=== PATIENT | female | born 1945 | race Caucasian/White ===

== ENCOUNTER 2022-09-25 14:27 | Outpatient (REF) | payer MEDICARE, SELFPAY ==
--- NOTE | 2022-09-28 08:53 | MHC.AU.ANO ---
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 Carissa reports she is asking others to repeat what was said more often and has trouble understanding dialogue on the television, music on the radio, so she increases the volume. In July 2022, Carissa went through 2 procedures for Deep Brain Stimulation and battery insertion . She notes her daughter questions if hearing ability decreased further following these procedures. Carissa has a history of Parkinson's and was seen by an ENT for a scope when undergoing LSVT voice therapy. Hearing was not assessed at that time. As a child, Carissa reports having ear problems which required a procedure using x-ray . She does not know the name of the procedure, but thinks it was performed on the left ear. Does patient feel they have a hearing loss?: Yes If Yes, Which Ear?: Both Ears When Was Hearing Difficulty First Noticed?: Approximately 8 years ago Has hearing been tested previously?: Yes Previous Hearing Test Results: [facility] 01/20/2016 Right ear - Normal hearing level at 250 Hz, sloping to a moderate sensorineural hearing loss with 96% speech understanding at 65 dB HL Left ear - Borderline normal/mild loss at 250 & 500 Hz, sloping to a moderate high frequency sensorineural hearing loss with 92% speech understanding at 70 dB HL Tympanometry revealed normal right middle ear function and significant negative middle ear pressure for the left ear. Hearing Handicap Inventory: HHIE SCORE: 34 Based on HHIE score, patient has: Severe perceived hearing handicap Ear History: Family History of Hearing Loss?: Yes: Sister Ear Infections in Childhood: Both Ears Previous Ear Surgery: Both Ears Bothersome Tinnitus/Ringing/Noises in Ears: Ear used on the phone: Right Ear Blocked/Full Sensation in Ear(s): Left Ear History of occupational noise exposure?: No History: No Medical History: Medical History: High Blood Pressure Medical History: Parkinson's Medication List: Eliquis, Captopril, Colace, Zoloft, Linzess, Metoprolol, Melatonin, Opicapone, Senna, Clonazapam, Carbadopa-Levadopa Otoscopy: Right Ear: Non-occluding cerumen Left Ear: Non-occluding cerumen Tympanometry: Tympanometry performed due to: To assess integrity of the middle ear system Right Ear: Normal Middle Ear System (Type A) Left Ear: Negative Middle Ear Pressure (Type C) with Reduced Middle Ear Compliance (Type As) Otoacoustic Emissions Not performed at today's visit. Hearing Evaluation: Transducer(s) Used: Insert Earphones, Bone Conduction Method: Conventional Audiometry Stimuli Used: Pure Tones Right Ear: Description of Hearing: Normal hearing level at 250 Hz, sloping to a moderate high frequency sensorineural hearing loss with 84% speech understanding at 75 dB HL in quiet Left Ear: Description of Hearing: Moderate/moderately-severe dropping to severe high frequency mixed hearing loss with 72% speech understanding at 85 dB HL in quiet QuickSIN: Binaural Quick SIN Score: 1 dB SNR Loss which falls within the normal range and suggests Carissa does not experience any more difficulty understanding speech with increasing levels of background noise than expected in this controlled test environment. Real world listening situations may be more difficult. Comparison: Compared to the most recent evaluation: Thresholds have decreased bilaterally. Middle ear dysfunction persists in the left ear. Word discrimination scores have decreased bilaterally. Interpretation of Results: Results indicate Carissa's hearing thresholds and speech discrimination has decreased compared to 2016. In particular, the left ear low and high frequencies have decreased up to 30 dB with conductive components now identified. With this significant asymmetric hearing loss, Carissa is not able to hear many sounds of speech which can greatly impact her daily communication. Recommendations: - Due to the asymmetric hearing loss and left middle ear dysfunction, advise referral to Ear, Nose, and Throat (ENT) specialist. - Trial with binaural amplification is recommended. - After obtaining medical clearance from the ENT, if Carissa would like to pursue hearing aids from this office, she may schedule a Hearing Aid Evaluation appointment. It is recommended she contact her insurance to determine if she has hearing aid benefits and which providers she may see. - Audiological re-evaluation in one year. Diagnosis: Primary Diagnosis: H90.6 Mixed Hearing Loss, Bilateral Secondary Diagnosis: H69.92 Unspecified Eustachian Tube Dysfunction, Left Ear Services Performed: Comprehensive Audiological Evaluation (CPT 40137) Tympanometry (CPT 74785) Unlisted Otorhinolaryngological Service or Procedure (CPT 89182) Signature: Provider: Wilbert Polo, [facility] COUNTYJose LuisA
--- NOTE | 2022-09-28 13:08 | MHC.AU.MED ---
Medical Clearance for Hearing Instrumentation Date: 09/26/22 Patient Name: Carissa Conti Date of : 1945 Primary Care Provider: Referring Provider: Justin Xavier MD We have seen your patient on 09/28/22 and have determined that they are a candidate for amplification (See accompanying report). Specifically, they would benefit from: Hearing aid use in both ears There is a statute that addresses Medical Evaluation Requirements prior to fitting a patient with a hearing aid. According to [place] statute 265 CMR:6.03(1), (a) General. Except as provided in 265 CMR 6.03(1)(b), a supervisor shearing shall not sell a hearing aid unless the prospective user has presented to the supervisor shearing a written statement signed by a licensed physician that states that the patient's hearing loss has been medically evaluated and the patient may be considered a candidate for a hearing aid. The medical evaluation must have taken place within the preceding six months. Please note: Due to the [place] Statute referenced above, we cannot accept a signature other than that of a licensed physician. DRILL BIT SHARPENER and PA signatures cannot be accepted. I am in agreement with the above recommendation. There is no medical contraindication for hearing instrumentation. Physician Signature Date Physician Name (Printed)
== END 2022-09-25 14:28 | disposition home or self-care (01) ==
LOC: HO.SH 14:27
PROVIDERS: Visit Provider Family Medicine
DX: H90.6 Mixed conductive and sensorineural hearing loss, bilateral (principal); H69.92 Unspecified Eustachian tube disorder, left ear
CPT/HCPCS: 92557; 92567; 92700

== ENCOUNTER 2024-05-06 21:06 | Inpatient (IN) | payer MEDICARE, SELFPAY ==
--- NOTE | ~2024-05-06 | CT_ITS ---
EXAMINATION: CT HEAD WITHOUT CONTRAST CT CERVICAL SPINE WITHOUT CONTRAST CLINICAL INFORMATION: Fall. COMPARISON: None available. TECHNIQUE: Contiguous axial imaging was performed through the head and cervical spine without intravenous administration of contrast. Sagittal and coronal reformatted images also obtained. This CT examination was performed using dose optimization techniques as appropriate, variously including the following: *Automated exposure control *Adjustment of mA and/or kV according to patient size (this includes techniques or standardized protocols for targeted exams where dose is matched to indication/reason for exam; i.e. extremities or head) *Use of iterative reconstruction technique DLP: 914 mGy-cm FINDINGS: Bilateral deep brain stimulator devices are seen with tips in the region of the inferior basal ganglia. There is mild cerebral volume loss with prominence of the lateral and third ventricles. The cortical sulci are widened appropriately. The fourth ventricle and basal cisterns are normally outlined. There is mild bilateral periventricular and central white matter diminished attenuation. There is no acute territorial defects, hemorrhage or midline shift. The extra-axial spaces are unremarkable. Calvarium/scalp: Intact. Maxillofacial sinuses and mastoids: Clear as visualized. Cervical spine: The alignment is normal. There is diffuse mild to moderate cervical disc degenerative change most pronounced at C6-7 with loss of disc space, endplate change and mild posterior osteophytes associated with mild diffuse facet osteoarthritic hypertrophic change without significant spinal canal or neuroforaminal narrowing. The bony structures are osteopenic. There is no evidence for fracture. The soft tissues are unremarkable. The visualized upper lung luna are clear. CT/CT head/brain wo IV con IMPRESSION: CT HEAD: 1. No acute intracranial process seen. 2. Mild cerebral volume loss and mild chronic small vessel ischemic changes. 3. Bilateral deep brain stimulator devices. CT CERVICAL SPINE: 1. Mild to moderate cervical spondylosis most pronounced at C6-7. 2. No acute fractures or subluxations. Electronically signed by: Carlos Lemus MD 05/06/2024 11:26 PM [facility]
--- NOTE | ~2024-05-06 | CT_ITS ---
EXAMINATION: CT PELVIS WITHOUT CONTRAST CLINICAL INFORMATION: Right hip pain COMPARISON: None available. TECHNIQUE: Helical scanning was performed with submillimeter collimation through the pelvis. Sagittal and coronal multiplanar 2-D reconstructions were obtained. This CT examination was performed using dose optimization techniques as appropriate, variously including the following: *Automated exposure control *Adjustment of mA and/or kV according to patient size (this includes techniques or standardized protocols for targeted exams where dose is matched to indication/reason for exam; i.e. extremities or head) *Use of iterative reconstruction technique DLP: 307 mGy-cm FINDINGS: There is a comminuted intertrochanteric fracture involving the right femur. There is superior subluxation of the distal fracture fragment and various angulation of the distal fragment. A intramedullary thelma and screw is present in the left femur. No other pelvic fracture is seen. There is marked generalized osteopenia. CT/CT pelvis wo IV con IMPRESSION: Comminuted intertrochanteric fracture right femur. Electronically signed by: Justin Lawrence MD 05/06/2024 10:57 PM [facility]
--- NOTE | ~2024-05-06 | XR_ITS ---
EXAMINATION: XR HIP, RIGHT CLINICAL INFORMATION: Injury. Pain and deformity. COMPARISON: None available. TECHNIQUE: Two views of the right hip. FINDINGS: Comminuted cortical disruption through the intertrochanteric region of the right femur resulting in upward position of the distal fragment. Femoral head and neck are intact. Metallic hardware through the left femur with old traumatic deformity intertrochanter region left femur. XR/XR hip RT w PEL1V IMPRESSION: Acute comminuted displaced intertrochanteric fracture, right femur. Electronically signed by: Guillaume Noyola MD 05/07/2024 10:17 AM [facility]
--- NOTE | ~2024-05-06 | XR_ITS ---
EXAMINATION: XR CHEST CLINICAL INFORMATION: Hip fracture. COMPARISON: None available. TECHNIQUE: Frontal view of the chest was obtained. FINDINGS: Neurostimulator device overlies the right hemithorax limiting visualization of the underlying lung. Neurostimulator leads courses upwards to the neck and terminate outside of the field of view. Diffuse interstitial thickening. Possible Ravin B-lines in the lateral left lung. No consolidation, pleural effusion or pneumothorax. Normal heart size. No acute osseous findings. XR/XR chest 1V IMPRESSION: Findings could indicate small airways disease with mild pulmonary edema, correlate clinically. No consolidation or pleural effusion. Electronically signed by: Kelli Queen MD 05/06/2024 11:51 PM [facility]
--- NOTE | ~2024-05-06 | CT_ITS ---
EXAMINATION: CT HEAD WITHOUT CONTRAST CT CERVICAL SPINE WITHOUT CONTRAST CLINICAL INFORMATION: Fall. COMPARISON: None available. TECHNIQUE: Contiguous axial imaging was performed through the head and cervical spine without intravenous administration of contrast. Sagittal and coronal reformatted images also obtained. This CT examination was performed using dose optimization techniques as appropriate, variously including the following: *Automated exposure control *Adjustment of mA and/or kV according to patient size (this includes techniques or standardized protocols for targeted exams where dose is matched to indication/reason for exam; i.e. extremities or head) *Use of iterative reconstruction technique DLP: 914 mGy-cm FINDINGS: Bilateral deep brain stimulator devices are seen with tips in the region of the inferior basal ganglia. There is mild cerebral volume loss with prominence of the lateral and third ventricles. The cortical sulci are widened appropriately. The fourth ventricle and basal cisterns are normally outlined. There is mild bilateral periventricular and central white matter diminished attenuation. There is no acute territorial defects, hemorrhage or midline shift. The extra-axial spaces are unremarkable. Calvarium/scalp: Intact. Maxillofacial sinuses and mastoids: Clear as visualized. Cervical spine: The alignment is normal. There is diffuse mild to moderate cervical disc degenerative change most pronounced at C6-7 with loss of disc space, endplate change and mild posterior osteophytes associated with mild diffuse facet osteoarthritic hypertrophic change without significant spinal canal or neuroforaminal narrowing. The bony structures are osteopenic. There is no evidence for fracture. The soft tissues are unremarkable. The visualized upper lung luna are clear. CT/CT cervical spine wo IV con IMPRESSION: CT HEAD: 1. No acute intracranial process seen. 2. Mild cerebral volume loss and mild chronic small vessel ischemic changes. 3. Bilateral deep brain stimulator devices. CT CERVICAL SPINE: 1. Mild to moderate cervical spondylosis most pronounced at C6-7. 2. No acute fractures or subluxations. Electronically signed by: Carlos Lemus MD 05/06/2024 11:26 PM [facility]
[2024-05-06 21:13] VITALS: BP 168/94; PULSE 72; O2SAT 98
[2024-05-06 21:29] VITALS: BMI 19.6
[2024-05-06 21:30] VITALS: BP 155/86; PULSE 72; RESP 18; TEMP 36.3; O2SAT 94
--- NOTE | 2024-05-06 22:41 | ECG_ITS ---
Test Reason : cp Blood Pressure : / mmHG Vent. Rate : 085 BPM Atrial Rate : 000 BPM P-R Int : 000 ms QRS Dur : 180 ms QT Int : 568 ms P-R-T Axes : 000 -22 -22 degrees QTc Int : 675 ms Wide QRS rhythm Non-specific intra-ventricular conduction block Minimal voltage criteria for LVH, may be normal variant ( Alexi product ) Inferior infarct , age undetermined Abnormal ECG No previous ECGs available Referred By: Tg Ontiveros Electronically Signed By:
--- NOTE | 2024-05-06 22:42 | ED.FALL ---
HPI - Fall General Chief Complaint: Fall Stated Complaint: fall, r hip pain Time Seen by Provider: 05/06/24 21:31 History of Present Illness HPI Narrative: Patient is a 79-year-old female lives in [place] had an unwitnessed fall in the bathroom. Patient was trying to get up not use her walker. Subsequently fell. Hit her right hip. Has a history of atrial fibrillation currently is on Eliquis. Patient unable to give detailed history. Complaining of pain localized to the right hip area. Unsure patient hit her head. Related Data Allergies Allergy/AdvReac Type Severity Reaction Status Date / Time No Known Allergies Allergy Verified 05/06/24 21:31 Review of Systems Review of Systems: Positive pain to the right hip Yes all other systems are reviewed and are negative [facility] Past Medical History Attestation statement: The following information was validated with the patient. Social History Social History Advance Directives: Yes Advance Directives Information Provided: Yes Advance Directives on File: No Do you have a plan to hurt others: No Plan Physical Exam Vital Signs: Vital Signs: Last Vital Signs Temp 97.9 F 05/07/24 00:00 Pulse 81 05/07/24 00:00 Resp 16 05/07/24 00:18 BP 159/96 H 05/07/24 00:00 Pulse Ox 96 05/07/24 00:00 O2 Del Method Room Air 05/07/24 00:00 BMI result Body Mass Index 19.6 Appearance: Alert. Oriented X3. No acute distress. Eyes: Pupils equal, round and reactive to light. ENT: Pharynx normal. Neck: Normal inspection. Neck supple. No lymph nodes noted. No crepitus CVS: Normal heart rate and rhythm. Pulses normal. Normal S1 and S2 Respiratory: No respiratory distress. Breath sounds normal. No Wheezing. No rales Abdomen: Soft and nontender. No rigidity. No distention. good BS x4 Skin: Skin warm and dry. Normal skin color. Normal skin turgor. Extremities: Right lower extremity externally rotated. Shortened. There is good pulses distally. Sensation grossly intact. Extreme pain on movement. Neuro: Oriented X 3. No motor deficit. No sensory deficit. Moving all extermities. No slurred speech Medications Administered Discontinued Medications Generic Name Dose Route Start Last Admin Trade Name Melissa PRN Reason Stop Dose Admin Hydromorphone HCl 0.25 mg 05/06/24 22:41 05/06/24 22:55 Hydromorphone Hcl 0.5 Mg/0.5 Ml Syringe IVPUSH 05/06/24 22:42 0.25 mg ONCE ONE Administration Protocol Hydromorphone HCl 0.25 mg 05/06/24 23:40 05/07/24 00:18 Hydromorphone Hcl 0.5 Mg/0.5 Ml Syringe IVPUSH 05/06/24 23:41 0.25 mg ONCE ONE Administration Protocol Medical Decision Making Medical Decision Making [facility] Narrative: My interpretation of patient's pelvis CT was positive for having inter trochanteric fracture of the right hip. Labs ordered. Pain medication ordered. 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 05/07/24 00:30 05/07/24 00:30 Labs: Lab Results 05/07/24 Range/Units 00:30 WBC 10.5 (4.8-10.8) X10*3/uL RBC 3.89 L (4.20-5.50) X10*6/uL Hgb 12.3 (12.0-16.0) g/dl Hct 36.1 L (37.0-47.0) % MCV 92.8 (80.0-98.0) fL MCH 31.6 (27.0-33.0) pg MCHC 34.1 (31.0-35.0) g/dl RDW 13.1 (11.0-16.0) % Plt Count 272 (160-400) X10*3/uL MPV 8.4 L (9.4-12.3) fL Immature Gran % (Auto) 0.4 (0.0-0.4) % Neut % (Auto) 85.7 H (45-73) % Lymph % (Auto) 6.9 L (20-40) % [place] % (Auto) 6.6 (2-11) % Eos % (Auto) 0.2 (0-4) % Baso % (Auto) 0.2 (0-2) % Lymph # (Auto) 0.7 L (1.2-4.9) X10*3/uL [place] # (Auto) 0.7 (0.1-1.2) X10*3/uL Eos # (Auto) 0.0 (0.0-0.4) X10*3/uL Baso # (Auto) 0.0 (0.0-0.2) X10*3/uL Abs Immat Gran (auto) 0.04 H (0.00-0.03) X10*3/uL Absolute Neuts (auto) 9.0 H (2.0-8.3) x10*3/uL Absolute Nucleated RBC 0.000 (0.0-0.012) X10*3/uL Nucleated RBC % (auto) 0.0 (0.0-0.2) /100WBC Sodium 139 (135-145) mmol/L Potassium 3.9 (3.3-5.1) mmol/L Chloride 105 (96-108) mmol/L Carbon Dioxide 23 (22-29) mmol/L Anion Gap 15 (12-20) BUN 12 (9-16) mg/dL Creatinine 0.56 (0.5-1.4) mg/dL Estim Creat Clear Calc 68.6 Estimated GFR > 60 Random Glucose 116 H (60-115) mg/dL Calcium 9.2 (8.4-10.2) mg/dL Independent Interpretation I performed an independent interpretation of an: CT Scan (CT scan of the hip showed intertrochanteric fracture. CT scan of the head was grossly negative for any acute evidence of bleeding.) Radiology Impression Discussion of test interpretation with radiology: I have reviewed the radiologist's reading. Radiologist Impression: Radiology reading of the CT head, CT C-spine were negative for any acute evidence of bleeding no acute evidence of fracture Discharge Plan Discharge Clinical Impression: Closed hip fracture Patient Disposition: Admitted As Inpatient Print Language: Tongan
[2024-05-06 22:55] VITALS: RESP 16
[2024-05-06] MEDS: HYDROmorphone HCl 0.5 MG/0.5 ML SYRINGE 0.25 MG IVPUSH (22:55)
--- NOTE | 2024-05-06 23:30 | PC.NURSE ---
This publicity writer assumed care of this Pt at 2300. Pt A&Ox3, reports 710 right hip pain. Pt moved into room and changed over to hospital attire. Daughter and grandson at bedside.
[2024-05-07] VITALS (12 sets, daily range): BP systolic 97–193; BP diastolic 60–113; PULSE 72–144; RESP 12–20; TEMP 36–36.6; O2SAT 94–98; BMI 19.6
[2024-05-07] MEDS: HYDROmorphone HCl 0.5 MG/0.5 ML SYRINGE 0.25 MG IVPUSH ×2 (00:18→04:44)
--- OUTSIDE RECORDS SUMMARY | 2024-05-07 00:24 | XMS_ITS | Continuity of Care Document ---
Author Organization [facility] Saul Josef Address [address] [place] [id number]- Care Team Providers Care Arabic Translator Name Role Phone Siva Austin Primary Care Physi miranda [place] [facility] [place] [address] [place] [address]- Encounter Diagnosis Parkinson disease(Discharge Diagnosis) - 11/15/22 Encounter to establish care with new doctor(Discharge Diagnosis) - 11/15/22 Atrial flutter(Discharge Diagnosis) - 11/15/22 Supine hypertension(Discharge Diagnosis) - 11/15/22 Orthostatic hypotension due to Parkinson's disease(Discharge Diagnosis) - 11/15/22 Attending Physician: Pj Garvey MD Referring Physician: Siva Austin Allergies, Adverse Reactions, Alerts Substance Reaction Severity Status Bactrim 1 Active 1Neuropathy in feet. Immunizations Given and Recorded Vaccine Date Status Refusal Reason influenza virus vaccine, inactivated 04/19/22 Jakub rded influenza virus vaccine, inactivated 03/16/21 Jakub rded influenza virus vaccine, inactivated 04/17/20 Jakub rded influenza virus vaccine, inactivated 04/16/19 Jakub rded influenza virus vaccine, inactivated 05/08/18 Jakub rded influenza virus vaccine, inactivated 05/17/16 Jakub rded influenza virus vaccine, inactivated 07/22/15 Jakub rded influenza virus vaccine, inactivated 04/02/14 Jakub rded influenza virus vaccine, inactivated 04/25/13 Jakub rded influenza virus vaccine, inactivated 03/25/12 Jakub rded influenza virus vaccine, inactivated 03/20/11 Jakub rded influenza virus vaccine, inactivated 04/21/10 Jakub rded influenza virus vaccine, inactivated 03/12/09 Jakub rded [id number] 12y+ bivalent booster vax 03/17/22 Recorded SARS-CoV-2 (COVID-19) mRNA-1273 vaccine 12/13/21 R ecorded zoster vaccine, inactivated 10/18/21 Recorded zoster vaccine, inactivated 08/16/21 Recorded SARS-CoV-2 (COVID-19) mRNA BNT-162b2 vac 04/05/21 Recorded SARS-CoV-2 (COVID-19) mRNA BNT-162b2 vac 08/29/20 Recorded SARS-CoV-2 (COVID-19) mRNA BNT-162b2 vac 07/29/20 Recorded tetanus-diphtheria toxoids (Td) 04/14/15 Recorded tetanus-diphtheria toxoids (Td) 03/20/05 Recorded pneumococcal 13-valent vaccine 04/14/15 Recorded pneumococcal 23-valent vaccine 04/25/13 Recorded Zoster Vaccine Live 03/12/09 Recorded Medications apixaban 5 mg oral tablet 1 tablet = 5 mg, By Mouth, 2 times a day, # 60 tablet, 0 Refills, Maintenance, 11/15/22 10:18:00 EDT, Tablet, Partial fill upon patient request if the prescription is for a schedule II opioid drug. Start Date: 11/15/22 Status: Ordered captopril 12.5 mg oral tablet 12.5 mg, 1, tablet, By Mouth, 3 times a day, Refills 0, Maintenance, 11/15/22 10:18:00 EDT, Partialfill upon patient request if the prescription is for a schedule II opioid drug. Start Date: 11/15/22 Status: Ordered carbidopa-levodopa 25 mg-100 mg oral tablet 1 tablet, By Mouth, 3 times a day, 0 Refills, Maintenance, 11/15/22 10:19:00 EDT, Partial fill uponpatient request if the prescription is for a schedule II opioid drug. Start Date: 11/15/22 Status: Ordered clonazePAM 0.5 mg oral tablet 1 tablet = 0.5 mg, By Mouth, 3 times a day, 0 Refills, Maintenance, 11/15/22 10:20:00 EDT, Partial fill upon patient request if the prescription is for a schedule II opioid drug. Start Date: 11/15/22 Status: Ordered docusate sodium 100 mg oral capsule 100 mg, 1, capsule, By Mouth, 2 times a day, PRN, # 20 capsule, Refills 0, Maintenance, for constipation, 11/15/22 10:33:00 EDT, Partial fill upon patient request if the prescription is for a schedule II opioid drug. Start Date: 11/15/22 Status: Ordered estradiol 10 mcg vaginal tablet 1 tablet = 10 mcg, Vaginally, Daily at bedtime, 0 Refills, Maintenance, 11/15/22 10:34:00 EDT, Partial fill upon patient request if the prescription is for a schedule II opioid drug. Start Date: 11/15/22 Status: Ordered Melatonin Daily at bedtime, 0 Refills, Maintenance, 11/15/22 10:35:00 EDT, Partial fill upon patient request if the prescription is for a schedule II opioid drug. Start Date: 11/15/22 Status: Ordered Metoprolol Tartrate 25 mg oral tablet 1 tablet = 25 mg, By Mouth, 2 times a day, # 60 tablet, 0 Refills, Maintenance, 11/15/22 10:35:00 EDT, Tablet, Partial fill upon patient request if the prescription is for a schedule II opioid drug. Start Date: 11/15/22 Status: Ordered Multivitamin Daily, 0 Refills, Maintenance, 11/15/22 10:42:00 EDT, Partial fill upon patient request if the prescription is for a schedule II opioid drug. Start Date: 11/15/22 Status: Ordered Ongentys 50 mg oral capsule 1 capsule = 50 mg, By Mouth, Daily at bedtime, 0 Refills, Maintenance, 11/15/22 10:36:00 EDT, Partial fill upon patient request if the prescription is for a schedule II opioid drug. Start Date: 11/15/22 Status: Ordered PreserVision AREDS 2 oral capsule 0 Refills, Maintenance, 11/15/22 10:37:00 EDT, Partial fill upon patient request if the prescription is for a schedule II opioid drug. Start Date: 11/15/22 Status: Ordered Senna 8.6 mg oral tablet 8.6 mg, 1, tablet, By Mouth, Daily at bedtime, Refills 0, Maintenance, 11/15/22 10:37:00 EDT, Partial fill upon patient request if the prescription is for a schedule II opioid drug. Start Date: 11/15/22 Status: Ordered sertraline 50 mg oral tablet 1 tablet = 50 mg, By Mouth, Daily, 0 Refills, Maintenance, 11/15/22 10:38:00 EDT, Partial fill uponpatient request if the prescription is for a schedule II opioid drug. Start Date: 11/15/22 Status: Ordered Vitamin D3 2000 intl units oral capsule 1 capsule = 50 mcg, By Mouth, Daily, # 60 capsule, 0 Refills, Maintenance, 11/15/22 10:20:00 EDT, Capsule, Partial fill upon patient request if the prescription is for a schedule II opioid drug. Start Date: 11/15/22 Status: Ordered Problem List Condition Confirmation Course Effective Dates Status Health St atus Informant Orthostatic hypotension due to Parkinson's disease Confirmed Active Parkinson disease Confirmed Active Supine hypertension Confirmed Active Diagnosis Diagnosis Type Effective Dates Health Status Clinical Service Informant Parkinson disease Discharge Diagnosis 11/15/22 Encounter to establish care with new doctor Discharge Diagnosis 11/15/22 Atrial flutter Discharge Diagnosis 11/15/22 Supine hypertension Discharge Diagnosis 11/15/22 Orthostatic hypotension due to Parkinson's disease Discharge Diagnosis 11/15/22 Procedures Procedure Date Related Diagnosis Body Site Status Cholecystectomy - 2002 Co mpleted DBS - Deep brain stimulation 1 Completed 1Date of Procedure 07/06/2022 Vital Signs Most recent to oldest [Reference Range]: 1 Height 157.48 cm (11/15/22 9:22 AM) Weight 46.9 kg (11/15/22 9:22 AM) Oxygen Saturation [94-100 %] 97 % (11/15/22 9:22 AM) Pulse Rate [55-90 bpm] 92 bpm *H* (11/15/22 9:22 AM) Body Mass Index [18.5-24.99 kg/m2] 18.91 kg/m2 (11/15/22 9:22 AM) Blood Pressure [90-138/55-84 mm Hg] 102/ 60mm Hg (11/15/22 9:22 AM) Temperature [96.8-100.4 DegF] 97.5 DegF (11/15/22 9:22 AM) Mode of Delivery (Oxygen) Room air (11/15/22 9:22 AM) Blood pressure sites Arm, right (11/15/22 9:22 AM) Temperature Route Temporal (11/15/22 9:22 AM) Weight Obtained Via Standing scale (11/15/22 9:22 AM) Social History Social History Type Response Smoking Status Never (less than 100 in lifetime) entered on: 11/15/22 Sex Note * Xochitl Guajardo: PERFORM, SIGN, VERIFY Event Display: Patient Education/Instruction Authored Date: [id number] [facility] *BMP So Saul Martinez Clinical Summary Name JACQUES ISABEL Age 77 Years 1945 PCP Siva Austin PCP Visit Date 11/15/2022 09:20:00 Additional Instructions: Scheduled Appointments?? Future Appointments ?No Future Appointments Scheduled Follow-Up Instructions ?? With: Address: When: Siva Austin Within 2 to 5 weeks Comments: 40 mins return Diagnosis Parkinson's disease Medications: Please continue your medications until treatment is completed or stopped by your provider. Discuss any questions related to medications with your provider. Medications to Continue with No Changes These medications were not printed or sent to your pharmacy apixaban (apixaban 5 mg oral tablet) 1 tab(s) Oral twice a day. Next Dose: Captopril (captopril 12.5 mg oral tablet) 1 tab(s) Oral 3 times a day. Next Dose: Carbidopa-Levodopa (carbidopa-levodopa 25 mg-100 mg oral tablet) 1 tab(s) Oral 3 times a day. Next Dose: Cholecalciferol (Vitamin D3 2000 intl units oral capsule) 1 capsule Oral Daily. Next Dose: Clonazepam (clonazePAM 0.5 mg oral tablet) 1 tab(s) Oral 3 times a day. Next Dose: Docusate (docusate sodium 100 mg oral capsule) 1 capsule Oral twice a day as needed for constipation. Next Dose: Estradiol Topical (estradiol 10 mcg vaginal tablet) 1 tab(s) Vaginally Daily at Bedtime. Next Dose: Melatonin Daily at Bedtime. Next Dose: Metoprolol (Metoprolol Tartrate 25 mg oral tablet) 1 tab(s) Oral twice a day. Next Dose: Multivitamin Daily. Next Dose: Multivitamin With Minerals (PreserVision AREDS 2 oral capsule) Next Dose: opicapone (Ongentys 50 mg oral capsule) 1 capsule Oral Daily at Bedtime. Next Dose: Senna (Senna 8.6 mg oral tablet) 1 tab(s) Oral Daily at Bedtime. Next Dose: Sertraline (sertraline 50 mg oral tablet) 1 tab(s) Oral Daily. Next Dose: Allergy Info:?? Bactrim Medications Given This Visit Future Orders ?No future orders Vital Signs Height 157.48 cm Weight 46.9 kg BMI 18.91 kg/m2 Blood Pressure 102 mm Hg/60 mm Hg Temperature 97.5 DegF Pulse Rate 92 bpm Respiratory Rate 02 Sat Mode of Delivery 97 %/Room air You can now view a summary of your hospital visit from the comfort of your home through a free online portal called [employer]. [employer] is a website that allows you to securely view your medical information including discharge summary, medications and follow-up visits. ??You can alsosend a secure electronic message to your doctor???s office to request appointments, renew medications or just ask a question. You can enroll at [email or web address] or register during your next office visit. Disclaimer:?? The information provided is of a general nature and is intended to be used in conjunction with the recommendations and advice of your health care practitioner. ??Every effort has been made to ensure that the information provided is accurate and complete at the time it is provided to you however, as your needs change, or, as new ??information becomes available, different or additional instructions may be required. If you have questions, please consult with your primary care provider or pharmacist, as appropriate. ??This information is not intended to serve as substitution for assessment and evaluation by a qualified health care provider. If you do not have a primary care provider, you may find a [facility] provider by calling [facility] at [phone]. For information about the plan of care including goals and instructions for your diagnosis, please see the patient education orders section of this document. Patient Education Materials?? The content of this educational material or handout may have been modified, supplemented, or adapted from its original content and format to support your individualized medical care. Patient Care team information Care Team Personnel Name: Siva Austin Position: [facility] PCO Associate Professional Member Role: PCP Address: Address: [address] [place] [address]- Care Team Related Persons Name: OSCAR CHONG Address: home [address] [place] [address] Name: BURKE CABRERA Address: [address] [place] [address] Name: EMMANUEL HANCOCK Address: home [address] [place] [address]
--- OUTSIDE RECORDS SUMMARY | 2024-05-07 00:24 | XMS_ITS | Continuity of Care Document ---
Author Organization 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 Name Role Phone Siva Austin Primary Care Physi miranda Encounter [facility] Date(s): 01/06/23 - 01/10/[address] [address]- Encounter Diagnosis Intertrochanteric fracture of left hip(Final) - 01/06/23 Discharge Disposition: Transferred to short-term general hospit Attending Physician: Marco Antonio ROGERS, Abebe Cameron Admitting Physician: Na ROGERS, Steffanie Law Referring Physician: Not on Staff, Referring MD Allergies, Adverse Reactions, Alerts Substance Reaction Severity [...] influenza virus vaccine, inactivated 03/12/09 Jakub rded [id number] 12y+ bivalent booster vax 03/17/22 Recorded SARS-CoV-2 [...] Recorded Zoster Vaccine Live 03/12/09 Recorded Medications Acetaminophen Tablet 650 mg, Tablet, By Mouth, 01/10/23 11:00:00 EDT Start Date: 01/10/23 Stop Date: 01/10/23 Status: Completed apixaban 5 mg oral tablet 1 tablet = 5 mg, By Mouth, 2 times a day, # 60 tablet, 0 Refills, Maintenance, 11/15/22 10:18:00 EDT, Tablet, Partial fill upon patient request if the prescription is for a schedule II opioid drug. Start Date: 11/15/22 Status: Ordered captopril 12.5 mg oral tablet 37.5 mg, 3, tablet, By Mouth, Daily at bedtime, Refills 0, Maintenance, 11/15/22 10:18:00 EDT, Partial fill upon patient request if the prescription is for a schedule II opioid drug. Start Date: 11/15/22 Status: Ordered carbidopa-levodopa 25 mg-100 mg oral tablet See Instructions, 2 tabs at 5: 30 am , 1.5 tab at 8 am , 2 tabs at 10:30 am , 1.5 tablet at 1 pm , 2 tablet at 3:30 pm , 2 tablet at 5: 30 and 1-2 tablet6 at night as needed, 0 Refills, Maintenance, 11/15/22 10:19:00 EDT, Partial fill upon patient re... Start Date: 11/15/22 Status: Ordered clonazePAM 0.5 mg oral tablet 1.5 tablets, Daily at bedtime, 0 Refills, Maintenance, 01/10/23 10:10:00 EDT, Tablet, Partial fill upon patient request if the prescription is for a schedule II opioid drug. Start Date: 01/10/23 Status: Ordered docusate sodium 100 mg oral [...] drug. Start Date: 11/15/22 Status: Ordered Melatonin = 10 mg, By Mouth, Daily at bedtime, 0 Refills, Maintenance, 11/15/22 10:35:00 EDT, Partial fill upon patient request if the prescription is for a schedule II opioid drug. Start Date: 11/15/22 Stop Date: 01/24/23 Status: Ordered Metoprolol Tartrate 25 mg oral [...] 50 mg, By Mouth, Daily at bedtime, 1 hour before or after eating, 0 Refills, Maintenance, 11/15/22 10:36:00 EDT, Partial fill upon patient request if the prescription is for a schedule IIopioid drug. Start Date: 11/15/22 Status: Ordered oxyCODONE 5 mg oral tablet 2.5 mg, By Mouth, Every 6 hours, PRN, for 7 days, # 14 tablet, Refills 0, Tot. Refills 0, Acute 01/17/23 12:01:00 EDT, Pain , Mild, 01/10/23 12:01:00 EDT, Print Requisition, Partial fill upon patientrequest if the prescription is for a schedule II op... Start Date: 01/10/23 Stop Date: 01/17/23 Status: Ordered oxyCODONE 5 mg oral tablet 2.5 mg, Tablet, By Mouth, Every 6 hours, PRN for Pain , Mild, Routine, 01/07/23 16:17:00 EDT Start Date: 01/07/23 Stop Date: 01/11/23 Status: Discontinued PreserVision AREDS 2 oral capsule 0 Refills, [...] disease Confirmed Active Supine hypertension Confirmed Active Results Radiology Reports * Exam Date Time Procedure Performing Provider Status 01/07/23 9:31 AM XR Hip Comp 2 Views Left Cyndy Molina; Auth (Verified) Notes: (XR Hip Comp 2 Views Left) Reason For Exam: fx lt hip RESULT: Hip Comp 2 Views Left Hip Comp 2 Views Left Reason: fx lt hip COMPARISON: 01/06/2023. FINDINGS: 8 intraoperative views demonstrate open reduction internal fixation of left intertrochanteric fracture with intact hardware. IMPRESSION: Status post ORIF of left intertrochanteric fracture with intact hardware. WSN: [id number] Ordering Physician: Gray Oreilly Dictated By: Maria Del Carmen Chapman MD Dictated Date/Time: 01/07/23 9:39 am Reviewed By: Maria Del Carmen Chapman MD Signed By: Maria Del Carmen Chapman MD Signed Date/Time: 01/07/23 9:39 am Transcribed By: CODY Transcribed Date/Time: 01/07/23 9:37 am * Exam Date Time Procedure Performing Provider Status 01/06/23 7:[address] Cervical Spine W/O Contrast Ricky Mcgill; Auth (Verified) Notes: (CT Cervical Spine W/O Contrast) Reason For Exam: Neck trauma, dangerous injury mechanism;Other: RESULT: CT Cervical Spine W/O Contrast CT Head/Brain W/O Contrast, CT Cervical Spine W/O Contrast INDICATION: Fall, concern for head trauma. TECHNIQUE: Noncontrast head CT using axial technique was reconstructed in axial and coronal planes.Noncontrast spiral CT through the cervical spine was formatted in 3 planes. Automatic tube modulation was used for the cervical spine and iterative dose reconstruction was used for both the head and cervical spine to optimize scan parameters and image quality. CTDIvol Body: 9.40 mGy, DLP Body: 258 mGy*cm. CTDIvol Head: 39.70 mGy, DLP Head: 672 mGy*cm. COMPARISON: 01/30/2017. FINDINGS: Overlying artifact limits evaluation. [address] Vendor View Findings, Lines and Tubes: Bilateral deep brain stimulators present. BRAIN AND EXTRA-AXIAL SPACES: No parenchymal hemorrhage, midline shift, or mass effect. Calero-white matter differentiation is wellpreserved. No acute infarct. Negative insular ribbon sign. Mild atherosclerotic vascular calcification of the carotid arteries but negative hyperdense vessel sign. Mild prominence of the ventricles and sulci consistent with parenchymal volume loss. Mild low-density white matter changes. No subarachnoid hemorrhage. No subdural or epidural collection. CALVARIUM, SKULL BASE, AND SOFT TISSUES: No fractures or suspicious bony lesions. Bilateral frontal bore holes for deep brain stimulators. The paranasal sinuses and mastoid air cells are clear. Status-post bilateral lens extraction. The extracranial soft tissues are unremarkable. CERVICAL SPINE: No fracture. No acute osseous abnormalities. Normal alignment. No locked or perched facet. Mild multilevel degenerative disc space narrowing andend plate irregularity, most prominent at C6-C7. OTHER BONES: No acute abnormality. CERVICAL SOFT TISSUES AND LUNG APICES: No thyroid nodules warranting further follow-up imaging.. Mild biapical scarring of the lungs, similar to prior. IMPRESSION: Limited evaluation secondary to overlying artifact. 1. Within the limitations, no acute intracranial abnormality. 2. Mild degenerative changes of the cervical spine with no acute fracture or osseous abnormality. I have personally reviewed the images and I agree with this report. WSN: [id number] Ordering Physician: Aby Dickinson Dictated By: Anastacio Rm MD Dictated Date/Time: 01/06/23 7:46 am Reviewed By: Hedy Bolivar MD Signed By: Hedy Bolivar MD Signed Date/Time: 01/06/23 7:51 am Transcribed By: CODY Transcribed Date/Time: 01/06/23 7:28 am * Exam Date Time Procedure Performing Provider Status 01/06/23 7:[address] Head/Brain W/O Contrast Celestine Mcgill ; Anmol (Verified) Notes: (CT Head/Brain W/O Contrast) Reason For Exam: Trauma RESULT: CT Head/Brain W/O Contrast CT Head/Brain W/O Contrast, CT Cervical Spine W/O Contrast INDICATION: Fall, concern for head trauma. TECHNIQUE: Noncontrast head CT using axial technique was reconstructed in axial and coronal planes.Noncontrast spiral CT through the cervical spine was formatted in 3 planes. Automatic tube modulation was used for the cervical spine and iterative dose reconstruction was used for both the head and cervical spine to optimize scan parameters and image quality. CTDIvol Body: 9.40 mGy, DLP Body: 258 mGy*cm. CTDIvol Head: 39.70 mGy, DLP Head: 672 mGy*cm. COMPARISON: 01/30/2017. FINDINGS: Overlying artifact limits evaluation. [address] V[employer] View Findings, Lines and Tubes: Bilateral deep brain stimulators present. BRAIN AND EXTRA-AXIAL SPACES: No parenchymal hemorrhage, midline shift, or mass effect. Calero-white matter differentiation is wellpreserved. No acute infarct. Negative insular ribbon sign. Mild atherosclerotic vascular calcification of the carotid arteries but negative hyperdense vessel sign. Mild prominence of the ventricles and sulci consistent with parenchymal volume loss. Mild low-density white matter changes. No subarachnoid hemorrhage. No subdural or epidural collection. CALVARIUM, SKULL BASE, AND SOFT TISSUES: No fractures or suspicious bony lesions. Bilateral frontal bore holes for deep brain stimulators. The paranasal sinuses and mastoid air cells are clear. Status-post bilateral lens extraction. The extracranial soft tissues are unremarkable. CERVICAL SPINE: No fracture. No acute osseous abnormalities. Normal alignment. No locked or perched facet. Mild multilevel degenerative disc space narrowing andend plate irregularity, most prominent at C6-C7. OTHER BONES: No acute abnormality. CERVICAL SOFT TISSUES AND LUNG APICES: No thyroid nodules warranting further follow-up imaging.. Mild biapical scarring of the lungs, similar to prior. IMPRESSION: Limited evaluation secondary to overlying artifact. 1. Within the limitations, no acute intracranial abnormality. 2. Mild degenerative changes of the cervical spine with no acute fracture or osseous abnormality. I have personally reviewed the images and I agree with this report. WSN: [id number] Ordering Physician: Aby Dickinson Dictated By: Anastacio Rm MD Dictated Date/Time: 01/06/23 7:46 am Reviewed By: Hedy Bolivar MD Signed By: Hedy Bolivar MD Signed Date/Time: 01/06/23 7:51 am Transcribed By: CODY Transcribed Date/Time: 01/06/23 7:28 am * Exam Date Time Procedure Performing Provider Status 01/06/23 12:59 AM Pelvis 1 or 2 Views Hedy Yeager; [facility] (Verified) Notes: (Pelvis 1 or 2 Views) Reason For Exam: With Pain;Trauma RESULT: Pelvis 1 or 2 Views Femur 2 Views Left, Pelvis 1 or 2 Views INDICATION: Hx of Present Illness: Fall, L Leg pain, swelling, deformity; Reason: Trauma; Clinical Question(s): Fracture Fracture COMPARISON: None TECHNIQUE: AP view of the pelvis. AP and lateral projections of the left femur. FINDINGS: There is a comminuted impacted intertrochanteric fracture of the left femur. The left femoral head remains articulated with the acetabulum. No mid or distal femoral fracture. No hip or knee dislocation. No pelvic or pubic bone fracture. Sacrum is obscured by overlapping bowel gas and stool. There is mild joint space narrowing at both hips. IMPRESSION: Impacted comminuted intertrochanteric left femoral fracture. No mid or distal femoral fracture. No hip or knee dislocation. No pelvic or pubic bone fracture. Sacrum poorly seen due to bowel gas and stool. WSN: [id number] Ordering Physician: Aby Dickinson Dictated By: David Lewis MD Dictated Date/Time: 01/06/23 7:10 am Reviewed By: David Lewis MD Signed By: David Lewis MD Signed Date/Time: 01/06/23 7:10 am Transcribed By: CODY Transcribed Date/Time: 01/06/23 7:08 am * Exam Date Time Procedure Performing Provider Status 01/06/23 12:59 AM XR Femur 2 Views Left Hedy Yeager; Auth (Verified) Notes: (XR Femur 2 Views Left) Reason For Exam: Trauma RESULT: Femur 2 Views Left Femur 2 Views Left, Pelvis 1 or 2 Views INDICATION: Hx of Present Illness: Fall, L Leg pain, swelling, deformity; Reason: Trauma; Clinical Question(s): Fracture Fracture COMPARISON: None TECHNIQUE: AP view of the pelvis. AP and lateral projections of the left femur. FINDINGS: There is a comminuted impacted intertrochanteric fracture of the left femur. The left femoral head remains articulated with the acetabulum. No mid or distal femoral fracture. No hip or knee dislocation. No pelvic or pubic bone fracture. Sacrum is obscured by overlapping bowel gas and stool. There is mild joint space narrowing at both hips. IMPRESSION: Impacted comminuted intertrochanteric left femoral fracture. No mid or distal femoral fracture. No hip or knee dislocation. No pelvic or pubic bone fracture. Sacrum poorly seen due to bowel gas and stool. WSN: [id number] Ordering Physician: Aby Dickinson Dictated By: David Lewis MD Dictated Date/Time: 01/06/23 7:10 am Reviewed By: David Lewis MD Signed By: David Lewis MD Signed Date/Time: 01/06/23 7:10 am Transcribed By: CODY Transcribed Date/Time: 01/06/23 7:08 am Vital Signs Most recent to oldest [Reference Range]: 1 2 3 Height 159 cm (01/10/23 6:59 AM) 159 cm (01/10/23 5:32 AM) 159 cm (01/09/23 8:24 PM) Weight 48 kg (01/07/23 7:16 AM) 48 kg (01/06/23 7:28 AM) 48 kg (01/06/23 6:36 AM) Oxygen Saturation [94-100 %] 99 % (01/10/23 6:59 AM) 99 % (01/10/23 5:32 AM) 100 % (01/09/23 8:24 PM) Pulse Rate [55-90 bpm] 86 bpm (01/10/23 6:59 AM) 90 bpm (01/10/23 5:32 AM) 109 bpm *H* (01/09/23 8:24 PM) Body Mass Index [18.5-24.99 kg/m2] 18.99 kg/m2 (01/07/23 7:16 AM) 18.99 kg/m2 (01/06/23 7:28 AM) 18.99 kg/m2 (01/06/23 6:36 AM) Blood Pressure [90-138/55-84 mm Hg] 151/82mm Hg *H* (01/10/23 6:59 AM) 157/87mm Hg *H* (01/10/23 5:32 AM) 102/63mm Hg (01/09/23 8:24 PM) Respiratory Rate [16-30 br/min] 16 br/min (01/10/23 12:15 PM) 16 br/min (01/10/23 10:15 AM) 16 br/min (01/10/23 9:15 AM) Temperature [96.8-100.4 DegF] 97.9 DegF (01/10/23 6:59 AM) 98.3 DegF (01/10/23 5:32 AM) 98.0 DegF (01/09/23 8:24 PM) Liters per Minute 6 L/min (01/07/23 9:45 AM) 6 L/min (01/07/23 9:40 AM) Mode of Delivery (Oxygen) Room air (01/10/23 6:59 AM) Room air (01/10/23 5:32 AM) Room air (01/09/23 8:24 PM) Blood pressure sites Arm, left (01/10/23 6:59 AM) Arm, left (01/10/23 5:32 AM) Arm, right (01/09/23 8:24 PM) Temperature Route Oral (01/10/23 6:59 AM) Oral (01/10/23 5:32 AM) Oral (01/09/23 8:24 PM) Weight Obtained Via Patient/family state d (01/05/23 11:37 PM) Social History Social History Type Response Smoking Status Never (less than 100 in lifetime) entered on: 11/15/22 Sex Admission evaluation note * Herrera Beck: PERFORM Event Display: Admission Note Authored Date: [id number] Patient: ??CARISSA ISABEL ? Age:??77 Years?Sex:??Female?:??1945?? Chief Complaint/Reason for Consultation Left hip pain History of Present Illness 77-year-old female??with a history of Parkinson's disease,??hypertension,??atrial fibrillation on Eliquis??presents with??a fall.?? Patient states she loses her balance??frequently??ever since??her DBS stimulator surgery for Parkinson's 6 months ago.?? 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 She had??a sensation of?? propelling backward and denies??lightheadedness,??or loss of consciousness.?? She fell striking her left??buttock. ??In the emergency department??x-ray revealed Impacted comminuted intertrochanteric left femoral fracture. No mid or distal femoral fracture. No hip or knee dislocation. No pelvic or pubic bone fracture. Sacrum poorly seen due to bowel gas and stool.?EKG was normal sinus rhythm??without acute??ischemic changes.?? Sodium was mildly elevated??131.?? Her last dose of apixaban??was 5 PM and??01/05. denies fever, CP, SOB, abdominal pain, bowel or bladder complaints. Review of Systems CONSTITUTIONAL: ??Denies any fever, chills, changes to weight or fatigue. EYES: Denies any changes to vision, burning or diplopia. HEENT: Denies any JAVIER, nasal d/c, nose bleeds, changes to voice, vertigo, photophobia, hearing changes or dental problems. CV: Denies any CP, orthopnea, PND, edema, palpitations. PULM: Denies any SOB, wheezing, cough or production of phlegm. ABD: Denies any abdominal pain, N/V/D, heartburn, PRBPR, melena, or changes to bowel habits. : Denies any changes to frequency. ??Denies dysuria, urgency, straining, hematuria, incontinence.? MS: Endorses left hip pain NEURO: Denies any weakness, numbness, changes to speech confusion or memory loss. SKIN: Denies any rashes or lesions. ?? PSYCH: Denies any depression or anxiety. SIGECAPS negative. FUNCTIONAL: At baseline the patient is able to??ambulate independently Objective Vital Signs?? Temperature: 97.8 DegF (01/06/23 14:20:00) Temperature Route: Oral (01/06/23 14:20:00) Pulse Rate: 77 bpm (01/06/23 14:20:00) Respiratory Rate: 18 br/min (01/06/23 15:10:00) Systolic Blood Pressure: 126 mm Hg (01/06/23 14:20:00) Diastolic Blood Pressure: 73 mm Hg (01/06/23 14:20:00) Blood pressure sites: Arm, right (01/06/23 14:20:00) Mean Arterial Pressure: 91 mm Hg (01/06/23 14:20:00) Pulse Pressure: 53 mm Hg (01/06/23 14:20:00) Oxygen Saturation: 100 % (01/06/23 14:20:00) Mode of Delivery (Oxygen): Room air (01/06/23 14:20:00) Early Warning Score: 3 (01/06/23 15:13:02) ? Physical Exam General:??77 year old??female??lies in bed comfortably in no acute distress HEENT: NCAT, moist oral mucosa, good dentition, oropharynx without erythema Card: RRR no murmur, non displaced PMI, no JVD, 2+ radial pulse B/L Resp: CTA B/L, no wheezing, rales, ronchi Abdomen: soft and non tender, bowel sounds WNL Extremities: no pitted edema B/L lower extremities Skin: Without rashes or lesions, good turgor Hem/Lymph: without bruising or lymphadenopathy Psych: appropriate affect Neuro: A&OX3, no focal motor deficits Musculoskeletal: Tenderness to palpation of the left hip region.?? Range of motion limited due to pain Assessment/Plan 77-year-old female??with a history of Parkinson's disease,??hypertension,??atrial fibrillation on Eliquis??presents with??a fall.? Intertrochanteric fracture of left hip (S72.142A):?? [place] cardiac risk stratification??0.5%??risk of myocardial infarction or cardiac arrest, intraoperatively or up to 30 days postop.??Risks and benefits??discussed with patient Tylenol for mild pain,??oxycodone??and morphine for severe pain N.p.o. past midnight??for OR ?? Hyponatremia (E87.1):??Sodium 131.??IV fluids. Recheck BMP ?? Atrial fibrillation (I48.91):??Well-controlled??currently.??EKG normal sinus rhythm, no acute ischemic changes.??Denies chest pain, shortness of breath, palpitations.??No further cardiac work-up indicated??prior to surgery ?? Plan Continue??metoprolol Holding apixaban??for surgery, last dose??5 PM 7/7 ?? History of postoperative delirium (Z86.59):??Holding??clonazepam??(patient uses this as needed for sleep) Gently reorient and encourage sleep / wake cycle Avoid sedatives / benzodiazepines / antihistamines / anticholinergics. ?? Hypertension (I10):??Continue??captopril (patient brought home medication) ?? Parkinson's (G20):??Continue carbidopa levodopa Continue??opicapone??(patient brought home medication) ?? VTE Prophylaxis:??Holding??Eliquis/chemoprophylaxis??prior to surgery,??pneumoboots for now ?VTE Prophylaxis Assessment:??VTE Prophylaxis Ordered ?? Code Status:??Full code ?Order Code Status:??Code Status Ordered ?? Ongoing Medical Necessity:??Hip fracture ?? Discharge Planning:??Likely needs rehab ?? Total time spent on chart review,??medication reconciliation, direct patient care, documentation: 76 minutes Histories Allergies Allergies ?(Active and Proposed Allergies Only) Bactrim? (Severity: Unknown severity, Onset: Unknown) ?Comments: Neuropathy in feet. ? Past Medical History/Problem List Active Problems??(3) Orthostatic hypotension due to Parkinson's disease Parkinson disease Supine hypertension ? Past Surgical History DBS - Deep brain stimulation Cholecystectomy - 2002 ? Social History Alcohol Details:??Use: Never. Employment/School Details:??Status: Retired. Exercise Details:??Self assessment: Good condition. ??Exercise type: Yoga, weekly, [employer] 1-2x a week. Home/Environment Details:??Living situation: Home/Independent. ??Lives with: lives with Son. Sexual Details:??Sexually involved in last 6 months: No. Substance Abuse Details:??Use: Never. Tobacco Details:??Use: Never (less than 100 in lifetime). Electronic Cigarette/Vaping Details:??Electronic Cigarette Use: Never. ? Family History Mother: Hypertension; Osteoporosis; Skin cancer Sister: Prostate cancer Brother: Prostate cancer Mat. Grandmother: Mental health history ? Medications Home Medications apixaban (apixaban 5 mg oral tablet)?1?tab(s)?5?Milligram?By Mouth?2 times a day Captopril (captopril 12.5 mg oral tablet)?12.5?Milligram?1?tablet?By Mouth?3 times a day Carbidopa-Levodopa (carbidopa-levodopa 25 mg-100 mg oral tablet)?1?tab(s)?By Mouth?3 times a day Cholecalciferol (Vitamin D3 2000 intl units oral capsule)?1?capsule?50?Microgram?By Mouth?Daily Clonazepam (clonazePAM 0.5 mg oral tablet)?1?tab(s)?0.5?Milligram?By Mouth?3 times a day Docusate (docusate sodium 100 mg oral capsule)?100?Milligram?1?capsule?By Mouth?2times a day?as needed?for constipation Estradiol Topical (estradiol 10 mcg vaginal tablet)?1?tab(s)?10?Microgram?Vaginally?Daily at bedtime Melatonin?Daily at bedtime Metoprolol (Metoprolol Tartrate 25 mg oral tablet)?1?tab(s)?25?Milligram?By Mouth?2 times a day Multivitamin?Daily opicapone (Ongentys 50 mg oral capsule)?1?capsule?50?Milligram?By Mouth?Daily at bedtime Senna (Senna 8.6 mg oral tablet)?8.6?Milligram?1?tab(s)?By Mouth?Daily at bedtime Sertraline (sertraline 50 mg oral tablet)?1?tab(s)?50?Milligram?By Mouth?Daily ? Results Recent Labs BLOOD BANK Blood Type O Positive ()?? 01/06/2023 03:12 Antibody Screen Negative ()?? 01/06/2023 03:12 ?? BLOOD COUNT & DIFF WBC 11.0 k/mm3 ()?? 01/06/2023 03:12 RBC 3.72 m/mm3 (Low)?? 01/06/2023 03:12 Hgb 11.9 Gm/dL ()?? 01/06/2023 03:12 Hct 35.4 % (Low)?? 01/06/2023 03:12 MCV 95.2 femtoliters ()?? 01/06/2023 03:12 MCH 32.0 pg ()?? 01/06/2023 03:12 MCHC 33.6 g/dL ()?? 01/06/2023 03:12 Platelet Count 239 k/mm3 ()?? 01/06/2023 03:12 RDW-SD 44.4 femtoliters ()?? 01/06/2023 03:12 MPV 8.7 femtoliters (Low)?? 01/06/2023 03:12 Nucleated RBC (Automated) 0.0 #/100 WBC'S ()?? 01/06/2023 03:12 Abs. NRBC 0.0 k/mm3 ()?? 01/06/2023 03:12 Abs. Neut 9.6 k/mm3 (High)?? 01/06/2023 03:12 Abs. Lymph 0.5 k/mm3 (Low)?? 01/06/2023 03:12 Abs. [place] 0.9 k/mm3 ()?? 01/06/2023 03:12 Abs. Eo 0.0 k/mm3 ()?? 01/06/2023 03:12 Abs. Baso 0.0 k/mm3 ()?? 01/06/2023 03:12 Neut % 87.2 % (High)?? 01/06/2023 03:12 Lymph % 4.5 % (Low)?? 01/06/2023 03:12 [place] % 7.7 % ()?? 01/06/2023 03:12 Eos % 0.1 % ()?? 01/06/2023 03:12 Baso % 0.1 % ()?? 01/06/2023 03:12 Imm Gran 0.4 % ()?? 01/06/2023 03:12 Abs. Imm Gran 0.0 k/mm3 ()?? 01/06/2023 03:12 ?? CHEM GENERAL Sodium 131 mmol/L (Low)?? 01/06/2023 03:12 Potassium 4.1 mmol/L ()?? 01/06/2023 03:12 Chloride 96 mmol/L (Low)?? 01/06/2023 03:12 Bicarbonate Level 25 mmol/L ()?? 01/06/2023 03:12 Anion Gap 10 ()?? 01/06/2023 03:12 Glucose Level 120 mg/dL (High)?? 01/06/2023 03:12 BUN 9 mg/dL ()?? 01/06/2023 03:12 Creatinine-Blood 0.4 mg/dL (Low)?? 01/06/2023 03:12 Estimated GFR Creatinine 103 ML/MIN/1.73 M2 ()?? 01/06/2023 03:12 Calcium 8.9 mg/dL ()?? 01/06/2023 03:12 Protein, Total 5.9 Gm/dL (Low)?? 01/06/2023 03:12 Albumin 4.4 Gm/dL ()?? 01/06/2023 03:12 AG Ratio 2.9 ()?? 01/06/2023 03:12 Alkaline Phosphatase 132 units/L (High)?? 01/06/2023 03:12 AST (SGOT) 15 units/L ()?? 01/06/2023 03:12 ALT (SGPT) 15 units/L ()?? 01/06/2023 03:12 Bilirubin, Total 0.6 mg/dL ()?? 01/06/2023 03:12 ?? COAG INR 1.1 ()?? 01/06/2023 03:12 Protime (PT) 11.2 seconds ()?? 01/06/2023 03:12 ?? MISC. CHEMISTRY Hold Green Top SPECIMEN DISCARDED AFTER 1 WEEK ()?? 01/06/2023 03:12 ?? VIROLOGY COVID-19 by RT-PCR NEGATIVE ()?? 01/06/2023 03:12 ?RESULT: Femur 2 Views Left Femur 2 Views Left, Pelvis 1 or 2 Views? INDICATION: Hx of Present Illness: Fall, L Leg pain, swelling, deformity; Reason: Trauma; Clinical Question(s): Fracture Fracture ? COMPARISON: None ?? TECHNIQUE: AP view of the pelvis. AP and lateral projections of the left femur. ?? FINDINGS:? There is a comminuted impacted intertrochanteric fracture of the left femur. The left femoral head remains articulated with the acetabulum. No mid or distal femoral fracture. No hip or knee dislocation. No pelvic or pubic bone fracture. Sacrum is obscured by overlapping bowel gas and stool. There is mild joint space narrowing at both hips. ?? IMPRESSION:? Impacted comminuted intertrochanteric left femoral fracture. No mid or distal femoral fracture. No hip or knee dislocation. No pelvic or pubic bone fracture. Sacrum poorly seen due to bowel gas and stool.?? Cardiology * Event Display: Cardiac Rhythm Strips Authored Date: Hospital Progress note * Gloria Blanchard RN: MODIFY, MODIFY, SIGN, VERIFY, PERFORM Event Display: Progress Note Hospital Authored Date: Patient: CARISSA ISABEL Age: 77 years Sex: Female : 1945 Associated Diagnoses: None Author: Gloria Blanchard RN Findings Problem Related to Alteration in Musculoskeletal : Alteration in Musculoskeletal Func/new 01/10/2023 6:00 EDT Alteration in Musculoskeletal Related to Mobility, Orthopedic Procedure, Other: L femur IM rodding pod #3 Goals & Outcomes, Musculoskeletal Affected extremity will maintain color/motion/sensation, Pt will ambulate safely with assistive device, Pt will be free from complications of immobility, Pt willdemonstrate ability to participate in ADL's, Pt will report acceptable level of comfort/pain relief Interventions, Musculoskeletal Monitor patients ambulation status, monitor Color/Motion/Sensation, Assist with repositioning, Encourage deep breathing & coughing exercises, Notify MD immediately if tissue perfusion deteriorates, Obtain assistive devices as needed, Teach Pt/caregiver on exercises, Teach pt/caregiver on use of pain scale, Teach Pt/caregiver on safety precautions, Incision care as ordered BH Goals/Interventions, Musculoskeletal Yes Musculoskeletal, Problem Start 01/06/2023 17:45 Reviewed Plan with, Musculoskeletal Patient, Children Patient Progression, Musculoskeletal Pt progressing according to plan . Nursing Data Vital Signs : VITAL SIGNS SECTION 01/10/2023 6:59 EDT Early Warning Score 2.00 01/10/2023 6:59 EDT Temperature 97.9 DegF Temperature Route Oral Pulse Rate 86 bpm Respiratory Rate 16 br/min Systolic Blood Pressure 151 mm Hg H Diastolic Blood Pressure 82 mm Hg Blood pressure sites Arm, left Mean Arterial Pressure 105 mm Hg Pulse Pressure 69 mm Hg Oxygen Saturation 99 % Mode of Delivery (Oxygen) Room air . Narrative/Incidental POD #3 L femur IM nailing. Patient is alert and oriented x3. Tremors at baseline d/t Parkinsons. Lungs are clear but dim upon auscultation. IS at bedside, patient educated on proper use and encouraged to use 10x/ hour. Denies any SOB, denies any CP. +BSx4, abdomen soft, nontender/ nondistended. Last BM was 01/10. Held off on bowel medications d/t loose, watery diarrhea. Regular diet in place, tolerating well. Denies any N/V. Patient able to get OOB to chair this AM with 2a with walker, WBAT to RLE. Safety reinforcements given while OOB. +PP, +DP flex, +CMS. L hip Aquacel x2 with min. old staining present. Reporting pain 6/10, given scheduled Tylenol and PRN 2.5mg Oxycodone with +relief. Mepilex to L heel, R heel floating while in bed. Resting comfortably in chair at this time, daughter at bedside. Plan for patient to be discharged to [facility] once medically cleared, patient and daughter aware and in agreement. Cboots on bilaterally. Eliquis for DVT prophylaxis. No further concerns at this time, call borges within reach at bedside.... Evaluation P: Alteration in musculoskeletal system I: See interventions listed in care plan above E: POD #3 L femur IM nailing. +PP, +DP flex, +CMS. L hip Aquacel x2 with min. old staining present.Patient able to get OOB to chair this AM with 2a with walker, WBAT to RLE. Safety reinforcements given while OOB. Reporting pain 6/10, given scheduled Tylenol and 2.5mg Oxycodone with +relief. Resting comfortably in chair at this time, daughter at bedside. Plan for patient to be discharged to [facility] today once medically cleared, patient and daughter aware and in agreement. . Discharge Information Rehabilitation Discharge : Rehab Discharge Index 01/08/2023 14:21 EDT Comments on treatment indicated adls funclt mob safety pt edu UE function cognition Full chart review completed Yes Hospital course 77 yo F with PMH including Parkinson's disease presenting after a fall at home, found to have L femur fracture, now s/p L femur IM nailing on 01/[address] Oreilly. 01/08/2023 9:03 EDT Comments on treatment indicated 77 yo F with PMH including Parkinson's disease presenting after a fall at home, found to have L femur fracture, now s/p L femur IM nailing on 01/[address] Oreilly. WBAT L LE. Skilled PT for therex, transfers, amb with RW, bed mob. Rec rehab. Distance pt will ambulate 20 ft with RW Full chart review completed Yes Hospital course Hospital course Other findings see comment Plan of care PT Gait training, Transfer training, Therapeutic exercise, Functional Activities, Balance training, Neuromuscular education * Gege Davis RN: PERFORM, SIGN, VERIFY Event Display: Progress Note Hospital Authored Date: [id number] Patient: CARISSA ISABEL Age: 77 years Sex: Female : 1945 Associated Diagnoses: None Author: Gege Davis RN Findings Problem Related to Alteration in Comfort : Alteration in Comfort/new 01/10/2023 4:00 EDT Alteration in Comfort Related to Injury, Surgery Goals & Outcomes: Comfort Pt will report acceptable level of comfort & pain control, Pt will state importance of adhering to pain strategy regime, Pt will demonstrate necessary skills to manage pain, Non-verbal indicators will indicate comfort/pain control Interventions Implemented: Comfort Assess pain using appropriate pain scale/tools, Assess aggravating factors & prevent them accordingly, Assess alleviating factors & promote them accordingly Goals/Interventions, Comfort Yes Comfort, Problem Start 01/07/2023 2:20 Reviewed plan with, Comfort Patient Patient Progression, Comfort Pt progressing according to plan Comfort, Problem Ongoing Yes . Alteration in Musculoskeletal : Alteration in Musculoskeletal Func/new 01/10/2023 4:00 EDT Alteration in Musculoskeletal Related to Mobility, Orthopedic Procedure, Other: L femur IM rodding pod #2 Goals & Outcomes, Musculoskeletal Affected extremity will maintain color/motion/sensation, Pt will ambulate safely with assistive device, Pt will be free from complications of immobility, Pt willdemonstrate ability to participate in ADL's, Pt will report acceptable level of comfort/pain relief Interventions, Musculoskeletal monitor Color/Motion/Sensation, Encourage deep breathing & coughing exercises, Teach & Encourage use of Incentive spirometer, Teach pt/caregiver on use of pain scale, Teach Pt/caregiver on safety precautions BH Goals/Interventions, Musculoskeletal Yes Musculoskeletal, Problem Start 01/06/2023 17:45 Reviewed Plan with, Musculoskeletal Patient Patient Progression, Musculoskeletal Pt progressing according to plan . Narrative/Incidental Alert and oriented x3, forgetful, with bed alarm for safety. No sob, using incentive spirometer as directed. No nausea or vomiting, had 2 loose BM. Voiding good amount of clear yellow urine using purewick. Skin intact. Repositoned for comfort, on centrea bed.. Evaluation P: Alteration in comfort; Alteration in musculoskeletal I: as listed above E:Post-op day 3 IM nailing of left femur fracture. Left hip and thigh dressings with old staining, with mild edema, +cms. Taking scheduled acetaminophen for pain with relief. On eliquis for DVT prophylaxis, refused compression boots. Resting comfortably at this time. Will continue to assess and monitor pain, CMS to LLE, and safety.. * Lo BREWER, Gloria: VERIFY, PERFORM, SIGN Event Display: Progress Note Hospital Authored Date: [id number] Patient: CARISSA ISABEL Age: 77 years Sex: Female : 1945 Associated Diagnoses: None Author: Gloria Blanchard RN Findings Problem Related to Alteration in Musculoskeletal : Alteration in Musculoskeletal Func/new 01/09/2023 6:00 EDT Alteration in Musculoskeletal Related to Mobility, Orthopedic Procedure, Other: L femur IM rodding pod #2 Goals & Outcomes, Musculoskeletal Affected extremity will maintain color/motion/sensation, Pt will ambulate safely with assistive device, Pt will be free from complications of immobility, Pt willdemonstrate ability to participate in ADL's, Pt will report acceptable level of comfort/pain relief Interventions, Musculoskeletal Monitor patients ambulation status, monitor Color/Motion/Sensation, Assist with repositioning, Encourage deep breathing & coughing exercises, Notify MD immediately if tissue perfusion deteriorates, Obtain assistive devices as needed, Teach & Encourage use of Incentive spirometer, Teach Pt/caregiver on exercises, Teach pt/caregiver on use of pain scale, TeachPt/caregiver on safety precautions Goals/Interventions, Musculoskeletal Yes Musculoskeletal, Problem Start 01/06/2023 17:45 Reviewed Plan with, Musculoskeletal Patient Patient Progression, Musculoskeletal Pt progressing according to plan . Nursing Data Vital Signs : VITAL SIGNS SECTION 01/09/2023 6:52 EDT Early Warning Score 3.00 01/09/2023 6:52 EDT Temperature 97.9 DegF Temperature Route Oral Pulse Rate 81 bpm Respiratory Rate 16 br/min Systolic Blood Pressure 124 mm Hg Diastolic Blood Pressure 80 mm Hg Blood pressure sites Arm, left Mean Arterial Pressure 95 mm Hg Pulse Pressure 44 mm Hg Oxygen Saturation 98 % Mode of Delivery (Oxygen) Room air . Narrative/Incidental POD #2 L femur IM nailing. Patient is alert and oriented x3, wifty at times. Bed/ chair alarm on for safety. Tremors at baseline d/t Parkinsons. Lungs are clear but dim upon auscultation. IS at bedside, patient educated on proper use and encouraged to use 10x/ hour. Denies any SOB, denies any CP. +BSx4, abdomen soft, nontender/ nondistended. Last BM was 01/05. Given all scheduled/ PRN bowel medications. Patient reporting her normal schedule is every 4-5 days, offered suppository pt in agreement to take this afternoon. Regular diet in place, tolerating well. Denies any N/V. Patient able to get OOB to chair this AM with 2a with walker, WBAT to RLE. Safety reinforcements given while OOB. Reporting +lightheaded upon standing- MD Rivero aware and orthos completed as ordered. +PP, +DP flex, +CMS. L hip Aquacel x2 with min. old staining present. Resting comfortably in chair at this time, daughter at bedside. Plan for patient to be discharged to [facility] rehab once medically cleared, patientand daughter aware and in agreement. Cboots on bilaterally. Eliquis for DVT prophylaxis. No further concerns at this time, call borges within reach at bedside... . Evaluation P: Alteration in musculoskeletal system I: See interventions listed in care plan above E: POD #2 L femur IM nailing. +PP, +DP flex, +CMS. L hip Aquacel x2 with min. old staining present.Patient able to get OOB to chair this AM with 2a with walker, WBAT to RLE. Safety reinforcements given while OOB. Reporting +lightheaded upon standing- MD Rivero aware and orthos completed as ordered. Resting comfortably in chair at this time, daughter at bedside. Plan for patient to be discharged to [facility] once medically cleared, patient and daughter aware and in agreement.. . Discharge Information Rehabilitation Discharge : Rehab Discharge Index 01/08/2023 14:21 EDT Comments on treatment indicated adls funclt mob safety pt edu UE function cognition Full chart review completed Yes Hospital course 77 yo F with PMH including Parkinson's disease presenting after a fall at home, found to have L femur fracture, now s/p L femur IM nailing on 01/[address] Oreilly. 01/08/2023 9:03 EDT Comments on treatment indicated 77 yo F with PMH including Parkinson's disease presenting after a fall at home, found to have L femur fracture, now s/p L femur IM nailing on 01/[address] Oreilly. WBAT L LE. Skilled PT for therex, transfers, amb with RW, bed mob. Rec rehab. Distance pt will ambulate 20 ft with RW Full chart review completed Yes Hospital course Hospital course Other findings see comment Plan of care PT Gait training, Transfer training, Therapeutic exercise, Functional Activities, Balance training, Neuromuscular education Consult note * Dannielle LOCKWOOD, Filipe: MODIFY, PERFORM, MODIFY, MODIFY Event Display: Consultation Note Authored Date: [id number] Patient: ??CARISSA ISABEL ? Age:??77 Years?Sex:??Female?:??1945?? Chief Complaint/Reason for Consult Left hip pain History of Present Illness Orthopedic consultation requested??by ??Strokes??in the emergency department. ?? Carissa is a 77-year-old??female??with a past medical history of??Parkinson's??status post deep brain stimulator, orthostatic hypotension and A-fib on Eliquis who presented to [facility] today??after??losing her balance??and??stumbling backwards??striking her left hip??on the counter edge??and slidingto the ground against her cabinets. ??Patient's daughter is at bedside. She stated that??she was??organizing her son's pillbox??when she began to lose her balance??and started??walking backwards and was unable to stop until she hit her counter. ??She stated that??she did not know if she struck her h ip??and was having more pain on the??lateral aspect??of her mid thigh. She denies??any head strike or loss of consciousness at this time. ??Imaging in the ED revealed??a left??femoral neck fracture.?? Orthopedics was consulted for further treatment recommendations.?? Review of Systems Denies fevers, chills or sweats. ??Denies shortness of breath and chest pain. ??Denies other injuries or painful joints. Physical Exam Vitals & Measurements T:??97.8?F?? HR:??80??(Peripheral)?? RR:??16?? BP:??152/83?? SpO2:??97%?? HT:??159??cm?? WT:??48??kg?? BMI:??18.99?? HEENT: Atraumatic normocephalic Cardiac: Per ED provider Pulmonary: Per ED provider Abdomen: Soft, nontender, nondistended. ?? Patient is well-developed and in no acute distress. ??Alert and cooperative with examination. Mood and affect appropriate.??Alert and oriented x4.?Examined on a stretcher in the emergency department. ?? Right upper extremity: Full, supple, nonpainful range of motion of shoulder, elbow, wrist and digits. ??No tenderness to palpation. ??Grossly neurovascularly intact radial, median, ulnar nerve distributions. ?? Left upper extremity: Limited, supple, nonpainful range of motion of shoulder, elbow, wrist and digits d/t contracture of the wrist from her Parkinson's disease.??No tenderness to palpation. Grossly neurovascularly intact radial, median, ulnar nerve distributions. ?? Right lower extremity: Full, supple, non-painful range of motion of the hip, knee, foot and ankle. ??No tenderness to palpation. Calf supple and nontender. ??Active dorsiflexion and plantar flexion strength. ??Grossly neurovascularly intact. ?? Left lower extremity:??Examination reveals external rotation at the hip. ??Shortening is noted as compared to contralateral lower extremity examination. ??Patient is exquisitely tender to palpation about the hip and is unable to tolerate range of motion of same. ??Moderate compressible edema noted about the hip. ??No discomfort about the femur distally. ??No discomfort about the knee, foot or ankle. ??Range of motion of the knee is nonpainful but decreased due aggravation of proximal hip pain and Parkinson's diagnosis. ??Patient has active dorsiflexion and plantar flexion strength.?Weak but palpable DP and PT pulses. ??Grossly intact sensation to light touch. ??Compartments are soft. ??Ca lf supple and nontender. ?? Procedure: Patients LLE was straightened and placed in a more neutral alignment. A Knee immobilizer was then placed. Assessment/Plan Impression: Left 3 part intertrochanteric femur fracture ?? Plan: Patient is admitted to the medical service. Orthopedics will follow. ??Preoperative medical??optimization??is requested. ??Patient will be made n.p.o. now for possible surgery later today ortomorrow. Recommend strict nonweightbearing status on the LLE, elevation, pain control and DVT prophylaxis. Patient is added to the orthopedic trauma surgery OR add on list with plan for surgical fixation once medically optimized and when the OR schedule allows. ??This was discussed with the patient who voiced understanding. ??Questions are asked and answered.? Problem List/Past Medical History Ongoing Orthostatic hypotension Parkinson's disease??s/p??deep brain stimulator A-fib??on Eliquis Procedure/Surgical History DBS - Deep brain stimulation Cholecystectomy - 2003 Tonsillectomy Home Medications apixaban: 5 mg = 1 tablet, By Mouth, 2 times a day Captopril: 12.5 mg = 1 tablet, By Mouth, 3 times a day Carbidopa-Levodopa: 1 tablet, By Mouth, 3 times a day Cholecalciferol: 50 mcg = 1 capsule, By Mouth, Daily Clonazepam: 0.5 mg = 1 tablet, By Mouth, 3 times a day Docusate: 100 mg = 1 capsule, By Mouth, 2 times a day, PRN (for constipation) Estradiol Topical: 10 mcg = 1 tablet, Vaginally, Daily at bedtime Melatonin: Daily at bedtime Metoprolol: 25 mg = 1 tablet, By Mouth, 2 times a day Multivitamin: Daily Multivitamin With Minerals opicapone: 50 mg = 1 capsule, By Mouth, Daily at bedtime Senna: 8.6 mg = 1 tablet, By Mouth, Daily at bedtime Sertraline: 50 mg = 1 tablet, By Mouth, Daily Allergies Bactrim - states??she got neuropathy??in the bottom of her??feet Social History Currently lives??in a condo??with her son -approximately 4 steps??to enter Lives on the first floor??of the condo She is the primary caregiver??for her son who has Down syndrome Denies any alcohol use Denies any tobacco use Denies any illicit drug use Family History History of acute delirium after anesthesia. Denies any history of bleeding dyscrasias or DVTs. Radiology 2 view x-ray of the left femur reviewed by myself shows a comminuted three-part intertrochanteric fracture with external rotation and slight varus angulation. No other acute fractures can be noted. No obvious signs of gas or an open wound can be noted. Lab Results Labs Last 24 Hours BLOOD COUNT & DIFF ? Event Name?? Event Result?? Date/Time?? WBC 11 k/mm3 01/06/23 03:12:00 RBC 3.72 m/mm3??Low 01/06/23 03:12:00 Hgb 11.9 Gm/dL 01/06/23 03:12:00 Hct 35.4 %??Low 01/06/23 03:12:00 MCV 95.2 femtoliters 01/06/23 03:12:00 MCH 32 pg 01/06/23 03:12:00 MCHC 33.6 g/dL 01/06/23 03:12:00 Platelet Count 239 k/mm3 01/06/23 03:12:00 MPV 8.7 femtoliters??Low 01/06/23 03:12:00 Nucleated RBC (Automated) 0 #/100 WBC'S 01/06/23 03:12:00 ? COAG ? Event Name?? Event Result?? Date/Time?? INR 1.1 01/06/23 03:12:00 Protime (PT) 11.2 seconds 01/06/23 03:12:00 ? CHEM GENERAL ? Event Name?? Event Result?? Date/Time?? Sodium 131 mmol/L??Low 01/06/23 03:12:00 Chloride 96 mmol/L??Low 01/06/23 03:12:00 Bicarbonate Level 25 mmol/L 01/06/23 03:12:00 Anion Gap 10 01/06/23 03:12:00 Glucose Level 120 mg/dL??High 01/06/23 03:12:00 BUN 9 mg/dL 01/06/23 03:12:00 Creatinine-Blood 0.4 mg/dL??Low 01/06/23 03:12:00 Alkaline Phosphatase 132 units/L??High 01/06/23 03:12:00 AST (SGOT) 15 units/L 01/06/23 03:12:00 ALT (SGPT) 15 units/L 01/06/23 03:12:00 Bilirubin, Total 0.6 mg/dL 01/06/23 03:12:00 ? * Alexandra Talbert: PERFORM Event Display: Consultation Note Authored Date: [id number] Patient is awaiting medical evaluation.?? Discussed with attending surgeon.?? No operative intervention planned today.?? Diet ordered and made NPO after midnight for possible surgery tomorrow pendingmedical evaluation and risk stratification. Note * Gloria Blanchard RN: PERFORM Event Display: Discharge/Transfer Note Hospital Authored Date: [id number] Nursing Discharge Note Entered On: 01/10/2023 14:28 EDT Performed On: 01/10/2023 14:27 EDT by Gloria Blanchard RN Nursing Discharge Note 2 Patient Instructions Discharge Signed : No Instructions for Discharge Comments : Patient in verbal agreement for discharge to rehab Did Pt have Specialty Bed or Wound Vac : Yes Gloria Blanchard RN - 01/10/2023 14:28 EDT Discharge Time : 01/10/2023 14:30 EDT Discharge Level of Care at Discharge : Short-term Acute Inpatient Discharge Nursing Homes/Rehab Facilities : [facility] Patient Left Unit Via : Ambulance Patient Accompanied Off Unit with : Ambulance/Chair Van Personnel Handover Given to Transport Personnel : Yes DC Instructions Provided & Signed by Pt : No (Comment: Patient in verbal agreement for discharge to rehab [Gloria Blanchard RN - 01/10/2023 14:27 EDT] ) Patient Understands D/C Instructions : Yes Gloria Blanchard RN - 01/10/2023 14:27 EDT * Marco Antonio ROGERS, Abebe D: PERFORM Event Display: Discharge/Transfer Note Hospital Authored Date: [id number] Patient: ??CARISSA ISABEL ? Age:??77 Years?Sex:??Female?:??1945?? Patient Information [facility]charge Location: [facility] Primary Care Physician: Siva Austin Admit Date/Time: 01/06/23 08:20 Discharge Disposition Discharge Disposition: [facility] Facility/Rehab Discharge Diagnosis Atrial fibrillation (I48.91) History of postoperative delirium (Z86.59) Hypertension (I10) Hyponatremia (E87.1) Intertrochanteric fracture of left hip (S72.142A) Parkinsons (G20) ?? _ Discharge Medications apixaban (apixaban 5 mg oral tablet)?1?tab(s)?5?Milligram?By Mouth?2 times a day Captopril (captopril 12.5 mg oral tablet)?37.5?Milligram?3?tablet?By Mouth?Daily at bedtime Carbidopa-Levodopa (carbidopa-levodopa 25 mg-100 mg oral tablet)?See Instructions?2 tabs at 5: 30 am , 1.5 tab at 8 am , 2 tabs at 10:30 am , 1.5 tablet at 1 pm , 2 tablet at 3:30 pm , 2 tabletat 5: 30 ??and 1-2 tablets at night as needed Cholecalciferol (Vitamin D3 2000 intl units oral capsule)?1?capsule?50?Microgram?By Mouth?Daily Clonazepam (clonazePAM 0.5 mg oral tablet)?1.5 tablets?Daily at bedtime Docusate (docusate sodium 100 mg oral capsule)?100?Milligram?1?capsule?By Mouth?2times a day?as needed?for constipation Estradiol Topical (estradiol 10 mcg vaginal tablet)?1?tab(s)?10?Microgram?Vaginally?Daily at bedtime Melatonin?10?Milligram?By Mouth?Daily at bedtime?for 14?Days Metoprolol (Metoprolol Tartrate 25 mg oral tablet)?1?tab(s)?25?Milligram?By Mouth?2 times a day opicapone (Ongentys 50 mg oral capsule)?1?capsule?50?Milligram?By Mouth?Daily at bedtime?1 hour before or after eating Oxycodone (oxyCODONE 5 mg oral tablet)?2.5?Milligram?By Mouth?Every 6 hours?as needed?for 7?Days?Pain , Mild Senna (Senna 8.6 mg oral tablet)?8.6?Milligram?1?tab(s)?By Mouth?Daily at bedtime Sertraline (sertraline 50 mg oral tablet)?1?tab(s)?50?Milligram?By Mouth?Daily ? Medications Started Oxycodone Medications Discontinued none Doses Changed NONE Allergies Allergies ?(Active and Proposed Allergies Only) Bactrim? (Severity: Unknown severity, Onset: Unknown) ?Comments: Neuropathy in feet. ? PCP Follow-Up/Heads-Up #1. ??Patient will need to follow-up with orthopedic surgery outpatient in 4 to 5 weeks of discharge, phone number has been provided for patient to call [facility] #2. ??Patient also with some blood loss anemia??however will likely need iron studies and B12 and folic acid??work-up outpatient. ?? Future Appointments Sunday 11:00 AM EDT ?? Where: [facility] [address] [place] [phone]- Status: Pending Hospital Course ??A/P: 77-year-old female??with a history of Parkinson's disease,??hypertension,??atrial fibrillation on Eliquis??presents with??a fall and found with left femur fracture ?? 1. Intertrochanteric fracture of left hip: POD??3 for Left Intertan. Pain controlled with current meds. She had some post of delirium, however improving. ??PRN oxycodone at discharge ,We will continue Eliquis?which will also cover for??DVT prophylaxis. ??- ??follow up with [facility] in 4-5 weeks, ? - Please remove елена 2 weeks post op, contact [facility] with wound redness, drainage, increased pain, falls, change in alignment for a sooner follow up ? 2.??Hyponatremia:??resolved ?? 3. Paroxysmal??atrial fibrillation: heart rate controlled.?continue??with Apixaban 5 mg BID?? and ??metoprolol ?? 4. Anxiety: continue with??home dose of Clonazepam ?? 5.??Hypertension:??Continue??captopril?? home dose ?? 6. Parkinson's (G20):??Continue carbidopa levodopa , Please see instructions for details about dosing and frequency of schedule . Continue??opicapone??(patient brought home medication) ?? 7.?? Blood Loss Anemia : Hb 7.7?? from 8 relatively stable , Baseline close to 12 . Likely blood loss anemia from Surgery . will need Outpatient anemia workup ?? Did Med rec before discharge and corrected and entered her home meds . Discussed?? about post discharge plan of care for the patient with her daughter?? at bedside Objective Assessment and Plan ? Vital Signs?? Temperature: 97.9 DegF (01/10/23 06:59:00) Temperature Route: Oral (01/10/23 06:59:00) Pulse Rate: 86 bpm (01/10/23 06:59:00) Pulse Rate, Lyin bpm (01/09/23 12:14:00) Systolic Blood Pressure, Lyin mm Hg (01/09/23 12:14:00) Diastolic Blood Pressure, Lyin mm Hg (01/09/23 12:14:00) Pulse Rate, Sittin bpm (01/09/23 12:14:00) Systolic Blood Pressure, Sittin mm Hg (01/09/23 12:14:00) Diastolic Blood Pressure, Sittin mm Hg (01/09/23 12:14:00) Pulse Rate, Standin bpm (01/09/23 12:14:00) Systolic Blood Pressure, Standin mm Hg (01/09/23 12:14:00) Diastolic Blood Pressure, Standin mm Hg (01/09/23 12:14:00) Respiratory Rate: 16 br/min (01/10/23 10:15:00) Systolic Blood Pressure:??151 mm Hg??High (01/10/23 06:59:00) Diastolic Blood Pressure: 82 mm Hg (01/10/23 06:59:00) Blood pressure sites: Arm, left (01/10/23 06:59:00) Mean Arterial Pressure: 105 mm Hg (01/10/23 06:59:00) Pulse Pressure: 69 mm Hg (01/10/23 06:59:00) Oxygen Saturation: 99 % (01/10/23 06:59:00) Mode of Delivery (Oxygen): Room air (01/10/23 06:59:00) Early Warning Score: 2 (01/10/23 11:16:09) ? . Physical Exam General: Is appears comfortable in no distress HEENT: ??mucous mucous membranes appear wet, PERRLA Cardiovascular: S1-S2 heard no murmurs appreciated Respiratory: CTA without any wheezing or crackles anteriorly GI: Abdomen nontender to palpation, no distention, no obvious hepatosplenomegaly Neuro: AOx3 plus date of , able to raise all extremities on commands Psych: Appears calm without any agitation? left hip dressing??without any??issues. ??Mildly tender to palpation, barely able to raise her leftleg about the bed. Surgical Procedures Intramedullary Rodding Femur 01/07/2023 08:39 Consultants Orthopedic surgery Pending Results CBC ordered on 01/08/2023 XR C-Arm > 1 Hour ordered on 01/07/2023 Follow-Up Appointments Added Follow Up ?Time Frame ?Comments Bola LOCKWOOD, Siva Yarbrough?1 to 2 weeks Post Discharge Care Diet: Regular Diet Activity: Ambulate with assistance ??3 times a day ??unless otherwise specified Code Status: ?? Full Resuscitation Discharge ?01/10/23 12:04:00 EDT Home Health Face to Face ^[facility]Health[facility] Results Discharge Labs BLOOD BANK Blood Type O Positive ()?? 01/06/2023 03:12 Antibody Screen Negative ()?? 01/06/2023 03:12 ?? BLOOD COUNT & DIFF WBC 6.0 k/mm3 ()?? 01/10/2023 02:04 RBC 2.43 m/mm3 (Low)?? 01/10/2023 02:04 Hgb 7.7 Gm/dL (Low)?? 01/10/2023 02:04 Hct 23.6 % (Low)?? 01/10/2023 02:04 MCV 97.1 femtoliters ()?? 01/10/2023 02:04 MCH 31.7 pg ()?? 01/10/2023 02:04 MCHC 32.6 g/dL (Low)?? 01/10/2023 02:04 Platelet Count 209 k/mm3 ()?? 01/10/2023 02:04 RDW-SD 45.4 femtoliters ()?? 01/10/2023 02:04 MPV 8.9 femtoliters (Low)?? 01/10/2023 02:04 Nucleated RBC (Automated) 0.0 #/100 WBC'S ()?? 01/10/2023 02:04 Abs. NRBC 0.0 k/mm3 ()?? 01/10/2023 02:04 Abs. Neut 7.3 k/mm3 (High)?? 01/08/2023 02:08 Abs. Lymph 0.6 k/mm3 (Low)?? 01/08/2023 02:08 Abs. [place] 1.0 k/mm3 (High)?? 01/08/2023 02:08 Abs. Eo 0.0 k/mm3 ()?? 01/08/2023 02:08 Abs. Baso 0.0 k/mm3 ()?? 01/08/2023 02:08 Neut % 81.6 % (High)?? 01/08/2023 02:08 Lymph % 6.8 % (Low)?? 01/08/2023 02:08 [place] % 10.9 % (High)?? 01/08/2023 02:08 Eos % 0.1 % ()?? 01/08/2023 02:08 Baso % 0.2 % ()?? 01/08/2023 02:08 Imm Gran 0.4 % ()?? 01/08/2023 02:08 Abs. Imm Gran 0.0 k/mm3 ()?? 01/08/2023 02:08 ?? CHEM GENERAL Sodium 136 mmol/L ()?? 01/10/2023 02:04 Potassium 4.3 mmol/L ()?? 01/10/2023 02:04 Chloride 102 mmol/L ()?? 01/10/2023 02:04 Bicarbonate Level 27 mmol/L ()?? 01/10/2023 02:04 Anion Gap 7 ()?? 01/10/2023 02:04 Glucose Level 120 mg/dL (High)?? 01/06/2023 03:12 BUN 10 mg/dL ()?? 01/10/2023 02:04 Creatinine-Blood 0.4 mg/dL (Low)?? 01/10/2023 02:04 Estimated GFR Creatinine 104 ML/MIN/1.73 M2 ()?? 01/10/2023 02:04 Calcium 8.9 mg/dL ()?? 01/06/2023 03:12 Protein, Total 5.9 Gm/dL (Low)?? 01/06/2023 03:12 Albumin 4.4 Gm/dL ()?? 01/06/2023 03:12 AG Ratio 2.9 ()?? 01/06/2023 03:12 Alkaline Phosphatase 132 units/L (High)?? 01/06/2023 03:12 AST (SGOT) 15 units/L ()?? 01/06/2023 03:12 ALT (SGPT) 15 units/L ()?? 01/06/2023 03:12 Bilirubin, Total 0.6 mg/dL ()?? 01/06/2023 03:12 ? COAG INR 1.1 ()?? 01/06/2023 03:12 Protime (PT) 11.2 seconds ()?? 01/06/2023 03:12 ?? MISC. CHEMISTRY Hold Green Top SPECIMEN DISCARDED AFTER 1 WEEK ()?? 01/06/2023 03:12 ? VIROLOGY COVID-19 by RT-PCR NEGATIVE ()?? 01/06/2023 03:12 ? Procedures(s) ?Implant Record ?? 01/08/2023 00:00??by [facility] , Information Systems Supervisor ?Operative Note ?? 01/07/2023 09:34??by Gray Oreilly MD ?ATTENDING PHYSICIAN: Gray Oreilly ??DATE OF PROCEDURE: January 07, 2023 ??PREOP DIAGNOSIS: Left intertrochanteric hip fracture ??POST OP DIAGNOSIS: Same ??PROCEDURE PERFORMED: Left hip intramedullary nail ??SURGEON: Denilson ??ANESTHESIA: General ??ESTIMATED BLOOD LOSS: 50 cc ??COMPLICATIONS: None ??IMPLANTS: [employer] Intertan Nail 11.5 mm x 18 cm, 125 degree, 95/90 lag/compression screw, 5 mm x 32.5 mm distal interlocking screw ? Imaging(s) ?CT Head/Brain W/O Contrast ?? 01/06/2023 07:12??by Hedy Bolivar MD ?IMPRESSION: Limited evaluation secondary to overlying artifact. ?? 1. Within the limitations, no acute intracranial abnormality. 2. Mild degenerative changes of the cervical spine with no acute fracture or osseous abnormality. ?CT Cervical Spine W/O Contrast ?? 01/06/2023 07:12??by Hedy Bolivar MD ?IMPRESSION: Limited evaluation secondary to overlying artifact. ?? 1. Within the limitations, no acute intracranial abnormality. 2. Mild degenerative changes of the cervical spine with no acute fracture or osseous abnormality. ?Pelvis 1 or 2 Views ?? 01/06/2023 00:59??by Dvaid Lewis MD ?IMPRESSION: ?? Impacted comminuted intertrochanteric left femoral fracture. No mid or distal femoral fracture. No hip or knee dislocation. No pelvic or pubic bone fracture. Sacrum poorly seen due to bowel gas and stool. ?XR Femur 2 Views Left ?? 01/06/2023 00:59??by David Lewis MD ?IMPRESSION: ?? Impacted comminuted intertrochanteric left femoral fracture. No mid or distal femoral fracture. No hip or knee dislocation. No pelvic or pubic bone fracture. Sacrum poorly seen due to bowel gas and stool. ? 32 minutes spent on discharge * Kacie Shah RN: PERFORM, SIGN, VERIFY Event Display: Case Management Discharge Plan Authored Date: Patient: CARISSA ISABEL Age: 77 years Sex: Female : 1945 Associated Diagnoses: None Author: Kacie Shah RN Discharge Plan Case Management Discharge Plan : Case Management Discharge Plan Data 01/10/2023 10:44 EDT Discharge Level of Care at Discharge Short-term Acute Inpatient Discharge Nursing Homes/Rehab Facilities [facility] Discharge Transportation Arranged [facility] [address] [facility] [id number] [phone] Discharge Arranged Transport Date/Time 01/10/2023 13:00 Mode of Transportation Arranged Ambulance Name of Agency #1 [facility] Financial Reporting Accountant #1 Intake Service Categories #1 Occupational Therapy, Physical Therapy, [facility] Service Comments #1 [facility] will provide your care after discharge, if any questionsw or concerns please contact the agency directly. * Gloria Blanchard RN: PERFORM Event Display: Patient Education/Instruction Authored Date: [id number] Inpatient Adult Discharge Instructions [address] [address] Name: CARISSA ISABEL : 1945 Visit: 01/06/2023 08:20:00 Current Date: 01/10/2023 12:14 Account: [id number] Inpatient Adult Discharge Instructions We would like to thank you for allowing us to assist you with your healthcare needs. The following includes patient education materials and information regarding your injury/illness. Our entire staffstrives to provide an excellent experience for our patients and their families. PLEASE ENSURE YOU FOLLOW-UP PER THE INSTRUCTIONS BELOW! ?? YOUR OPINION IS IMPORTANT TO US! Please complete the survey you may receive by mail or email. Your feedback will be used to make improvements to the healthcare experiences of our patients and their families. Surveys are administered by [employer] ?? If further treatment with your primary care physician or another doctor is recommended, it is important for you to keep the appointment. Call your primary care physician or return to the Emergency Department immediately if your condition worsens, fails to improve, or new symptoms develop. If you need to find a doctor, you can call [facility] for a referral at [phone] or toll free at [phone] or log in to [email or web address].. ?? You can view and manage your care through the patient portal or by using a health care adams of your choosing. [employer] is a website that allows you to securely view your medical information including your hospital discharge summary, office visit summaries, medications and follow-up visits. You can also request appointments, renew medications, and request access to your medical information using a health care adams of your choosing, or just ask a question. You can enroll at [email or web address] or register during your next office visit. You have been discharged from [facility], Patient Care Unit: SW7. If you have any questions regarding these instructions after you leave, please call us and we will be happy to assist you. [facility] Your Care Team Attending Physician Marco Antonio ROGERS, Abebe Cameron Consulting Providers Gray Oreilly MD Discharging Providers Marco Antonio ROGERS, Abebe Cameron Reason for Admission Sustained fall from standing, reports L thigh pain, no obvious deformity or shortening or rotation.Denies headstrike or LOC. VSS. Your Diagnosis Intertrochanteric fracture of left hip Atrial fibrillation Hypertension Parkinsons History of postoperative delirium Hyponatremia Tests Performed Below is a partial list of the tests performed during your hospitalization. You may have had other tests and procedures not included in this list. Please discuss all test results with your provider. BUN CBC CBC w/ Differential Comprehensive Metabolic Panel COVID-19 (Novel Coronavirus), Rapid PCR Creatinine Electrolytes HOLD GREEN TUBE INR Lytes Type and Screen CT Cervical Spine W/O Contrast CT Head/Brain W/O Contrast XR C-Arm > 1 Hour?-- Results Pending -- XR Femur 2 Views Left XR Hip Comp 2 Views Left XR Pelvis 1 or 2 Views You will be contacted within 72 hours with your results. Primary Care Provider iSva Austin Advance Directive Health Care Proxy on File Yes - Health Care Proxy Yes - [facility] Discharge Vitals Temperature: 97.9 DegF Height: 159 cm Pulse Rate: 86 bpm Weight: 48 kg Respiratory Rate: 16 br/min Body Mass Index: 18.99 kg/m2 Systolic Blood Pressure:??151 mm Hg??High Body surface area: 1.46 Diastolic Blood Pressure: 82 mm Hg ?? Oxygen Saturation: 99 % ?? Studies Pending All tests and labs ordered during this hospital stay have been completed unless listed below. Please discuss all pending results with your provider listed above in these instructions. ?? CBC C-Arm > 1 Hour What to do next Instructions From Your Doctor Discharge Orders Diet:??Regular Diet Activity:??Ambulate with assistance 3 times a day unless otherwise specified Code Status:?? Full Resuscitation Scheduled Follow-Up Appointments Sunday 11:00 AM EDT ?? Where: [facility] [address] [place] [address]- Status: Pending You Need to Schedule the Following Appointments Follow Up with??[facility] orthopedic surgeons When:??Within 4 to 5 weeks Why: Please call [facility] orthopedic surgeons?? at [phone] to schedule an appointment with one of the??surgeons??given severe osteoarthritis Where: [address] [place] [phone] Follow Up with??Siva Austin When:??Within 1 to 2 weeks Where: ?? Discharge Medications CARISSA ISABEL :1945 Visit Date:01/06/2023 Medications: Please continue your medications until treatment is completed or stopped by your provider. Medications not listed below should be discontinued. Discuss any questions related to medications with your provider. What How Much When Why Instructions Next Dose New Oxycodone (oxyCODONE 5 mg oral tablet) 2.5 Milligram Oral Every 6 hours as needed for Pain , Mild Intertrochanteric fracture of left hip Duration: 7 Days Printed Prescription As needed for pain relief Last dose: 01/10 @ 9:15am Changed Captopril (captopril 12.5 mg oral tablet) 3 tab(s) Oral Daily at Bedtime 01/10 @ 9pm Changed Carbidopa-Levodopa (carbidopa-levodopa 25 mg-100 mg oral tablet) See instructions 2 tabs at 5: 30 am , 1.5 tab at 8 am , 2 tabs at 10:30 am , 1.5 tablet at 1 pm , 2 tablet at 3:30 pm , 2 tablet at 5: 30 ??and 1-2 tablet6 at night as needed ?? Next dose: 01/10 @ 3:30pm Changed Clonazepam (clonazePAM 0.5 mg oral tablet) 1.5 tablets Daily at Bedtime 01/10 @ 9pm Changed Melatonin 10 Milligram Oral Daily at Bedtime Duration: 14 Days 01/10 @ 9pm Changed opicapone (Ongentys 50 mg oral capsule) 1 capsule Oral Daily at Bedtime 1 hour before or after eating ?? 01/10 @ 9pm Unchanged apixaban (apixaban 5 mg oral tablet) 1 tab(s) Oral Twice a day 01/10 @ 9pm Unchanged Cholecalciferol (Vitamin D3 2000 intl units oral capsule) 1 capsule Oral Daily 01/11 @ 9am Unchanged Docusate (docusate sodium 100 mg oral capsule) 1 capsule Oral Twice a day as needed for for constipation 01/10 @ 9pm Unchanged Estradiol Topical (estradiol 10 mcg vaginal tablet) 1 tab(s) Vaginally Daily at Bedtime 01/10 @ 9pm Unchanged Metoprolol (Metoprolol Tartrate 25 mg oral tablet) 1 tab(s) Oral Twice a day 01/10 @ 9pm Unchanged Multivitamin With Minerals (PreserVision AREDS 2 oral capsule) 01/11 @ 9am Unchanged Senna (Senna 8.6 mg oral tablet) 1 tab(s) Oral Daily at Bedtime 01/10 @ 9pm / As needed for constipation Unchanged Sertraline (sertraline 50 mg oral tablet) 1 tab(s) Oral Daily 01/11 @ 1pm ?? What When Comments Stop Taking Multivitamin Daily NO LONGER TAKE Test Results Below is a partial list of the most recent Laboratory test results done prior to this discharge. You may have had other tests and procedures not included in this list. Please discuss all test resultswith your provider. BUN (01/10/2023) ???BUN - 10 mg/dL CBC (01/10/2023) ???WBC - 6.0 k/mm3???RBC - 2.43 m/mm3???Hgb - 7.7 Gm/dL???Hct - 23.6 %???MCV - 97.1 femtoliters???MCH - 31.7 pg???MCHC - 32.6 g/dL???Platelet Count - 209 k/mm3???RDW-SD - 45.4 femtoliters???MPV - 8.9femtoliters???Nucleated RBC (Automated) - 0.0 #/100 WBC'S???Abs. NRBC - 0.0 k/mm3 CBC w/ Differential (01/08/2023) ???WBC - 8.9 k/mm3???RBC - 2.77 m/mm3???Hgb - 8.8 Gm/dL???Hct - 26.5 %???MCV - 95.7 femtoliters???MCH - 31.8 pg???MCHC - 33.2 g/dL???Platelet Count - 181 k/mm3???RDW-SD - 44.9 femtoliters???MPV - 9.1femtoliters???Nucleated RBC (Automated) - 0.0 #/100 WBC'S???Abs. NRBC - 0.0 k/mm3???Abs. Neut - 7.3 k/mm3???Abs. Lymph - 0.6 k/mm3???Abs. [place] - 1.0 k/mm3???Abs. Eo - 0.0 k/mm3???Abs. Baso - 0.0 k/mm3???Neut % - 81.6 %???Lymph % - 6.8 %???[place] % - 10.9 %???Eos % - 0.1 %???Baso % - 0.2 %???Imm Gran - 0.4 %???Abs. Imm Gran - 0.0 k/mm3 Comprehensive Metabolic Panel (01/06/2023) ???Sodium - 131 mmol/L???Potassium - 4.1 mmol/L???Chloride - 96 mmol/L???Bicarbonate Level - 25 mmol/L???Anion Gap - 10???Glucose Level - 120 mg/dL???BUN - 9 mg/dL???Creatinine-Blood - 0.4 mg/dL???Estimated GFR Creatinine - 103 ML/MIN/1.73 M2???Calcium - 8.9 mg/dL???Protein, Total - 5.9 Gm/dL???[place] min - 4.4 Gm/dL???AG Ratio - 2.9???Alkaline Phosphatase - 132 units/L???AST (SGOT) - 15 units/L???ALT (SGPT) - 15 units/L???Bilirubin, Total - 0.6 mg/dL COVID-19 (Novel Coronavirus), Rapid PCR (01/06/2023) ???COVID-19 by RT-PCR - NEGATIVE Creatinine (01/10/2023) ???Creatinine-Blood - 0.4 mg/dL???Estimated GFR Creatinine - 104 ML/MIN/1.73 M2 Electrolytes (01/08/2023) ???Sodium - 133 mmol/L???Potassium - 4.2 mmol/L???Chloride - 99 mmol/L???Bicarbonate Level - 25 mmol/L???Anion Gap - 9 HOLD GREEN TUBE (01/06/2023) ???Hold Green Top - SPECIMEN DISCARDED AFTER 1 WEEK INR (01/06/2023) ???INR - 1.1???Protime (PT) - 11.2 seconds Lytes (01/10/2023) ???Sodium - 136 mmol/L???Potassium - 4.3 mmol/L???Chloride - 102 mmol/L???Bicarbonate Level - 27 mmol/L???Anion Gap - 7 Type and Screen (01/06/2023) ???Blood Type - O Positive???Antibody Screen - Negative Allergies (NKA means No Known Allergies) Bactrim Problems Active Problems??(3) Orthostatic hypotension due to Parkinson's disease?? Parkinson disease?? Supine hypertension?? Education Materials Below is the list of Educational Leaflet Providered with your Discharge Instructions. Valuables and Belongings I fully understand and agree that [facility] accepts no responsibility for all my personal property including clothing, toilet articles, radios, jewelry, dentures, hearing aids, rings, money, or any other property that is in my possession or is brought to me after admission. I understand certain valuables may be placed in a hospital safe for a short period of time. I understand that the hospital is not liable for loss or damage due to accident, fire, or other natural occurrence while said property is in the safe. I accept full responsibility for any personal property that I keep with me, and will not hold the hospital responsible in case of loss or disappearance. I acknowledge that i have been encouraged to send valuables and belongings home. ?? Review of Valuable and Belonging List: With patient, With witness Date for Pt to Sign Valuables/Belongings: 01/07/23 07:17:00 ?? Valuables & Belongings ?? Clothes Electronic devices Jewelry Monetary Items Personal devices Miscellaneous Medications (Valuables) Valuables at Bedside Jacket, Shirt, Shoes, Undergarments Cell phone ? Tablets Valuables Sent Home ? Valuables Sent to Security ? Other Discharge Information ? Case Management Discharge Plan?? Discharge Plan?? Discharge Agency Information?? Discharge Level of Care at Discharge: Short-term Acute Inpatient Name of Agency #1: [facility] Discharge Transportation Arranged: [facility] [address] [facility] [phone] Agency Financial Reporting Accountant #1: Intake Mode of Transportation Arranged: Ambulance Service Categories #1: Occupational Therapy, Physical Therapy, [facility] Discharge Arranged Transport Date/Time: 01/10/23 13:00:00 Service Comments #1: [facility] will provide your care after discharge, if any questionsw or concerns please contact the agency directly. Discharge Nursing Homes/Rehab Facilities: [facility] ? Pulmonary Rehab Status?? Pulmonary Rehab Discharge Status?? Respiratory Rate: 16 br/min ? Common Emergency Awareness Tips IS IT A STROKE? Act FAST and Check for these signs: FACE Does the face look uneven? ARM Does one arm drift down? SPEECH Does their speech sound strange? TIME Call at any sign of stroke ?? Heart Attack Signs Chest discomfort: Most heart attacks involve discomfort in the center of the chest and lasts more than a few minutes, or goes away and comes back. It can feel like uncomfortable pressure, squeezing, fullness or pain. Discomfort in upper body: Symptoms can include pain or discomfort in one or both arms, back, neck, jaw or stomach. Shortness of breath: With or without discomfort. Other signs: Breaking out in a cold sweat, nausea, or lightheaded. Remember, MINUTES DO MATTER. If you experience any of these heart attack warning signs, call to get immediate medical attention! ?? Smoking can increase your chances of developing chronic health problems and can cause harmful effects to other family members in your house. If you smoke, you are strongly encouraged to quit. Please call [facility] Link at [phone] or [phone] ([phone]) or log in to [email or web address] for referrals to smoking cessation programs. ?? 788 Suicide & Crisis Lifeline is available 22/01 if you or someone you know needs to find a reason to keep living. By calling 536 you'll be connected to a skilled, trained counselor at a crisis center in your area. INPATIENT DISCHARGE INSTRUCTIONS SIGNATURE PAGE CARISSA ISABEL Location:[facility] Registration Date and Time:01/06/2023 08:20 EDT Primary Care Physician: Siva Austin, Attending Physician: Marco Antonio ROGERS, Abebe Cameron, I CARISSA ISABEL, have received the above patient education materials/instructions and have verbalized understanding. If ambulance or transport services are being used I further acknowledge being givena choice of service. ?? If you need to contact me, please call me at this number: . Patient/Medical Customer Service Representative Name: Patient/Medical Customer Service Representative Signature: Relationship to Patient: Witness Name/Signature: Date: Patient Care team information Care Team Personnel Name: Gege Davis RN Position: [facility] RN Member Role: Primary Care Nurse Name: Gloria Blanchard RN Position: [facility] RN Member Role: Primary Care Nurse Name: Siva Austin Position: [facility] PCO Associate Professional Member Role: PCP Address: Address: [address] [place] [id number] Name: *LUZ MARIA, ED Attending Position: [facility] ED Attendings Patient Name: *LUZ MARIA Inpt Attending Position: [facility] ED Medicine MD Name: Haydee Castellanos Position: [facility] ED TA [facility] Member Role: Gamb Cutter Name: Shelly Willis Position: [facility] ED OA Charge Name: Jana Dow RN Position: [facility] ED RN W/OE and Tasks Member Role: Patient Care Provider Care Team Related Persons Name: OSCAR CHONG Address: [address] [place] [address] Name: BURKE CABRERA Address: [address] [place] [address] Name: EMMANUEL HANCOCK Address: [address] [place] [address]
--- OUTSIDE RECORDS SUMMARY | 2024-05-07 00:24 | XMS_ITS | Continuity of Care Document ---
Author Organization [facility] Naren Hughes Josef lt Address [address] [place] [phone]- Care Team Providers Care Floor Steward/Stewardess Name Role Phone Joe Bernstein DO Primary Care Physician [facility]counter [facility] Date(s): 03/31/24 - 04/30/24 [facility] Naren Hughes Adult [address] [place] [address]- Allergies, Adverse Reactions, Alerts Substance Reaction Severity Status Bactrim 1 Active 1Neuropathy in feet. Immunizations Given and Recorded Vaccine Date Status Refusal Reason pneumococcal 20-valent conjugate vaccine 1 07/24/23 Given SARS-CoV-2(COVID-19)mRNA-LNP vac(dtw710) 04/05/23 Recorded influenza virus vaccine, inactivated 03/16/23 Jakub rded influenza virus vaccine, inactivated 04/19/22 Jakub rded [...] influenza virus vaccine, inactivated 03/12/09 Jakub rded [id number] 12y+ bivalent booster vax 03/17/22 Recorded SARS-CoV-2 [...] 04/25/13 Recorded Zoster Vaccine Live 03/12/09 Recorded 1Result Comment: PCV 20 [facility]#[id number] Medications carbidopa-levodopa 25 mg-100 mg oral tablet See [...] opioid drug. Start Date: 01/10/23 Status: Ordered cyanocobalamin (B-12) (OP) 0 Refills, Maintenance, 2 Start Date: 03/27/23 Status: Ordered docusate sodium 100 mg oral capsule 100 mg, 1, capsule, By Mouth, 2 times a day, PRN, # 20 capsule, Refills 0, Maintenance, for constipation, 11/15/22 10:33:00 EDT, Partial fill upon patient request if the prescription is for a schedule II opioid drug. Start Date: 11/15/22 Status: Ordered Eliquis 5 mg oral tablet 1 tablet, By Mouth, 2 times a day, # 180 tablet, 1 Refills, Maintenance, 01/29/24 10:24:00 EDT, [facility] # [facility], 158, cm, 10/01/23 14:58:00 EDT, Height, 59.7, kg, 05/16/23 16:04:00 EST, Dry Weight Start Date: 01/29/24 Status: Ordered lisinopril 5 mg oral tablet 5 mg, 1, tablet, By Mouth, Daily, TAKE 1 TABLET BY MOUTH EVERY DAY, # 90 tablet, Refills 3, Tot. Refills 3, Maintenance, 10/01/23 15:23:00 EDT, Route to Pharmacy Electronically, [facility] # [facility], Partial fill upon patient request if the prescriptio... Start Date: 10/01/23 Status: Ordered lubiprostone By Mouth, 2 times a day, 0 Refills, Maintenance, 04/10/24 9:35:00 EDT, Partial fill upon patient request if the prescription is for a schedule II opioid drug. Start Date: 04/10/24 Status: Ordered Melatonin = 10 mg, By Mouth, Daily at bedtime, 0 Refills, Maintenance, 11/15/22 10:35:00 EDT, Partial fill upon patient request if the prescription is for a schedule II opioid drug. Start Date: 11/15/22 Stop Date: 01/24/23 Status: Ordered metoprolol 25 mg oral tablet, extended release 25 mg, 1, tablet, By Mouth, Daily, # 90 tablet, Refills 3, Tot. Refills 3, Maintenance, 11/28/23 16:18:00 EDT, Route to Pharmacy Electronically, [facility] # 50, Partial fill upon patient requestif the prescription is for a schedule II opioid bill... Start Date: 11/28/23 Status: Ordered MiraLax Powder = 17 Gm, By Mouth, Daily, 0 Refills, Maintenance, 03/27/23 12:05:00 EDT, Partial fill upon patient request if the prescription is for a schedule II opioid drug. Start Date: 03/27/23 Status: Ordered Ongentys 50 mg oral capsule 1 capsule = 50 mg, By Mouth, Daily at bedtime, 1 hour before or after eating, 0 Refills, Maintenance, 11/15/22 10:36:00 EDT, Partial fill upon patient request if the prescription is for a schedule IIopioid drug. Start Date: 11/15/22 Status: Ordered Vitamin D3 2000 intl units oral capsule 1 capsule = 50 mcg, By Mouth, Daily, # 60 capsule, 0 Refills, Maintenance, 11/15/22 10:20:00 EDT, Capsule, Partial fill upon patient request if the prescription is for a schedule II opioid drug. Start Date: 11/15/22 Status: Ordered Problem List Condition Confirmation Course Effective Dates Status H ealth Status Informant Constipation Confirmed Active Essential hypertension Confirmed Active Repeated falls Confirmed Active Sacral fracture Confirmed Active History of pulmonary embolism Confirmed Active Low back strain Confirmed Active Anxiety and depression Confirmed Active Orthostatic hypotension due to Parkinson's disease Confirmed Active Osteoporosis Confirmed Active Parkinson disease Confirmed Active Paroxysmal A-fib Confirmed Active Medicare annual wellness visit, subsequent Confirmed Active Deep venous insufficiency Confirmed Active Skin nodule Confirmed Active Supine hypertension Confirmed Active Right atrial thrombus Confirmed Active Social History Social History Type Response Smoking Status Never (less than 100 in lifetime) entered on: 11/15/22 Sex Patient Care team information Care Team Personnel Name: Alcira Reid RN Position: [facility] RN Member Role: Primary Care Nurse Name: Tonya Brewer Position: [facility] RN Member Role: Primary Care Nurse Name: Jana Poole RN Position: [facility] SN RN Member Role: Primary Care Nurse Name: Talita Bhatia RN Position: [facility] RN Member Role: Primary Care Nurse Name: Gege Davis RN Position: [facility] RN Member Role: Primary Care Nurse Name: Keily Hernandez RN Position: [facility] RN Member Role: Primary Care Nurse Name: Elina Arriola RN Position: [facility] RN Member Role: Primary Care Nurse Name: Joe Bernstein DO Position: [facility] Physician - Primary Care Member Role: PCP Address: Address: [address] [place] [address]- Name: Gabi Lynch RN Position: [facility] RN Member Role: Primary Care Nurse Name: Gloria Blanchard RN Position: [facility] RN Member Role: Primary Care Nurse Care Team Related Persons Name: OSCAR CHONG Address: home [address] [place] [address] Name: BURKE CABRERA Address: home [address] [place] [address] Name: EMMANUEL HANCOCK Address: [address] [address]
--- OUTSIDE RECORDS SUMMARY | 2024-05-07 00:24 | XMS_ITS | Continuity of Care Document ---
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 Immunizations Given and Recorded Vaccine Date Status Refusal Reason influenza virus vaccine, inactivated 03/16/23 Jakub rded [...] influenza virus vaccine, inactivated 03/12/09 Jakub rded [id number] 12y+ bivalent booster vax 03/17/22 Recorded SARS-CoV-2 [...] opioid drug. Start Date: 11/15/22 Status: Ordered calcium carbonate 500 mg (200 mg elemental calcium) oral tablet, chewable 500 mg, 1, tablet, Daily, Refills 0, Maintenance, 03/27/23 12:04:00 EDT, Partial fill upon patient request if the prescription is for a schedule II opioid drug. Start Date: 03/27/23 Status: Ordered captopril 12.5 mg oral tablet [...] opioid drug. Start Date: 11/15/22 Status: Ordered lidocaine 5% topical film 3 patch, Topically, Daily, remove patches after 12 hours, # 30 patch, 0 Refills, Maintenance, 04/20/23 13:47:00 EDT, Film, [facility] #[id number], Partial fill upon patient request if the prescription isfor a schedule II opioid drug., 3 patch Topically D... Start Date: 04/20/23 Status: Ordered Melatonin = 10 mg, By [...] opioid drug. Start Date: 11/15/22 Status: Ordered MiraLax Powder = 17 Gm, [...] Status: Ordered oxyCODONE 5 mg oral tablet 5 mg, 1, tablet, By Mouth, Every 6 hours, # 18 tablet, Refills 0, Tot. Refills 0, Acute 05/14/23 16:29:00 EST, 04/13/23 16:28:00 EDT, Route to Pharmacy Electronically, [facility]/pharmacy #[id number], Partial fill upon patient request if the prescription is for a... Start Date: 04/13/23 Stop Date: 05/14/23 Status: Ordered PreserVision AREDS 2 oral capsule [...] opioid drug. Start Date: 11/15/22 Status: Ordered sucralfate 1 gm oral tablet 1 Gm, 1, tablet, By Mouth, 2 times a day, # 60 tablet, Refills 0, Maintenance, 03/27/23 12:05:00 EDT, Partial fill upon patient request if the prescription is for a schedule II opioid drug. Start Date: 03/27/23 Status: Ordered Vitamin D3 2000 intl units oral capsule 1 capsule = 50 mcg, By Mouth, Daily, # 60 capsule, 0 Refills, Maintenance, 11/15/22 10:20:00 EDT, Capsule, Partial fill upon patient request if the prescription is for a schedule II opioid drug. Start Date: 5/17/23 Status: Ordered Yuvafem 10 mcg vaginal tablet 1 tablet = 10 mcg, Vaginally, Daily at bedtime, 0 Refills, Maintenance, 03/27/23 12:04:00 EDT, Partial fill upon patient request if the prescription is for a schedule II opioid drug. Start Date: 03/27/23 Status: Ordered Problem List Condition Confirmation Course Effective Dates Status Health St atus Informant Repeated falls Confirmed Active Sacral fracture Confirmed Active Anxiety and depression Confirmed Active Orthostatic hypotension due to Parkinson's disease Confirmed Active Parkinson disease Confirmed Active Paroxysmal A-fib Confirmed Active Supine hypertension Confirmed Active Social History Social History Type Response Smoking Status Never (less than 100 in lifetime) entered on: 11/15/22 Sex Patient Care team information Care Team Personnel Name: Gege Davis RN Position: [facility] RN Member Role: Primary Care Nurse Name: Gloria Blanchard RN Position: [facility] RN Member Role: Primary Care Nurse Name: Siva Austin Position: [facility] PCO Associate Professional Member Role: PCP Address: Address: [address] [place] [address]- Care Team Related Persons Name: OSCAR CHONG Address: home [address] [place] [address] Name: BURKE CABRERA Address: home [address] [place] [address] Name: EMMANUEL HANCOCK Address: home [address] [place] [address]
--- OUTSIDE RECORDS SUMMARY | 2024-05-07 00:24 | XMS_ITS | Continuity of Care Document ---
Author Organization [facility] Saul Josef lt Address [address] [place] [address]- Care Team Providers Care Commercial Intern Name Role Phone Siva Austin Primary Care Physi miranda Encounter [facility] Date(s): 03/28/23 - 04/04/23 [facility] Saul Adult [address] [place] [address]- Encounter Diagnosis Sacral fracture(Discharge Diagnosis) - 03/27/23 Parkinson disease(Discharge Diagnosis) - 03/27/23 Repeated falls(Discharge Diagnosis) - 03/28/23 Attending Physician: Joe Bernstein DO Referring Physician: Siva Austin Allergies, Adverse Reactions, [...] influenza virus vaccine, inactivated 03/12/09 Jakub rded [id number] 12y+ bivalent booster vax 03/17/22 Recorded SARS-CoV-2 [...] IIopioid drug. Start Date: 11/15/22 Status: Ordered PreserVision [...] opioid drug. Start Date: 11/15/22 Status: Ordered Yuvafem 10 mcg vaginal tablet [...] A-fib Confirmed Active Supine hypertension Confirmed Active Diagnosis Diagnosis Type Effective Dates Health Status inical Service Informant Sacral fracture Discharge Diagnosis 03/27/23 Parkinson disease Discharge Diagnosis 03/27/23 Repeated falls Discharge Diagnosis 03/28/23 Vital Signs Most recent to oldest [Reference Range]: 1 Height 159 cm (03/28/23 9:33 AM) Oxygen Saturation [94-100 %] 98 % (03/28/23 9:33 AM) Pulse Rate [55-90 bpm] 74 bpm (03/28/23 9:33 AM) Blood Pressure [90-138/55-84 mm Hg] 134/ 74mm Hg (03/28/23 9:33 AM) Blood pressure sites Arm, left (03/28/23 9:33 AM) Social History Social History Type Response Smoking Status Never (less than 100 in lifetime) entered on: 11/15/22 Sex Note * Krzysztof Hedy: PERFORM, SIGN, VERIFY Event Display: Patient Education/Instruction Authored Date: [id number] [facility] *BMP So [place] Clinical Summary Name JACQUES ISABEL Age 77 Years 1945 PCP Siva Austin PCP Visit Date 03/28/2023 09:24:00 Patient Instructions continue PT orthopedics evaluation increase oxycodone??to whole table?? up to every 6 hrs followup if worsens changes or fails to resolve?? Additional Instructions: Scheduled Appointments?? Future Appointments ?*BMP??So[facility] [address] ?Phone:??--?Fax:??-- ?Appt. Date:??04/20/2023?12:50 PM ?Scheduled Provider:??Siva Austin Follow-Up Instructions ?? With: Address: When: f/u 2 weeks Comments: chavo [place] Diagnosis Repeated falls; Unspecified fracture of sacrum, initial encounter for closed fracture; Parkinson's disease Medications: Please continue your medications until treatment is completed or stopped by your provider. Discuss any questions related to medications with your provider. Medications to Continue Taking That Have Changed [id number], [address], [place] [id number], [phone] - Oxycodone (oxyCODONE 5 mg oral capsule) 1 capsule Oral every 6 hours as needed Pain , Severe. Refills: 0. Next Dose: Medications to Continue with No Changes These medications were not printed or sent to your pharmacy apixaban (apixaban 5 mg oral tablet) 1 tab(s) Oral twice a day. Next Dose: Calcium Carbonate (calcium carbonate 500 mg (200 mg elemental calcium) oral tablet, chewable) 1 tab(s) Daily. Next Dose: Captopril (captopril 12.5 mg oral tablet) 3 tab(s) Oral Daily at Bedtime. Next Dose: Carbidopa-Levodopa (carbidopa-levodopa 25 mg-100 mg oral tablet) 2 tabs at 5: 30 am , 1.5 tab at 8 am , 2 tabs at 10:30 am , 1.5 tablet at 1 pm , 2 tablet at 3:30 pm , 2 tablet at 5: 30 and 1-2 tablet6 at night as needed. Next Dose: Cholecalciferol (Vitamin D3 2000 intl units oral capsule) 1 capsule Oral Daily. Next Dose: Clonazepam (clonazePAM 0.5 mg oral tablet) 1.5 tablets Daily at Bedtime. Next Dose: Cyanocobalamin (cyanocobalamin (B-12) (OP)) Next Dose: Docusate (docusate sodium 100 mg oral capsule) 1 capsule Oral twice a day as needed for constipation. Next Dose: Estradiol Topical (estradiol 10 mcg vaginal tablet) 1 tab(s) Vaginally Daily at Bedtime. Next Dose: Estradiol Topical (Yuvafem 10 mcg vaginal tablet) 1 tab(s) Vaginally Daily at Bedtime. Next Dose: Melatonin 10 Milligram Oral Daily at Bedtime for 14 Days. Next Dose: Metoprolol (Metoprolol Tartrate 25 mg oral tablet) 1 tab(s) Oral twice a day. Next Dose: Multivitamin With Minerals (PreserVision AREDS 2 oral capsule) Next Dose: opicapone (Ongentys 50 mg oral capsule) 1 capsule Oral Daily at Bedtime. 1 hour before or after eating. Next Dose: Polyethylene Glycol 3350 (MiraLax Powder) 17 gram Oral Daily. Next Dose: Senna (Senna 8.6 mg oral tablet) 1 tab(s) Oral Daily at Bedtime. Next Dose: Sertraline (sertraline 50 mg oral tablet) 1 tab(s) Oral Daily. Next Dose: Sucralfate (sucralfate 1 gm oral tablet) 1 tab(s) Oral twice a day. Next Dose: Allergy Info:?? Bactrim Medications Given This Visit Future Orders ?No future orders Vital Signs Height 159 cm Weight BMI Blood Pressure 134 mm Hg/74 mm Hg Temperature Pulse Rate 74 bpm Respiratory Rate 02 Sat Mode of Delivery 98 %/ You can now view a summary of your hospital visit from the comfort of your home through a free online portal called [employer]. [employer] is a website that allows you to securely view your medical information including discharge summary, medications and follow-up visits. ??You can alsosend a secure electronic message to your doctor???s office to request appointments, renew medications or just ask a question. You can enroll at [email or web address] or register during your next office [...] primary care provider, you may find a [facility] provider by calling [facility] emoteShare Link at [phone]. [facility], in keeping with [facility] guidance, no longer requires face masks for staff, patientsor visitors in most situations. Similar to time spent indoors at other locations, there is the chance that you were exposed to respiratory viruses during your time with us (such as flu or COVID-19).? If you develop symptoms concerning for a viral respiratory infection, please seek testing (and treatment if indicated) from your medical provider or home test kit. For information about the plan of care [...] Team Personnel Name: Gege Davis RN Position: [facility] RN Member Role: Primary Care Nurse Name: Gloria Blanchard RN Position: S RN Member Role: Primary Care Nurse Name: Siva Austin Position: [facility] PCO Associate Professional Member Role: PCP Address: Address: [address] [place] [address]- Care Team Related Persons Name: OSCAR CHONG Address: home [address] [place] [address] Name: BURKE CABRERA Address: [address] [place] [address] Name: EMMANUEL HANCOCK Address: [address] [place] [id number]
--- OUTSIDE RECORDS SUMMARY | 2024-05-07 00:24 | XMS_ITS | Continuity of Care Document ---
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 Role Phone Joe Bernstein DO Primary Care Physician Encounter [facility] Date(s): 10/01/23 - 10/08/23 [facility] Naren Sharmaley Adult [address] [place] [address]- Encounter Diagnosis Essential hypertension(Discharge Diagnosis) - 09/29/23 Anxiety and depression(Discharge Diagnosis) - 09/29/23 History of pulmonary embolism(Discharge Diagnosis) - 09/29/23 Paroxysmal A-fib(Discharge Diagnosis) - 09/29/23 Parkinson disease(Discharge Diagnosis) - 09/29/23 Orthostatic hypotension due to Parkinson's disease(Discharge Diagnosis) - 09/29/23 Repeated falls(Discharge Diagnosis) - 09/29/23 Right atrial thrombus(Discharge Diagnosis) - 09/29/23 Constipation(Discharge Diagnosis) - 10/01/23 Osteoporosis(Discharge Diagnosis) - 10/01/23 Attending Physician: Joe Bernstein DO Allergies, Adverse Reactions, Alerts Substance Reaction Severity Status Bactrim 1 Active 1Neuropathy in feet. Immunizations Given and Recorded Vaccine Date Status Refusal Reason pneumococcal 20-valent conjugate vaccine 1 07/24/23 Given SARS-CoV-2(COVID-19)mRNA-LNP vac([id number]) 04/05/23 Recorded influenza virus vaccine, inactivated 03/16/23 [...] influenza virus vaccine, inactivated 03/12/09 Jakub rded [id number] 12y+ bivalent booster vax 03/17/22 Recorded SARS-CoV-2 [...] Live 03/12/09 Recorded 1Result Comment: PCV [address] [facility][id number] Medications apixaban Starter Pack 5 mg oral tablet 1 tablet = 5 mg, By Mouth, 2 times a day, # 180 tablet, 1 Refills, Maintenance, 08/07/23 9:07:00 EST, Tablet, [facility] # [facility], Partial fill upon patient request if the prescription is for a schedule II opioid drug., 158, cm, 07/24/23 11:13:00 EST,... Start Date: 08/07/23 Status: Ordered calcium carbonate 500 mg (200 mg elemental calcium) oral tablet, chewable 500 mg, 1, tablet, Daily, Refills 0, Maintenance, 03/27/23 12:04:00 EDT, Partial fill upon patient request if the prescription is for a schedule II opioid drug. Start Date: 03/27/23 Status: Ordered carbidopa-levodopa 25 mg-100 mg oral [...] opioid drug. Start Date: 11/15/22 Status: Ordered lisinopril 5 mg oral tablet 5 mg, 1, tablet, By Mouth, Daily, TAKE 1 TABLET BY MOUTH EVERY DAY, # 90 tablet, Refills 3, Tot. Refills 3, Maintenance, 10/01/23 15:23:00 EDT, Route to Pharmacy Electronically, [facility] # [facility], Partial fill upon patient request if the prescriptio... Start Date: 10/01/23 Status: Ordered Melatonin = 10 mg, By Mouth, Daily at bedtime, 0 Refills, Maintenance, 11/15/22 10:35:00 EDT, Partial fill upon patient request if the prescription is for a schedule II opioid drug. Start Date: 11/15/22 Stop Date: 01/24/23 Status: Ordered metoprolol 25 mg oral tablet, extended release By Mouth, Daily, Refills 0, Maintenance, 05/22/23 13:09:00 EST, Partial fill upon patient request if the prescription is for a schedule II opioid drug. Start Date: 05/22/23 Status: Ordered MiraLax Powder = 17 Gm, [...] IIopioid drug. Start Date: 11/15/22 Status: Ordered Senna [...] Condition Confirmation Course Effective Dates Status H ealt Status Informant Constipation Confirmed Active Essential hypertension Confirmed Active Repeated falls Confirmed Active Sacral fracture Confirmed Active History of pulmonary embolism Confirmed Active Anxiety and depression Confirmed Active Orthostatic hypotension due to Parkinson's disease Confirmed Active Osteoporosis Confirmed Active Parkinson disease Confirmed Active Paroxysmal A-fib Confirmed Active Deep venous insufficiency Confirmed Active Supine hypertension Confirmed Active Right atrial thrombus Confirmed Active Diagnosis Diagnosis Type Effective Dates Health Status Clinical Service Informant Essential hypertension Discharge Diagnosis 09/29/23 Anxiety and depression Discharge Diagnosis 09/29/23 History of pulmonary embolism Discharge Diagnosis 09/29/23 Paroxysmal A-fib Discharge Diagnosis 09/29/23 Parkinson disease Discharge Diagnosis 09/29/23 Orthostatic hypotension due to Parkinson's disease Discharge Diagnosis 09/29/23 Repeated falls Discharge Diagnosis 09/29/23 Right atrial thrombus Discharge Diagnosis 09/29/23 Constipation Discharge Diagnosis 10/01/23 Osteoporosis Discharge Diagnosis 10/01/23 Vital Signs Most recent to oldest [Reference Range]: 1 Height 158 cm (10/01/23 2:58 PM) Weight 52.0 kg (10/01/23 2:58 PM) Oxygen Saturation [94-100 %] 97 % (10/01/23 2:58 PM) Pulse Rate [55-90 bpm] 78 bpm (10/01/23 2:58 PM) Body Mass Index [18.5-24.99 kg/m2] 20.83 kg/m2 (10/01/23 2:58 PM) Blood Pressure [90-138/55-84 mm Hg] 124/ 88mm Hg (10/01/23 2:58 PM) Respiratory Rate [16-30 br/min] 16 br/mi n (10/01/23 2:58 PM) Temperature [96.8-100.4 DegF] 97.4 DegF (10/01/23 2:58 PM) Mode of Delivery (Oxygen) Room air (10/01/23 2:58 PM) Blood pressure sites Arm, right (10/01/23 2:58 PM) Temperature Route Oral (10/01/23 2:58 PM) Weight Obtained Via Standing scale (10/01/23 2:58 PM) Social History Social History Type Response Smoking Status Never (less than 100 in lifetime) entered on: 11/15/22 Sex Patient Care team information Care Team Personnel Name: Alcira Reid RN Position: [facility] RN Member Role: Primary Care Nurse Name: Tonya Brewer Position: [facility] RN Member Role: Primary Care Nurse Name: Jana Poole RN Position: [facility] RN Member Role: Primary Care Nurse Name: Talita Bhatia RN Position: [facility] RN Member Role: Primary Care Nurse Name: Lyndsey Spencer RN Position: [facility] RN Member Role: Primary Care Nurse Name: Gege Davis RN Position: [facility] RN Member Role: Primary Care Nurse Name: Keily Hernandez RN Position: [facility] RN Member Role: Primary Care Nurse Name: Katina Arriola RN Position: [facility] RN Member Role: Primary Care Nurse Name: Joe Bernstein DO Position: [facility] Physician - Primary Care Member Role: PCP Address: Address: [address] [place] [address]- Name: Gabi Lynch RN Position: S RN Member Role: Primary Care Nurse Name: Gloria Blanchard RN Position: S RN Member Role: Primary Care Nurse Care Team Related Persons Name: OSCAR CHONG Address: home [address] [place] [address] Name: BURKE CABRERA Address: [address] [place] [address] Name: EMMANUEL HANCOCK Address: home [address] [place] [address]
--- OUTSIDE RECORDS SUMMARY | 2024-05-07 00:25 | XMS_ITS | Continuity of Care Document ---
Author Organization [facility] Naren Hughes Josef lt Address [address] [place] [address]- Care Team Providers Care Motion Picture Film Examiner Name Role Phone Siva Austin Primary Care Physi miranda [facility] 02[facility]23 - 03/10/23 [facility] Naren Hughes Adult [address] [place] [address]- Allergies, Adverse Reactions, Alerts Substance Reaction Severity [...] influenza virus vaccine, inactivated 03/12/09 Jakub rded [id number] 12y+ bivalent booster vax 03/17/22 Recorded SARS-CoV-2 [...] opioid drug. Start Date: 11/15/22 Status: Ordered Macrobid macrocrystals-monohydrate 100 mg oral capsule 1 capsule = 100 mg, By Mouth, 2 times a day, for 10 days, # 20 capsule, 0 Refills, Acute 03/12/23 15:15:00 EDT, 03/02/23 15:15:00 EDT, Capsule, [facility]/pharmacy #[id number], Partial fill upon patient request if the prescription is for a schedule II opioid drug.... Start Date: 03/02/23 Stop Date: 03/12/23 Status: Ordered Melatonin = 10 mg, By [...] Effective Dates Status Health St atus Informant Anxiety and depression Confirmed Active Orthostatic hypotension due to Parkinson's disease Confirmed Active Parkinson disease Confirmed Active Paroxysmal A-fib Confirmed Active Supine hypertension Confirmed Active Social History Social History Type Response Smoking Status Never (less than 100 in lifetime) entered on: 11/15/22 Sex Patient Care team information Care Team Personnel Name: Gege Davis RN Position: [facility] RN Member Role: Primary Care Nurse Name: Gloria Blanchard RN Position: [facility] RN Member Role: Primary Care Nurse Name: Siva Austin Position: [facility] PCO Associate Professional Member Role: PCP Address: Address: [address] [place] [address]- Care Team Related Persons Name: OSCAR CHONG Address: home [address] [place] [address] Name: BURKE CABRERA Address: home [address] [place] [address] Name: EMMANUEL HANCOCK Address: home [address] [place] [address]
--- OUTSIDE RECORDS SUMMARY | 2024-05-07 00:25 | XMS_ITS | Continuity of Care Document ---
Author Organization [facility] Saul Josef lt Address [address] [place] [address]- Care Team Providers Care Pit Shoveler Name Role Phone Siva Austin Primary Care Physi miranda [facility]s): 03/23/23 - 04/22/23 [facility] Adult [address] [place] [address]- Allergies, Adverse Reactions, Alerts Substance Reaction Severity [...] influenza virus vaccine, inactivated 03/12/09 Jakub rded [id number] 12y+ bivalent booster vax 03/17/22 Recorded SARS-CoV-2 [...] 0 Refills, Maintenance, 04/20/23 13:47:00 EDT, Film, [facility]/pharmacy #[id number], Partial fill upon patient request [...] 04/13/23 16:28:00 EDT, Route to Pharmacy Electronically, [facility]/pharmacy #[id number], Partial fill upon patient request [...] lifetime) entered on: 11/15/22 Sex Note * Pam Reinoso RN: PERFORM, SIGN, VERIFY Siva Austin: SIGN Event Display: Case Management Discharge Plan Authored Date: [id number] Patient: JACQUES ISABEL Age: 77 years Sex: Female : 1945 Associated Diagnoses: None Author: Pam Reinoso RN Care Management Discharge Call Note Admit date 03/21/2023 Discharge date 03/21/2023 Date of contact 03/26/2023 Diagnosis Left Secrum Fx If patient went for emergency services was this patient referred? Referred by pt called [facility] and was triaged per nurse and advised to go to ED [facility] D/C Notes scanned in CIS. Discharge instructions were reviewed with the patient? Yes Medication reconciliation performed Yes Looks like you were recently discharged from the hospital (ED), how are you feeling? Patient deniens any new or worsneing s/sx since discharge. pt report's overlal she is feeling fine..however she is still having saroj sacral pain. Pt Fell early December nand Fx her left HIp went to [facility]. Pt also hayden to [facility] on 03/15 D/C 03/17 for Syncope Dx with UTI. Please tell me the problem or condition that brought you to the hospital (ED)? Left lower back pain. Do you know what to do in case of an emergency? Yes Were you given any prescriptions to fill? No Do you understand how to take your medication? Yes Other diagnostic tests/procedures ordered/recommended? Pt will discuss with provider at [facility] Do you have an appointment already scheduled with your PCP? Yes Is date appropriate: Yes. Are you able to get to that appointment: Yes. Appointment scheduled? Date 03/28/2023 Home Care Services requested? Yes Agency [facility] Patient contacted: Yes. Have there been any changes in your condition since discharge? No Do you have someone at home that is able to help you? Yes Is there anything else that you need addressed before your follow up appointment? No per pt. Patient Care team information Care Team Personnel Name: Gege Davis RN Position: [facility] RN Member Role: Primary Care Nurse Name: Gloria Blanchard RN Position: [facility] RN Member Role: Primary Care Nurse Name: Siva Austin Position: [facility] PCO Associate Professional Member Role: PCP Address: Address: [address] [place] [address] Care Team Related Persons Name: OSCAR CHONG Address: home [address] [place] [address] Name: BURKE CABRERA Address: home [address] [place] [address] Name: EMMANUEL HANCOCK Address: home [address] [place] [address]
--- OUTSIDE RECORDS SUMMARY | 2024-05-07 00:25 | XMS_ITS | Continuity of Care Document ---
Author Organization [facility] Saul Josef Address [address] [place] [address]- Care Team Providers Care Hydroelectric Station Operator Name Role Phone Joe Bernstein DO Primary Care Physician [facility]): 02/15/24 - 03/16/24 [facility] Adult [address] [place] [address]- Allergies, Adverse Reactions, Alerts Substance Reaction Severity Status Bactrim 1 Active 1Neuropathy in feet. Immunizations Given and Recorded Vaccine Date Status Refusal Reason pneumococcal 20-valent conjugate vaccine 1 07/24/23 Given SARS-CoV-2(COVID-19)mRNA-LNP vac([id number]) 04/05/23 Recorded influenza virus vaccine, inactivated 03/16/23 [...] influenza virus vaccine, inactivated 03/12/09 Jakub rded [id number] 12y+ bivalent booster vax 03/17/22 Recorded SARS-CoV-2 [...] Live 03/12/09 Recorded 1Result Comment: PCV 20 [facility]#4640-4681-09 Medications calcium carbonate 500 mg (200 mg elemental [...] tablet, 1 Refills, Maintenance, 01/29/24 10:24:00 EDT, [facility] # [facility], 158, cm, 10/01/23 14:58:00 EDT, Height, 59.7, kg, 05/16/23 16:04:00 EST, Dry Weight Start Date: 01/29/24 Status: Ordered lisinopril 5 mg oral tablet 5 mg, 1, tablet, By Mouth, Daily, TAKE 1 TABLET BY MOUTH EVERY DAY, # 90 tablet, Refills 3, Tot. Refills 3, Maintenance, 10/01/23 15:23:00 EDT, Route to Pharmacy Electronically, [facility] # [facility], Partial fill upon [...] 11/28/23 16:18:00 EDT, Route to Pharmacy Electronically, [facility] # 50, Partial fill upon [...] falls Confirmed Active Sacral fracture Confirmed Active Left ulnar fracture Confirmed Active History of pulmonary embolism Confirmed Active Low back strain Confirmed Active Anxiety and depression Confirmed Active Orthostatic hypotension due to Parkinson's disease Confirmed Active Osteoporosis Confirmed Active Parkinson disease Confirmed Active Paroxysmal A-fib Confirmed Active Deep venous insufficiency Confirmed Active Supine hypertension Confirmed Active Right atrial thrombus Confirmed Active Underweight Confirmed Active Social History Social History Type Response Smoking Status Never (less than 100 in lifetime) entered on: 11/15/22 Sex Patient Care team information Care Team Personnel Name: Alcira Reid RN Position: [facility] RN Member Role: Primary Care Nurse Name: Tonya Brewer Position: [facility] RN Member Role: Primary Care Nurse Name: Jana Poole RN Position: [facility] SN RN Member Role: Primary Care Nurse Name: Talita Bhatia RN Position: [facility] RN Member Role: Primary Care Nurse Name: Gege Davis RN Position: S RN Member Role: Primary Care Nurse Name: Keily Hernandez RN Position: [facility] RN Member Role: Primary Care Nurse Name: Elina Arriola RN Position: [facility] RN Member Role: Primary Care Nurse Name: Joe Bernstein DO Position: [facility] Physician - Primary Care Member Role: PCP Address: Address: [address] [place] [address]- Name: Gabi Lynch RN Position: [facility] RN Member Role: Primary Care Nurse Name: Gloria Blanchard RN Position: S RN Member Role: Primary Care Nurse Care Team Related Persons Name: OSCAR CHONG Address: home [address] [place] [address] Name: BURKE CABRERA Address: [address] [place] [address] Name: EMMANUEL HANCOCK Address: home [address] [place] [address]
--- OUTSIDE RECORDS SUMMARY | 2024-05-07 00:25 | XMS_ITS | Continuity of Care Document ---
Author Organization [facility] Address [address] [facility] [place] [address]- Care Team Providers Care Cable Cutter And Swager Name Role Phone Siva Austin Primary Care Physi miranda Encounter 12/21/22 - 03/02/23 [facility] [address], [address] [place] [address]- Attending Physician: Siva Austin Admitting Physician: Siva Austin Referring Physician: Siva Austin Allergies, Adverse Reactions, [...] influenza virus vaccine, inactivated 03/12/09 Jakub rded [id number] 12y+ bivalent booster vax 03/17/22 Recorded SARS-CoV-2 [...] 03/12/23 15:15:00 EDT, 03/02/23 15:15:00 EDT, Capsule, [facility]/pharmacy #[id number], Partial fill upon patient request [...] Team Personnel Name: Gege Davis RN Position: [facility] RN Member Role: Primary Care Nurse Name: Gloria Blanchard RN Position: S RN Member Role: Primary Care Nurse Name: Siva Austin Position: [facility] PCO Associate Professional Member Role: PCP Address: Address: [address] [place] [address]- Care Team Related Persons Name: OSCAR CHONG Address: [address] [place] [address] Name: BURKE CABRERA Address: [address] [place] [address] Name: EMMANUEL HANCOCK Address: home [address] [place] [id number]
--- OUTSIDE RECORDS SUMMARY | 2024-05-07 00:25 | XMS_ITS | Continuity of Care Document ---
Author Organization [facility] Naren Hughes Josef Address [address] [place] [address]- Care Team Providers Care Inclusion Special Educator Name Role Phone Siva Austin Primary Care Physi miranda [facility]s): 03/02/23 - 04/01/23 [facility] Adult [address] [place] [address]- Allergies, Adverse Reactions, Alerts Substance Reaction Severity [...] influenza virus vaccine, inactivated 03/12/09 Jakub rded [id number] 12y+ bivalent booster vax 03/17/22 Recorded SARS-CoV-2 [...] 11/15/22 Status: Ordered oxyCODONE 5 mg oral capsule 1 capsule = 5 mg, By Mouth, Every 6 hours, PRN Pain , Severe, # 18 capsule, 0 Refills, Acute 04/04/23 10:02:00 EDT, 03/28/23 10:02:00 EDT, Capsule, [facility]/pharmacy #[id number], Partial fill upon patient request if the prescription is for a schedule II opioid d... Start Date: 03/28/23 Stop Date: 04/04/23 Status: Ordered PreserVision AREDS 2 oral capsule [...] Team Personnel Name: Gege Davis RN Position: [facility] RN Member Role: Primary Care Nurse Name: Gloria Blanchard RN Position: [facility] RN Member Role: Primary Care Nurse Name: Siva Austin Position: [facility] PCO Associate Professional Member Role: PCP Address: Address: [address] [place] [address]- Care Team Related Persons Name: OSCAR CHONG Address: home [address] [place] [address] Name: BURKE CABRERA Address: [address] [place] [address] Name: EMMANUEL HANCOCK Address: home [address] [place] [address]
--- OUTSIDE RECORDS SUMMARY | 2024-05-07 00:25 | XMS_ITS | Continuity of Care Document ---
Author Organization [facility] Saul Josef Address [address] [place] [address]- Care Team Providers Care Rivet Hammer Machine Operator Name Role Phone Siva Austin Primary Care Physi miranda [facility]): 04/12/23 - 05/12/23 [facility] Adult [address] [place] [address]- Allergies, Adverse Reactions, Alerts Substance Reaction Severity [...] influenza virus vaccine, inactivated 03/12/09 Jakub rded [id number] 12y+ bivalent booster vax 03/17/22 Recorded SARS-CoV-2 [...] 0 Refills, Maintenance, 04/20/23 13:47:00 EDT, Film, [facility]/pharmacy #[id number], Partial fill upon patient request if [...] 04/13/23 16:28:00 EDT, Route to Pharmacy Electronically, [facility]/pharmacy #[id number], Partial fill upon patient request if [...] Personnel Name: Gege Davis RN Position: [facility] RN Member Role: Primary Care Nurse Name: Gloria Blanchard RN Position: [facility] RN Member Role: Primary Care Nurse Name: Siva Austin Position: [facility] PCO Associate Professional Member Role: PCP Address: Address: [address] [place] [address]- Care Team Related Persons Name: OSCAR CHONG Address: home [address] [place] [address] Name: BURKE CABRERA Address: [address] [place] [address] Name: EMMANUEL HANCOCK Address: home [address] [place] [address]
--- OUTSIDE RECORDS SUMMARY | 2024-05-07 00:25 | XMS_ITS | Continuity of Care Document ---
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 Immunizations Given and Recorded Vaccine Date Status Refusal Reason pneumococcal 20-valent conjugate vaccine 1 07/24/23 Given SARS-CoV-2(COVID-19)mRNA-LNP vac([id number]) 04/05/23 Recorded influenza virus vaccine, inactivated 03/16/23 [...] influenza virus vaccine, inactivated 03/12/09 Jakub rded [id number] 12y+ bivalent booster vax 03/17/22 Recorded SARS-CoV-2 [...] Live 03/12/09 Recorded 1Result Comment: PCV 20 [facility]#[id number] Medications calcium carbonate 500 mg (200 mg [...] tablet, 1 Refills, Maintenance, 01/29/24 10:24:00 EDT, [facility] # 50, 158, cm, 10/01/23 14:58:00 EDT, Height, 59.7, kg, 05/16/23 16:04:00 EST, Dry Weight Start Date: 01/29/24 Status: Ordered lisinopril 5 mg oral tablet 5 mg, 1, tablet, By Mouth, Daily, TAKE 1 TABLET BY MOUTH EVERY DAY, # 90 tablet, Refills 3, Tot. Refills 3, Maintenance, 10/01/23 15:23:00 EDT, Route to Pharmacy Electronically, [facility] # 50, Partial fill upon patient [...] 11/28/23 16:18:00 EDT, Route to Pharmacy Electronically, [facility] # 50, Partial fill upon patient [...] Team Personnel Name: Alcira Reid RN Position: [facility] RN Member Role: Primary Care Nurse Name: Tonya Brewer Position: [facility] RN Member Role: Primary Care Nurse Name: Jana Poole RN Position: [facility] SN RN Member Role: Primary Care Nurse Name: Talita Bhatia RN Position: [facility] RN Member Role: Primary Care Nurse Name: Gege Davis RN Position: S RN Member Role: Primary Care Nurse Name: Keily Hernandez RN Position: [facility] RN Member Role: Primary Care Nurse Name: Elina Arriola RN Position: [facility] RN Member Role: Primary Care Nurse Name: Joe Bernstein DO Position: [facility] Physician - Primary Care Member Role: PCP Address: Address: [address] [place] [address]- Name: Gabi Lynch RN Position: [facility] RN Member Role: Primary Care Nurse Name: Gloria Blanchard RN Position: S RN Member Role: Primary Care Nurse Care Team Related Persons Name: OSCAR CHONG Address: [address] [place] [address] Name: BURKE CABRERA Address: [address] [place] [address] Name: EMMANUEL HANCOCK Address: [address] [place] [address]
--- OUTSIDE RECORDS SUMMARY | 2024-05-07 00:25 | XMS_ITS | Continuity of Care Document ---
Author Organization [facility] Neely Josef Address [address] [place] [address]- Care Team Providers Care Emergency Medical Dispatcher Name Role Phone Siva Austin Primary Care Physi miranda [place] [facility] Date(s): 03/16/23 - 04/20/23 [facility] Adult [address] [place] [address]- Attending Physician: Maral Segura Referring Physician: Siva Austin Allergies, Adverse Reactions, [...] influenza virus vaccine, inactivated 03/12/09 Jakub rded [id number] 12y+ bivalent booster vax 03/17/22 Recorded SARS-CoV-2 [...] 0 Refills, Maintenance, 04/20/23 13:47:00 EDT, Film, [id number], Partial fill upon patient request if [...] 04/13/23 16:28:00 EDT, Route to Pharmacy Electronically, [facility]/pharmacy #[id number], Partial fill upon patient request if the [...] Team Personnel Name: Gege Davis RN Position: [facility] RN Member Role: Primary Care Nurse Name: Gloria Blanchard RN Position: [facility] RN Member Role: Primary Care Nurse Name: Siva Austin Position: [facility] PCO Associate Professional Member Role: PCP Address: Address: [address] [place] [address]- Care Team Related Persons Name: OSCAR CHONG Address: home [address] [place] [address] Name: BURKE CABRERA Address: [address] [place] [address] Name: EMMANUEL HANCOCK Address: home [address] [place] [address]
--- OUTSIDE RECORDS SUMMARY | 2024-05-07 00:25 | XMS_ITS | Continuity of Care Document ---
Author Organization [facility] Naren Hughes Josef Address [address] [place] [address]- Care Team Providers Care Pantry Chef Name Role Phone Joe Bernstein DO Primary Care Physician [facility]s): 01/25/24 - 03/27/24 [facility] [place] Adult [address] [place] [address]- Attending Physician: Joe Bernstein DO Allergies, Adverse Reactions, Alerts Substance Reaction Severity Status Bactrim 1 Active 1Neuropathy in feet. Immunizations Given and Recorded Vaccine Date Status Refusal Reason pneumococcal 20-valent conjugate vaccine 1 07/24/23 Given SARS-CoV-2(COVID-19)mRNA-LNP vac([id number]) 04/05/23 Recorded influenza virus vaccine, inactivated 03/16/23 [...] influenza virus vaccine, inactivated 03/12/09 Jakub rded [id number] 12y+ bivalent booster vax 03/17/22 Recorded SARS-CoV-2 [...] Live 03/12/09 Recorded 1Result Comment: PCV 20 [facility]#[id number] Medications calcium carbonate 500 mg (200 mg [...] tablet, 1 Refills, Maintenance, 01/29/24 10:24:00 EDT, [facility] # [facility], 158, cm, 10/01/23 14:58:00 EDT, Height, 59.7, kg, 05/16/23 16:04:00 EST, Dry Weight Start Date: 01/29/24 Status: Ordered lisinopril 5 mg oral tablet 5 mg, 1, tablet, By Mouth, Daily, TAKE 1 TABLET BY MOUTH EVERY DAY, # 90 tablet, Refills 3, Tot. Refills 3, Maintenance, 10/01/23 15:23:00 EDT, Route to Pharmacy Electronically, [facility] # [facility], Partial fill upon [...] 11/28/23 16:18:00 EDT, Route to Pharmacy Electronically, [facility] # [facility], Partial fill upon [...] Team Personnel Name: Alcira Reid RN Position: [facility] RN Member Role: Primary Care Nurse Name: Tonya Brewer Position: [facility] RN Member Role: Primary Care Nurse Name: Jana Poole RN Position: [facility] RN Member Role: Primary Care Nurse Name: Talita Bhatia RN Position: [facility] RN Member Role: Primary Care Nurse Name: Gege Davis RN Position: [facility] RN Member Role: Primary Care Nurse Name: Keily Hernandez RN Position: [facility] RN Member Role: Primary Care Nurse Name: Elina Arriola RN Position: [facility] RN Member Role: Primary Care Nurse Name: Joe Bernstein DO Position: [facility] Physician - Primary Care Member Role: PCP Address: Address: [address] [place] [id number] Name: Gabi Lynch RN Position: [facility] RN Member Role: Primary Care Nurse Name: Gloria Blnachard RN Position: [facility] RN Member Role: Primary Care Nurse Care Team Related Persons Name: OSCAR CHONG Address: [address] [place] [address] Name: BURKE CABRERA Address: [address] [place] [address] Name: EMMANUEL HANCOCK Address: home [address] [place] [id number]
--- OUTSIDE RECORDS SUMMARY | 2024-05-07 00:25 | XMS_ITS | Continuity of Care Document ---
Author Organization [facility] Naren Hughes Josef Address [address] [place] [id number]- Care Team Providers Care Dental Scheduling Coordinator Name Role Phone Joe Bernstein DO Primary Care Physician [phone] Encounter [facility] Date(s): 04/03/24 - 05/03/24 [facility] Naren Hughes Adult [address] [place] [address]- Allergies, Adverse Reactions, Alerts Substance Reaction Severity Status Bactrim 1 Active 1Neuropathy in feet. Immunizations Given and Recorded Vaccine Date Status Refusal Reason pneumococcal 20-valent conjugate vaccine 1 07/24/23 Given SARS-CoV-2(COVID-19)mRNA-LNP vac([id number]) 04/05/23 Recorded influenza virus vaccine, inactivated 03/16/23 [...] influenza virus vaccine, inactivated 03/12/09 Jakub rded [id number] 12y+ bivalent booster vax 03/17/22 Recorded SARS-CoV-2 [...] Live 03/12/09 Recorded 1Result Comment: [facility] Medications carbidopa-levodopa 25 mg-100 mg oral tablet [...] tablet, 1 Refills, Maintenance, 01/29/24 10:24:00 EDT, [facility] # [facility], 158, cm, 10/01/23 14:58:00 EDT, Height, 59.7, kg, 05/16/23 16:04:00 EST, Dry Weight Start Date: 01/29/24 Status: Ordered lisinopril 5 mg oral tablet 5 mg, 1, tablet, By Mouth, Daily, TAKE 1 TABLET BY MOUTH EVERY DAY, # 90 tablet, Refills 3, Tot. Refills 3, Maintenance, 10/01/23 15:23:00 EDT, Route to Pharmacy Electronically, [facility] # [facility], Partial fill upon [...] 11/28/23 16:18:00 EDT, Route to Pharmacy Electronically, [facility] # 50, Partial fill upon [...] Team Personnel Name: Alcira Reid RN Position: [facility] RN Member Role: Primary Care Nurse Name: Tonya Brewer Position: [facility] RN Member Role: Primary Care Nurse Name: Jana Poole RN Position: [facility] SN RN Member Role: Primary Care Nurse Name: Talita Bhatia RN Position: [facility] RN Member Role: Primary Care Nurse Name: Gege Davis RN Position: [facility] RN Member Role: Primary Care Nurse Name: Keily Hernandez RN Position: [facility] RN Member Role: Primary Care Nurse Name: Elina Arriola RN Position: [facility] RN Member Role: Primary Care Nurse Name: Joe Bernstein DO Position: [facility] Physician - Primary Care Member Role: PCP Address: Address: [address] [place] [phone]- Name: Gabi Lynch RN Position: [facility] RN Member Role: Primary Care Nurse Name: Gloria Blanchard RN Position: [facility] RN Member Role: Primary Care Nurse Care Team Related Persons Name: OSCAR CHONG Address: [address] [place] [address] Name: BURKE CABRERA Address: [address] [place] [address] Name: EMMANUEL HANCOCK Address: home [address] [place] [id number]
--- OUTSIDE RECORDS SUMMARY | 2024-05-07 00:25 | XMS_ITS | Continuity of Care Document ---
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 Name Role Phone Siva Austin Primary Care Physi miranda Encounter [facility] Date(s): 05/13/23 - 05/22/[address] [address]- Encounter Diagnosis Right atrial thrombus(Discharge Diagnosis) - 05/20/23 Fracture of distal end of left femur(Final) - 05/13/23 History of Parkinson's disease(Final) - 05/13/23 Discharge Disposition: A-Transfer SNF Attending Physician: Luis Buckley MD Admitting Physician: Chandana Huynh MD Referring Physician: Not on Staff, Referring MD [...] influenza virus vaccine, inactivated 03/12/09 Jakub rded [id number] 12y+ bivalent booster vax 03/17/22 Recorded SARS-CoV-2 [...] Recorded Zoster Vaccine Live 03/12/09 Recorded Medications acetaminophen 325 mg oral tablet 975 mg, Tablet, By Mouth, 05/22/23 15:00:00 EST Start Date: 05/22/23 Stop Date: 05/22/23 Status: Completed acetaminophen 325 mg oral tablet 975 mg, Tablet, By Mouth, 05/22/23 3:00:00 EST Start Date: 05/22/23 Stop Date: 05/22/23 Status: Completed acetaminophen 325 mg oral tablet 975 mg, Tablet, By Mouth, 05/22/23 9:00:00 EST Start Date: 05/22/23 Stop Date: 05/22/23 Status: Completed apixaban 5 mg oral tablet [...] 0 Refills, Maintenance, 04/20/23 13:47:00 EDT, Film, [facility]/pharmacy #[id number], Partial fill upon patient request if the [...] opioid drug. Start Date: 05/22/23 Status: Ordered metoprolol 25 mg oral tablet, extended release 12.5 mg, XL Tablet, By Mouth, 05/22/23 9:00:00 EST Start Date: 05/22/23 Stop Date: 05/22/23 Status: Completed MiraLax Powder = 17 Gm, By Mouth, [...] By Mouth, Every 6 hours, PRN, for 3 days, # 10 tablet, Refills 0, Tot. Refills 0, Acute 05/25/23 13:11:00 EST, Pain , Moderate, 05/22/23 13:11:00 EST, Partial fill upon patient request if theprescription is for a schedule II opioid drug. Start Date: 05/22/23 Stop Date: 05/25/23 Status: Ordered oxyCODONE 5 mg oral tablet 2.5 mg, Tablet, By Mouth, Every 6 hours, PRN for Pain , Moderate, Routine, 05/13/23 18:34:00 EST Start Date: 05/13/23 Stop Date: 05/23/23 Status: Discontinued PreserVision AREDS 2 oral capsule [...] Diagnosis Diagnosis Type Effective Dates Health Status Cl inical Service Informant Right atrial thrombus Discharge Diagnosis 05/20/23 Results Radiology Reports * Exam Date Time Procedure Performing Provider Status 05/16/23 10:[address] Angio Chest Bridgette Davey; Au th (Verified) Notes: (CT Angio Chest) Reason For Exam: PE Suspected, Intermediate Prob, Positive D-Dimer;Other: RESULT: CT Angio Chest EXAMINATION: CT Angio Chest INDICATION: Reason: Other:; PE Suspected, Intermediate Prob, Positive D-Dimer; Clinical Question(s): Pulmonary Embolism; Order Comment: TECHNIQUE: Spiral CTA of the chest was performed after rapid IV contrast administration without cardiac gating, triggered by an WEI on the main pulmonary artery. Images are formatted in multiple planes using 2-D multiplanar and 3-D maximum intensity projection. 75 cc of Omnipaque 300 was administered intravenously. Weight-based protocol using automatic tube modulation was used to optimize exposure parameters. CTDIvol Body: 4.44 mGy, DLP Body: 196 mGy*cm. COMPARISONS: None. ANGIOGRAPHIC FINDINGS: Acute right lobe segmental, right upper and lower lobe subsegmental pulmonary embolism. No interventricular septal bowing or reflux of contrast into the IVC. No evidence of right heart strain. Dilation of the main pulmonary artery measuring 3 cm, is likely related to pulmonary hypertension. No acute aortic abnormality seen on this study performed without cardiac gating. 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 Trachea and Airways: Patent without evidence of tracheal or endobronchial lesion. Lungs and Pleura: Moderate bibasilar atelectasis. Multiple areas of peripheral scarring within the right upper lobe, not significantly changed from previous CT from 01/30/2017. No effusion or pneumothorax. Mediastinum and charles: No mass or hematoma. No mediastinal or hilar lymphadenopathy. No esophageal abnormality. Normal thyroid. Heart: Mild cardiomegaly. No pericardial effusion. Mild coronary artery calcification. Chest Wall Soft Tissues: Normal. Diaphragm and upper abdomen: Moderate stool retention in the visualized colon. Bones: No acute abnormality. IMPRESSION: Acute pulmonary embolism, involving right upper lobe segmental and right upper and lower lobe subsegmental arteries. Findings do not meet CT criteria for submassive PE. Preliminary results were conveyed via telephone by Dr. Sunshine to HASEEB Gonzalez on 05/16/2023 at 9:55 PM with understanding acknowledged. I have personally reviewed the images and I agree with this report. WSN: [id number] Ordering Physician: Herrera Daigle Dictated By: Lakhwinder Sunshine MD Dictated Date/Time: 05/16/23 10:09 p Reviewed By: Maria Del Carmen Chapman MD Signed By: Maria Del Carmen hCapman MD Signed Date/Time: 05/16/23 10:14 pm Transcribed By: CODY Transcribed Date/Time: 05/16/23 10:03 pm * Exam Date Time Procedure Performing Provider Status 05/16/23 9:30 AM C-Arm > 1 Hour Johnie Morris; Auth (V erified) Notes: (C-Arm > 1 Hour) Reason For Exam: L Femur ORIF RESULT: C-Arm > 1 Hour C-Arm > 1 Hour INDICATION: Reason: L Femur ORIF COMPARISONS: None TECHNIQUE: Fluoroscopy support was provided. There was no radiologist in attendance. FLUOROSCOPY TIME: 2 minutes, 10 seconds EXPOSURE: 11.29 mGy TECHNOLOGIST TIME: 1 hour, 15 minutes FINDINGS: Fluoroscopy support was provided. There was no radiologist in attendance. IMPRESSION: See above. WSN: [id number] Ordering Physician: Fede Boone Dictated By: Justin Guerra MD Dictated Date/Time: 05/17/23 8:35 am Reviewed By: Justin Guerra MD Signed By: Justin Guerra MD Signed Date/Time: 05/17/23 8:35 am Transcribed By: CODY Transcribed Date/Time: 05/16/23 9:16 pm * Exam Date Time Procedure Performing Provider Status 05/16/23 9:30 AM XR Femur 2 Views Left Johnie Morris; Auth (Verified) Notes: (XR Femur 2 Views Left) Reason For Exam: Left Femur ORIF RESULT: Femur 2 Views Left Femur 2 Views Left INDICATION: Reason: Left Femur ORIF COMPARISONS: 05/13/2023 TECHNIQUE: Fluoroscopy support was provided. There was no radiologist in attendance. FLUOROSCOPY TIME: 2 minutes 10 seconds EXPOSURE: 11.29 mGy (reference air kerma) TECHNOLOGIST TIME: 1 hour 15 minutes FINDINGS: 8 images were submitted showing ORIF of the left femur fracture. Please refer to operative note forfull details. IMPRESSION: See above. WSN: [id number] Ordering Physician: Fede Boone Dictated By: David Rivers MD Dictated Date/Time: 05/16/23 12:55 p Reviewed By: David Rivers MD Signed By: David Rivers MD Signed Date/Time: 05/16/23 12:55 pm Transcribed By: CODY Transcribed Date/Time: 05/16/23 12:55 pm * Exam Date Time Procedure Performing Provider Status 05/13/23 4:07 PM Knee 1 or 2 Views Left Armando Staley; Anmol (Verified) Notes: (Knee 1 or 2 Views Left) Reason For Exam: with Pain;Trauma RESULT: Knee 1 or 2 Views Left Femur 2 Views Left, Knee 1 or 2 Views Left INDICATION: Reason: Trauma; with Pain; Clinical Question(s): Fracture COMPARISON: 01/16/2023 FINDINGS: Status post ORIF of a previously seen left femur intertrochanteric fracture. There is now a mildly displaced mid-distal femoral diaphyseal oblique fracture, new from prior. There is no acute finding of the left knee joint. IMPRESSION: Mildly displaced oblique fracture of the mid-distal left femoral diaphysis. WSN: [id number] Ordering Physician: Cinda Quesada MD Dictated By: Margarette Freeman MD Dictated Date/Time: 05/13/23 4:10 pm Reviewed By: Margarette Freeman MD Signed By: Margarette Freeman MD Signed Date/Time: 05/13/23 4:10 pm Transcribed By: CODY Transcribed Date/Time: 05/13/23 4:07 pm * Exam Date Time Procedure Performing Provider Status 05/13/23 4:07 PM XR Femur 2 Views Left Augusto Staley (Verified) Notes: (XR Femur 2 Views Left) Reason For Exam: with Pain;Trauma RESULT: Femur 2 Views Left Femur 2 Views Left, Knee 1 or 2 Views Left INDICATION: Reason: Trauma; with Pain; Clinical Question(s): Fracture COMPARISON: 01/16/2023 FINDINGS: Status post ORIF of a previously seen left femur intertrochanteric fracture. There is now a mildly displaced mid-distal femoral diaphyseal oblique fracture, new from prior. There is no acute finding of the left knee joint. IMPRESSION: Mildly displaced oblique fracture of the mid-distal left femoral diaphysis. WSN: [id number] Ordering Physician: Cinda Quesada MD Dictated By: Margarette Freeman MD Dictated Date/Time: 05/13/23 4:10 pm Reviewed By: Margarette Freeman MD Signed By: Margarette Freeman MD Signed Date/Time: 05/13/23 4:10 pm Transcribed By: CODY Transcribed Date/Time: 05/13/23 4:07 pm * Exam Date Time Procedure Performing Provider Status 05/13/23 2:[address] Cervical Spine W/O Contrast Amy Yan; Auth (Verified) Notes: (CT Cervical Spine W/O Contrast) Reason For Exam: Neck trauma, dangerous injury mechanism;Other: RESULT: CT Cervical Spine W/O Contrast INDICATION: Reason: Trauma; Clinical Question(s): Hematoma CLINICAL QUESTION: Hematoma TECHNIQUE: Noncontrast head and cervical spine CT using axial technique and reconstructed in axial,sagittal, and coronal plane. Age-based protocol was used to optimize exposure parameters. CTDIvol Body: 10.40 mGy, DLP Body: 291 mGy*cm. CTDIvol Head: 39.20 mGy, DLP Head: 672 mGy*cm. COMPARISON: 01/06/2023 FINDINGS: BRAIN: No parenchymal hemorrhage, midline shift or mass effect. Calero-white matter differentiation is well preserved. No acute infarct. Bilateral stimulator electrodes are unchanged, ending in the basal ganglia. Mild prominence of the ventricles and sulci consistent with cortical and cerebellar parenchymal volume loss. Mild periventricular and subcortical low-density white matter changes. CALVARIUM, SKULL BASE and SINUSES: No acute finding. C-SPINE: Bilateral apical pleural thickening. There is no acute fracture or subluxation. The prevertebral soft tissue is unremarkable. Stable degenerative change at C6/C7. IMPRESSION: No acute finding. WSN: [id number] Ordering Physician: Cinda Quesada MD Dictated By: Margarette Freeman MD Dictated Date/Time: 05/13/23 3:52 pm Reviewed By: Margarette Freeman MD Signed By: Margarette Freeman MD Signed Date/Time: 05/13/23 3:52 pm Transcribed By: CODY Transcribed Date/Time: 05/13/23 3:35 pm * Exam Date Time Procedure Performing Provider Status 05/13/23 2:[address] Head/Brain W/O Contrast Amy Gan; Modified Notes: (CT Head/Brain W/O Contrast) Reason For Exam: Trauma RESULT: CT Head/Brain W/O Contrast INDICATION: Reason: Trauma; Clinical Question(s): Hematoma CLINICAL QUESTION: Hematoma TECHNIQUE: Noncontrast head and cervical spine CT using axial technique and reconstructed in axial,sagittal, and coronal plane. Age-based protocol was used to optimize exposure parameters. CTDIvol Body: 10.40 mGy, DLP Body: 291 mGy*cm. CTDIvol Head: 39.20 mGy, DLP Head: 672 mGy*cm. COMPARISON: 01/06/2023 FINDINGS: BRAIN: No parenchymal hemorrhage, midline shift or mass effect. Calero-white matter differentiation is well preserved. No acute infarct. Bilateral stimulator electrodes are unchanged, ending in the basal ganglia. Mild prominence of the ventricles and sulci consistent with cortical and cerebellar parenchymal volume loss. Mild periventricular and subcortical low-density white matter changes. CALVARIUM, SKULL BASE and SINUSES: No acute finding. C-SPINE: Bilateral apical pleural thickening. There is no acute fracture or subluxation. The prevertebral soft tissue is unremarkable. Stable degenerative change at C6/C7. IMPRESSION: No acute finding. WSN: [id number] Ordering Physician: Cinda Quesada MD Dictated By: Margarette Freeman MD Dictated Date/Time: 05/13/23 3:52 pm Reviewed By: Margarette Freeman MD Signed By: Margarette Freeman MD Signed Date/Time: 05/13/23 3:52 pm Transcribed By: CODY Transcribed Date/Time: 05/13/23 3:35 pm Vital Signs Most recent to oldest [Reference Range]: 1 2 3 4 5 Height 158 cm (05/22/23 6:57 AM) 158 cm (05/22/23 2:41 AM) 158 cm (05/21/23 7:33 PM) Weight 59.7 kg (05/16/23 4:04 PM) 50.7 kg (05/16/23 6:45 AM) 50.7 kg (05/14/23 5:31 AM) Oxygen Saturation [94-100 %] 100 % (05/22/23 6:57 AM) 98 % (05/22/23 2:41 AM) 94 % (05/21/23 7:33 PM) Pulse Rate [55-90 bpm] 76 bpm (05/22/23 8:29 AM) 76 bpm (05/22/23 6:57 AM) 85 bpm (05/22/23 2:41 AM) Body Mass Index [18.5-24.99 kg/m2] 23.91 kg/m2 (05/16/23 4:04 PM) 20.31 kg/m2 (05/16/23 6:45 AM) 20.31 kg/m2 (05/14/23 5:31 AM) Blood Pressure [90-138/55-84 mm Hg] 150/82mm Hg *H* (05/22/23 8:29 AM) 150/82mm Hg *H* (05/22/23 6:57 AM) 156/89mm Hg *H* (05/22/23 2:41 AM) Respiratory Rate [16-30 br/min] 18 br/min (05/22/23 3:27 PM) 18 br/min (05/22/23 1:42 PM) 18 br/min (05/22/23 1:42 PM) 18 br/min (05/22/23 1:42 PM) 18 br/min (05/22/23 1:42 PM) Temperature [96.8-100.4 DegF] 97.9 DegF (05/22/23 6:57 AM) 98.2 DegF (05/22/23 2:41 AM) 98.9 DegF (05/21/23 7:33 PM) Liters per Minute 6 L/min (05/16/23 9:45 AM) Mode of Delivery (Oxygen) Room air (05/22/23 6:57 AM) Room air (05/22/23 2:41 AM) Room air (05/21/23 7:33 PM) Blood pressure sites Arm, left (05/22/23 6:57 AM) Arm, right (05/22/23 2:41 AM) Arm, right (05/21/23 7:33 PM) Temperature Route Axillary (05/22/23 6:57 AM) Oral (05/22/23 2:41 AM) Oral (05/21/23 7:33 PM) Dry Weight 59.7 kg (05/16/23 4:04 PM) 49 kg (05/14/23 5:31 AM) Weight Obtained Via Bed scale (05/16/23 4:04 PM) Bed scale (05/14/23 5:31 AM) Dry Weight Obtained Via Bed scale (05/16/23 4:04 PM) Patient/family stated (05/14/23 5:31 AM) Social History Social History Type Response Smoking Status Never (less than 100 in lifetime) entered on: 11/15/22 Sex History and physical note * Soha Mejia: PERFORM, MODIFY, MODIFY, MODIFY Event Display: History and Physical Hospital Authored Date: [id number] Patient: ??JACQUES ISABEL ? Age:??78 Years?Sex:??Female?:??1945?? Chief Complaint/Reason for Consultation Fracture History of Present Illness Patient is a 78-year-old female with history of Parkinson's, status post deep brain stimulation, hypertension, atrial fibrillation on Eliquis, recent fall in December 2022 status post left intertrochanteric hip fracture status post intramedullary nail, repeated falls, anxiety, and depression who presented to the ED with complaints of left upper leg pain status post mechanical fall at home and resulting femur fracture. ?? The patient reports that she was face timing her daughter, stood up to get her walker that was a couple feet away from her, she states that she frequently has episodes where she loses control of her feet secondary to Parkinson's, this happened and she was unable to catch her balance, she grabbed onto a chair which fell with her.?? She denies any presyncopal symptoms including no dizziness or lightheadedness. She denies hitting her head, loss of consciousness, headache, neck pain, nausea, vomiting, chest pain, shortness of breath, abdominal pain, or pain anywhere except for her left upper leg.?? She was unable to ambulate after the fall. ?? Patient was seen by orthopedics in the emergency room who recommended operating room for ORIF of the left distal femur once??risk stratification??is done by medicine. ?? Upon arrival to the emergency room, lab work significant for elevated glucose at 109, elevated alk phos at 223, otherwise unremarkable. ?? Vital signs stable, slightly hypertensive at times, afebrile, no tachycardia tachypnea.?? On room air. Review of Systems Full review of systems conducted and negative except that mentioned in the HPI. Objective Vital Signs?? Temperature: 97.7 DegF (05/14/23 07:00:00) Temperature Route: Oral (05/14/23 07:00:00) Pulse Rate: 69 bpm (05/14/23 08:44:00) Respiratory Rate: 16 br/min (05/14/23 09:51:00) Systolic Blood Pressure:??139 mm Hg??High (05/14/23 08:44:00) Systolic Blood Pressure:??139 mm Hg??High (05/14/23 08:44:00) Diastolic Blood Pressure: 79 mm Hg (05/14/23 08:44:00) Diastolic Blood Pressure: 79 mm Hg (05/14/23 08:44:00) Blood pressure sites: Arm, right (05/14/23 07:00:00) Mean Arterial Pressure: 111 mm Hg (05/14/23 05:31:00) Pulse Pressure: 60 mm Hg (05/14/23 07:00:00) Oxygen Saturation: 99 % (05/14/23 07:00:00) Mode of Delivery (Oxygen): Room air (05/14/23 07:00:00) Early Warning Score: 2 (05/14/23 09:51:55) ? Intake/Output? No Data Available ? Physical Exam Constitutional: Alert, in no distress. Mental Status: Oriented to person, place and time. Head: Normocephalic. Neck: Supple, Full range of motion. Respiratory: Clear to auscultation. No wheezing, rales or rhonchi. Cardiovascular: S1 S2 regular. No murmurs, rubs or gallops. Gastrointestinal: Abdomen soft, non-tender, non-distended. Normal bowel sounds.?? Neurologic: No focal neurological deficits. Flexor plantar response. Moves all extremities spontaneously. Sensation intact bilaterally. Skin: No rashes or lesions. No petechiae or purpura.?? Musculoskeletal: No cyanosis or clubbing. No gross deformities. Normal range of motion. Heme/Lymphatics/Immun: Palpation of neck reveals no swelling or tenderness of neck nodes.?? Psychiatric: Normal mood and affect Assessment/Plan Patient is a 78-year-old female with history of Parkinson's, status post deep brain stimulation, hypertension, atrial fibrillation on Eliquis, recent fall in December 2022 status post left intertrochanteric hip fracture status post intramedullary nail, repeated falls, anxiety, and depression who presented to the ED with complaints of left upper leg pain status post mechanical fall at home and resulting femur fracture. ?? Fracture of distal end of left femur (S72.402A):??Secondary to mechanical fall at home.??Orthopedics aware and on board. ?? Plan: -Orthopedics will continue to follow and plan for ORIF??once has been medically risk stratified (onthe schedule with Dr. Boone for SUNDAY morning- OR opens at 7:30) -NPO after midnight Sunday -Pain control including??scheduled Tylenol??and??as needed oxycodone -We will NEED deep brain stimulator should off prior to surgery -[employer] rep contacted, Gunjan [phone]- other backup??contact Artemio [phone] -Per Rep, they will already be here for another case on Sunday and will be here at 7:30 for earliest case -PLEASE reach out to Gunjan (rep) tomorrow to check in with him and confirm plans for surgery Sunday -HOLDING home Eliquis per ortho prior to surgery- okay for DVT prophylaxis ?? Risk??stratification for surgery: ?? Dave Perioperative Risk for Myocardial Infarction or Cardiac Arrest (JOE):? 0.4 % Risk of myocardial infarction or cardiac arrest, intraoperatively or up to 30 days post-op Revised Cardiac Risk Index for Pre-Operative Risk:?3.9% 30-day risk of , [place], or cardiac arrest Dave Postoperative Respiratory Failure Risk:? 1.0 % Risk of mechanical ventilation for >48 hrs after surgery, or unplanned intubation =30 days of surgery ? History of Parkinson's disease (Z86.69):??Chronic, stable,??medically managed. ?? Plan: -Continue??home medical management with??home timing of doses of??carbidopa levodopa. -working to??make sure that her Deep brain stimulator is turned off prior to surgery (might have [facility] drug rep to do this- reaching out to find out) ?? Atrial fibrillation (I48.91):??Chronic stable. ?? Plan: -hold home Eliquis for hopeful surgery tomorrow -continue metoprolol, 12.5mg daily per daughter at bedside ?? Hypertension (I10):??Chronic, stable. ?? Plan: -continue home metoprolol -continue home Captopril ?? VTE Prophylaxis:??SCDs, Lovenox (will need to be held Sunday morning- day of surgery) ?VTE Prophylaxis Assessment:??VTE Prophylaxis Ordered ?? Code Status:??Full ?Order Code Status:??Code Status Ordered ?? Ongoing Medical Necessity:??Fracture ?? Discharge Planning:??2-3 depending on clinical course and disposition. Histories Allergies Allergies ?(Active and Proposed Allergies Only) Bactrim? (Severity: Unknown severity, Onset: Unknown) ?Comments: Neuropathy in feet. ? Past Medical History/Problem List Active Problems??(7) Anxiety and depression Orthostatic hypotension due to Parkinson's disease Parkinson disease Paroxysmal A-fib Repeated falls Sacral fracture Supine hypertension ? Past Surgical History DBS - Deep brain stimulation Cholecystectomy - 2002 ? Social History Alcohol Details:??Use: Never. Employment/School Details:??Status: Retired. Exercise Details:??Self assessment: Good condition. ??Exercise type: Yoga, weekly, Rock steay boxing 1-2x a week. Home/Environment Details:??Living situation: Home/Independent. ??Lives with: lives with Son. Sexual Details:??Sexually involved in last 6 months: No. Substance Abuse Details:??Use: Never. Tobacco Details:??Use: Never (less than 100 in lifetime). Electronic Cigarette/Vaping Details:??Electronic Cigarette Use: Never. ? Psychosocial History ? Family History Mother: Hypertension; Osteoporosis; Skin cancer Sister: Prostate cancer Brother: Prostate cancer Mat. Grandmother: Mental health history ? Medications Home Medications apixaban (apixaban 5 mg oral tablet)?1?tab(s)?5?Milligram?By Mouth?2 times a day Calcium Carbonate (calcium carbonate 500 mg (200 mg elemental calcium) oral tablet, chewable)?500?Milligram?1?tablet?Daily Captopril (captopril 12.5 mg oral tablet)?37.5?Milligram?3?tablet?By Mouth?Daily at bedtime Carbidopa-Levodopa (carbidopa-levodopa 25 mg-100 mg oral tablet)?See Instructions?2 tabs at 5: 30 am , 1.5 tab at 8 am , 2 tabs at 10:30 am , 1.5 tablet at 1 pm , 2 tablet at 3:30 pm , 2 tabletat 5: 30 ??and 1-2 tablet6 at night as needed Cholecalciferol (Vitamin D3 2000 intl units oral capsule)?1?capsule?50?Microgram?By Mouth?Daily Clonazepam (clonazePAM 0.5 mg oral tablet)?1.5 tablets?Daily at bedtime Docusate (docusate sodium 100 mg oral capsule)?100?Milligram?1?capsule?By Mouth?2times a day?as needed?for constipation Estradiol Topical (estradiol 10 mcg vaginal tablet)?1?tab(s)?10?Microgram?Vaginally?Daily at bedtime Estradiol Topical (Yuvafem 10 mcg vaginal tablet)?1?tab(s)?10?Microgram?Vaginally?Daily at bedtime Lidocaine Topical (lidocaine 5% topical film)?3?patch(es)?Topically?Daily?remove patches after 12 hours Melatonin?10?Milligram?By Mouth?Daily at bedtime?for 14?Days Metoprolol (Metoprolol Tartrate 25 mg oral tablet)?1?tab(s)?25?Milligram?By Mouth?2 times a day opicapone (Ongentys 50 mg oral capsule)?1?capsule?50?Milligram?By Mouth?Daily at bedtime?1 hour before or after eating Oxycodone (oxyCODONE 5 mg oral tablet)?5?Milligram?1?tablet?By Mouth?Every 6 hours Polyethylene Glycol 3350 (MiraLax Powder)?17?gram?By Mouth?Daily Senna (Senna 8.6 mg oral tablet)?8.6?Milligram?1?tab(s)?By Mouth?Daily at bedtime Sertraline (sertraline 50 mg oral tablet)?1?tab(s)?50?Milligram?By Mouth?Daily Sucralfate (sucralfate 1 gm oral tablet)?1?gram?1?tablet?By Mouth?2 times a day ? Inpatient Medications Medications (19) Active SCHEDULED: (10) Acetaminophen 325 mg Tablet (acetaminophen 325 mg oral tablet) ??975 mg, By Mouth, Every 6 hours Captopril 12.5 mg Tablet (captopril 12.5 mg oral tablet) ??12.5 mg, By Mouth, 3 times a day Carbidopa 25 mg / Levodopa 100 mg Tablet (carbidopa-levodopa 25 mg-100 mg oral tablet) ??2 tablet, By Mouth, 4 times a day Carbidopa 25 mg / Levodopa 100 mg Tablet (carbidopa-levodopa 25 mg-100 mg oral tablet) ??1.5 tablet, By Mouth, 2 times a day Clonazepam 0.5 mg Tablet (clonazePAM 0.5 mg oral tablet) ??1.5 mg, By Mouth, Daily at bedtime Melatonin 3 mg Tablet (melatonin 3 mg oral tablet) ??9 mg, By Mouth, Daily at bedtime Metoprolol 25 mg XL Tablet (metoprolol 25 mg oral tablet, extended release) ??12.5 mg, By Mouth, Daily NaCl 0.9% Flush 3ml (NaCL 0.9% Flush) ??3 mL, IV Push, Every 8 hours Remove Patch (Remove ??Patch) ??1 each, Topically, Daily Rivastigmine 4.6mg/24hr Patch (Exelon Patch) ??4.6 mg, Topically, Daily CONTINUOUS: (0) PRN: (9) Dextromethorphan-Guaifenesin 20 mg-200 mg/10 mL Liqu UD (Robitussin DM Liquid) ??10 mL, By Mouth, Every 4 hours Docusate Sodium 100 mg Capsule (Docusate Sodium Capsule) ??100 mg 1 capsule, By Mouth, 2 times a day MorPHINE 2 mg Inj Syringe (MorPHINE Inj) ??2 mg, IV Push Slowly, Every 5 minutes NaCl 0.9% Flush 3ml (NaCL 0.9% Flush) ??3 mL, IV Push, Every 8 hours Ondansetron 2mg/mL Inj (2mL Vial) (Ondansetron Inj) ??4 mg, IV Push Slowly, Every 30 minutes OxyCODONE 5 mg IR Tablet (oxyCODONE 5 mg oral tablet) ??2.5 mg, By Mouth, Every 6 hours Polyethylene Glycol 17 Gm Powder (MiraLax Powder) ??17 Gm 1 pack/packet, By Mouth, Daily Senna Tablet ??8.6 mg 1 tablet, By Mouth, 2 times a day Simethicone 80 mg Chewable Tablet (Simethicone Tablet) ??80 mg, Chew, 3 times a day ? Results Recent Labs BLOOD COUNT & DIFF WBC 6.4 k/mm3 ()?? 05/13/2023 14:08 RBC 4.31 m/mm3 ()?? 05/13/2023 14:08 Hgb 13.3 Gm/dL ()?? 05/13/2023 14:08 Hct 39.3 % ()?? 05/13/2023 14:08 MCV 91.2 femtoliters ()?? 05/13/2023 14:08 MCH 30.9 pg ()?? 05/13/2023 14:08 MCHC 33.8 g/dL ()?? 05/13/2023 14:08 Platelet Count 329 k/mm3 ()?? 05/13/2023 14:08 RDW-SD 48.8 femtoliters (High)?? 05/13/2023 14:08 MPV 8.6 femtoliters (Low)?? 05/13/2023 14:08 Nucleated RBC (Automated) 0.0 #/100 WBC'S ()?? 05/13/2023 14:08 Abs. NRBC 0.0 k/mm3 ()?? 05/13/2023 14:08 Abs. Neut 5.2 k/mm3 ()?? 05/13/2023 14:08 Abs. Lymph 0.6 k/mm3 (Low)?? 05/13/2023 14:08 Abs. [place] 0.6 k/mm3 ()?? 05/13/2023 14:08 Abs. Eo 0.0 k/mm3 ()?? 05/13/2023 14:08 Abs. Baso 0.0 k/mm3 ()?? 05/13/2023 14:08 Neut % 80.2 % (High)?? 05/13/2023 14:08 Lymph % 9.7 % (Low)?? 05/13/2023 14:08 [place] % 9.4 % ()?? 05/13/2023 14:08 Eos % 0.2 % ()?? 05/13/2023 14:08 Baso % 0.2 % ()?? 05/13/2023 14:08 Imm Gran 0.3 % ()?? 05/13/2023 14:08 Abs. Imm Gran 0.0 k/mm3 ()?? 05/13/2023 14:08 ?? CHEM GENERAL Sodium 137 mmol/L ()?? 05/13/2023 14:08 Potassium 4.4 mmol/L ()?? 05/13/2023 14:08 Chloride 99 mmol/L ()?? 05/13/2023 14:08 Bicarbonate Level 25 mmol/L ()?? 05/13/2023 14:08 Anion Gap 13 ()?? 05/13/2023 14:08 Glucose Level 109 mg/dL (High)?? 05/13/2023 14:08 BUN 13 mg/dL ()?? 05/13/2023 14:08 Creatinine-Blood 0.4 mg/dL (Low)?? 05/13/2023 14:08 Estimated GFR Creatinine 103 ML/MIN/1.73 M2 ()?? 05/13/2023 14:08 Calcium 9.2 mg/dL ()?? 05/13/2023 14:08 Protein, Total 6.4 Gm/dL ()?? 05/13/2023 14:08 Albumin 4.4 Gm/dL ()?? 05/13/2023 14:08 AG Ratio 2.2 ()?? 05/13/2023 14:08 Alkaline Phosphatase 223 units/L (High)?? 05/13/2023 14:08 AST (SGOT) 13 units/L ()?? 05/13/2023 14:08 ALT (SGPT) 9 units/L ()?? 05/13/2023 14:08 Bilirubin, Total 0.6 mg/dL ()?? 05/13/2023 14:08 ?? MISC. CHEMISTRY Hold Green Top SPECIMEN DISCARDED AFTER 1 WEEK ()?? 05/13/2023 14:08 ?? URINE OTHER Est Creatinine Clearance 92.56 mL/min ()?? 05/14/2023 06:07 ?? VIROLOGY Influenza A PCR NEGATIVE ()?? 05/13/2023 17:57 Influenza B PCR NEGATIVE ()?? 05/13/2023 17:57 RSV PCR NEGATIVE ()?? 05/13/2023 17:57 COVID-19 PCR Specimen Source NASAL ()?? 05/13/2023 17:57 COVID-19 PCR Result NEGATIVE ()?? 05/13/2023 17:57 ? Microbiology ?? COVID-19, RSV, and Flu A/B, Rapid PCR?? Completed?? Source: Nasal Body Site: Nose Collected Dt/Tm: 05/13/2023 17:35 Last Updated Dt/Tm: 05/13/2023 18:55 ? US Heart * Event Display: Echocardiogram - Complete Authored Date: [id number] Transthoracic Echocardiography Report (TTE) Patient Demographics Patient Name JACQUES ISABEL Date of Study 05/18/2023 Corporate Gender Female Facility Race Ethnicity Date of 1945 Height: 62.2 inches Age 78 year(s) Weight: 132.28 pounds Accession Number [id number] BSA: 1.61 m2 Room Number [id number] BMI: 24.03 kg/m2 Referring Physician Not on Staff Interpreting Douglas Bran MD Attending MD Physician Psych Therapist Sarah MCLEOD Indications Pulmonary embolus. Clinical History Atrial fibrillation. Hypertension. Study Data Type of Study TTE procedure:Echo Complete-Doppler, Colorflow, M-Mode. Study Date05/18/2023 Start Time: 12:57 PM Study Location: [facility] [place] Echo Study Status: Echo lab Patient Status: Routine Technical Quality: Technically difficult due to restricted mobility. Blood Pressure:142/94 mmHg EKG: Normal sinus rhythm HR: 86 bpm 2D Measurements LV Diastolic Dimension: 3.3 cm LV Systolic Dimension: 2.7 cm LV Septum Diastolic: 1.1 cm LV PW Diastolic: 1.1 cm AO Root Dimension: 3.4 cm LA ESV (BP):33.9 ml LVOT Stroke Volume: 81.7 ml LA ESV Index: 21 ml/m2 Stroke Volume Index50.75 ml/m2 LVOT: 2.1 cm Cardiac Index:4.37 l/min/m2 Doppler Measurements AV Peak Velocity: 136 cm/s MV Peak E-Wave: 96.4 cm/s AV Peak Gradient: 7.4 mmHg MV Peak A-Wave: 77.1 cm/s AV Mean Gradient: 4 mmHg MV E/A Ratio: 1.25 AV VTI:28.8 cm MV P1/2t: 44 msec LVOT Peak Velocity: 116 cm/s LVOT VTI23.6 cm MV Deceleration Time: 152 msec AV Area (Continuity):2.84 cm2 MV Area (PHT): 5 cm2 TR Velocity:208 cm/s TR Gradient:17.31 mmHg Estimated RAP:3 mmHg Estimated RVSP: 20.3 mmHg E' Septal Velocity: 6.53 cm/s E' Lateral Velocity: 7.4 cm/s E/Med E':14.79425 E/Lat E':13.85643 Cardiac Anatomy Left Ventricle/Interventricular Septum The left ventricular size is normal. The left ventricular wall thickness is mildly increased. There is mild discrete upper septal thickening. Normal LV systolic function. Ejection fraction is 55-65%. There are no regional wall motion abnormalities. Left ventricular filling pressures are indeterminate. Left Atrium/Interatrial Septum The left atrium is mildly dilated. There is interatrial septal thickening. Aortic Valve The aortic valve is trileaflet and normal in structure and function. There is no aortic stenosis or insufficiency. Mitral Valve The mitral valve is normal in structure and function. There is no mitral stenosis or insufficiency. Aorta There is mild dilation of the aortic root . The aortic arch and descending aorta are not well visualized. Right Ventricle The right ventricle is normal in size and function. Right Atrium The right atrium is normal in size. There is a thrombus noted in the right atrium. It is mobile and attached to the tricuspid annulus (run #[id number].) Pulmonic Valve The pulmonic valve is poorly visualized. The pulmonic valve is functionally normal. Tricuspid Valve The tricuspid valve is normal in structure and function. There is trace regurgitation. Pumonary Artery The pulmonary artery appears normal. The pulmonary artery systolic pressure estimation is within normal limits. Venous Structures The inferior vena cava size is normal with normal inspiratory collapse. Pericardium/Extracardiac There is no pericardial effusion. Summary 1. Normal LV systolic function. Ejection fraction is 55-65%. There are no regional wall motion abnormalities. Left ventricular filling pressures are indeterminate. 2. The right ventricle is normal in size and function. 3. There is a thrombus noted in the right atrium. It is mobile and attached to the tricuspid annulus (run #77.) 4. No significant valve disease Comparison No prior study available for comparison. Signature * Event Display: Echocardiogram - Complete Authored Date: Cardiology * Event Display: Cardiac Rhythm Strips Authored Date: EKG study * Event Display: EKG Authored Date: Hospital Progress note * Jose D Rojas RN: VERIFY, PERFORM, SIGN Event Display: Progress Note Hospital Authored Date: Patient: JACQUES ISABEL Age: 78 years Sex: Female : 1945 Associated Diagnoses: None Author: Jose D Rojas RN Findings Problem Related to Alteration in Musculoskeletal : Alteration in Musculoskeletal Func/new 05/22/2023 13:00 EST Alteration in Musculoskeletal Related to Fracture, Mobility, Orthopedic Procedure, Other: ORIF L femur on 05/16 w/ Dr. Boone Goals & Outcomes, Musculoskeletal Affected extremity will maintain color/motion/sensation, Pt able to perform ADL's to best of ability, Pt demonstrates precautions/exercise/ transfers per protocol, Pt will ambulate safely with assistive device, Pt will be free from complications of immobility, Pt will demonstrate ability to participate in ADL's, Pt will report acceptable level of comfort/painrelief Interventions, Musculoskeletal Monitor patients ambulation status, monitor Color/Motion/Sensation, Encourage deep breathing & coughing exercises, Teach pt/caregiver on use of pain scale BH Goals/Interventions, Musculoskeletal Yes Musculoskeletal, Problem Start 05/16/2023 17:08 Reviewed Plan with, Musculoskeletal Patient Patient Progression, Musculoskeletal Pt progressing according to plan . Nursing Data Vital Signs : VITAL SIGNS SECTION 05/22/2023 6:57 EST Early Warning Score 2.00 05/22/2023 6:57 EST Temperature 97.9 DegF Temperature Route Axillary Pulse Rate 76 bpm Respiratory Rate 16 br/min Systolic Blood Pressure 150 mm Hg H Diastolic Blood Pressure 82 mm Hg Blood pressure sites Arm, left Mean Arterial Pressure 105 mm Hg Pulse Pressure 68 mm Hg Oxygen Saturation 100 % Mode of Delivery (Oxygen) Room air . Pain Data : PAIN SECTION 05/22/2023 13:48 EST 1 - 10 Pain Scale Score 5 . Narrative/Incidental Pt A+Ox2-4, wifty and paranoid at times, cooperative with care. Bed alarm in use for safety, pt notexit seeking. LS clear, pt denies SOB. Pt denies CP. +BSx4, no N/V, tolerating diet, BM 05/20. OOB with 1-2 assist, NWB LLE, unsteady. Voiding adequate clear yellow via primafit. VSS. Evaluation Pt reporting LLE pain up to 01/08. Pain managed well with tylenol and 2.5mg oxycodone. L hip aquaceldsg c/d/i x2. +CMS, +PP, +d/p flex. Pt refusing cboots this morning. Pt refusing eliquis this AM, pt educated on importance of blood thinner, medicine aware. Will cont to monitor comfort/LLE status. Pt cleared for discharge, awaiting ambulance transfer to [facility]. * Brionna LOCKWOOD, Joe Lee: PERFORM Event Display: Progress Note Hospital Authored Date: Patient: ??JACQUES ISABEL ? Age:??78 Years?Sex:??Female?:??1945?? Subjective Patient is more forgetful this morning and distrusting of staff, thinks staff are conspiring against her. Does not remember me or the two conversations I had with her yesterday, one at length with her daughters present. She doesn't remember her daughters visiting either. No recurrent epistaxis. ?? Review of Systems No chest pain, shortness of breath, fevers, chills, nausea, vomiting or diarrhea.?? Objective ?? Physical Exam Temperature?97.9 ?(06:57) Systolic Blood Pressure?150 ?(08:36) Diastolic Blood Pressure?82 ?(08:36) Pulse?76 ?(08:36) SpO2?100 ?(06:57) Respiratory Rate?16 ?(06:57) ?? Constitutional: Alert, in no distress. Mental Status: Oriented to person, place and time. Respiratory: Clear to auscultation. No wheezing, rales or rhonchi. Cardiovascular: Regular rate and rhythm, no murmurs, rubs or gallops. Abdomen: Soft, non-tender, non-distended.??Normal bowel sounds. Skin: No rashes or lesions. Psychiatric: Delirium Extremities: No edema. Results Recent Labs BLOOD COUNT & DIFF WBC 5.8 k/mm3 ()?? 05/22/2023 01:47 RBC 2.94 m/mm3 (Low)?? 05/22/2023 01:47 Hgb 8.9 Gm/dL (Low)?? 05/22/2023 01:47 Hct 27.3 % (Low)?? 05/22/2023 01:47 MCV 92.9 femtoliters ()?? 05/22/2023 01:47 MCH 30.3 pg ()?? 05/22/2023 01:47 MCHC 32.6 g/dL (Low)?? 05/22/2023 01:47 Platelet Count 375 k/mm3 ()?? 05/22/2023 01:47 RDW-SD 51.5 femtoliters (High)?? 05/22/2023 01:47 MPV 8.5 femtoliters (Low)?? 05/22/2023 01:47 Nucleated RBC (Automated) 0.0 #/100 WBC'S ()?? 05/22/2023 01:47 Abs. NRBC 0.0 k/mm3 ()?? 05/22/2023 01:47 Abs. Neut 3.8 k/mm3 ()?? 05/22/2023 01:47 Abs. Lymph 1.3 k/mm3 ()?? 05/22/2023 01:47 Abs. [place] 0.6 k/mm3 ()?? 05/22/2023 01:47 Abs. Eo 0.2 k/mm3 ()?? 05/22/2023 01:47 Abs. Baso 0.0 k/mm3 ()?? 05/22/2023 01:47 Neut % 64.4 % ()?? 05/22/2023 01:47 Lymph % 21.4 % ()?? 05/22/2023 01:47 [place] % 11.0 % (High)?? 05/22/2023 01:47 Eos % 2.6 % ()?? 05/22/2023 01:47 Baso % 0.3 % ()?? 05/22/2023 01:47 Imm Gran 0.3 % ()?? 05/22/2023 01:47 Abs. Imm Gran 0.0 k/mm3 ()?? 05/22/2023 01:47 ?? CHEM GENERAL Sodium 141 mmol/L ()?? 05/22/2023 01:47 Potassium 4.0 mmol/L ()?? 05/22/2023 01:47 Chloride 104 mmol/L ()?? 05/22/2023 01:47 Bicarbonate Level 29 mmol/L ()?? 05/22/2023 01:47 Anion Gap 8 ()?? 05/22/2023 01:47 Glucose Level 103 mg/dL (High)?? 05/22/2023 01:47 BUN 12 mg/dL ()?? 05/22/2023 01:47 Creatinine-Blood 0.4 mg/dL (Low)?? 05/22/2023 01:47 Estimated GFR Creatinine 100 ML/MIN/1.73 M2 ()?? 05/22/2023 01:47 Calcium 8.7 mg/dL ()?? 05/22/2023 01:47 ?? HEME OTHER Hold Lavender Top SPECIMEN DISCARDED AFTER 24 HOURS. ()?? 05/21/2023 05:44 ? Assessment/Plan Assessment:??78-year-old female with history of Parkinson's disease s/p deep brain stimulation, atrial fibrillation on apixaban, fall in December 2022 with hip fx s/p left IM nail who has had repeated falls since and presented with upper left leg pain. She was found to have distal left periprosthetic femur fracture. She underwent ORIF and post procedure developed chest pain and was found to have an acute PE. ?? Epistaxis (R04.0):? Two episodes of epistaxis yesterday which resolved, received afrin spray x2. Continue apixaban, has tolerated this medication for years. ?? Fracture of distal end of left femur (S72.402A):? Periprosthetic femur fracture secondary to fall. S/p ORIF L distal femur on 05/16. Continue PT/OT, NWB LLE, no brace needed. ?? Acute postoperative anemia due to expected blood loss (D62):? Transfused 1 unit pRBCs with improvement. H&H stable on apixaban. ?? Acute pulmonary embolism (I26.99):? Sade held x3 doses pre-procedure and was on sc heparin DVT prophylaxis. Post-procedure developed chest pain, elevated d-dimer and CTA showed acute PE. Hematology recommends resuming apixaban for provoked PE. ?? Right atrial thrombus (I51.3):? Echo showed right atrial thrombus, cardiology recommends continuing apixaban. Repeat echo in 3-6 months. ?? Atrial fibrillation (I48.91):? Continue metoprolol and apixaban. ?? History of Parkinson's disease (Z86.69):? Continue carbidopa levodopa. Currently dealing with hospital associated delirium, best management would be??to d/c out of hospital setting during daylight hours. ?? Discharge Planning:??Awaiting??insurance authorization for STR. ?I spent a total of??40 minutes today reviewing the chart/medical records, speaking with the patient, formulating and discussing the treatment plan and documenting the findings and encounter. Discussed plan with patient, nursing, daughter via phone. ?? Joe Staton II [place] [facility] Medicine Pager #[phone] or [employer] * Maryjane Sauceda RN: PERFORM, SIGN, VERIFY Event Display: Progress Note Hospital Authored Date: [id number] Patient: JACQUES ISABEL Age: 78 years Sex: Female : 1945 Associated Diagnoses: None Author: Maryjane Sauceda RN Problem Related to Alteration in Comfort : Alteration in Comfort/new 05/22/2023 3:29 EST Alteration in Comfort Related to Injury, Surgery, Other: Fracture, Mobility, Orthopedic Procedure, Other: ORIF L femur on 05/16 w/ Dr. Boone Goals & Outcomes: Comfort Pt will report [...] & promote them accordingly Goals/Interventions, Comfort Yes . Alteration in Musculoskeletal : Alteration in Musculoskeletal Func/new 05/20/2023 10:00 EST Alteration in Musculoskeletal Related to Fracture, Mobility, Orthopedic Procedure, Other: ORIF L femur on 05/16 w/ Dr. Boone Goals & Outcomes, Musculoskeletal Affected extremity will maintain color/motion/sensation, Pt able to perform ADL's to best of ability, Pt demonstrates precautions/exercise/ transfers per protocol, Pt will ambulate safely with assistive device, Pt will be free from complications of immobility, Pt will demonstrate ability to participate in ADL's, Pt will report acceptable level of comfort/painrelief Interventions, Musculoskeletal Monitor patients ambulation status, monitor Color/Motion/Sensation, Assist with repositioning, Encourage deep breathing & coughing exercises, Notify MD immediately if tissue perfusion deteriorates, Obtain assistive devices as needed, Teach & Encourage use of Incentive spirometer, Teach Pt/caregiver on ADL's & adaptive equipment, Teach Pt/caregiver on exercises, Teach pt/caregiver on use of pain scale, Teach Pt/caregiver complications of immobility, Teach Pt/caregiver techniques to increase mobility Goals/Interventions, Musculoskeletal Yes Musculoskeletal, Problem Start 05/16/2023 17:08 Reviewed Plan with, Musculoskeletal Patient Patient Progression, Musculoskeletal Pt progressing according to plan . Nursing Data Vital Signs : VITAL SIGNS SECTION 05/22/2023 2:41 EST Early Warning Score 0.00 05/22/2023 2:41 EST Temperature 98.2 DegF Temperature Route Oral Pulse Rate 85 bpm Respiratory Rate 18 br/min Systolic Blood Pressure 156 mm Hg H Diastolic Blood Pressure 89 mm Hg H Blood pressure sites Arm, right Mean Arterial Pressure 111 mm Hg Pulse Pressure 67 mm Hg Oxygen Saturation 98 % Mode of Delivery (Oxygen) Room air 05/21/2023 23:40 EST Respiratory Rate Not Done: Patient Sleeping (Not Done) 05/21/2023 19:34 EST Early Warning Score 2.00 05/21/2023 19:33 EST Temperature 98.9 DegF Temperature Route Oral Pulse Rate 88 bpm Respiratory Rate 18 br/min Systolic Blood Pressure 128 mm Hg Diastolic Blood Pressure 70 mm Hg Blood pressure sites Arm, right Mean Arterial Pressure 89 mm Hg Pulse Pressure 58 mm Hg Oxygen Saturation 94 % Mode of Delivery (Oxygen) Room air . Narrative/Incidental Pt is a 78 yo female, s/p ORIF left femur with Dr. Boone on 05/16. Patient is a&o x 2-3, confused at times, VSS. Pt reports left femur pain 5/10, Scheduled 975 mg Tylenol Q6 given with +effect. LCTA. BS+, abdomen soft, nontender, nondistended, last b/m 05/20. Pt voiding cyu in primafit with noissues. Pt has +CMS, +D/P, +PP. Pt OOB max assist with walker. Aquacel dressing with some staining.Pt refused iced and cboots- educated on importance. Pt is on eliquis for DVT prophylaxis. Patient was encouraged to use incentive spirometer, bed alarm activated for safety, fall prevention and safety education provided, call borges within reach, bed in low locked position. . Evaluation P: Alteration in comfort I: See interventions listed in care plans above E: Pt reports pain 5/10, Scheduled 975 mg Tylenol Q6 given with +effect. P: Alteration in musculoskeletal I: See interventions listed in care plans above E: Pt is a 78 yo female, s/p ORIF left femur with Dr. Boone on 05/16. Pt has +CMS, +D/P, +PP. Pt OOB max assist with walker. Aquacel dressing with some staining. Pt refused iced and cboots- educatedon importance. Pt is on eliquis for DVT prophylaxis. Patient was encouraged to use incentive spirometer, bed alarm activated for safety, fall prevention and safety education provided, call borges within reach, bed in low locked position. . Discharge Information Rehabilitation Discharge : Rehab Discharge Index 05/20/2023 9:21 EST Walker: distance < 10 05/19/2023 13:32 EST Walker: distance < 10 05/17/2023 8:51 EST Comments on treatment indicated adls funlt mob safety pt edu endurance Full chart review completed Yes Hospital course 78 y/o F sp L femur ORIF on 05/16/23 by . Recent admission with sacral fx in march and L hip fx/ L femur IM nailing on 01/07/23. 05/17/2023 8:49 EST Comments on treatment indicated 78 yo F with PMH including Parkinson's disease,L femur fracture s/p fixation December 2022, L sacral fracture in Mar 2023, presenting after a fall, now foudn to have L distal femur fracture s/p ORIF L distal femur on 05/[address] Boone. Walker: distance < 10 Distance pt will ambulate 10 ft with RW Full chart review completed Yes Hospital course Hospital course Other findings see comment Plan of care PT Gait training, Transfer training, Therapeutic exercise, Functional Activities, Balance training Consult note * Oswald ROGERS, [facility] N: MODIFY, MODIFY, PERFORM Event Display: Consultation Note Authored Date: [id number] Patient: ??JACQUES ISABEL ? Age:??78 Years?Sex:??Female?:??1945?? Patient Hx Cardiology Shared Clinical Summary Primary Donor Services Coordinator: Dr. Pruitt Indication for Consult Acute PE, right atrial thrombus on echo History of Present Illness/Interval History I had the pleasure of seeing Ms. Dang in cardiology consultation today.?? She is a 78-year-old lady with a past medical history significant for HTN, paroxysmal atrial fibrillation/flutter on Eliquis, prior falls most recent in December 2022 s/p left intertrochanteric hip fracture requiring intramedullary nail, Parkinson's s/p deep brain stimulator, anxiety, depression who presents after sustaining a recurrent fall and was found to have a left femur fracture.?? Patient subsequently went an ORIF on05/16/2023.?? On the same night, the patient was noted to have new onset chest pain and sinus tachycardia.?? There were some subtle ST depressions on ECG involving the anterolateral leads.?? The patient was taken for a CTA chest which in fact revealed an acute pulmonary embolism involving the rightupper lobe segmental and right upper and lower lobe subsegmental arteries.?? She was restarted on anticoagulation with a heparin drip.?? An echocardiogram done on 05/18/2023 revealed normal LV systolic function however it interestingly noted a mobile thrombus in the right atrium attached to the tricuspid annulus.?? Given these findings, a cardiology consultation was requested for further evaluation and recommendations. ?? Of note, the patient was recently referred to be evaluated for Watchman implantation in light ofrecurrent falls and need of a/c for afib. She was also planned to have a cafeteria monitor to quantify afib burden. Review of Systems ?Constitutional, Eye, Skin, Head/Neck, ENMT, Respiratory, Cardio, Gastrointestinal, Breast, Gynecologic, Genitourinary, Endocrine, Muscoloskeletal, Immunologic, Hematologic, Lymphatic, Neurologic,Psych reviewed and negative except as noted in HPI. ? Physical Exam Vitals & Measurements T:??98?F?? HR:??80??(Peripheral)?? RR:??16?? BP:??140/73?? SpO2:??98%?? HT:??158??cm?? WT:??59.7??kg?? BMI:??23.91?? Weight lb/oz: 131 lb 10 oz ?GENERAL: The patient is lying in bed comfortably, in no acute distress. ?HEENT: NC/AT. PERRL. EOMI. Anicteric sclerae. ?NECK: Supple, intact. No JVD. Trachea midline. ?CVS: RRR. Normal S1/S2. No murmurs, rubs or gallops. ?PULM: CTA bilaterally. No wheezes, rales or rhonchi. ?ABDOMEN: Soft, nontender, nondistended. Positive bowel sounds in all 4 quadrants. ?EXTREMITIES: No edema. Peripheral pulses intact bilaterally. ?NEURO: AOx3. Intact, non-focal motor and sensory exam. CN II-XII grossly intact.?SKIN: Dry, clean, intact. No rash or ulcer. No apparent nail changes. ? Assessment/Plan 1.??Acute pulmonary embolism 2.??Right atrial thrombus 3.??Atrial fibrillation 5.??Fracture of distal end of left femur (Provisional) 6.??History of Parkinson's disease (Provisional) 7.??Hypertension ?? 78yo F h/o pAfib/flutter on apixaban, htn, parkinsons,??recurrent falls, p/w mechanical fall sustaining a left femur fracture s/p??ORIF. Hospital course complicated by??acute PE. Echo revealed evidence of??a mobile RA thrombus??attached to the tricuspid annulus.? Recommendations: 1. Continue with apixaban for anticoagulation. 2.??Will need a repeat echo in??3-6 months as an outpatient to reassess RA thrombus. 3. May consider LE venous duplex to assess DVT burden, although this will unlikely change managment. 4. Patient was being referred for evaluation of??left atrial appendage occlusion in light of recurrent falls however, given acute PE and need of anticoagulation,??would not be a??candidate for Watchman implantation in the near future.??This may be re-evaluated in the future once a/c no longer needed for??acute PE/RA thrombus. 5. Outpatient cafeteria monitor was in the process of being arranged to assess afib burden??which I believe is reasonable. 6. Followup with Dr. Pruitt as an outpatient. ?Thank you for allowing us to participate in the care of this patient. ? Sharif Akers MD Interventional Cardiology - [facility] [id number] ?? Disclaimer: This dictation was accomplished with use of [employer] voice recognition software, prone tomedical word misidentifications and grammatical errors. The physician does strive to identify and correct these, but some could still be present. Please do not hesitate to contact physician for clarifications.?? Total Time Spent I personally spent a total of??72 minutes, including both [id number]-lm-fwha and bkp-btfo-tu-face time onthe date of the encounter, addressing the above diagnoses. Allergies Bactrim Home Medications apixaban: 5 mg = 1 tablet, By Mouth, 2 times a day Calcium Carbonate: 500 mg = 1 tablet, Daily Captopril: 37.5 mg = 3 tablet, By Mouth, Daily at bedtime Carbidopa-Levodopa: See Instructions, 2 tabs at 5: 30 am , 1.5 tab at 8 am , 2 tabs at 10:30 am , 1.5 tablet at 1 pm , 2 tablet at 3:30 pm , 2 tablet at 5: 30 ??and 1-2 tablet6 at night as needed Cholecalciferol: 50 mcg = 1 capsule, By Mouth, Daily Clonazepam: 1.5 tablets, Daily at bedtime Cyanocobalamin Docusate: 100 mg = 1 capsule, By Mouth, 2 times a day, PRN (for constipation) Estradiol Topical: 10 mcg = 1 tablet, Vaginally, Daily at bedtime Estradiol Topical: 10 mcg = 1 tablet, Vaginally, Daily at bedtime Lidocaine Topical: 3 patch, Topically, Daily, remove patches after 12 hours Melatonin: 10 mg, By Mouth, Daily at bedtime Metoprolol: 25 mg = 1 tablet, By Mouth, 2 times a day Multivitamin With Minerals opicapone: 50 mg = 1 capsule, By Mouth, Daily at bedtime, 1 hour before or after eating Polyethylene Glycol 3350: 17 Gm, By Mouth, Daily Senna: 8.6 mg = 1 tablet, By Mouth, Daily at bedtime Sertraline: 50 mg = 1 tablet, By Mouth, Daily Sucralfate: 1 Gm = 1 tablet, By Mouth, 2 times a day Hospital Medications Medications (22) Active SCHEDULED: (11) Acetaminophen 325 mg Tablet (acetaminophen 325 mg oral tablet) ??975 mg, By Mouth, Every 6 hours Apixaban 5 mg Tablet (apixaban 5 mg oral tablet) ??5 mg, By Mouth, 2 times a day Carbidopa 25 mg / Levodopa 100 mg Tablet (carbidopa-levodopa 25 mg-100 mg oral tablet) ??2 tablet, By Mouth, 4 times a day Carbidopa 25 mg / Levodopa 100 mg Tablet (carbidopa-levodopa 25 mg-100 mg oral tablet) ??1.5 tablet, By Mouth, 2 times a day ceFAZolin 1 Gm Inj (ceFAZolin Inj) ??1 Gm, IV Push, Once Clonazepam 0.5 mg Tablet (clonazePAM 0.5 mg oral tablet) ??1.5 mg, By Mouth, Daily at bedtime Melatonin 3 mg Tablet (melatonin 3 mg oral tablet) ??9 mg, By Mouth, Daily at bedtime Metoprolol 25 mg XL Tablet (metoprolol 25 mg oral tablet, extended release) ??12.5 mg, By Mouth, Daily NaCl 0.9% Flush 3ml (NaCL 0.9% Flush) ??3 mL, IV Push, Every 8 hours Remove Patch (Remove ??Patch) ??1 each, Topically, Daily Rivastigmine 4.6mg/24hr Patch (Exelon Patch) ??4.6 mg, Topically, Daily CONTINUOUS: (0) PRN: (11) Carbidopa 25 mg / Levodopa 100 mg Tablet (carbidopa-levodopa 25 mg-100 mg oral tablet) ??1 tablet, By Mouth, Daily Dextromethorphan-Guaifenesin 20 mg-200 mg/10 mL Liqu UD (Robitussin DM Liquid) ??10 mL, By Mouth, Every 4 hours Docusate Sodium 100 mg Capsule (Docusate Sodium Capsule) ??100 mg 1 capsule, By Mouth, 2 times a day MorPHINE 2 mg Inj Syringe (MorPHINE Inj) ??2 mg, IV Push Slowly, Every 5 minutes NaCl 0.9% Flush 3ml (NaCL 0.9% Flush) ??3 mL, IV Push, Every 8 hours Nitroglycerin 0.4 mg Sublingual Tablet (nitroglycerin 0.4 mg sublingual tablet) ??0.4 mg, Sublingual, Every 5 minutes Ondansetron 2mg/mL Inj (2mL Vial) (Ondansetron Inj) ??4 mg, IV Push Slowly, Every 30 minutes OxyCODONE 5 mg IR Tablet (oxyCODONE 5 mg oral tablet) ??2.5 mg, By Mouth, Every 6 hours Polyethylene Glycol 17 Gm Powder (MiraLax Powder) ??17 Gm 1 pack/packet, By Mouth, Daily Senna Tablet ??8.6 mg 1 tablet, By Mouth, 2 times a day Simethicone 80 mg Chewable Tablet (Simethicone Tablet) ??80 mg, Chew, 3 times a day Lab Results Cardiology Labs WBC: 4.3 k/mm3 (05/20/23) RBC:??2.35 m/mm3??Low (05/20/23) Hgb:??7.2 Gm/dL??Low (05/20/23) Hct:??22.1 %??Low (05/20/23) MCV: 94 femtoliters (05/20/23) MCH: 30.6 pg (05/20/23) MCHC:??32.6 g/dL??Low (05/20/23) Platelet Count: 296 k/mm3 (05/20/23) RDW-SD:??49.8 femtoliters??High (05/20/23) Nucleated RBC (Automated): 0 #/100 WBC'S (05/20/23) Abs. Neut: 2.6 k/mm3 (05/20/23) Abs. Lymph: 1.2 k/mm3 (05/20/23) Abs. Bonneville:??0.3 k/mm3??Low (05/20/23) Abs. Eo: 0.1 k/mm3 (05/20/23) Abs. Baso: 0 k/mm3 (05/20/23) Neut %: 60.6 % (05/20/23) Bonneville %: 7.8 % (05/20/23) Eos %: 3.1 % (05/20/23) Baso %: 0.5 % (05/20/23) Imm Gran: 0.5 % (05/20/23) Abs. Imm Gran: 0 k/mm3 (05/20/23) INR: 1.1 (01/06/23) Protime (PT): 11.2 seconds (01/06/23) APTT:??35.3 seconds??High (05/18/23) Sodium: 137 mmol/L (05/20/23) Potassium: 4.3 mmol/L (05/20/23) Chloride: 104 mmol/L (05/20/23) Bicarbonate Level: 25 mmol/L (05/20/23) Glucose Level: 97 mg/dL (05/20/23) Hemoglobin A1C (Monitoring): 5.4 % (12/07/22) BUN: 13 mg/dL (05/20/23) Creatinine-Blood:??0.4 mg/dL??Low (05/20/23) Calcium:??8.1 mg/dL??Low (05/20/23) Protein, Total: 6.4 Gm/dL (05/13/23) Albumin: 4.4 Gm/dL (05/13/23) Alkaline Phosphatase:??223 units/L??High (05/13/23) AST (SGOT): 13 units/L (05/13/23) ALT (SGPT): 9 units/L (05/13/23) Bilirubin, Total: 0.6 mg/dL (05/13/23) Cholesterol: 190 mg/dL (12/07/22) Triglycerides: 69 mg/dL (12/07/22) HDL Cholesterol: 68 mg/dL (12/07/22) LDL Cholesterol: 108 mg/dL (12/07/22) Non HDL Cholesterol: 122 mg/dL (12/07/22) TSH: 1.9 uIU/mL (12/07/22) Diagnostic Impression ECG ECG 12-Lead * Preliminary * ?? 22:09:51 Ventricular Rate: 99 BPM Atrial Rate: 99 BPM P-R Interval: 152 ms QRS Duration: 64 ms Q-T Interval: 350 ms QTC Calculation(Bazett): 449 ms P Flora: 70 degrees R Flora: -11 degrees T Flora: 78 degrees Normal sinus rhythm Anterior infarct , age undetermined Abnormal ECG When compared with ECG of 16-MAY-2023 19:14, MANUAL COMPARISON REQUIRED, DATA IS UNCONFIRMED ?? Ancram: , ?? ECG 12-Lead * Preliminary * ?? 22:09:51 Please click on pdf link to open report Echo Echocardiogram - Complete ?? 12:57:32 Summary 1. Normal LV systolic function. Ejection fraction is 55-65%. There are no regional wall motion abnormalities. Left ventricular filling pressures are indeterminate. 2. The right ventricle is normal in size and function. 3. There is a thrombus noted in the right atrium. It is mobile and attached to the tricuspid annulus (run #[id number].) 4. No significant valve disease ?? Comparison No prior study available for comparison. ?? Signature ?? Signed By: Douglas Bran MD Problem List/Past Medical History Ongoing Anxiety and depression Orthostatic hypotension due to Parkinson's disease Parkinson disease Paroxysmal A-fib Repeated falls Sacral fracture Supine hypertension Procedure/Surgical History DBS - Deep brain stimulation Cholecystectomy - 2002 Social History Alcohol Use: Never. Electronic Cigarette/Vaping Electronic Cigarette Use: Never. Employment/School Status: Retired. Exercise Self assessment: Good condition. Exercise type: Yoga, weekly, [employer] boxing 1-2x a week. Home/Environment Living situation: Home/Independent. Lives with: lives with Son. Sexual Sexually involved in last 6 months: No. Substance Abuse Use: Never. Tobacco Use: Never (less than 100 in lifetime). Family History Mother: Hypertension; Osteoporosis; Skin cancer Sister: Prostate cancer Brother: Prostate cancer Mat. Grandmother: Mental health history * Event Display: Consultation Note Authored Date: [id number] CONSULTATION DATE: 05/13/2023 ORTHOPEDIC CONSULTATION REFERRING PHYSICIAN: Aly Blum M.D. CONSULTING PHYSICIAN: Afia Valiente M.D. HISTORY OF PRESENT ILLNESS: Ms. Isabel is a 78-year-old female who suffers from Parkinson's disease,has significant difficulty with balance and sustained multiple falls, reports today she sustained afall when she tripped forward, did not have her walker with her at the time, reports pain with inability to weightbear on the left lower extremity following such. The patient is also status post ORIFof left intertrochanteric femur fracture performed by Dr. Gray Oreilly in 12/2022. The patient denies any numbness or tingling about the left lower extremity, denies having sustained any other injuries regarding this incident. PAST MEDICAL HISTORY: Significant for Parkinson's disease, atrial fibrillation, hypertension as well as orthostatic hypotension. PAST SURGICAL HISTORY: Significant for deep brain stimulator as well as cholecystectomy and ORIF ofleft intertrochanteric femur fracture described above. ALLERGIES: The patient is allergic to BACTRIM. CURRENT MEDICATIONS: Include Eliquis, captopril, carbidopa and levodopa, ergocalciferol, clonazepam, Colace, estradiol, melatonin, metoprolol, multivitamin, senna, and sertraline. REVIEW OF SYSTEMS: Negative for loss of consciousness or shortness of breath. SOCIAL HISTORY: Per nursing intake sheet/EMR. FAMILY HISTORY: Per nursing intake sheet/EMR. PHYSICAL EXAMINATION: GENERAL: Ms. Isabel is a 78-year-old female, in no acute distress, alert and oriented x3. Mood, dress and affect are appropriate. She is accompanied by her daughter. VITAL SIGNS: Temperature is 97.8 degrees, pulse 69, respirations 20, blood pressure 206/99. EXTREMITIES: On examination of the left leg, no ecchymosis, erythema or warmth are appreciated. Thepatient holds the knee in a flexed position. Pain elicited with any attempts at range of motion. Well-healed lateral incisions about the hip. No surgical incisions about the knee appreciated. Calf issoft, left lower extremity, the patient is sensate to light touch. Good capillary refill. Palpable DP pulse. DIAGNOSTIC DATA: X-rays are reviewed, which reveal an oblique displaced fracture in the left distalfemur, which remains extraarticular; angular deformity and mild displacement are noted; proximal InterTAN thelma remains intact. IMPRESSION AND PLAN: Ms. Isabel is a 78-year-old female who sustained a left distal femur fracture described above. Treatment options are discussed. The patient will be placed into a knee immobilizer,maintain nonweightbearing on the left lower extremity. The patient will be admitted to the medical service, will be followed orthopedically by Dr. Afia Valiente. When the patient is medically cleared,will go to the operating room for ORIF of the left distal femur. COVID test is currently pending, the patient denies any symptoms in this regard. Dictated by: Yue Cline Signing Clinician: Afia Valiente M.D. Dictated: 05/13/2023 05:55:50 Transcribed: 12:44:54 PM Transcribed by: DEBBIE DocID: [id number] PRELIMINARY REPORT UNLESS MANUALLY/ELECTRONICALLY SIGNED Note * Jose D Rojas RN: PERFORM Event Display: Discharge/Transfer Note Hospital Authored Date: Nursing Discharge Note Entered On: 05/22/2023 17:02 EST Performed On: 05/22/2023 17:02 EST by Jose D Rojas RN Nursing Discharge Note 2 Discharge Time : 05/22/2023 15:35 EST Discharge Level of Care at Discharge : snf facility Discharge Nursing Homes/Rehab Facilities : [facility] [address] [place] [address] room [address], [facility] [phone] Patient Left Unit Via : Ambulance Patient Accompanied Off Unit with : Ambulance/Chair Van Personnel Handover Given to Transport Personnel : Yes DC Instructions Provided & Signed by Pt : Yes Patient Understands D/C Instructions : Yes Patient Instructions Discharge Signed : Yes Jose D Rojas RN - 05/22/2023 17:02 EST Did Pt have Specialty Bed or Wound Vac : No Jose D Rojas RN - 05/22/2023 17:03 EST * Brionna LOCKWOOD, Joe Lee: PERFORM Event Display: Discharge/Transfer Note Hospital Authored Date: [id number] Patient: ??JACQUES ISABEL ? Age:??78 Years?Sex:??Female?:??1945?? Patient Information [facility]charge Location: [facility] Primary Care Physician: Siva Austin Admit Date/Time: 05/13/23 17:50 Discharge Disposition Discharge Disposition: Nursing Home Facility/Rehab Discharge Diagnosis Epistaxis (R04.0) Fracture of distal end of left femur (S72.402A) Acute postoperative anemia due to expected blood loss (D62) Acute pulmonary embolism (I26.99) Right atrial thrombus (I51.3) Atrial fibrillation (I48.91) History of Parkinson's disease (Z86.69) Hypertension (I10) ?? _ Discharge Medications apixaban (apixaban 5 mg oral tablet)?1?tab(s)?5?Milligram?By Mouth?2 times a day Calcium Carbonate (calcium carbonate 500 mg (200 mg elemental calcium) oral tablet, chewable)?500?Milligram?1?tablet?Daily Captopril (captopril 12.5 mg oral tablet)?37.5?Milligram?3?tablet?By Mouth?Daily at bedtime Carbidopa-Levodopa (carbidopa-levodopa 25 mg-100 mg oral tablet)?See Instructions?2 tabs at 5: 30 am , 1.5 tab at 8 am , 2 tabs at 10:30 am , 1.5 tablet at 1 pm , 2 tablet at 3:30 pm , 2 tabletat 5: 30 ??and 1-2 tablet6 at night as needed Cholecalciferol (Vitamin D3 2000 intl units oral capsule)?1?capsule?50?Microgram?By Mouth?Daily Clonazepam (clonazePAM 0.5 mg oral tablet)?1.5 tablets?Daily at bedtime Docusate (docusate sodium 100 mg oral capsule)?100?Milligram?1?capsule?By Mouth?2times a day?as needed?for constipation Lidocaine Topical (lidocaine 5% topical film)?3?patch(es)?Topically?Daily?remove patches after 12 hours Melatonin?10?Milligram?By Mouth?Daily at bedtime?for 14?Days Metoprolol (metoprolol 25 mg oral tablet, extended release)?By Mouth?Daily opicapone (Ongentys 50 mg oral capsule)?1?capsule?50?Milligram?By Mouth?Daily at bedtime?1 hour before or after eating Oxycodone (oxyCODONE 5 mg oral tablet)?2.5?Milligram?By Mouth?Every 6 hours?as needed?for 3?Days?Pain , Moderate Polyethylene Glycol 3350 (MiraLax Powder)?17?gram?By Mouth?Daily Senna (Senna 8.6 mg oral tablet)?8.6?Milligram?1?tab(s)?By Mouth?Daily at bedtime Sertraline (sertraline 50 mg oral tablet)?1?tab(s)?50?Milligram?By Mouth?Daily Sucralfate (sucralfate 1 gm oral tablet)?1?gram?1?tablet?By Mouth?2 times a day ? Medications Started Oxycodone (oxyCODONE 5 mg oral tablet)?2.5?Milligram?By Mouth?Every 6 hours?as needed?for 3?Days?Pain , Moderate Medications Discontinued Estradiol held due to VTE Allergies Allergies ?(Active and Proposed Allergies Only) Bactrim? (Severity: Unknown severity, Onset: Unknown) ?Comments: Neuropathy in feet. ? Future Appointments Sunday 10:00 AM EST ?? With: Siva Austin Where: [facility] So [facility] [address] [place] [address]- Status: Pending Hospital Course 78-year-old female with history of Parkinson's disease s/p deep brain stimulation, atrial fibrillation on apixaban, fall in December 2022 with hip fx s/p left IM nail who has had repeated falls since andpresented with upper left leg pain. She was found to have distal left periprosthetic femur fracture. She underwent ORIF and post procedure developed chest pain and was found to have an acute PE as well as an RV thrombus. She was seen by cardiology and restarted on her apixaban. PE was felt to be provoked per Hematology and is recommended to continue apixaban for 3 months and then repeat echocardiogram. She also had 2 episodes of epistaxis which resolved spontaneously, she received 2 sprays of Af rin BID x1 d after. She experienced some hospital associated delirium but is medically stable for d/c to [facility] for continued rehab. ?? Objective ? Fracture of distal end of left femur (S72.402A):? Periprosthetic femur fracture secondary to fall. S/p ORIF L distal femur on 05/16. Continue PT/OT, NWB LLE, no brace needed. ?? Acute postoperative anemia due to expected blood loss (D62):? Transfused 1 unit pRBCs with improvement. H&H stable on apixaban. ?? Epistaxis (R04.0):? Two episodes of epistaxis yesterday which resolved, received Afrin spray x2. Continue apixaban, has tolerated this medication for years. ?? Acute pulmonary embolism (I26.99):? Sade held x3 doses pre-procedure and was on sc heparin DVT prophylaxis. Post-procedure developed chest pain, elevated d-dimer and CTA showed acute PE. Hematology recommends resuming apixaban for provoked PE. ?? Right atrial thrombus (I51.3):? Echo showed right atrial thrombus, cardiology recommends continuing apixaban. Repeat echo in 3-6 months and follow up with cardiology. ?? Atrial fibrillation (I48.91):? Continue metoprolol and apixaban. ?? History of Parkinson's disease (Z86.69):? Continue carbidopa levodopa. ? Vital Signs?? Temperature: 97.9 DegF (05/22/23 06:57:00) Temperature Route: Axillary (05/22/23 06:57:00) Pulse Rate: 76 bpm (05/22/23 08:29:00) Respiratory Rate: 18 br/min (05/22/23 13:42:00) Respiratory Rate: 18 br/min (05/22/23 13:42:00) Respiratory Rate: 18 br/min (05/22/23 13:42:00) Respiratory Rate: 18 br/min (05/22/23 13:42:00) Systolic Blood Pressure:??150 mm Hg??High (05/22/23 08:29:00) Diastolic Blood Pressure: 82 mm Hg (05/22/23 08:29:00) Blood pressure sites: Arm, left (05/22/23 06:57:00) Mean Arterial Pressure: 105 mm Hg (05/22/23 06:57:00) Pulse Pressure: 68 mm Hg (05/22/23 06:57:00) Oxygen Saturation: 100 % (05/22/23 06:57:00) Mode of Delivery (Oxygen): Room air (05/22/23 06:57:00) Early Warning Score: 2 (05/22/23 13:42:32) ? . Physical Exam Constitutional: Alert, in no distress. Respiratory: Clear to auscultation. No wheezing, rales or rhonchi. Cardiovascular: Regular rate and rhythm, no murmurs, rubs or gallops. Abdomen: Soft, non-tender, non-distended.??Normal bowel sounds. Skin: No rashes or lesions. Extremities: No edema. Surgical Procedures Open Reduction Internal Fixation Distal 05/16/2023 08:10 Pending Results Add On Lab Order ordered on 05/15/2023 Transfuse RBCs ordered on 05/20/2023 Follow-Up Appointments Added Follow Up ?Time Frame ?Comments [facility] Face to Face ^[facility] Results Discharge Labs BLOOD BANK Blood Type O Positive ()?? 05/19/2023 10:07 Antibody Screen Negative ()?? 05/19/2023 10:07 RBC Unit ID [id number] ()?? 05/20/2023 11:36 RBC Available PT ()?? 05/20/2023 11:36 ?? BLOOD COUNT & DIFF WBC 5.8 k/mm3 ()?? 05/22/2023 01:47 RBC 2.94 m/mm3 (Low)?? 05/22/2023 01:47 Hgb 8.9 Gm/dL (Low)?? 05/22/2023 01:47 Hct 27.3 % (Low)?? 05/22/2023 01:47 MCV 92.9 femtoliters ()?? 05/22/2023 01:47 MCH 30.3 pg ()?? 05/22/2023 01:47 MCHC 32.6 g/dL (Low)?? 05/22/2023 01:47 Platelet Count 375 k/mm3 ()?? 05/22/2023 01:47 RDW-SD 51.5 femtoliters (High)?? 05/22/2023 01:47 MPV 8.5 femtoliters (Low)?? 05/22/2023 01:47 Nucleated RBC (Automated) 0.0 #/100 WBC'S ()?? 05/22/2023 01:47 Abs. NRBC 0.0 k/mm3 ()?? 05/22/2023 01:47 Abs. Neut 3.8 k/mm3 ()?? 05/22/2023 01:47 Abs. Lymph 1.3 k/mm3 ()?? 05/22/2023 01:47 Abs. Bonneville 0.6 k/mm3 ()?? 05/22/2023 01:47 Abs. Eo 0.2 k/mm3 ()?? 05/22/2023 01:47 Abs. Baso 0.0 k/mm3 ()?? 05/22/2023 01:47 Neut % 64.4 % ()?? 05/22/2023 01:47 Lymph % 21.4 % ()?? 05/22/2023 01:47 Bonneville % 11.0 % (High)?? 05/22/2023 01:47 Eos % 2.6 % ()?? 05/22/2023 01:47 Baso % 0.3 % ()?? 05/22/2023 01:47 Imm Gran 0.3 % ()?? 05/22/2023 01:47 Abs. Imm Gran 0.0 k/mm3 ()?? 05/22/2023 01:47 ?? CARDIAC High Sensitivity Troponin (HSTnT) 17 ng/L (High)?? 05/16/2023 20:43 ? CHEM GENERAL Sodium 141 mmol/L ()?? 05/22/2023 01:47 Potassium 4.0 mmol/L ()?? 05/22/2023 01:47 Chloride 104 mmol/L ()?? 05/22/2023 01:47 Bicarbonate Level 29 mmol/L ()?? 05/22/2023 01:47 Anion Gap 8 ()?? 05/22/2023 01:47 Glucose Level 103 mg/dL (High)?? 05/22/2023 01:47 BUN 12 mg/dL ()?? 05/22/2023 01:47 Creatinine-Blood 0.4 mg/dL (Low)?? 05/22/2023 01:47 Estimated GFR Creatinine 100 ML/MIN/1.73 M2 ()?? 05/22/2023 01:47 Calcium 8.7 mg/dL ()?? 05/22/2023 01:47 Protein, Total 6.4 Gm/dL ()?? 05/13/2023 14:08 Albumin 4.4 Gm/dL ()?? 05/13/2023 14:08 AG Ratio 2.2 ()?? 05/13/2023 14:08 Alkaline Phosphatase 223 units/L (High)?? 05/13/2023 14:08 AST (SGOT) 13 units/L ()?? 05/13/2023 14:08 ALT (SGPT) 9 units/L ()?? 05/13/2023 14:08 Bilirubin, Total 0.6 mg/dL ()?? 05/13/2023 14:08 ? COAG APTT 35.3 seconds (High)?? 05/18/2023 16:45 D-Dimer 2.57 mg/L FEU (High)?? 05/16/2023 19:04 ?? HEME OTHER Hold Lavender Top SPECIMEN DISCARDED AFTER 24 HOURS. ()?? 05/21/2023 05:44 ? MISC. CHEMISTRY Hold Green Top SPECIMEN DISCARDED AFTER 1 WEEK ()?? 05/13/2023 14:08 ? URINE OTHER Est Creatinine Clearance 95.52 mL/min ()?? 05/17/2023 06:05 ? VIROLOGY Influenza A PCR NEGATIVE ()?? 05/13/2023 17:57 Influenza B PCR NEGATIVE ()?? 05/13/2023 17:57 RSV PCR NEGATIVE ()?? 05/13/2023 17:57 COVID-19 PCR Specimen Source NASAL ()?? 05/13/2023 17:57 COVID-19 PCR Result NEGATIVE ()?? 05/13/2023 17:57 ? I spent a total of??50 minutes today reviewing the chart/medical records, speaking with the patient, formulating and discussing the treatment plan and documenting the findings and encounter. Discussed plan with patient, nursing, daughters. ?? [facility] Medicine Pager #[phone] or [employer] * Ernesto BREWER, Kristal Mckeon: VERIFY, PERFORM, SIGN Event Display: Case Management Discharge Plan Authored Date: [id number] Patient: JACQUES ISABEL Age: 78 years Sex: Female : 1945 Associated Diagnoses: None Author: Kristal Orozco RN Discharge Plan Case Management Discharge Plan : Case Management Discharge Plan Data 05/22/2023 12:30 EST Discharge Level of Care at Discharge snf facility Discharge Nursing Homes/Rehab Facilities [facility] [place] [address] Discharge Transportation Arranged [facility] [address] [place] [address] Discharge Arranged Transport Date/Time 05/22/2023 15:45 Mode of Transportation Arranged Ambulance Name of Agency #1 [facility] Service Categories #1 Occupational Therapy, Physical Therapy, Nursing Home Service Comments #1 You will be going to [facility] for rehab leaving today 05/22/23 at 3:45 PM by ambulance Patient Care team information Care Team Personnel Name: Alcira Reid RN Position: [facility] RN Member Role: Primary Care Nurse Name: Tonya Brewer Position: S RN Member Role: Primary Care Nurse Name: Evan Galo RN Position: S RN Member Role: Primary Care Nurse Name: Jana Poole RN Position: S RN Member Role: Primary Care Nurse Name: Talita Bhatia RN Position: S RN Member Role: Primary Care Nurse Name: Lyndsey Spencer RN Position: [facility] RN Member Role: Primary Care Nurse Name: Gege Davis RN Position: [facility] RN Member Role: Primary Care Nurse Name: Keily Hernandez RN Position: [facility] RN Member Role: Primary Care Nurse Name: Katina Arriola RN Position: [facility] RN Member Role: Primary Care Nurse Name: Gabi Lynch RN Position: [facility] RN Member Role: Primary Care Nurse Name: Gloria Blanchard RN Position: [facility] RN Member Role: Primary Care Nurse Name: Siva Austin Position: [facility] PCO Associate Professional Member Role: PCP Address: Address: [address] [place] [id number] Name: Canelo HOFFMANN Attending Position: [facility] ED Medicine MD Name: Lawanda Bolton LPN Position: [facility] ED RN W/OE and Tasks Member Role: Patient Care Provider Name: Shelly Willis Position: [facility] ED OA Charge Member Role: ED Associate Name: Shayan Munoz Position: [facility] ED TA [facility] Name: Brenda Mckeon Position: [facility] ED RN W/OE and Tasks Member Role: Patient Care Provider Care Team Related Persons Name: OSCAR CHONG Address: home [address] [place] [address] Name: BURKE CABRERA Address: home [address] [place] [address] Name: EMMANUEL HANCOCK Address: home [address] [place] [address]
--- OUTSIDE RECORDS SUMMARY | 2024-05-07 00:25 | XMS_ITS | Continuity of Care Document ---
Author Organization [facility] Naren Hughes Josef lt Address [address] [place] [address]- Care Team Providers Care Records Tech Name Role Phone Joe Bernstein DO Primary Care Physician [facility]): 02/20/24 - 03/21/24 [facility] Adult [address] [place] [address]- Allergies, Adverse Reactions, Alerts Substance Reaction Severity Status Bactrim 1 Active 1Neuropathy in feet. Immunizations Given and Recorded Vaccine Date Status Refusal Reason pneumococcal 20-valent conjugate vaccine 1 07/24/23 Given SARS-CoV-2(COVID-19)mRNA-LNP vac([id number]) 04/05/23 Recorded influenza virus vaccine, inactivated 03/16/23 [...] influenza virus vaccine, inactivated 03/12/09 Jakub rded [id number] 12y+ bivalent booster vax 03/17/22 Recorded SARS-CoV-2 (COVID-19) mRNA-1273 vaccine 6/14/22 R ecorded zoster vaccine, inactivated 10/18/21 Recorded zoster vaccine, inactivated 08/16/21 Recorded SARS-CoV-2 (COVID-19) mRNA BNT-162b2 vac 04/05/21 Recorded SARS-CoV-2 (COVID-19) mRNA BNT-162b2 vac 08/29/20 Recorded SARS-CoV-2 (COVID-19) mRNA BNT-162b2 vac 07/29/20 Recorded tetanus-diphtheria toxoids (Td) 04/14/15 Recorded tetanus-diphtheria toxoids (Td) 03/20/05 Recorded pneumococcal 13-valent vaccine 04/14/15 Recorded pneumococcal 23-valent vaccine 04/25/13 Recorded Zoster Vaccine Live 03/12/09 Recorded 1Result Comment: PCV 20 [facility]#6070-0976-03 Medications calcium carbonate 500 mg (200 mg [...] tablet, 1 Refills, Maintenance, 01/29/24 10:24:00 EDT, [facility] # [facility], 158, cm, 10/01/23 14:58:00 EDT, Height, 59.7, kg, 05/16/23 16:04:00 EST, Dry Weight Start Date: 01/29/24 Status: Ordered lisinopril 5 mg oral tablet 5 mg, 1, tablet, By Mouth, Daily, TAKE 1 TABLET BY MOUTH EVERY DAY, # 90 tablet, Refills 3, Tot. Refills 3, Maintenance, 10/01/23 15:23:00 EDT, Route to Pharmacy Electronically, [facility] # 50, Partial fill upon [...] 11/28/23 16:18:00 EDT, Route to Pharmacy Electronically, [facility] # 50, Partial fill upon [...] Team Personnel Name: Alcira Reid RN Position: [facility] RN Member Role: Primary Care Nurse Name: Tonya Brewer Position: S RN Member Role: Primary Care Nurse Name: Jana Poole RN Position: [facility] RN Member Role: Primary Care Nurse Name: Talita Bhatia RN Position: [facility] RN Member Role: Primary Care Nurse Name: Gege Davis RN Position: S RN Member Role: Primary Care Nurse Name: Keily Hernandez RN Position: [facility] RN Member Role: Primary Care Nurse Name: Elina Arriola RN Position: [facility] RN Member Role: Primary Care Nurse Name: Joe Bernstein DO Position: [facility] Physician - Primary Care Member Role: PCP Address: Address: [address] [place] [address]- Name: Gabi Lynch RN Position: [facility] RN Member Role: Primary Care Nurse Name: Gloria Blanchard RN Position: [facility] RN Member Role: Primary Care Nurse Care Team Related Persons Name: OSCAR CHONG Address: home [address] [place] [address] Name: BURKE CABRERA Address: home [address] [place] [address] Name: EMMANUEL HANCOCK Address: home [address] [place] [address]
--- OUTSIDE RECORDS SUMMARY | 2024-05-07 00:25 | XMS_ITS | Continuity of Care Document ---
Author Organization [facility] Naren Hughes Josef lt Address [address] [place] [address]- Care Team Providers Care Logging Contractor Name Role Phone Siva Austin Primary Care Physi miranda [facility]s): 04/13/23 - 05/13/23 [facility] Naren Hughes Adult [address] [place] [address]- Allergies, Adverse Reactions, Alerts Substance Reaction Severity [...] influenza virus vaccine, inactivated 03/12/09 Jakub rded [id number] 12y+ bivalent booster vax 03/17/22 Recorded SARS-CoV-2 [...] 0 Refills, Maintenance, 04/20/23 13:47:00 EDT, Film, [facility]/pharmacy #[id number], Partial fill upon patient request [...] 04/13/23 16:28:00 EDT, Route to Pharmacy Electronically, [facility]/pharmacy #[id number], Partial fill upon patient request if the [...] Team Personnel Name: Gege Davis RN Position: [facility] RN Member Role: Primary Care Nurse Name: Gloria Blanchard RN Position: [facility] RN Member Role: Primary Care Nurse Name: Siva Austin Position: [facility] PCO Associate Professional Member Role: PCP Address: Address: [address] [place] [address]- Care Team Related Persons Name: OSCAR CHONG Address: home [address] [place] [address] Name: BURKE CABRERA Address: [address] [place] [address] Name: EMMANUEL HANCOCK Address: home [address] [place] [address]
--- OUTSIDE RECORDS SUMMARY | 2024-05-07 00:25 | XMS_ITS | Continuity of Care Document ---
Author Organization [facility] Saul Josef lt Address [address] [place] [address]- Care Team Providers Care Classifier Name Role Phone Siva Austin Primary Care Physi miranda [facility](s): 04/04/23 - 05/04/23 [facility] [place] Adult [address] [place] [address]- Allergies, Adverse Reactions, Alerts Substance Reaction Severity [...] influenza virus vaccine, inactivated 03/12/09 Jakub rded [id number] 12y+ bivalent booster vax 03/17/22 Recorded SARS-CoV-2 [...] 0 Refills, Maintenance, 04/20/23 13:47:00 EDT, Film, [facility]/pharmacy #[id number], Partial fill upon patient request [...] 04/13/23 16:28:00 EDT, Route to Pharmacy Electronically, [facility]/pharmacy #[id number], Partial fill upon patient request [...] Associate Professional Member Role: PCP Address: Address: [address] [place] [address]- Care Team Related Persons Name: OSCAR CHONG Address: home [address] [place] [address] Name: BURKE CABRERA Address: home [address] [place] [address] Name: EMMANUEL HANCOCK Address: home [address] [place] [address]
--- OUTSIDE RECORDS SUMMARY | 2024-05-07 00:25 | XMS_ITS | Continuity of Care Document ---
Author Organization [facility] Naren Hughes Josef Address [address] [place] [address]- Care Team Providers Care Housing Manager Name Role Phone Joe Bernstein DO Primary Care Physician [facility] Date(s): 03/03/24 - 04/02/24 [facility] Naren Hughes Adult [address] [place] [address]- Allergies, Adverse Reactions, Alerts Substance Reaction Severity Status Bactrim 1 Active 1Neuropathy in feet. Immunizations Given and Recorded Vaccine Date Status Refusal Reason pneumococcal 20-valent conjugate vaccine 1 07/24/23 Given SARS-CoV-2(COVID-19)mRNA-LNP vac([id number]) 04/05/23 Recorded influenza virus vaccine, inactivated 03/16/23 [...] Jakub rded influenza virus vaccine, inactivated 03/12/09 Jakbu rded [id number] 12y+ bivalent booster vax 03/17/22 Recorded SARS-CoV-2 [...] Live 03/12/09 Recorded 1Result Comment: PCV 20 [facility]#4707-2014-04 Medications calcium carbonate 500 mg (200 mg [...] patient re... Start Date: 11/15/22 Status: Ordered cefpodoxime 100 mg oral tablet 1 tablet = 100 mg, By Mouth, Every 12 hours, for 10 days, # 20 tablet, 0 Refills, Acute 04/12/24 15:31:00 EDT, 04/02/24 15:31:00 EDT, Tablet, [facility] # [facility], Partial fill upon patient request ifthe prescription is for a schedule II opioid drug.,... Start Date: 04/02/24 Stop Date: 04/12/24 Status: Ordered clonazePAM 0.5 mg oral tablet [...] tablet, 1 Refills, Maintenance, 01/29/24 10:24:00 EDT, [facility] # 50, 158, cm, 10/01/23 14:58:00 EDT, Height, 59.7, kg, 05/16/23 16:04:00 EST, Dry Weight Start Date: 01/29/24 Status: Ordered lisinopril 5 mg oral tablet 5 mg, 1, tablet, By Mouth, Daily, TAKE 1 TABLET BY MOUTH EVERY DAY, # 90 tablet, Refills 3, Tot. Refills 3, Maintenance, 10/01/23 15:23:00 EDT, Route to Pharmacy Electronically, [facility] # 50, Partial fill upon patient [...] 11/28/23 16:18:00 EDT, Route to Pharmacy Electronically, [facility] # 50, Partial fill upon patient [...] Team Personnel Name: Alcira Reid RN Position: [facility] RN Member Role: Primary Care Nurse Name: Tonya Brewer Position: [facility] RN Member Role: Primary Care Nurse Name: Jana Poole RN Position: [facility] RN Member Role: Primary Care Nurse Name: Talita Bhatia RN Position: [facility] RN Member Role: Primary Care Nurse Name: Gege Davis RN Position: [facility] RN Member Role: Primary Care Nurse Name: Keily Hernandez RN Position: [facility] RN Member Role: Primary Care Nurse Name: Elina Arriola RN Position: S RN Member Role: Primary Care Nurse Name: Joe Bernstein DO Position: [facility] Physician - Primary Care Member Role: PCP Address: Address: [address] [place] [id number] Name: Gabi Lynch RN Position: [facility] RN Member Role: Primary Care Nurse Name: Gloria Blanchard RN Position: [facility] RN Member Role: Primary Care Nurse Care Team Related Persons Name: OSCAR CHONG Address: [address] [place] [address] Name: BURKE CABRERA Address: [place] [address] [place] [address] Name: EMMANUEL HANCOCK Address: [address] [place] [address]
--- OUTSIDE RECORDS SUMMARY | 2024-05-07 00:25 | XMS_ITS | Continuity of Care Document ---
Author Organization [facility] Naren Hughes Josef Address [address] [place] [address]- Care Team Providers Care Product Support Representative Name Role Phone Joe Bernstein DO Primary Care Physician [facility](s): 09/07/23 - 10/07/23 [facility] Adult [address] [place] [address]- Allergies, Adverse Reactions, Alerts Substance Reaction Severity Status Bactrim 1 Active 1Neuropathy in feet. Immunizations Given and Recorded Vaccine Date Status Refusal Reason pneumococcal 20-valent conjugate vaccine 1 07/24/23 Given SARS-CoV-2(COVID-19)mRNA-LNP vac([id number]) 04/05/23 Recorded influenza virus vaccine, inactivated 03/16/23 [...] influenza virus vaccine, inactivated 03/12/09 Jakub rded [id number] 12y+ bivalent booster vax 03/17/22 Recorded SARS-CoV-2 [...] Live 03/12/09 Recorded 1Result Comment: PCV 20 [facility]#0689-8701-67 Medications apixaban Starter Pack 5 mg oral [...] EDT, Route to Pharmacy Electronically, [facility] # 50, Partial fill upon [...] Team Personnel Name: Alcira Reid RN Position: [facility] RN Member Role: Primary Care Nurse Name: Tonya Brewer Position: [facility] RN Member Role: Primary Care Nurse Name: Jana Poole RN Position: [facility] RN Member Role: Primary Care Nurse Name: Talita Bhatia RN Position: [facility] RN Member Role: Primary Care Nurse Name: Lyndsey Spencer RN Position: [facility] RN Member Role: Primary Care Nurse Name: Gege Davis RN Position: [facility] RN Member Role: Primary Care Nurse Name: Keily Hernandez RN Position: [facility] RN Member Role: Primary Care Nurse Name: Katina Arriola RN Position: [facility] RN Member Role: Primary Care Nurse Name: Joe Bernstein DO Position: [facility] Physician - Primary Care Member Role: PCP Address: Address: [address] [place] [address]- Name: Gabi Lynch RN Position: [facility] RN Member Role: Primary Care Nurse Name: Gloria Blanchard RN Position: S RN Member Role: Primary Care Nurse Care Team Related Persons Name: OSCAR CHONG Address: [address] [place] [address] Name: BURKE CABRERA Address: [address] [place] [address] Name: EMMANUEL HANCOCK Address: home [address] [place] [address]
--- OUTSIDE RECORDS SUMMARY | 2024-05-07 00:26 | XMS_ITS | Continuity of Care Document ---
Author Organization [facility] Naren Hughes Josef lt Address [address] [place] [address]- Care Team Providers Care Tile Erector Name Role Phone Siva Austin Primary Care Physi miranda [facility] Date(s): 02/06/23 - 03/08/23 [facility] Naren Hughes Adult [address] [place] [address]- Allergies, Adverse Reactions, Alerts Substance Reaction Severity [...] influenza virus vaccine, inactivated 03/12/09 Jakub rded [id number] 12y+ bivalent booster vax 03/17/22 Recorded SARS-CoV-2 [...] 03/12/23 15:15:00 EDT, 03/02/23 15:15:00 EDT, Capsule, [facility]/pharmacy #[id number], Partial fill upon patient request [...] A-fib Confirmed Active Supine hypertension Confirmed Active Vital Signs Most recent to oldest [Reference Range]: 1 Blood Pressure [90-138/55-84 mm Hg] 168/ 98mm Hg *H* (02/06/23 1:14 PM) Social History Social History Type Response Smoking Status Never (less than 100 in lifetime) entered on: 11/15/22 Sex Patient Care team information Care Team Personnel Name: Gege Davis RN Position: [facility] RN Member Role: Primary Care Nurse Name: Gloria Blanchard RN Position: S RN Member Role: Primary Care Nurse Name: Siva Austin Position: [facility] PCO Associate Professional Member Role: PCP Address: Address: [address] [place] [address]- Care Team Related Persons Name: OSCAR CHONG Address: home [address] [place] [address] Name: BURKE CABRERA Address: [address] [place] [address] Name: EMMANUEL HANCOCK Address: home [address] [place] [address]
--- OUTSIDE RECORDS SUMMARY | 2024-05-07 00:26 | XMS_ITS | Continuity of Care Document ---
Author Organization [facility] Naren Hughes Josef lt Address [address] [place] [address]- Care Team Providers Care Validation Specialist Name Role Phone Siva Austin Primary Care Physi miranda [facility] Date(s): 03/16/23 - 04/15/23 [facility] Naren Hughes Adult [address] [place] [address]- Allergies, Adverse Reactions, Alerts Substance Reaction Severity [...] influenza virus vaccine, inactivated 03/12/09 Jakub rded [id number] 12y+ bivalent booster vax 03/17/22 Recorded SARS-CoV-2 [...] Route to Pharmacy Electronically, [facility]/pharmacy #[id number], Partial fill upon patient request if the [...] Display: Case Management Discharge Plan Authored Date: [id number] Patient: JACQUES ISABEL Age: 77 years Sex: Female : 1945 Associated Diagnoses: None Author: Pam Reinoso RN Care Management Discharge Call Note Admit date 03/15/2023 Discharge date 03/16/2023 Date of contact 03/20/2023 Diagnosis UTI Syncope If patient went for emergency services was this patient referred? Referred by Self Notes in cis Discharge instructions were reviewed with the patient? Yes Medication reconciliation performed Yes Looks like you were recently discharged from the hospital (ED), how are you feeling? Pt denies any new or worsneing s/sx since d/c and overall she is feeling well. Please tell me the problem or condition that brought you to the hospital (ED)? Syncope Do you know what to do in case of an emergency? Yes Were you given any prescriptions to fill? Yes. Do you understand how to take your medication? Yes Other diagnostic tests/procedures ordered/recommended? pt will discuss at [facility] Do you have an appointment already scheduled with your PCP? Yes Is date appropriate: Yes. Are you able to get to that appointment: Yes. Appointment scheduled? Date 03/21/2023 Home Care Services requested? No Have there been any changes in your condition since discharge? No Do you have someone at home that is able to help you? Yes Is there anything else that you need addressed before your follow up appointment? No per pt. Patient Care team information Care Team Personnel Name: Gege Davis RN Position: [facility] RN Member Role: Primary Care Nurse Name: Gloria Blanchard RN Position: S RN Member Role: Primary Care Nurse Name: Siva Austin Position: [facility] PCO Associate Professional Member Role: PCP Address: Address: [address] [place] [id number] Care Team Related Persons Name: OSCAR CHONG Address: home [address] [place] [address] Name: BURKE CABRERA Address: [address] [place] [address] Name: EMMANUEL HANCOCK Address: [address] [place] [address]
--- OUTSIDE RECORDS SUMMARY | 2024-05-07 00:26 | XMS_ITS | Continuity of Care Document ---
Author Organization [facility] Naren Hughes Josef lt Address [address] [place] [address]- Care Team Providers Care Partition Setter Name Role Phone Siva Austin Primary Care Physi miranda [facility](s): 03/06/23 - 04/05/23 [facility] Naren Hughes Adult [address] [place] [address]- Allergies, Adverse Reactions, Alerts Substance Reaction Severity [...] influenza virus vaccine, inactivated 03/12/09 Jakub rded [id number] 12y+ bivalent booster vax 03/17/22 Recorded SARS-CoV-2 [...] Team Personnel Name: Gege Davis RN Position: [facility] RN Member Role: Primary Care Nurse Name: Gloria Blanchard RN Position: S RN Member Role: Primary Care Nurse Name: Siva Austin Position: [facility] PCO Associate Professional Member Role: PCP Address: Address: [address] [place] [address]- [place] Care Team Related Persons Name: OSCAR CHONG Address: home [address] [place] [address] Name: BURKE CABRERA Address: [address] [place] [address] Name: EMMANUEL HANCOCK Address: [address] [place] [address]
--- OUTSIDE RECORDS SUMMARY | 2024-05-07 00:26 | XMS_ITS | Continuity of Care Document ---
Author Organization [facility] Calvin Josef Address [address] [place] [address]- Care Team Providers Care Volleyball Assistant Coach Name Role Phone Claudette Parrish MD Primary Care Physician Encounter [facility] Date(s): 09/12/22 - 10/12/22 [facility] Adult [address] [place] [address]- Allergies, Adverse Reactions, Alerts Substance Reaction Severity Status Bactrim Active Patient Care team information Care Team Personnel Name: Claudette Parrish MD Position: [facility] Physician (General Medicine) Member Role: PCP Address: Address: [address] [place] [address]- Care Team Related Persons Name: OSCAR CHONG Address: [address] [place] [address] Name: BURKE CABRERA Address: [address] [place] [address] Name: EMMANUEL HANCOCK Address: [address] [place] [address]
--- OUTSIDE RECORDS SUMMARY | 2024-05-07 00:26 | XMS_ITS | Continuity of Care Document ---
Author Organization [facility] Naren Hughes Josef Address [address] [place] [address]- Care Team Providers Care Research Worker Kitchen Name Role Phone Joe Bernstein DO Primary Care Physician [facility] Date(s): 11/17/23 - 12/17/23 [facility] Adult [address] [place] [address]- Allergies, Adverse Reactions, Alerts Substance Reaction Severity Status Bactrim 1 Active 1Neuropathy in feet. Immunizations Given and Recorded Vaccine Date Status Refusal Reason pneumococcal 20-valent conjugate vaccine 1 07/24/23 Given SARS-CoV-2(COVID-19)mRNA-LNP vac([id number]) 04/05/23 Recorded influenza virus vaccine, inactivated 03/16/23 [...] influenza virus vaccine, inactivated 03/12/09 Jakub rded [id number] 12y+ bivalent booster vax 03/17/22 Recorded SARS-CoV-2 [...] PCV 20 [facility]#5615-9160-17 Medications apixaban Starter Pack 5 mg oral [...] 10/01/23 15:23:00 EDT, Route to Pharmacy Electronically, [facility] # [facility], Partial fill [...] 11/28/23 16:18:00 EDT, Route to Pharmacy Electronically, [facility] # 50, Partial fill [...] Team Personnel Name: Alcira Reid RN Position: [facility] RN Member Role: Primary Care Nurse Name: Tonya Brewer Position: [facility] RN Member Role: Primary Care Nurse Name: Jana Poole RN Position: [facility] RN Member Role: Primary Care Nurse Name: Talita Bhatia RN Position: [facility] RN Member Role: Primary Care Nurse Name: Gege Davis RN Position: [facility] RN Member Role: Primary Care Nurse Name: Keily Hernandez RN Position: [facility] RN Member Role: Primary Care Nurse Name: Elina Arriola RN Position: [facility] RN Member Role: Primary Care Nurse Name: Joe Bernstein DO Position: [facility] Physician - Primary Care Member Role: PCP Address: Address: [address] [place] [address]- Name: Gabi Lynch RN Position: S RN Member Role: Primary Care Nurse Name: Gloria Blanchard RN Position: [facility] RN Member Role: Primary Care Nurse Care Team Related Persons Name: OSACR CHONG Address: [address] [place] [address] Name: BURKE CABRERA Address: [address] [place] [address] Name: EMMANUEL HANCOCK Address: home [address] [place] [address]
--- OUTSIDE RECORDS SUMMARY | 2024-05-07 00:26 | XMS_ITS | Continuity of Care Document ---
Author Organization [facility] Naren Hughes Josef Address [address] [place] [address]- Care Team Providers Care Ear Specialist Name Role Phone Joe Bernstein DO Primary Care Physician [phone] Encounter [facility] [place] Date(s): 05/08/23 - 09/05/23 [facility] [place] Adult [address] [place] [address]- Attending Physician: Siva Austin Zenon Allergies, Adverse Reactions, Alerts Substance Reaction Severity Status Bactrim 1 Active 1Neuropathy in feet. Immunizations Given and Recorded Vaccine Date Status Refusal Reason pneumococcal 20-valent conjugate vaccine 1 07/24/23 Given SARS-CoV-2(COVID-19)mRNA-LNP vac([id number]) 04/05/23 Recorded influenza virus vaccine, inactivated 03/16/23 [...] influenza virus vaccine, inactivated 03/12/09 Jakub rded [id number] 12y+ bivalent booster vax 03/17/22 Recorded SARS-CoV-2 [...] Live 03/12/09 Recorded 1Result Comment: PCV 20 [facility]#2800-3883-91 Medications apixaban Starter Pack 5 mg oral tablet 1 tablet = 5 mg, By Mouth, 2 times a day, # 180 tablet, 1 Refills, Maintenance, 08/07/23 9:07:00 EST, Tablet, [facility] # [facility], Partial [...] MOUTH EVERY DAY, # 90 tablet, Refills 1, Tot. Refills 1, Maintenance, 07/24/23 11:44:00 EST, Route to Pharmacy Electronically, [facility] # [facility], Partial fill upon patient request if the prescriptio... Start Date: 07/24/23 Status: Ordered Melatonin = 10 mg, By [...] opioid drug. Start Date: 11/15/22 Status: Ordered rivastigmine 4.6 mg/24 hr transdermal film, extended release See Instructions, 0 Refills, Maintenance, 07/24/23 11:50:00 EST, Partial fill upon patient request if the prescription is for a schedule II opioid drug. Start Date: 07/24/23 Status: Ordered Senna 8.6 mg oral tablet [...] Effective Dates Status H ealth Status Informant Essential hypertension Confirmed Active Repeated falls Confirmed [...] Team Personnel Name: Alcira Reid RN Position: [facility] RN Member Role: Primary Care Nurse Name: Tonya Brewer Position: [facility] RN Member Role: Primary Care Nurse Name: Jana Poole RN Position: [facility] RN Member Role: Primary Care Nurse Name: Talita Bhatia RN Position: [facility] RN Member Role: Primary Care Nurse Name: Lyndsey Spencer RN Position: [facility] RN Member Role: Primary Care Nurse Name: Gege Davis RN Position: [facility] RN Member Role: Primary Care Nurse Name: Keily Hernandez RN Position: [facility] RN Member Role: Primary Care Nurse Name: Katina Arriola RN Position: [facility] RN Member Role: Primary Care Nurse Name: Joe Bernstein DO Position: [facility] Physician - Primary Care Member Role: PCP Address: Address: [address] [place] [address]- Name: Gabi Lynch RN Position: [facility] RN Member Role: Primary Care Nurse Name: Gloria Blanchard RN Position: [facility] RN Member Role: Primary Care Nurse Care Team Related Persons Name: OSCAR CHONG Address: home [address] [place] [address] Name: BURKE CABRERA Address: [address] [place] [address] Name: EMMANUEL HANCOCK Address: home [address] [place] [address]
--- OUTSIDE RECORDS SUMMARY | 2024-05-07 00:26 | XMS_ITS | Continuity of Care Document ---
Author Organization [facility] Saul Josef Address [address] [place] [address]- Care Team Providers Care Silver Brazer Name Role Phone Joe Bernstein DO Primary Care Physician [phone] [facility] Date(s): 11/28/23 - 12/28/23 [facility] Adult [address] [place] [address]- Allergies, Adverse Reactions, Alerts Substance Reaction Severity Status Bactrim 1 Active 1Neuropathy in feet. Immunizations Given and Recorded Vaccine Date Status Refusal Reason pneumococcal 20-valent conjugate vaccine 1 07/24/23 Given SARS-CoV-2(COVID-19)mRNA-LNP vac([id number]) 04/05/23 Recorded influenza virus vaccine, inactivated 03/16/23 [...] influenza virus vaccine, inactivated 03/12/09 Jakub rded [id number] 12y+ bivalent booster vax 03/17/22 Recorded SARS-CoV-2 [...] Live 03/12/09 Recorded 1Result Comment: PCV 20 [facility]#[id number] Medications apixaban Starter Pack 5 mg oral [...] Name: Alcira Reid RN Position: [facility] RN Member Role: Primary Care Nurse Name: Tonya Brewer Position: [facility] RN Member Role: Primary Care Nurse Name: Jana Poole RN Position: [facility] SN RN Member Role: Primary Care Nurse Name: Talita Bhatia RN Position: [facility] RN Member Role: Primary Care Nurse Name: Gege Davis RN Position: [facility] RN Member Role: Primary Care Nurse Name: Keily Hernandez RN Position: [facility] RN Member Role: Primary Care Nurse Name: Elina Arriola RN Position: [facility] RN Member Role: Primary Care Nurse Name: Joe Bernstein DO Position: [facility] Physician - Primary Care Member Role: PCP Address: Address: [address] [place] [address]- Name: Gabi Lynch RN Position: S RN Member Role: Primary Care Nurse Name: Gloria Blanchard RN Position: [facility] RN Member Role: Primary Care Nurse Care Team Related Persons Name: OSCAR CHONG Address: home [address] [place] [address] Name: BURKE CABRERA Address: [address] [place] [address] Name: EMMANUEL HANCOCK Address: home [address] [place] [address]
--- OUTSIDE RECORDS SUMMARY | 2024-05-07 00:26 | XMS_ITS | Continuity of Care Document ---
Author Organization [facility] Naren Hughes Josef lt Address [address] [place] [address]- Care Team Providers Care Interpreter Deaf Name Role Phone Joe Bernstein DO Primary Care Physician [facility] Date(s): 03/27/24 - 04/26/24 [facility] Naren Hughes Adult [address] [place] [address]- Allergies, Adverse Reactions, Alerts Substance Reaction Severity Status Bactrim 1 Active 1Neuropathy in feet. Immunizations Given and Recorded Vaccine Date Status Refusal Reason pneumococcal 20-valent conjugate vaccine 1 07/24/23 Given SARS-CoV-2(COVID-19)mRNA-LNP vac([id number]) 04/05/23 Recorded influenza virus vaccine, inactivated 03/16/23 [...] influenza virus vaccine, inactivated 03/12/09 Jakub rded [id number] 12y+ bivalent booster vax 03/17/22 Recorded SARS-CoV-2 [...] Live 03/12/09 Recorded 1Result Comment: PCV 20 [facility]#[id number] Medications carbidopa-levodopa 25 mg-100 mg oral tablet [...] 10/01/23 15:23:00 EDT, Route to Pharmacy Electronically, [facility] # 50, Partial fill [...] 11/28/23 16:18:00 EDT, Route to Pharmacy Electronically, [facility] # 50, Partial fill [...] Team Personnel Name: Alcira Reid RN Position: [facility] RN Member Role: Primary Care Nurse Name: Tonya Brewer Position: [facility] RN Member Role: Primary Care Nurse Name: Jana Poole RN Position: [facility] SN RN Member Role: Primary Care Nurse Name: Talita Bhatia RN Position: [facility] RN Member Role: Primary Care Nurse Name: Gege Davis RN Position: [facility] RN Member Role: Primary Care Nurse Name: Keily Hernandez RN Position: [facility] RN Member Role: Primary Care Nurse Name: Elina Arriola RN Position: [facility] RN Member Role: Primary Care Nurse Name: Joe Bernstein DO Position: [facility] Physician - Primary Care Member Role: PCP Address: Address: [address] [place] [address]- Name: Gabi Lynch RN Position: [facility] RN Member Role: Primary Care Nurse Name: Gloria Blanchard RN Position: [facility] RN Member Role: Primary Care Nurse Care Team Related Persons Name: OSCAR CHONG Address: home [address] [place] [address] Name: BURKE CABRERA Address: home [address] [place] [address] Name: EMMANULE HANCOCK Address: [address] [address]
--- OUTSIDE RECORDS SUMMARY | 2024-05-07 00:26 | XMS_ITS | Continuity of Care Document ---
Author Organization [facility] Naren Hughes Josef Address [address] [place] [address]- Care Team Providers Care Etl Architect Name Role Phone Joe Bernstein DO Primary Care Physician [facility] Date(s): 03/04/24 - 04/05/24 [facility] Naren Hughes Adult [address] [place] [address]- Attending Physician: Maral Segura Allergies, Adverse Reactions, Alerts Substance Reaction Severity Status Bactrim 1 Active 1Neuropathy in feet. Immunizations Given and Recorded Vaccine Date Status Refusal Reason pneumococcal 20-valent conjugate vaccine 1 07/24/23 Given SARS-CoV-2(COVID-19)mRNA-LNP vac([id number]) 04/05/23 Recorded influenza virus vaccine, inactivated 03/16/23 [...] influenza virus vaccine, inactivated 03/12/09 Jakub rded [id number] 12y+ bivalent booster vax 03/17/22 Recorded SARS-CoV-2 [...] Live 03/12/09 Recorded 1Result Comment: PCV 20 [facility]#[id number] Medications calcium carbonate 500 mg (200 mg [...] Maintenance, 01/29/24 10:24:00 EDT, [facility] # [facility], 158, cm, 10/01/23 14:58:00 EDT, Height, 59.7, kg, 05/16/23 16:04:00 EST, Dry Weight Start Date: 01/29/24 Status: Ordered lisinopril 5 mg oral tablet 5 mg, 1, tablet, By Mouth, Daily, TAKE 1 TABLET BY MOUTH EVERY DAY, # 90 tablet, Refills 3, Tot. Refills 3, Maintenance, 10/01/23 15:23:00 EDT, Route to Pharmacy Electronically, [facility] # 50, Partial fill upon [...] 11/28/23 16:18:00 EDT, Route to Pharmacy Electronically, [facility], Partial fill upon [...] Team Personnel Name: Alcira Reid RN Position: [facility] RN Member Role: Primary Care Nurse Name: Tonya Brewer Position: S RN Member Role: Primary Care Nurse Name: Jana Poole RN Position: [facility] RN Member Role: Primary Care Nurse Name: Talita Bhatia RN Position: S RN Member Role: Primary Care Nurse Name: Gege Davis RN Position: S RN Member Role: Primary Care Nurse Name: Keily Hernandez RN Position: [facility] RN Member Role: Primary Care Nurse Name: Elina Arriola RN Position: S RN Member Role: Primary Care Nurse Name: Joe Bernstein DO Position: [facility] Physician - Primary Care Member Role: PCP Address: Address: [address] [place] [address]- Name: Gabi Lynch RN Position: [facility] RN Member Role: Primary Care Nurse Name: Gloria Blanchard RN Position: [facility] RN Member Role: Primary Care Nurse Care Team Related Persons Name: OSCAR CHONG Address: home [address] [place] [address] Name: BURKE CABRERA Address: [address] [place] [address] Name: EMMANUEL HANCOCK Address: home [address] [place] [id number]
--- OUTSIDE RECORDS SUMMARY | 2024-05-07 00:26 | XMS_ITS | Continuity of Care Document ---
Author Organization [facility] Saul Josef Address [address] [place] [address]- Care Team Providers Care Cut Off Sawyer Name Role Phone Joe Bernstein DO Primary Care Physician [phone] [place] [facility] [place] 02/13/24 - 02/20/24 [facility] Adult [address] [place] [address]- Encounter Diagnosis Essential hypertension(Discharge Diagnosis) - 02/12/24 Orthostatic hypotension due to Parkinson's disease(Discharge Diagnosis) - 02/12/24 Parkinson disease(Discharge Diagnosis) - 02/12/24 Paroxysmal A-fib(Discharge Diagnosis) - 02/12/24 Repeated falls(Discharge Diagnosis) - 02/12/24 Low back strain(Discharge Diagnosis) - 02/13/24 Left ulnar fracture(Discharge Diagnosis) - 02/13/24 Attending Physician: Joe Bernstein DO Allergies, Adverse Reactions, Alerts Substance Reaction Severity Status Bactrim 1 Active 1Neuropathy in feet. Immunizations Given and Recorded Vaccine Date Status Refusal Reason pneumococcal 20-valent conjugate vaccine 1 07/24/23 Given SARS-CoV-2(COVID-19)mRNA-LNP vac([id number]) 04/05/23 Recorded influenza virus vaccine, inactivated 03/16/23 [...] influenza virus vaccine, inactivated 03/12/09 Jakub rded [id number] 12y+ bivalent booster vax 03/17/22 Recorded SARS-CoV-2 [...] PCV 20 [facility]#0783-9468-91 Medications calcium carbonate 500 mg (200 mg [...] tablet, 1 Refills, Maintenance, 01/29/24 10:24:00 EDT, [facility] # [facility], 158, cm, 10/01/23 14:58:00 EDT, Height, 59.7, kg, 05/16/23 16:04:00 EST, Dry Weight Start Date: 01/29/24 Status: Ordered lisinopril 5 mg oral tablet 5 mg, 1, tablet, By Mouth, Daily, TAKE 1 TABLET BY MOUTH EVERY DAY, # 90 tablet, Refills 3, Tot. Refills 3, Maintenance, 10/01/23 15:23:00 EDT, Route to Pharmacy Electronically, [facility] # 50, Partial fill [...] 11/28/23 16:18:00 EDT, Route to Pharmacy Electronically, [facility] # [facility], Partial fill upon patient [...] atrial thrombus Confirmed Active Underweight Confirmed Active Diagnosis Diagnosis Type Effective Dates Health Status Clinical Service Informant Essential hypertension Discharge Diagnosis 02/12/24 Orthostatic hypotension due to Parkinson's disease Discharge Diagnosis 02/12/24 Parkinson disease Discharge Diagnosis 02/12/24 Paroxysmal A-fib Discharge Diagnosis 02/12/24 Repeated falls Discharge Diagnosis 02/12/24 Low back strain Discharge Diagnosis 02/13/24 Left ulnar fracture Discharge Diagnosis 02/13/24 Vital Signs Most recent to oldest [Reference Range]: 1 Height 158 cm (02/13/24 8:56 AM) Weight 45.1 kg (02/13/24 8:56 AM) Oxygen Saturation [94-100 %] 96 % (02/13/24 8:56 AM) Pulse Rate [55-90 bpm] 88 bpm (02/13/24 8:56 AM) Body Mass Index [18.5-24.99 kg/m2] 18.07 kg/m2 *L* (02/13/24 8:56 AM) Blood Pressure [90-138/55-84 mm Hg] 132/ 88mm Hg (02/13/24 8:56 AM) Respiratory Rate [16-30 br/min] 16 br/mi n (02/13/24 8:56 AM) Temperature [96.8-100.4 DegF] 97.4 DegF (02/13/24 8:56 AM) Mode of Delivery (Oxygen) Room air (02/13/24 8:56 AM) Blood pressure sites Arm, right (02/13/24 8:56 AM) Temperature Route Oral (02/13/24 8:56 AM) Weight Obtained Via Standing scale (02/13/24 8:56 AM) Social History Social History Type Response Smoking Status Never (less than 100 in lifetime) entered on: 11/15/22 Sex Note * Xochitl Guajardo: PERFORM Event Display: Patient Education/Instruction Authored Date: [id number] Ambulatory Adult Visit Summary [facility] Adult [address] [address] Name: JACQUES ISABEL : 1945?? Visit: 02/13/2024 08:51?? Ambulatory Visit Instructions ?? Your Care Team Primary Care Provider Joe Bernstein DO? This Visit Provider Joe Bernstein DO Your Diagnosis Essential hypertension Orthostatic hypotension due to Parkinson's disease Parkinson disease Paroxysmal A-fib Repeated falls Low back strain Left ulnar fracture Vitals Signs Temperature: 97.4 DegF Height: 158 cm Pulse Rate: 88 bpm Weight: 45.1 kg Respiratory Rate: 16 br/min Body Mass Index:??18.07 kg/m2??Low Systolic Blood Pressure: 132 mm Hg Body surface area: 1.41 Diastolic Blood Pressure:??88 mm Hg??High ?? Oxygen Saturation: 96 % ?? What to do next Instructions From Your Provider Physical??therapy?? followup if worsens changes or fails too improve ?? Followup with Dr. Pruitt Follow-up with Parkinson's specialist follow up with orthopedics as planned send updated medication list thru the portal?? continue MiraLAX ? Scheduled Follow-Up Appointments 2023 9:30 AM EDT ?? With: Joe Bernstein DO Where: [facility] [address] [place] [address]- Status: Pending Sunday 1:00 PM EST ?? Where: [facility] [address] [place] [address]- Status: Pending Follow-Up Appointments Follow Up with??6 months CPE Why: MWV HTN PARinson A fib BRYSON depression PE?? Future Orders Urine Culture - Routine, Once, 10/25/23 15:20:00 EDT, [facility], Urine Clean Catch?? Complete Urinalysis - Routine, Once, 10/25/23 15:20:00 EDT, [facility], Urine?? Medications The list below reflects the information in our records and provided by you today along with any changes made during this visit. Please continue your medications until treatment is completed or stopped by your provider. If this is different from the information you have or there are other questions,please contact the prescribing provider. What How Much When Instructions Unchanged apixaban (Eliquis 5 mg oral tablet) 1 tab(s) Oral Twice a day Unchanged Calcium Carbonate (calcium carbonate 500 mg (200 mg elemental calcium) oral tablet, chewable) 1 tab(s) Daily Unchanged Carbidopa-Levodopa (carbidopa-levodopa 25 mg-100 mg oral tablet) See instructions 2 tabs at 5: 30 am , 1.5 tab at 8 am , 2 tabs at 10:30 am , 1.5 tablet at 1 pm , 2 tablet at 3:30 pm , 2 tablet at 5: 30 ??and 1-2 tablet6 at night as needed ?? Unchanged Cholecalciferol (Vitamin D3 2000 intl units oral capsule) 1 capsule Oral Daily Unchanged Clonazepam (clonazePAM 0.5 mg oral tablet) 1.5 tablets Daily at Bedtime Unchanged Cyanocobalamin (cyanocobalamin (B-12) (OP)) Unchanged Docusate (docusate sodium 100 mg oral capsule) 1 capsule Oral Twice a day as needed for for constipation Unchanged Lisinopril (lisinopril 5 mg oral tablet) 1 tab(s) Oral Daily TAKE 1 TABLET BY MOUTH EVERY DAY ?? Unchanged Melatonin 10 Milligram Oral Daily at Bedtime Duration: 14 Days Unchanged Metoprolol (metoprolol 25 mg oral tablet, extended release) 1 tab(s) Oral Daily Unchanged opicapone (Ongentys 50 mg oral capsule) 1 capsule Oral Daily at Bedtime 1 hour before or after eating ?? Unchanged Polyethylene Glycol 3350 (MiraLax Powder) 17 gram Oral Daily Unchanged Senna (Senna 8.6 mg oral tablet) 1 tab(s) Oral Daily at Bedtime Medications and Immunizations Administered Medications Given During Visit No medications given during this visit.?? Allergies (NKA means No Known Allergies) Bactrim Common Emergency Awareness Tips IS IT A [...] are strongly encouraged to quit. Please call [facility] at [phone] or [phone] ([phone]) or log in to [email or web address] for referrals to smoking cessation programs. ?? The National Suicide Prevention Hotline is available 22/01 if you or someone you know needs to find a reason to keep living. By calling 3-404-054-talk (8365) you'll be connected to a skilled, trained counselor at a crisis center in your area. [facility] You can view and manage your care through the patient portal or by using a health care adams of your choosing. [employer] is a website that allows you to securely view your medical information including your hospital discharge summary, office visit summaries, medications and follow-up visits. You can also request appointments, renew medications, and request access to your medical information using a health care adams of your choosing, or just ask a question. You can enroll at [email or web address] or register during your next office visit. [facility], in keeping with [facility] guidance, no longer requires face masks for staff, patientsor visitors in most situations. Similiar to time spent indoors at other locations, there is the chance that you were exposed to repiratory viruses during your time with us (such as flu or COVID-19). If you develop symptoms concerning for a viral respiratory infection, please seek testing (and treatment if indicated) from your medical provider or home test kit. ?? Disclaimer: The information provided is of a general nature and is intended to be used in conjunction with the recommendations and advice of your health care practitioner. Every effort has been made to ensure that the information provided is accurate and complete at the time it is provided to you however, as your needs change, or, as new information becomes available, different or additional instructions may be required. ?? If you have questions, please consult with your primary care provider or pharmacist, as appropriate. This information is not intended to serve as substitution for assessment and evaluation by a qualified health care provider. If you do not have a primary care provider, you may find a [facility] provider by calling [facility] [facility] at [phone]. Patient Care team information Care Team Personnel Name: Alcira Reid RN Position: [facility] RN Member Role: Primary Care Nurse Name: Tonya Brewer Position: [facility] RN Member Role: Primary Care Nurse Name: Jana Poole RN Position: [facility] RN Member Role: Primary Care Nurse Name: Talita Bhatia RN Position: S RN Member Role: Primary Care Nurse Name: Gege Davis RN Position: S RN Member Role: Primary Care Nurse Name: Keily Hernandez RN Position: [facility] RN Member Role: Primary Care Nurse Name: Elina Arriola RN Position: [facility] RN Member Role: Primary Care Nurse Name: Joe Bernstein DO Position: [facility] Physician - Primary Care Member Role: PCP Address: Address: [address] [place] [address]- Name: Gabi Lynch RN Position: [facility] RN Member Role: Primary Care Nurse Name: Gloria Blanchard RN Position: [facility] RN Member Role: Primary Care Nurse Care Team Related Persons Name: OSCAR CHONG Address: home [address] [place] [address] Name: BURKE CABRERA Address: home [address] [place] [address] Name: EMMANUEL HANCOCK Address: home [address] [place] [id number]
--- OUTSIDE RECORDS SUMMARY | 2024-05-07 00:26 | XMS_ITS | Continuity of Care Document ---
Author Organization [facility] Saul Josef Address [address] [place] [address]- Care Team Providers Care Oil Field Technician Name Role Phone Joe Bernstein DO Primary Care Physician [facility] Date[facility]s): 09/18/23 - 10/18/23 [facility] Adult [address] [place] [address]- Allergies, Adverse Reactions, Alerts Substance Reaction Severity Status Bactrim 1 Active 1Neuropathy in feet. Immunizations Given and Recorded Vaccine Date Status Refusal Reason pneumococcal 20-valent conjugate vaccine 1 07/24/23 Given SARS-CoV-2(COVID-19)mRNA-LNP vac([id number]) 04/05/23 Recorded influenza virus vaccine, inactivated 03/16/23 [...] influenza virus vaccine, inactivated 03/12/09 Jakub rded [id number] 12y+ bivalent booster vax 03/17/22 Recorded SARS-CoV-2 [...] Live 03/12/09 Recorded 1Result Comment: PCV 20 [facility]#[id number] Medications apixaban Starter Pack 5 mg oral [...] Team Personnel Name: Alcira Reid RN Position: [facility] RN Member Role: Primary Care Nurse Name: Tonya Brewer Position: [facility] RN Member Role: Primary Care Nurse Name: Jana Poole RN Position: [facility] RN Member Role: Primary Care Nurse Name: Talita Bhatia RN Position: [facility] RN Member Role: Primary Care Nurse Name: Lyndsey Spencer RN Position: [facility] RN Member Role: Primary Care Nurse Name: Gege Davis RN Position: [facility] RN Member Role: Primary Care Nurse Name: Keily Hernandez RN Position: [facility] RN Member Role: Primary Care Nurse Name: Katina Arriola RN Position: [facility] RN Member Role: Primary Care Nurse Name: Joe Bernstein DO Position: [facility] Physician - Primary Care Member Role: PCP Address: Address: [address] [place] [address]- Name: Gabi Lynch RN Position: [facility] RN Member Role: Primary Care Nurse Name: Gloria Blanchard RN Position: S RN Member Role: Primary Care Nurse Care Team Related Persons Name: OSCAR CHONG Address: home [address] [place] [address] Name: BURKE CABRERA Address: [address] [place] [address] Name: EMMANUEL HANCOCK Address: home [address] [place] [address]
--- OUTSIDE RECORDS SUMMARY | 2024-05-07 00:26 | XMS_ITS | Continuity of Care Document ---
Author Organization [facility] Saul Josef lt Address [address] [place] [address]- Care Team Providers Care Migratory Game Bird Biologist Name Role Phone Siva Austin Primary Care Physi miranda [facility]23 - 05/04/23 [facility] Adult [address] [place] [address]- Allergies, Adverse Reactions, Alerts Substance Reaction Severity [...] influenza virus vaccine, inactivated 03/12/09 Jakub rded [id number] 12y+ bivalent booster vax 03/17/22 Recorded SARS-CoV-2 [...] 0 Refills, Maintenance, 04/20/23 13:47:00 EDT, Film, [facility]/pharmacy #[id number], Partial fill upon [...] 04/13/23 16:28:00 EDT, Route to Pharmacy Electronically, [facility]/pharmacy #[id number], Partial fill upon [...] Team Personnel Name: Gege Davis RN Position: [facility] RN Member Role: Primary Care Nurse Name: Gloria Blanchard RN Position: [facility] RN Member Role: Primary Care Nurse Name: Siva Austin Position: [facility] PCO Associate Professional Member Role: PCP Address: Address: [address] [place] [address]- Care Team Related Persons Name: OSCAR CHONG Address: home [address] [place] [address] Name: BURKE CABRERA Address: home [address] [place] [address] Name: EMMANUEL HANCOCK Address: home [address] [place] [address]
--- OUTSIDE RECORDS SUMMARY | 2024-05-07 00:26 | XMS_ITS | Continuity of Care Document ---
Author Organization [facility] Saul Josef lt Address [address] [place] [address]- Care Team Providers Care It Application Architect Name Role Phone Siav Austin Primary Care Physi miranda Encounter [facility] Date(s): 12/13/22 - 01/12/23 [facility] Adult [address] [place] [address]- Allergies, Adverse Reactions, Alerts Substance Reaction Severity [...] influenza virus vaccine, inactivated 03/12/09 Jakub rded [id number] 12y+ bivalent booster vax 03/17/22 Recorded SARS-CoV-2 [...] Date: 01/10/23 Stop Date: 01/17/23 Status: Ordered PreserVision AREDS 2 oral capsule [...] disease Confirmed Active Supine hypertension Confirmed Active Social History Social History Type Response Smoking Status Never (less than 100 in lifetime) entered on: 11/15/22 Sex Patient Care team information Care Team Personnel Name: Gege Davis RN Position: [facility] RN Member Role: Primary Care Nurse Name: Gloria Blanchard RN Position: [facility] RN Member Role: Primary Care Nurse Name: Siva Austin Position: [facility] PCO Associate Professional Member Role: PCP Address: Address: [address] [place] [address]- Care Team Related Persons Name: OSCAR CHONG Address: home [address] [place] [address] Name: BURKE CABRERA Address: home [address] [place] [address] Name: EMMANUEL HANCOCK Address: home [address] [place] [address]
--- OUTSIDE RECORDS SUMMARY | 2024-05-07 00:26 | XMS_ITS | Continuity of Care Document ---
Author Organization [facility] Naren Hughes Josef Address [address] [place] [address]- Care Team Providers Care Welder Name Role Phone Joe Bernstein DO Primary Care Physician [phone] [facility]s): 06/26/23 - 07/26/23 [facility] Naren Sharmaley Adult [address] [place] [address]- Allergies, Adverse Reactions, Alerts Substance Reaction Severity Status Bactrim 1 Active 1Neuropathy in feet. Immunizations Given and Recorded Vaccine Date Status Refusal Reason pneumococcal 20-valent conjugate vaccine 1 07/24/23 Given SARS-CoV-2(COVID-19)mRNA-LNP vac([id number]) 04/05/23 Recorded influenza virus vaccine, inactivated 03/16/23 [...] influenza virus vaccine, inactivated 03/12/09 Jakub rded [id number] 12y+ bivalent booster vax 03/17/22 Recorded SARS-CoV-2 [...] Live 03/12/09 Recorded 1Result Comment: PCV 20 [facility]#[id number] Medications apixaban 5 mg oral tablet 1 [...] 07/24/23 11:44:00 EST, Route to Pharmacy Electronically, [facility] # [id number], Partial fill upon patient [...] Effective Dates Status Health St atus Informant Essential hypertension Confirmed Active Repeated falls Confirmed Active Sacral fracture Confirmed Active History of pulmonary embolism Confirmed Active Anxiety and depression Confirmed Active Orthostatic hypotension due to Parkinson's disease Confirmed Active Parkinson disease Confirmed Active Paroxysmal A-fib Confirmed Active Supine hypertension Confirmed Active Right atrial thrombus Confirmed Active Social History Social History Type Response Smoking Status Never (less than 100 in lifetime) entered on: 11/15/22 Sex Patient Care team information Care Team Personnel Name: Alcira Reid RN Position: S RN Member Role: Primary Care Nurse Name: Tonya Brewer Position: [facility] RN Member Role: Primary Care Nurse Name: Evan Galo RN Position: S RN Member Role: Primary Care Nurse Name: Jana Poole RN Position: [facility] RN Member Role: Primary Care Nurse Name: Talita Bhatia RN Position: [facility] RN Member Role: Primary Care Nurse Name: Lyndsey Spencer RN Position: [facility] RN Member Role: Primary Care Nurse Name: Gege Davis RN Position: [facility] RN Member Role: Primary Care Nurse Name: Keily Hernandez RN Position: [facility] RN Member Role: Primary Care Nurse Name: Katina Arriola RN Position: [facility] RN Member Role: Primary Care Nurse Name: Joe Bernstein DO Position: [facility] Physician - Primary Care Member Role: PCP Address: Address: [address] [place] [id number] Name: Gabi Lynch RN Position: [facility] RN Member Role: Primary Care Nurse Name: Gloria Blanchard RN Position: S RN Member Role: Primary Care Nurse Care Team Related Persons Name: OSCAR CHONG Address: home [address] [place] [address] Name: BURKE CABRERA Address: home [address] [place] [address] Name: EMMANUEL HANCOCK Address: home [address] [place] [address]
--- OUTSIDE RECORDS SUMMARY | 2024-05-07 00:26 | XMS_ITS | Continuity of Care Document ---
Author Organization [facility] Saul Josef lt Address [address] [place] [address]- Care Team Providers Care Marquetry Worker Name Role Phone Siva Austin Primary Care Physi miranda Encounter [facility] Date(s): 03/02/23 - 04/01/23 [facility] Adult [address] [place] [address]- Allergies, Adverse Reactions, Alerts Substance Reaction Severity Status Bactrim 1 Active 1Neuropathy in feet. Immunizations Given and Recorded Vaccine Date Status Refusal Reason influenza virus vaccine, inactivated 04/19/22 Jakub rded influenza virus vaccine, inactivated 03/16/21 Jakub rded influenza virus vaccine, inactivated 04/17/20 Jakub rded influenza virus vaccine, inactivated 04/16/19 Jkaub rded influenza virus vaccine, inactivated 05/08/18 Jakub [...] influenza virus vaccine, inactivated 03/12/09 Jakub rded [id number] 12y+ bivalent booster vax 03/17/22 Recorded SARS-CoV-2 [...] 04/04/23 10:02:00 EDT, 03/28/23 10:02:00 EDT, Capsule, [facility]/pharmacy #[id number], [...] Associate Professional Member Role: PCP Address: Address: [address] [place] [address]- Care Team Related Persons Name: OSCAR CHONG Address: home [address] [place] [address] Name: BURKE CABRERA Address: [address] [place] [address] Name: EMMANUEL HANCOCK Address: home [address] [place] [address]
--- OUTSIDE RECORDS SUMMARY | 2024-05-07 00:26 | XMS_ITS | Continuity of Care Document ---
Author Organization [facility] Saul Josef lt Address [address] [place] [address]- Care Team Providers Care Outdoor Guide Name Role Phone Siva Austin Primary Care Physi miranda [place] [facility] Date(s): 03/21/23 - 04/20/23 [facility] Adult [address] [place] [address]- Allergies, Adverse Reactions, Alerts Substance Reaction Severity [...] influenza virus vaccine, inactivated 03/12/09 Jakub rded [id number] 12y+ bivalent booster vax 03/17/22 Recorded SARS-CoV-2 [...] 0 Refills, Maintenance, 04/20/23 13:47:00 EDT, Film, [facility]/pharmacy #[id number], Partial fill upon patient request [...] 04/13/23 16:28:00 EDT, Route to Pharmacy Electronically, [facility]/pharmacy #[id number], Partial fill upon patient request [...] Team Personnel Name: Gege Davis RN Position: [facility] RN Member Role: Primary Care Nurse Name: Gloria Blanchard RN Position: [facility] RN Member Role: Primary Care Nurse Name: Siva Austin Position: [facility] PCO Associate Professional Member Role: PCP Address: Address: [address] [place] [address]- Care Team Related Persons Name: OSCAR CHONG Address: home [address] [place] [address] Name: BURKE CABRERA Address: [address] [place] [address] Name: EMMANUEL HANCOCK Address: [address] [place] [address]
--- OUTSIDE RECORDS SUMMARY | 2024-05-07 00:26 | XMS_ITS | Continuity of Care Document ---
Author Organization [facility] Saul Josef Address [address] [place] [address]- Care Team Providers Care Loan Administrator Name Role Phone Joe Bernstein DO Primary Care Physician [facility]s): 10/04/23 - 11/03/23 [facility] Adult [address] [place] [address]- Allergies, Adverse Reactions, Alerts Substance Reaction Severity Status Bactrim 1 Active 1Neuropathy in feet. Immunizations Given and Recorded Vaccine Date Status Refusal Reason pneumococcal 20-valent conjugate vaccine 1 07/24/23 Given SARS-CoV-2(COVID-19)mRNA-LNP vac([id number]) 04/05/23 Recorded influenza virus vaccine, inactivated 03/16/23 [...] influenza virus vaccine, inactivated 03/12/09 Jakub rded [id number] 12y+ bivalent booster vax 03/17/22 Recorded SARS-CoV-2 [...] Live 03/12/09 Recorded 1Result Comment: PCV 20 [facility]#[id number] Medications apixaban Starter Pack 5 mg oral [...] Team Personnel Name: Alcira Reid RN Position: [facility] RN Member Role: Primary Care Nurse Name: Tonya Brewer Position: [facility] RN Member Role: Primary Care Nurse Name: Jana Poole RN Position: [facility] RN Member Role: Primary Care Nurse Name: Talita Bhatia RN Position: [facility] RN Member Role: Primary Care Nurse Name: Lyndsey Spencer RN Position: [facility] RN Member Role: Primary Care Nurse Name: Gege Davis RN Position: [facility] RN Member Role: Primary Care Nurse Name: Keily Hernandez RN Position: [facility] RN Member Role: Primary Care Nurse Name: Katina Arriola RN Position: [facility] RN Member Role: Primary Care Nurse Name: Joe Bernstein DO Position: [facility] Physician - Primary Care Member Role: PCP Address: Address: [address] [place] [address]- Name: Gabi Lynch RN Position: [facility] RN Member Role: Primary Care Nurse Name: Gloria Blanchard RN Position: S RN Member Role: Primary Care Nurse Care Team Related Persons Name: OSCAR CHONG Address: home [address] [place] [address] [place] [address] Name: BURKE CABRERA Address: home [address] [place] [address] Name: EMMANUEL HANCOCK Address: home [address] [place] [address]
--- OUTSIDE RECORDS SUMMARY | 2024-05-07 00:26 | XMS_ITS | Continuity of Care Document ---
Author Organization [facility] Saul Josef Address [address] [place] [address]- Care Team Providers Care Radio Repairman Name Role Phone Siva Austin Primary Care Physi miranda Encounter [facility] Date(s): 12/08/22 - 01/07/23 [facility] Adult [address] [place] [address]- Allergies, Adverse Reactions, Alerts Substance Reaction Severity [...] influenza virus vaccine, inactivated 03/12/09 Jakub rded [id number] 12y+ bivalent booster vax 03/17/22 Recorded SARS-CoV-2 [...] Care team information Care Team Personnel Name: Ryan BREWER, Gege Position: [facility] RN Member Role: Primary Care Nurse Name: Siva Austin Position: [facility] PCO Associate Professional Member Role: PCP Address: Address: [address] [place] [address]- Care Team Related Persons Name: OSCAR CHONG Address: home [address] [place] [address] Name: BURKE CABRERA Address: [address] [place] [address] Name: EMMANUEL HANCOCK Address: home [address] [place] [address]
--- OUTSIDE RECORDS SUMMARY | 2024-05-07 00:26 | XMS_ITS | Continuity of Care Document ---
Author Organization [facility] Saul Josef lt Address [address] [place] [address]- Care Team Providers Care Gang Boss Name Role Phone Siva Austin Primary Care Physi miranda [facility]s): 04/05/23 - 05/05/23 [facility] [place] Adult [address] [place] [address]- Allergies, Adverse Reactions, Alerts Substance Reaction Severity [...] influenza virus vaccine, inactivated 03/12/09 Jakub rded [id number] 12y+ bivalent booster vax 03/17/22 Recorded SARS-CoV-2 [...] 0 Refills, Maintenance, 04/20/23 13:47:00 EDT, Film, [facility]/pharmacy #[id number], Partial fill upon patient request [...] 04/13/23 16:28:00 EDT, Route to Pharmacy Electronically, [facility]/pharmacy #[id number], Partial fill upon patient request [...] Team Personnel Name: Gege Davis RN Position: [facility] RN Member Role: Primary Care Nurse Name: Gloria Blanchard RN Position: [facility] RN Member Role: Primary Care Nurse Name: Siva Austin Position: [facility] PCO Associate Professional Member Role: PCP Address: Address: [address] [place] [address]- Care Team Related Persons Name: OSCAR CHONG Address: home [address] [place] [address] Name: BURKE CABRERA Address: [address] [place] [address] Name: EMMANUEL HANCOCK Address: home [address] [place] [address]
--- OUTSIDE RECORDS SUMMARY | 2024-05-07 00:26 | XMS_ITS | Continuity of Care Document ---
Author Organization [facility] Naren Hughes Josef lt Address [address] [place] [address]- Care Team Providers Care Manager Nicu Name Role Phone Siva Austin Primary Care Physi miranda [facility]s): 02/09/23 - 03/11/23 [facility] Naren Hughes Adult [address] [place] [address]- Allergies, Adverse Reactions, Alerts Substance Reaction Severity Status Bactrim 1 Active 1Neuropathy in feet. Immunizations Given and Recorded Vaccine Date Status Refusal Reason influenza virus vaccine, inactivated 04/19/22 Jakub rded influenza virus vaccine, inactivated 03/16/21 Jakub rded influenza virus vaccine, inactivated 04/17/20 Jakub rded influenza virus vaccine, inactivated 04/16/19 Ajkub rded influenza virus vaccine, inactivated 05/08/18 Jakub [...] influenza virus vaccine, inactivated 03/12/09 Jakub rded [id number] 12y+ bivalent booster vax 03/17/22 Recorded SARS-CoV-2 [...] 03/12/23 15:15:00 EDT, 03/02/23 15:15:00 EDT, Capsule, [facility]/pharmacy #[id number], Partial fill upon patient request if [...] Team Personnel Name: Gege Davis RN Position: [facility] RN Member Role: Primary Care Nurse Name: Gloria Blanchard RN Position: [facility] RN Member Role: Primary Care Nurse Name: Siva Austin Position: [facility] PCO Associate Professional Member Role: PCP Address: Address: [address] [place] [address]- Care Team Related Persons Name: OSCAR CHONG Address: home [address] [place] [address] Name: BURKE CABRERA Address: home [address] [place] [address] Name: EMMANUEL HANCOCK Address: home [address] [place] [address]
--- OUTSIDE RECORDS SUMMARY | 2024-05-07 00:27 | XMS_ITS | Continuity of Care Document ---
Author Organization [facility] Saul Josef Address [address] [place] [address]- Care Team Providers Care Measurement Operator Name Role Phone Siva Austin Primary Care Physi miranda [facility] Date[facility]s): 02/27/23 - 03/29/23 [facility] Adult [address] [place] [address]- Allergies, Adverse Reactions, Alerts Substance Reaction Severity [...] influenza virus vaccine, inactivated 03/12/09 Jakub rded [id number] 12y+ bivalent booster vax 03/17/22 Recorded SARS-CoV-2 [...] 04/04/23 10:02:00 EDT, 03/28/23 10:02:00 EDT, Capsule, [facility]/pharmacy #[id number], Partial fill upon patient request if [...] Team Personnel Name: Gege Davis RN Position: [facility] RN Member Role: Primary Care Nurse Name: Gloria Blanchard RN Position: [facility] RN Member Role: Primary Care Nurse Name: Siva Austin Position: [facility] PCO Associate Professional Member Role: PCP Address: Address: [address] [place] [address]- Care Team Related Persons Name: OSCRA CHONG Address: home [address] [place] [address] Name: BURKE CABRERA Address: [address] [place] [address] Name: EMMANUEL HANCOCK Address: home [address] [place] [address]
--- OUTSIDE RECORDS SUMMARY | 2024-05-07 00:27 | XMS_ITS | Continuity of Care Document ---
Author Organization [facility] Saul Josef Address [address] [place] [address]- Care Team Providers Care Physiognomist Name Role Phone Joe Bernstein DO Primary Care Physician [facility] Date[facility]s): 06/28/23 - 07/28/23 [facility] [place] Adult [address] [place] [address]- Allergies, Adverse Reactions, Alerts Substance Reaction Severity Status Bactrim 1 Active 1Neuropathy in feet. Immunizations Given and Recorded Vaccine Date Status Refusal Reason pneumococcal 20-valent conjugate vaccine 1 07/24/23 Given SARS-CoV-2(COVID-19)mRNA-LNP vac([id number]) 04/05/23 Recorded influenza virus vaccine, inactivated 03/16/23 [...] influenza virus vaccine, inactivated 03/12/09 Jakub rded [id number] 12y+ bivalent booster vax 03/17/22 Recorded SARS-CoV-2 [...] 1Result Comment: PCV [address] [facility]#[id number] Medications apixaban 5 mg oral tablet 1 [...] 07/24/23 11:44:00 EST, Route to Pharmacy Electronically, [facility] [...] Care Nurse Name: Talita Bhatia RN Position: [facility] RN Member Role: Primary Care Nurse Name: Lyndsey Spencer RN Position: [facility] RN Member Role: Primary Care Nurse Name: Gege Davis RN Position: [facility] RN Member Role: Primary Care Nurse Name: Keily Hernandez RN Position: [facility] RN Member Role: Primary Care Nurse Name: Katina Arriola RN Position: [facility] RN Member Role: Primary Care Nurse Name: Joe Bernstein DO Position: [facility] Physician - Primary Care Member Role: PCP Address: Address: [address] [place] [address] Name: Gabi Lynch RN Position: [facility] RN Member Role: Primary Care Nurse Name: Gloria Blanchard RN Position: S RN Member Role: Primary Care Nurse Care Team Related Persons Name: OSCAR CHONG Address: home [address] [place] [address] Name: BURKE CABRERA Address: [address] [place] [address] Name: EMMANUEL HANCOCK Address: [address] [place] [address]
--- OUTSIDE RECORDS SUMMARY | 2024-05-07 00:27 | XMS_ITS | Continuity of Care Document ---
Author Organization [facility] Naren Hughes Josef Address [address] [place] [address]- Care Team Providers Care Live Ammunition Inspector Name Role Phone Joe Bernstein DO Primary Care Physician [facility]s): 10/25/23 - 11/24/23 [facility] [place] Adult [address] [place] [address]- Allergies, Adverse Reactions, Alerts Substance Reaction Severity Status Bactrim 1 Active 1Neuropathy in feet. Immunizations Given and Recorded Vaccine Date Status Refusal Reason pneumococcal 20-valent conjugate vaccine 1 07/24/23 Given SARS-CoV-2(COVID-19)mRNA-LNP vac([id number]) 04/05/23 Recorded influenza virus vaccine, inactivated 03/16/23 [...] influenza virus vaccine, inactivated 03/12/09 Jakub rded [id number] 12y+ bivalent booster vax 03/17/22 Recorded SARS-CoV-2 [...] Comment: PCV 20 [facility]#[id number] Medications apixaban Starter Pack 5 mg oral [...] EDT, Route to Pharmacy Electronically, [facility] # [facility], Partial fill upon [...] tablet, Refills 3, Tot. Refills 3, Maintenance, 11/20/23 9:17:00 EDT, Route to Pharmacy Electronically, [facility]/pharmacy #[id number], Partial fill upon patient request if the prescription is for a schedule II opioid drug.... Start Date: 11/20/23 Status: Ordered MiraLax Powder = 17 Gm, [...] Name: Alcira Reid RN Position: [facility] RN Member Role: Primary Care Nurse Name: Tonya Brewer Position: [facility] RN Member Role: Primary Care Nurse Name: Jana Poole RN Position: [facility] RN Member Role: Primary Care Nurse Name: Talita Bhatia RN Position: [facility] RN Member Role: Primary Care Nurse Name: Lyndsey Spencer RN Position: [facility] RN Member Role: Primary Care Nurse Name: Gege Davis RN Position: [facility] RN Member Role: Primary Care Nurse Name: Keily Hernandez RN Position: [facility] RN Member Role: Primary Care Nurse Name: Katina Arriola RN Position: [facility] RN Member Role: Primary Care Nurse Name: Joe Bernstein DO Position: [facility] Physician - Primary Care Member Role: PCP Address: Address: [address] [place] [address]- Name: Gabi Lynch RN Position: [facility] RN Member Role: Primary Care Nurse Name: Gloria Blanchard RN Position: [facility] RN Member Role: Primary Care Nurse Care Team Related Persons Name: CASTILLO OSCAR Address: home [address] [place] [address] Name: BURKE CABRERA Address: [address] [place] [address] Name: EMMANUEL HANCOCK Address: home [address] [place] [address]
--- OUTSIDE RECORDS SUMMARY | 2024-05-07 00:27 | XMS_ITS | Continuity of Care Document ---
Author Organization [facility] Naren Hughes Josef lt Address [address] [place] [address]- Care Team Providers Care English As A Second Language Instructor Name Role Phone Joe Bernstein DO Primary Care Physician [facility]s): 03/27/24 - 04/26/24 [facility] Naren Hughes Adult [address] [place] [address]- Allergies, Adverse Reactions, Alerts Substance Reaction Severity Status Bactrim 1 Active 1Neuropathy in feet. Immunizations Given and Recorded Vaccine Date Status Refusal Reason pneumococcal 20-valent conjugate vaccine 1 07/24/23 Given SARS-CoV-2(COVID-19)mRNA-LNP vac([id number]) 04/05/23 Recorded influenza virus vaccine, inactivated 03/16/23 [...] influenza virus vaccine, inactivated 03/12/09 Jakub rded [id number] 12y+ bivalent booster vax 03/17/22 Recorded SARS-CoV-2 [...] 1Result Comment: PCV 20 [facility]#[id number] Medications carbidopa-levodopa 25 mg-100 mg oral tablet [...] 10/01/23 15:23:00 EDT, Route to Pharmacy Electronically, [facility] # [facility], Partial fill upon [...] 11/28/23 16:18:00 EDT, Route to Pharmacy Electronically, [facility] # 50, Partial fill upon [...] Primary Care Member Role: PCP Address: Address: [address] [place] [address]- Name: Gabi Lynch RN Position: [facility] RN Member Role: Primary Care Nurse Name: Gloria Blanchard RN Position: [facility] RN Member Role: Primary Care Nurse Care Team Related Persons Name: OSCAR CHONG Address: home [address] [place] [address] Name: BURKE CABRERA Address: [address] [place] [address] Name: EMMANUEL HANCOCK Address: [address] [address]
--- OUTSIDE RECORDS SUMMARY | 2024-05-07 00:27 | XMS_ITS | Continuity of Care Document ---
Author Organization [facility] Naren Hughes Josef lt Address [address] [place] [address]- Care Team Providers Care Accredited Farm Manager Name Role Phone Siva Austin Primary Care Physi miranda [place] [facility]22 - 01/03/23 [facility] Adult [address] [place] [address]- Encounter Diagnosis Atrial arrhythmia(Discharge Diagnosis) - 12/27/22 Parkinson disease(Discharge Diagnosis) - 12/27/22 Attending Physician: Siva Austin Allergies, Adverse Reactions, Alerts [...] influenza virus vaccine, inactivated 03/12/09 Jakub rded [id number] 12y+ bivalent booster vax 03/17/22 Recorded SARS-CoV-2 [...] Effective Dates Health Status Clinical Service Informant Atrial arrhythmia Discharge Diagnosis 12/27/22 Parkinson disease Discharge Diagnosis 12/27/22 Vital Signs Most recent to oldest [Reference Range]: 1 Height 157.48 cm (12/27/22 11:31 AM) Weight 47.8 kg (12/27/22 11:31 AM) Oxygen Saturation [94-100 %] 100 % (12/27/22 11:31 AM) Pulse Rate [55-90 bpm] 90 bpm (12/27/22 11:31 AM) Body Mass Index [18.5-24.99 kg/m2] 19.27 kg/m2 (12/27/22 11:31 AM) Blood Pressure [90-138/55-84 mm Hg] 133/ 78mm Hg (12/27/22 11:31 AM) Temperature [96.8-100.4 DegF] 97.8 DegF (12/27/22 11:31 AM) Mode of Delivery (Oxygen) Room air (12/27/22 11:31 AM) Blood pressure sites Arm, left (12/27/22 11:31 AM) Temperature Route Oral (12/27/22 11:31 AM) Weight Obtained Via Standing scale (12/27/22 11:31 AM) Social History Social History Type Response Smoking Status Never (less than 100 in lifetime) entered on: 11/15/22 Sex Note * Selene Ren: PERFORM, SIGN, VERIFY Event Display: Patient Education/Instruction Authored Date: [id number] [facility] *BMP Raisa Martinez Clinical Summary Name JACQUES ISABEL Age 77 Years 1945 PCP Siva Austin PCP Visit Date 12/27/2022 11:24:00 Additional Instructions: Scheduled Appointments?? Future Appointments ?[facility] [address]??[place],??[place],??[address] ?Phone:??[phone]?Fax:??-- ?Appt. Date:??01/31/2023?11:00 AM ?Scheduled Provider:??VICK GOLDSMITH Follow-Up Instructions ?? With: Address: When: Siva Austin Within 6 months Comments: 40 mins Diagnosis Medications: Please continue your medications until treatment [...] orders Vital Signs Height 157.48 cm Weight 47.8 kg BMI 19.27 kg/m2 Blood Pressure 133 mm Hg/78 mm Hg Temperature 97.8 DegF Pulse Rate 90 bpm Respiratory Rate 02 Sat Mode of Delivery 100 %/Room air You can now view a summary of your hospital visit from the comfort of your home through a free online portal called Healthsense. Healthsense is a website that allows you to securely view your medical information including discharge summary, medications and follow-up visits. ??You can alsosend a secure electronic message to your doctor???s office to request appointments, renew medications or just ask a question. You can enroll at [email or web address] or register during your next office visit. [...] primary care provider, you may find a [facility] provider by calling [facility] [employer] at [phone]. For information about the plan of care including goals and instructions for your diagnosis, please see the patient education orders section of this document. Patient Education Materials?? The content of this educational material or handout may have been modified, supplemented, or adapted from its original content and format to support your individualized medical care. * Selene Ren: PERFORM, SIGN, VERIFY Event Display: Patient Education/Instruction Authored Date: [id number] [facility] *ELSA Martinez Clinical Summary Name JACQUES ISABEL Age 77 Years 1945 PCP Siva Austin PCP Visit Date 12/27/2022 11:24:00 Additional Instructions: Scheduled Appointments?? Future Appointments ?[facility] [address]??[place],??[place],??[address] ?Phone:??[phone]?Fax:??-- ?Appt. Date:??01/31/2023?11:00 AM ?Scheduled Provider:??VICK GOLDSMITH Follow-Up Instructions ?? With: Address: When: Bola LOCKWOOD, Siva Yarbrough Within 6 months Comments: 40 mins Diagnosis Medications: Please continue your medications until treatment [...] orders Vital Signs Height 157.48 cm Weight 47.8 kg BMI 19.27 kg/m2 Blood Pressure 133 mm Hg/78 mm Hg Temperature 97.8 DegF Pulse Rate 90 bpm Respiratory Rate 02 Sat Mode of Delivery 100 %/Room air You can now view a summary of your hospital visit from the comfort of your home through a free online portal called Healthsense. Healthsense is a website that allows you to securely view your medical information including discharge summary, medications and follow-up visits. ??You can alsosend a secure electronic message to your doctor???s office to request appointments, renew medications or just ask a question. You can enroll at [email or web address] or register during your next office [...] primary care provider, you may find a [facility] provider by calling [facility] [employer] [facility] at [phone]. For information about the plan of care [...] Care Team Personnel Name: Siva Austin Position: [facility] PCO Associate Professional Member Role: PCP Address: Address: [address] [place] [address]- Care Team Related Persons Name: OSCAR CHONG Address: home [address] [place] [address] Name: BURKE CABRERA Address: home [address] [place] [address] Name: EMMANUEL HANCOCK Address: home [address] [place] [id number]
--- OUTSIDE RECORDS SUMMARY | 2024-05-07 00:27 | XMS_ITS | Continuity of Care Document ---
Author Organization [facility] Saul Josef lt Address [address] [place] [address]- Care Team Providers Care Cut Out Operator Name Role Phone Joe Bernstein DO Primary Care Physician [phone] [facility] - [facility]/24 [facility] Naren Hughes Adult [address] [place] [address]- Encounter Diagnosis Deep venous insufficiency(Discharge Diagnosis) - 09/02/23 Attending Physician: Willow Adler Admitting Physician: AdmWillow leary Referring Physician: AdmtrWillow Allergies, Adverse Reactions, Alerts Substance Reaction Severity Status Bactrim 1 Active 1Neuropathy in feet. Immunizations Given and Recorded Vaccine Date Status Refusal Reason pneumococcal 20-valent conjugate vaccine 1 07/24/23 Given SARS-CoV-2(COVID-19)mRNA-LNP vac([id number]) 04/05/23 Recorded influenza virus vaccine, inactivated 03/16/23 [...] influenza virus vaccine, inactivated 03/12/09 Jakub rded [id number] 12y+ bivalent booster vax 03/17/22 Recorded SARS-CoV-2 [...] Live 03/12/09 Recorded 1Result Comment: PCV 20 [facility]#[id number] Medications calcium carbonate 500 mg (200 mg [...] 10/01/23 15:23:00 EDT, Route to Pharmacy Electronically, [id number], Partial fill upon patient [...] 11/28/23 16:18:00 EDT, Route to Pharmacy Electronically, [facility] # [facility], Partial fill upon patient [...] Effective Dates Health Status Clinical Service Informant Deep venous insufficiency Discharge Diagnosis 09/02/23 Social History Social History Type Response Smoking Status Never (less than 100 in lifetime) entered on: 11/15/22 Sex Cardiology * Event Display: Cardiology Office Note, Non-BH Authored Date: * Event Display: Non BH Cardiovascular Results Authored Date: * Event Display: Cardiology Office Note, Non-BH Authored Date: * Event Display: Non BH Cardiovascular Results Authored Date: Laboratory * Event Display: Non BH Lab Results Authored Date: * Event Display: Non BH Lab Results Authored Date: * Event Display: Non BH Lab Results Authored Date: * Event Display: Non BH Lab Results Authored Date: Radiology * Event Display: X-Ray Abdomen, Non- BH Authored Date: * Event Display: Ultrasound Lower Extremity, Non-BH Authored Date: * Event Display: Bone Density Authored Date: Patient Care team information Care Team Personnel Name: Alcira Reid RN Position: S RN Member Role: Primary Care Nurse Name: Tonya Brewer Position: S RN Member Role: Primary Care Nurse Name: Jana Poole RN Position: [facility] SN RN Member Role: Primary Care Nurse Name: Talita Bhatia RN Position: S RN Member Role: Primary Care Nurse Name: Gege Davis RN Position: [facility] RN Member Role: Primary Care Nurse Name: Keily Hernandez RN Position: [facility] RN Member Role: Primary Care Nurse Name: Elina Arriola RN Position: S RN Member Role: Primary Care Nurse Name: Joe Bernstein DO Position: [facility] Physician - Primary Care Member Role: PCP Address: Address: [address] [place] [address]- Name: Gabi Lynch RN Position: S RN Member Role: Primary Care Nurse Name: Gloria Blanchard RN Position: S RN Member Role: Primary Care Nurse Care Team Related Persons Name: OSCAR CHONG Address: home [address] [place] [address] Name: BURKE CABRERA Address: [address] [place] [address] Name: EMMANUEL HANCOCK Address: home [address] [place] [address]
--- OUTSIDE RECORDS SUMMARY | 2024-05-07 00:27 | XMS_ITS | Continuity of Care Document ---
Author Organization [facility] Naren Hughes Josef lt Address [address] [place] [address]- Care Team Providers Care An/Syq 13 Nav/C2 Operator Name Role Phone Siva Austin Primary Care Physi miranda [facility]23 - 04/06/23 [facility] Naren Hughes Adult [address] [place] [address]- Allergies, Adverse Reactions, Alerts Substance Reaction Severity [...] influenza virus vaccine, inactivated 03/12/09 Jakub rded [id number] 12y+ bivalent booster vax 03/17/22 Recorded SARS-CoV-2 [...] Range]: 1 Blood Pressure [90-138/55-84 mm Hg] 162/ 96mm Hg *H* (03/07/23 11:18 AM) Social History Social History Type Response Smoking Status Never (less than 100 in lifetime) entered on: 11/15/22 Sex Patient Care team information Care Team Personnel Name: Gege Davis RN Position: [facility] RN Member Role: Primary Care Nurse Name: Gloria Blanchard RN Position: [facility] RN Member Role: Primary Care Nurse Name: Siva Austin Position: [facility] PCO Associate Professional Member Role: PCP Address: Address: [address] [place] [address]- Care Team Related Persons Name: OSCAR CHONG Address: home [address] [place] [address] Name: BURKE CABRERA Address: home [address] [place] [address] Name: EMMANUEL HANCOCK Address: [address] [place] [address]
--- OUTSIDE RECORDS SUMMARY | 2024-05-07 00:27 | XMS_ITS | Continuity of Care Document ---
Author Organization [facility] Saul Josef lt Address [address] [place] [address]- Care Team Providers Care Lidar Technician Name Role Phone Siva Austin Primary Care Physi miranda [facility]): 03/29/23 - 04/28/23 [facility] Adult [address] [place] [address]- Allergies, Adverse Reactions, Alerts Substance Reaction Severity [...] influenza virus vaccine, inactivated 03/12/09 Jakub rded [id number] 12y+ bivalent booster vax 03/17/22 Recorded SARS-CoV-2 [...] 0 Refills, Maintenance, 04/20/23 13:47:00 EDT, Film, [facility]/pharmacy #[id number], Partial fill upon patient request [...] 04/13/23 16:28:00 EDT, Route to Pharmacy Electronically, [facility]/pharmacy #[id number], Partial fill upon patient request [...] Team Personnel Name: Gege Davis RN Position: [facility] RN Member Role: Primary Care Nurse Name: Gloria Blanchard RN Position: [facility] RN Member Role: Primary Care Nurse Name: Siva Austin Position: [facility] PCO Associate Professional Member Role: PCP Address: Address: [address] [place] [address]- Care Team Related Persons Name: OSCAR CHONG Address: [address] [place] [address] Name: BURKE CABRERA Address: [address] [place] [address] Name: EMMANUEL HANCOCK Address: [address] [place] [address]
--- OUTSIDE RECORDS SUMMARY | 2024-05-07 00:27 | XMS_ITS | Continuity of Care Document ---
Author Organization [facility] Saul Josef Address [address] [place] [address]- Care Team Providers Care Manager Marketing Communications Name Role Phone Siva Austin Primary Care Physi miranda [place] [facility] [place] 02/16/23 [facility] [place] Adult [address] [place] [address]- Encounter Diagnosis Encounter for follow-up in outpatient clinic(Discharge Diagnosis) - 02/09/23 Parkinson disease(Discharge Diagnosis) - 02/09/23 Paroxysmal A-fib(Discharge Diagnosis) - 02/09/23 Anxiety and depression(Discharge Diagnosis) - 02/09/23 Attending Physician: Siva Austin Referring Physician: Guru ROGERS, Pj Baer Allergies, Adverse Reactions, Alerts Substance Reaction Severity [...] 04/21/10 Jakub rded influenza virus vaccine, inactivated 9/11/09 Jakub rded [id number] 12y+ bivalent booster vax 03/17/22 Recorded SARS-CoV-2 [...] Effective Dates Health Status Clinical Service Informant Encounter for follow-up in outpatient clinic Discharge Diagnosis 02/09/23 Parkinson disease Discharge Diagnosis 02/09/23 Paroxysmal A-fib Discharge Diagnosis 02/09/23 Anxiety and depression Discharge Diagnosis 02/09/23 Vital Signs Most recent to oldest [Reference Range]: 1 Height 159 cm (02/09/23 9:24 AM) Weight 49 kg (02/09/23 9:24 AM) Oxygen Saturation [94-100 %] 100 % (02/09/23 9:24 AM) Pulse Rate [55-90 bpm] 70 bpm (02/09/23 9:24 AM) Body Mass Index [18.5-24.99 kg/m2] 19.38 kg/m2 (02/09/23 9:24 AM) Blood Pressure [90-138/55-84 mm Hg] 114/ 65mm Hg (02/09/23 9:24 AM) Blood pressure sites Arm, left (02/09/23 9:24 AM) Weight Obtained Via Standing scale (02/09/23 9:24 AM) Social History Social History Type Response Smoking Status Never (less than 100 in lifetime) entered on: 11/15/22 Sex Note * Hedy Blankenship: PERFORM, SIGN, VERIFY Event Display: Patient Education/Instruction Authored Date: [id number] [facility] *ELSA Martinez Clinical Summary Name MAAME, JACQUES Age 77 Years 1945 PCP Siva Austin PCP Visit Date 02/09/2023 09:21:00 Additional Instructions: Scheduled Appointments?? Future Appointments ?No Future Appointments Scheduled Follow-Up Instructions ?? With: Address: When: Siva Austin Within 6 months Comments: routine f/u Diagnosis Encounter for follow-up examination after completed treatment for conditions other than malignant neoplasm Medications: Please continue your medications until treatment [...] 1.5 tablets Daily at Bedtime. Next Dose: Docusate (docusate sodium 100 mg [...] hour before or after eating. Next Dose: Senna (Senna 8.6 mg oral tablet) 1 tab(s) Oral Daily at Bedtime. Next Dose: Sertraline (sertraline 50 mg oral tablet) 1 tab(s) Oral Daily. Next Dose: Allergy Info:?? Bactrim Medications Given This Visit Future Orders ?No future orders Vital Signs Height 159 cm Weight 49 kg BMI 19.38 kg/m2 Blood Pressure 114 mm Hg/65 mm Hg Temperature Pulse Rate 70 bpm Respiratory Rate 02 Sat Mode of Delivery 100 %/ You can now view a summary of your hospital visit from the comfort of your home through a free online portal called [employer]RON[employer]. XRONet is a website that allows you to securely view your medical information including discharge summary, medications and follow-up visits. ??You can alsosend a secure electronic message to your doctor???s office to request appointments, renew medications or just ask a question. You can enroll at [email or web address] or register during your next office visit. [...] primary care provider, you may find a [facility] provider by calling [facility] at [phone]. For information about the plan of care [...] Team Personnel Name: Gege Davis RN Position: [facility] RN Member Role: Primary Care Nurse Name: Gloria Blanchard RN Position: [facility] RN Member Role: Primary Care Nurse Name: Siva Austin Position: [facility] PCO Associate Professional Member Role: PCP Address: Address: [address] [place] [address]- Care Team Related Persons Name: OSCAR CHONG Address: [address] [place] [address] Name: BURKE CABRERA Address: [address] [place] [address] Name: EMMANUEL HANCOCK Address: [address] [place] [address]
--- OUTSIDE RECORDS SUMMARY | 2024-05-07 00:27 | XMS_ITS | Continuity of Care Document ---
Author Organization [facility] Josef Address [address] [place] [address]- Care Team Providers Care Pack Press Operator Name Role Phone Joe Bernstein DO Primary Care Physician [phone] [facility]s): 07/25/23 - 08/24/23 [facility] Adult [address] [place] [address]- Allergies, Adverse Reactions, Alerts Substance Reaction Severity Status Bactrim 1 Active 1Neuropathy in feet. Immunizations Given and Recorded Vaccine Date Status Refusal Reason pneumococcal 20-valent conjugate vaccine 1 07/24/23 Given SARS-CoV-2(COVID-19)mRNA-LNP vac([id number]) 04/05/23 Recorded influenza virus vaccine, inactivated 03/16/23 [...] influenza virus vaccine, inactivated 03/12/09 Jakub rded [id number] 12y+ bivalent booster vax 03/17/22 Recorded SARS-CoV-2 [...] Live 03/12/09 Recorded 1Result Comment: PCV 20 [facility]#[id number] Medications apixaban Starter Pack 5 mg oral [...] 07/24/23 11:44:00 EST, Route to Pharmacy Electronically, [facility] # [facility], Partial fill upon patient [...] Care Nurse Name: Jana Poole RN Position: [facility] SN RN Member Role: Primary [...] Primary Care Member Role: PCP Address: Address: [address] [place] [address]- Name: Gabi Lynch RN Position: [facility] RN Member Role: Primary Care Nurse Name: Gloria Blanchard RN Position: [facility] RN Member Role: Primary Care Nurse Care Team Related Persons Name: OSCAR CHONG Address: [address] [place] [address] Name: BURKE CABRERA Address: [address] [place] [address] Name: EMMANUEL HANCOCK Address: home [address] [place] [address]
--- OUTSIDE RECORDS SUMMARY | 2024-05-07 00:28 | XMS_ITS | Continuity of Care Document ---
Author Organization [facility] Naren Hughes Josef lt Address [address] [place] [address]- Care Team Providers Care Regional Sales Trainer Name Role Phone Siva Austin Primary Care Physi miranda [facility]s): 03/15/23 - 04/14/23 [facility] Naren Hughes Adult [address] [place] [address]- Allergies, Adverse Reactions, Alerts Substance Reaction Severity [...] influenza virus vaccine, inactivated 03/12/09 Jakub rded [id number] 12y+ bivalent booster vax 03/17/22 Recorded SARS-CoV-2 [...] 04/13/23 16:28:00 EDT, Route to Pharmacy Electronically, [facility]/pharmacy #[id number], Partial fill upon patient request if the [...] Associate Professional Member Role: PCP Address: Address: [address] [place] [address]- Care Team Related Persons Name: OSCRA CHONG Address: [address] [place] [address] Name: BURKE CABRERA Address: [address] [place] [address] Name: EMMANUEL HANCOCK Address: [address] [place] [address]
--- OUTSIDE RECORDS SUMMARY | 2024-05-07 00:28 | XMS_ITS | Continuity of Care Document ---
Author Organization [facility] Saul Josef Address [address] [place] [address]- Care Team Providers Care Centrex Radio Operator Name Role Phone Siva Austin Primary Care Physi miranda [facility] Date(s): 04/20/23 - 04/27/23 [facility] [place] Adult [address] [place] [address]- Attending Physician: Siva Austin Allergies, Adverse Reactions, [...] influenza virus vaccine, inactivated 03/12/09 Jakub rded [id number] 12y+ bivalent booster vax 03/17/22 Recorded SARS-CoV-2 [...] 0 Refills, Maintenance, 04/20/23 13:47:00 EDT, Film, [facility]/pharmacy #[id number], Partial fill upon [...] 04/13/23 16:28:00 EDT, Route to Pharmacy Electronically, [facility]/pharmacy #[id number], Partial fill upon patient request if the [...] oldest [Reference Range]: 1 Height 159 cm (04/20/23 12:52 PM) Weight 49.0 kg (04/20/23 12:52 PM) Oxygen Saturation [94-100 %] 97 % (04/20/23 12:52 PM) Pulse Rate [55-90 bpm] 64 bpm (04/20/23 12:52 PM) Body Mass Index [18.5-24.99 kg/m2] 19.38 kg/m2 (04/20/23 12:52 PM) Blood Pressure [90-138/55-84 mm Hg] 166/ 87mm Hg *H* (04/20/23 12:52 PM) Temperature [96.8-100.4 DegF] 97.7 DegF (04/20/23 12:52 PM) Mode of Delivery (Oxygen) Room air (04/20/23 12:52 PM) Blood pressure sites Arm, right (04/20/23 12:52 PM) Temperature Route Oral (04/20/23 12:52 PM) Weight Obtained Via Standing scale (04/20/23 12:52 PM) Social History Social History Type Response Smoking Status Never (less than 100 in lifetime) entered on: 11/15/22 Sex Patient Care team information Care Team Personnel Name: Gege Davis RN Position: [facility] RN Member Role: Primary Care Nurse Name: Gloria Blanchard RN Position: S RN Member Role: Primary Care Nurse Name: Siva Austin Position: [facility] PCO Associate Professional Member Role: PCP Address: Address: [address] [place] [address]- [place] Care Team Related Persons Name: OSCAR CHONG Address: [address] [place] [address] Name: BURKE CABRERA Address: [address] [place] [address] Name: EMMANUEL HANCOCK Address: [address] [place] [address]
--- OUTSIDE RECORDS SUMMARY | 2024-05-07 00:28 | XMS_ITS | Continuity of Care Document ---
Author Organization [facility] Naren Hughes Josef lt Address [address] [place] [address]- Care Team Providers Care Frozen Foods Manager Name Role Phone Joe Bernstein DO Primary Care Physician [facility]s): 04/02/24 - 05/02/24 [facility] Naren Hughes Adult [address] [place] [address]- Allergies, Adverse Reactions, Alerts Substance Reaction Severity Status Bactrim 1 Active 1Neuropathy in feet. Immunizations Given and Recorded Vaccine Date Status Refusal Reason pneumococcal 20-valent conjugate vaccine 1 07/24/23 Given SARS-CoV-2(COVID-19)mRNA-LNP vac([id number]) 04/05/23 Recorded influenza virus vaccine, inactivated 03/16/23 [...] influenza virus vaccine, inactivated 03/12/09 Jakub rded [id number] 12y+ bivalent booster vax 03/17/22 Recorded SARS-CoV-2 [...] 03/12/09 Recorded 1Result Comment: PCV 20 [facility]#[id number] Medications carbidopa-levodopa 25 mg-100 mg oral tablet [...] EDT, Route to Pharmacy Electronically, [facility], Partial fill upon [...] EDT, Route to Pharmacy Electronically, [facility] # [facility], Partial fill upon [...] Team Personnel Name: Alcira Reid RN Position: [facility] RN Member Role: Primary Care Nurse Name: Tonya Brewer Position: [facility] RN Member Role: Primary Care Nurse Name: Jana Poole RN Position: [facility] SN RN Member Role: Primary Care Nurse Name: Talita Bhatia RN Position: [facility] RN Member Role: Primary Care Nurse Name: Gege Davis RN Position: [facility] RN Member Role: Primary Care Nurse Name: Keily Hernandez RN Position: [facility] RN Member Role: Primary Care Nurse Name: Elina Arriola RN Position: [facility] RN Member Role: Primary Care Nurse Name: Joe Bernstein DO Position: [facility] Physician - Primary Care Member Role: PCP Address: Address: [address] [place] [address]- Name: Gabi Lynch RN Position: [facility] RN Member Role: Primary Care Nurse Name: Gloria Blanchard RN Position: [facility] RN Member Role: Primary Care Nurse Care Team Related Persons Name: OSCAR CHONG Address: [address] [place] [address] Name: BURKE CABRERA Address: [address] [place] [address] Name: EMMANUEL HANCOCK Address: [address] [address]
--- OUTSIDE RECORDS SUMMARY | 2024-05-07 00:28 | XMS_ITS | Continuity of Care Document ---
Author Organization [facility] Naren Hughes Josef lt Address [address] [place] [address]- Care Team Providers Care Sound Equipment Mechanic Name Role Phone Siva Austin Primary Care Physi miranda Encounter [facility] Date(s): 03/07/23 - 04/06/23 [facility] Naern Hughes Adult [address] [place] [address]- Allergies, Adverse Reactions, Alerts Substance Reaction Severity [...] influenza virus vaccine, inactivated 03/12/09 Jakub rded [id number] 12y+ bivalent booster vax 03/17/22 Recorded SARS-CoV-2 [...] Team Personnel Name: Gege Davis RN Position: [facility] RN Member Role: Primary Care Nurse Name: Gloria Blanchard RN Position: S RN Member Role: Primary Care Nurse Name: Siva Austin Position: [facility] PCO Associate Professional Member Role: PCP Address: Address: [address] [place] [id number] [place] Care Team Related Persons Name: OSCAR CHONG Address: home [address] [place] [address] Name: BURKE CABRERA Address: home [address] [place] [address] Name: EMMANUEL HANCOCK Address: home [address] [place] [address]
[2024-05-07 00:54] LABS: Basophils Percent Auto 0.2 % (0-2); Eosinophils Percent Auto 0.2 % (0-4); Hematocrit 36.1 % (37.0-47.0); Hemoglobin 12.3 g/dl (12.0-16.0); Imm Gran Abs Auto 0.04 X10*3/uL (0.00-0.03); Imm Gran Pct Auto 0.4 % (0.0-0.4); Lymphocytes Absolute Auto 0.7 X10*3/uL (1.2-4.9); Lymphocytes Percent Auto 6.9 % (20-40); MANUAL DIFF FLAG NO; Mean Corpuscular HGB Conc 34.1 g/dl (31.0-35.0); Mean Corpuscular Hemoglobin 31.6 pg (27.0-33.0); Mean Corpuscular Volume 92.8 fL (80.0-98.0); Mean Platelet Volume 8.4 fL (9.4-12.3); Monocytes Absolute Auto 0.7 X10*3/uL (0.1-1.2); Monocytes Percent Auto 6.6 % (2-11); Neutrophils Percent Auto 85.7 % (45-73); Platelet Count 272 X10*3/uL (160-400); Red Blood Count 3.89 X10*6/uL (4.20-5.50); Red Cell Distribution Width 13.1 % (11.0-16.0); White Blood Count 10.5 X10*3/uL (4.8-10.8)
[2024-05-07 00:56] LABS: Anion Gap 15 (12-20); Blood Urea Nitrogen 12 mg/dL (9-16); Calcium 9.2 mg/dL (8.4-10.2); Carbon Dioxide 23 mmol/L (22-29); Chloride 105 mmol/L (96-108); Creatinine Clr Calc Pharmacy 68.6; Estimated Glomerular Filt Rate > 60; Glucose Random 116 mg/dL (60-115); Potassium 3.9 mmol/L (3.3-5.1); Sodium 139 mmol/L (135-145)
--- NOTE | 2024-05-07 04:00 | PC.NURSE ---
Pt asking the same questions multiple times, confused. Daughter reports Pt gets delirious when admitted to hospital. Hospitalist at bedside and aware.
--- NOTE | 2024-05-07 05:06 | PC.NURSE ---
Med rec complete, daughter able to provide med list. Daughter reports carbidopa-levodopa 25-100mg are given every 2 1/2 hours for a total of 7 daily doses. Times start at 5am, 7:30am, 10am, 12:30pm, 2:45pm, 4:15pm, 5:15pm.
[2024-05-07] MEDS: Carbidopa/Levodopa 25/100 TABLET 1.5 TAB PO ×6 (05:13→17:18)
--- NOTE | 2024-05-07 05:26 | P.HPHOSP_ITS ---
History of Present Illness Date of Service: 05/07/24 Attending physician on admission: Patricia Crocker Chief Complaint: Fall Carissa Conti is a 79 years old woman with past medical history significant for left hip fracture X2 + repair surgery, Parkinson's disease s/p deep brain stimulator implantation, essential hypertension and AFib on Eliquis was brought to the emergency department via EMS from her assisted living facility after she fell. Her fall was unwitnessed. Patient is a poor historian and could not offer many details about the mechanism of her fall. She is currently complaining of right hip pain. She denied any chest pain or shortness on breath. In the ED, she was found to have stable signs. Last blood pressure is 192/109. Blood workup including CBC and CMP are basically unremarkable. Head and C-spine CT scan showed no acute intracranial process, fractures or subluxations. Pelvic x-ray showed comminuted intertrochanteric fracture of the right femur. CXR showed findings possibly suggestive of small airway disease with mild pulmonary edema, without consolidation or pleural effusions. ECG showed normal sinus rhythm with PACs without ischemic changes and normal QT interval. ED tx: Dilaudid 0.25 mg IV X3. Review of Systems 2 Review of Systems: Yes Unobtainable due to mental condition and Unobtainable due to mental status [facility] Medical History (Updated 05/07/24 @ 06:02 by Patricia Crocker MD) Parkinsons disease Atrial fibrillation Essential hypertension Surgical History (Updated 05/07/24 @ 06:02 by Patricia Crocker MD) S/P deep brain stimulator placement Social History Alcohol intake: never Use of substances other than those prescribed or required for medical reasons: No Advance Directives: Yes Advance Directives Information Provided: Yes Advance Directives on File: No Do you have a plan to hurt others: No Plan Meds Allergies Allergy/AdvReac Type Severity Reaction Status Date / Time No Known Allergies Allergy Verified 05/06/24 21:31 Active Medications: Current Medications Carbidopa/Levodopa (Carbidopa/Levodopa 25/100 Tablet) 1.5 tab PO 7XD TOBI Last Admin: 05/07/24 05:13 Dose: 1.5 tab Carbidopa/Levodopa (Carbidopa/Levodopa 25/100 Tablet) 1.5 tab PO ONCE ONE Stop: 05/07/24 05:22 Hydromorphone HCl (Hydromorphone Hcl 1 Mg/Ml Syringe) 0.5 mg IVPUSH Q4H PRN; Protocol PRN Reason: Pain, Severe (Pain Scale 7-10) Lactated Ringer's (Lr) 1,000 mls @ 80 mls/hr IVCONT .[id number] TOBI Acetaminophen (Ofirmev) 1,000 mg in 100 mls @ 400 mls/hr IV Q6H TOBI Metoprolol Succinate (Metoprolol Succinate Er 25 Mg Tab.Er.24h) 25 mg PO DAILY TOBI; Protocol Non-Formulary Medication (Opicapone [Ongentys]) 50 mg PO DAILY TOBI Non-Formulary Medication (Rivastigmine) 1 patch TOPICAL DAILY TOBI Sodium Chloride (0.9 % Sodium Chloride Flush 3 Ml Syringe) 3 ml IVFLUSH QSHIFT [facility] Home Medications ?Medication ?Instructions ?Recorded ?Confirmed ?Last Taken ?Type apixaban 5 mg tablet (Eliquis) 5 mg PO BID 05/07/24 05/07/24 04/05/24 History carbidopa 25 mg-levodopa 100 mg 25 - 100 tab PO 05/07/24 04/05/24 History tablet (Sinemet) clonazepam 0.5 mg tablet (Klonopin) 0.5 mg PO BEDTIME 05/07/24 05/07/24 04/05/24 History lisinopril 5 mg tablet 5 mg PO DAILY 05/07/24 05/07/24 04/05/24 History metoprolol succinate 25 mg 25 mg PO DAILY 05/07/24 05/07/24 04/05/24 History tablet,extended release 24 hr opicapone 50 mg capsule (Ongentys) 50 mg PO DAILY 05/07/24 05/07/24 04/05/24 History rivastigmine 9.5 mg/24 hour 1 patch topical DAILY 05/07/24 05/07/24 04/05/24 History transdermal patch Physical Exam 2 Vital Signs and Narrative: Vital Signs: Last Vital Signs Temp 97.9 F 05/07/24 00:00 Pulse 81 05/07/24 04:40 Resp 14 05/07/24 04:44 BP 192/109 H 05/07/24 04:40 Pulse Ox 95 05/07/24 04:40 O2 Del Method Room Air 05/07/24 04:40 BMI result Body Mass Index 19.6 Constitutional - Somnolent, No apparent distress. Malnourished. Fragile. HEENT - Atraumatic head. Pupils equally round. Heart - RRR, No murmurs. Lungs - Normal lung expansion, Normal respiratory effort, No respiratory distress, CTA bilaterally Abdomen - NT / ND; +BS; No rebound or guarding Extremities - Right hip: Limited ROM. No open wounds noted. Tenderness to palpation. Distal pulses 2+ bilaterally. Musculoskeletal - Generalized muscular atrophy. Skin - Warm/Dry Neurological - Somnolent. No facial droop. Moving upper extremities equally. Psychological - No agitation. Results Labs 05/07/24 00:30 05/07/24 00:30 Labs: Laboratory Results - last 24 hr 05/07/24 00:30 MCV 92.8 MCH 31.6 MCHC 34.1 RDW 13.1 Plt Count 272 MPV 8.4 L Immature Gran % (Auto) 0.4 Neut % (Auto) 85.7 H Lymph % (Auto) 6.9 L [place] % (Auto) 6.6 Eos % (Auto) 0.2 Baso % (Auto) 0.2 Lymph # (Auto) 0.7 L [place] # (Auto) 0.7 Eos # (Auto) 0.0 Baso # (Auto) 0.0 Abs Immat Gran (auto) 0.04 H Absolute Neuts (auto) 9.0 H Absolute Nucleated RBC 0.000 Nucleated RBC % (auto) 0.0 Anion Gap 15 Estim Creat Clear Calc 68.6 Estimated GFR > 60 Random Glucose 116 H Calcium 9.2 Imaging Radiologist's Impressions: Impressions Cervical Spine CT 05/06/24 21:35 IMPRESSION: CT HEAD: 1. No acute intracranial process seen. 2. Mild cerebral volume loss and mild chronic small vessel ischemic changes. 3. Bilateral deep brain stimulator devices. CT CERVICAL SPINE: 1. Mild to moderate cervical spondylosis most pronounced at C6-7. 2. No acute fractures or subluxations. Electronically signed by: Carlos Lemus MD 05/06/2024 11:26 PM [facility] Head CT 05/06/24 21:35 IMPRESSION: CT HEAD: 1. No acute intracranial process seen. 2. Mild cerebral volume loss and mild chronic small vessel ischemic changes. 3. Bilateral deep brain stimulator devices. CT CERVICAL SPINE: 1. Mild to moderate cervical spondylosis most pronounced at C6-7. 2. No acute fractures or subluxations. Electronically signed by: Carlos Lemus MD 05/06/2024 11:26 PM EST RP Pelvis CT 05/06/24 21:35 IMPRESSION: Comminuted intertrochanteric fracture right femur. Electronically signed by: Justin Lawrence MD 05/06/2024 10:57 PM EST RP Chest X-Ray 05/06/24 23:21 IMPRESSION: Findings could indicate small airways disease with mild pulmonary edema, correlate clinically. No consolidation or pleural effusion. Electronically signed by: Kelli Queen MD 05/06/2024 11:51 PM EST RP Assessment and Plan (1) Right femoral fracture: Qualifiers: Encounter type: initial encounter Fracture type: closed Fracture morphology: comminuted Fracture alignment: nondisplaced Status: Acute Plan Carissa Conti is a 79 y/o admitted with: * Comminuted fracture of the right femur, close. Admit to hospitalist service. NPO except for meds. Pain control with Tylenol 1 g IV every 6 hours scheduled and Dilaudid 0.5 mg IV every 3 hours as needed. Orthopedic surgery consult. If surgery is performed deep brain stimulator will need to be this activated during surgery. Patient is high risk for delirium -avoid antipsychotic if agitation such as Haldol and Zyprexa. If delirium/agitation occurs consider medications such as Depakote. * Essential hypertension. Continue metoprolol, 1st dose now. Hold lisinopril. * AFib, currently rate and rhythm controlled. Hold Eliquis -possible surgery. * Parkinson's disease. S/p deep brain stimulator implantation. Cotinue carbidopa levodopa 25/100 mg 1.5 tabs every 2 hours from 5 pm - 5:15 pm. DVT prophylaxis: SCDs. Code status: DNR/DNI. Noninvasive ventilation is okay. Patient will need hospitalization for at least 2 midnights for right femur fracture management with repair surgery per Orthopedic surgery Service and pain control with IV agents. Quality Stroke Does the patient have a stroke diagnosis?: No VTE Prior VTE?: No VTE Risk Level:: Medical - moderate - high VTE Device Contraindication: N/A - Device Ordered VTE Drug Contraindication: Treatment Not Indicated
[2024-05-07] MEDS: Metoprolol Succinate ER 25 MG TAB.ER.24H PO (05:35)
[2024-05-07] MEDS: Acetaminophen 1,000 MG/100 ML PIGGYBACK 400 MG IV ×4 (05:37→23:26)
[2024-05-07] MEDS: Lactated Ringers 1,000 ML 80 ML IVCONT ×2 (05:48→18:55)
--- NOTE | 2024-05-07 08:17 | PM.HPOR ---
History of Present Illness History of Present Illness Date of Service: 05/07/24 Chief complaint: right hip fracture Narrative: Carissa Conti is a 79 year old female who resides at [facility] in assisted living. She has a PMH significant for a. fib on Eliquis, dementia, Parkinson's with a deep brain stimulator and hx of left hip fracture as well as left femur fracture with fixation. Family is at bedside. Patient reports that she fell but is unaware of the events leading up to her fall. Family reports that she likely got up without her walker and fell. CT scan of the right hip revealed a right intertroch fracture. The patient was admitted to the medicine service and orthopedics was consulted for further evaluation and treatment. Review of Systems Review of Systems: Yes all other systems are reviewed and are negative [facility] Past Medical History Medical History (Updated 05/07/24 @ 10:53 by Shelly Britton PA-C) Parkinsons disease Atrial fibrillation Essential hypertension Surgical History Surgical History (Updated 05/07/24 @ 06:02 by Patricia Crocker MD) S/P deep brain stimulator placement Social History Social History Alcohol intake: never Use of substances other than those prescribed or required for medical reasons: No Advance Directives: Yes Advance Directives Information Provided: Yes Advance Directives on File: No Do you have a plan to hurt others: No Plan Meds Allergies Allergy/AdvReac Type Severity Reaction Status Date / Time No Known Allergies Allergy Verified 05/06/24 21:31 Active Medications: Current Medications Carbidopa/Levodopa (Carbidopa/Levodopa 25/100 Tablet) 1.5 tab PO 7XD [facility] Last Admin: 05/07/24 07:28 Dose: 1.5 tab Hydromorphone HCl (Hydromorphone Hcl 1 Mg/Ml Syringe) 0.5 mg IVPUSH Q4H PRN; Protocol PRN Reason: Pain, Severe (Pain Scale 7-10) Hydromorphone HCl (Hydromorphone Hcl 0.5 Mg/0.5 Ml Syringe) 0.5 mg IVPUSH Q3H PRN; Protocol PRN Reason: Pain, Severe (Pain Scale 7-10) Lactated Ringer's (Lr) 1,000 mls @ 80 mls/hr IVCONT .[id number] [facility] Last Admin: 05/07/24 05:48 Dose: 80 mls/hr Acetaminophen (Ofirmev) 1,000 mg in 100 mls @ 400 mls/hr IV Q6H [facility] Last Infusion: 05/07/24 06:00 Dose: Infused Metoprolol Succinate (Metoprolol Succinate Er 25 Mg Tab.Er.24h) 25 mg PO DAILY [facility]; Protocol Last Admin: 05/07/24 05:35 Dose: 25 mg Non-Formulary Medication (Opicapone [Ongentys]) 50 mg PO DAILY [facility] Non-Formulary Medication (Rivastigmine) 1 patch TOPICAL DAILY [facility] Sodium Chloride (0.9 % Sodium Chloride Flush 3 Ml Syringe) 3 ml IVFLUSH QSHIFT [facility] Home Medications ?Medication ?Instructions ?Recorded ?Confirmed ?Last Taken ?Type apixaban 5 mg tablet (Eliquis) 5 mg PO BID 05/07/24 05/07/24 04/05/24 History carbidopa 25 mg-levodopa 100 mg 25 - 100 tab PO 05/07/24 04/05/24 History tablet (Sinemet) clonazepam 0.5 mg tablet (Klonopin) 0.5 mg PO BEDTIME 05/07/24 05/07/24 04/05/24 History lisinopril 5 mg tablet 5 mg PO DAILY 05/07/24 05/07/24 04/05/24 History metoprolol succinate 25 mg 25 mg PO DAILY 05/07/24 05/07/24 04/05/24 History tablet,extended release 24 hr opicapone 50 mg capsule (Ongentys) 50 mg PO DAILY 05/07/24 05/07/24 04/05/24 History rivastigmine 9.5 mg/24 hour 1 patch topical DAILY 05/07/24 05/07/24 04/05/24 History transdermal patch Physical Exam Vital Signs: Vital Signs: Last Vital Signs Temp 97.7 F 05/07/24 06:14 Pulse 81 05/07/24 06:14 Resp 18 05/07/24 06:14 BP 193/113 H 05/07/24 06:14 Pulse Ox 95 05/07/24 06:14 O2 Del Method Room Air 05/07/24 06:14 BMI result Body Mass Index 19.6 Const: General: cooperative, healthy appearing and no acute distress Resp: Effort & Inspection: normal respiratory effort and able to speak in complete sentences Cardio: Rate: regular rate Peripheral pulses: Peripheral pulses 2+ throughout GI: Palpation (GI): Soft to palpation Skin: Lesions: no lesions Rashes: no rashes Extrem: Other: right hip skin intact. Able to dorsi/plantar flex. Sensation intact. Pedal pulse intact. Results Labs 05/07/24 00:30 05/07/24 00:30 Labs: Abnormal lab results 05/07/24 Range/Units 00:30 RBC 3.89 L (4.20-5.50) X10*6/uL Hct 36.1 L (37.0-47.0) % MPV 8.4 L (9.4-12.3) fL Neut % (Auto) 85.7 H (45-73) % Lymph % (Auto) 6.9 L (20-40) % Lymph # (Auto) 0.7 L (1.2-4.9) X10*3/uL Abs Immat Gran (auto) 0.04 H (0.00-0.03) X10*3/uL Absolute Neuts (auto) 9.0 H (2.0-8.3) x10*3/uL Random Glucose 116 H (60-115) mg/dL H & H 05/07/24 Range/Units 00:30 Hgb 12.3 (12.0-16.0) g/dl Hct 36.1 L (37.0-47.0) % All other labs normal. Assessment and Plan (1) Intertrochanteric fracture of right hip: Status: Acute I discussed the case with Dr. Maddox and explained the extent of the injury to the patient's daughter Chiquita, who is at bedside and options available which include surgical intervention. I explained the procedure in detail along with the length of recovery and rehab course. I explained the risk, benefits and alternatives. Risk including, but not limited to infection, blood clots, bleeding, non union or malunion and nerve/tissue damage to surrounding areas. I answered all their questions and with their understanding they have consented to move forward with Operative Fixation of the right hip. The patient will be T&S, med clearance obtained and NPO after midnight. Plan for OR tomorrow at 1pm. Hold Eliquis. Of note: The patient has a deep brain stimulator, this needs to be turned off prior to surgery and then turned on after the procedure is complete. [employer] is the company, I reached out to the company and the rep Michelle who stated that they did not have a rep to come to the OR tomorrow. However, they are able to speak with family over the phone to direct them while anesthesia is present to turn the device on and off. Deborah's will be present for this to happen tomorrow and will bring the device to turn the stimulator on and off. Deborah's phone number: [phone] Rep Michelle's phone number: [phone] Device information: [employer] User ID: [id number] CSN: [id number] ADM: 07/20/22 LOC: [facility] (2) Anticoagulant long-term use: Status: Acute (3) Atrial fibrillation: Status: Acute (4) Parkinsons disease: Status: Acute Quality Stroke Does the patient have a stroke diagnosis?: No VTE Prior VTE?: No VTE Risk Level:: Medical - moderate - high VTE Device Contraindication: N/A - Device Ordered VTE Drug Contraindication: Treatment Not Indicated Procedures Date of Service Date of Service: 05/07/24
[2024-05-07] MEDS: HYDROmorphone HCl 0.5 MG/0.5 ML SYRINGE IVPUSH ×2 (09:16→20:17)
[2024-05-07] MEDS: 0.9 % Sodium Chloride Flush 3 ML SYRINGE IVFLUSH ×3 (09:23→23:31)
--- NOTE | 2024-05-07 11:40 | PHA.MEDREC ---
Addendum entered by Ophelia Laughlin RPh 05/07/24 12:22: Reviewed by [facility] Original Note: Pharmacy Consult ? Medication Reconciliation Pharmacy reviewed med rec done by nursing. I noticed Lubiprostone 24mcg tabs or Quetiapine 25mg tabs were not on the list despite being filled recently. I went and spoke with patient son in law and he called his who was able to explain her moms medications and she also has a binder in the room to explain the medications and how the patient is taking them. The daughter confirmed her mom is no longer taking the Lubiprostone 24mcg and states her Dr took her off it about 2 weeks ago. She also stated the Quetiapine 25mg tab was never started and stated her Neurologist took her off of it. She confirmed the Carbidopa-Levodopa 25-100mg dosing stating she takes 2 tabs at 0530, 1000 and 1445 and 1.5 tablets at 0730, 1230, 1615 and 1715. The son in law confirmed she takes it 1/2 hour after she eats dinner. The daughter confirmed her mom took her medications last yesterday.
--- NOTE | 2024-05-07 11:43 | MHC.CM.PN ---
Addendum entered by June Garcia 05/07/24 12:16: Received notification from [facility] that they will not be able to offer a bed because they're not contracted with patient's insurance. Original Note: Attempted to meet with patient in regards to discharge planning. Patient currently sleeping. Patient's son-in-law bedside. Patient lives at [facility] facility, uses a walker/wheelchair. Patient has been to short term rehab twice recently due to falls. Copy of HCP obtained from [facility]. IMM explained and signed. Patient will be shorty to OR 05/08 at 1pm. Patient and family are aware of this. [facility] has been to [facility] in the past. Also aware [facility] is SNF for [facility]. Family will decide if [facility] will be 1st choice. Referral will be made to both facilities. List of facilities contracted with patient's insurance also provided, just in care beds aren't available at either SNF. Anticipate patient will need BLS for transport. Continue to monitor for d/c needs.
[2024-05-07] MEDS: lisinopriL 5 MG TABLET PO (12:42)
[2024-05-07] MEDS: polyethylene glycoL 3350 17 GM POWD.PACK PO (13:30)
[2024-05-07] MEDS: Carbidopa/Levodopa 25/100 TABLET 2 TAB PO (14:47)
[2024-05-07] MEDS: HYDROmorphone HCl 1 MG/ML SYRINGE 0.5 MG IVPUSH (16:10)
--- NOTE | 2024-05-07 16:46 | ECG_ITS ---
Test Reason : tacy Blood Pressure : / mmHG Vent. Rate : 136 BPM Atrial Rate : 000 BPM P-R Int : 000 ms QRS Dur : 062 ms QT Int : 296 ms P-R-T Axes : 000 -37 084 degrees QTc Int : 445 ms Supraventricular tachycardia Left axis deviation Inferior infarct , age undetermined Anterior infarct , age undetermined Abnormal ECG When compared to the previous EKG of Supraventricular tachycardia has replaced Normal sinus rhythm Referred By: Rodrigo Noble Electronically Signed By:JAROCHO WAKEFIELD MD
--- NOTE | 2024-05-07 18:23 | ECG_ITS ---
Test Reason : Tachycardia Blood Pressure : / mmHG Vent. Rate : 139 BPM Atrial Rate : 139 BPM P-R Int : 192 ms QRS Dur : 068 ms QT Int : 262 ms P-R-T Axes : 000 -39 085 degrees QTc Int : 398 ms Sinus tachycardia Left axis deviation Inferior infarct (cited on or before 06-MAY-2024) Anteroseptal infarct (cited on or before 06-MAY-2024) Abnormal ECG When compared with ECG of 06-MAY-2024 23:54, Sinus tachycardia is present Referred By: Rodrigo Noble Electronically Signed By:JAROCHO WAKEFIELD MD
--- NOTE | 2024-05-07 18:25 | ECG_ITS ---
Test Reason : CP Blood Pressure : / mmHG Vent. Rate : 140 BPM Atrial Rate : 000 BPM P-R Int : 000 ms QRS Dur : 064 ms QT Int : 306 ms P-R-T Axes : 000 -37 088 degrees QTc Int : 467 ms Sinus tachycardia Left axis deviation Inferior infarct , age undetermined Anteroseptal infarct , age undetermined Abnormal ECG When compared to the previous EKG of No significant changes seen Referred By: Rodrigo Noble Electronically Signed By:JAROCOH WAKEFIELD MD
[2024-05-07] MEDS: Metoprolol Tartrate 25 MG TABLET PO (20:07)
[2024-05-07] MEDS: Metoprolol Tartrate 5 MG/5 ML VIAL IVPUSH (20:07)
[2024-05-07] MEDS: clonazePAM 0.5 MG TABLET PO (20:07)
--- NOTE | 2024-05-07 20:49 | PM.EVENT ---
Event Note Date of Service: 05/07/24 Event Note: I was called around 740 pm to eval the patient for rapid afib of 140s, sustained since 2 pm or so. asymptomatic. Placed order for IV MEtoprolol 5 mg and PO Metoprolol tartrate 25 mg once and gave her an extra dose of pain medication She had a pause of 5 sec then converted back to sinus rhythm around 8:45 will keep on Tele overnight Time Spent With Patient Time: Total time managing care of this patient today ____ minutes.
[2024-05-07] MEDS: Melatonin 3 MG TABLET 9 MG PO (21:14)
[2024-05-07] MEDS: OPICAPONE 50 MG 50 EACH PO (21:14)
[2024-05-08] VITALS (13 sets, daily range): BP systolic 100–175; BP diastolic 48–100; PULSE 66–85; RESP 12–20; TEMP 36.3–37.3; O2SAT 92–98
--- NOTE | 2024-05-08 | ECG_ITS ---
Test Reason : CHEST PAIN Blood Pressure : / mmHG Vent. Rate : 070 BPM Atrial Rate : 070 BPM P-R Int : 156 ms QRS Dur : 068 ms QT Int : 412 ms P-R-T Axes : 082 -25 069 degrees QTc Int : 444 ms Normal sinus rhythm Inferior infarct (cited on or before 06-MAY-2024) Abnormal ECG When compared with ECG of 07-MAY-2024 18:25, Vent. rate has decreased BY 70 BPM Criteria for Anteroseptal infarct are no longer Present Referred By: Rodrigo Noble Electronically Signed By:JAROCHO WAKEFIELD MD
[2024-05-08] MEDS: Acetaminophen 1,000 MG/100 ML PIGGYBACK 400 MG IV ×3 (05:00→23:41)
[2024-05-08] MEDS: Carbidopa/Levodopa 25/100 TABLET 2 TAB PO ×2 (05:06→10:12)
[2024-05-08] MEDS: HYDROmorphone HCl 1 MG/ML SYRINGE 0.5 MG IVPUSH ×3 (05:17→17:28)
[2024-05-08 06:22] LABS: MANUAL DIFF FLAG NO
[2024-05-08 06:41] LABS: Basophils Percent Auto 0.3 % (0-2); Eosinophils Percent Auto 0.3 % (0-4); Hematocrit 35.4 % (37.0-47.0); Hemoglobin 11.9 g/dl (12.0-16.0); Imm Gran Abs Auto 0.02 X10*3/uL (0.00-0.03); Imm Gran Pct Auto 0.3 % (0.0-0.4); Lymphocytes Absolute Auto 0.6 X10*3/uL (1.2-4.9); Lymphocytes Percent Auto 9.1 % (20-40); Mean Corpuscular HGB Conc 33.6 g/dl (31.0-35.0); Mean Corpuscular Hemoglobin 31.4 pg (27.0-33.0); Mean Corpuscular Volume 93.4 fL (80.0-98.0); Mean Platelet Volume 8.8 fL (9.4-12.3); Monocytes Absolute Auto 0.6 X10*3/uL (0.1-1.2); Monocytes Percent Auto 9.3 % (2-11); Neutrophils Absolute Auto 4.9 x10*3/uL (2.0-8.3); Neutrophils Percent Auto 80.7 % (45-73); Platelet Count 235 X10*3/uL (160-400); Red Blood Count 3.79 X10*6/uL (4.20-5.50)
[2024-05-08 07:39] LABS: Anion Gap 12 (12-20); Blood Urea Nitrogen 11 mg/dL (9-16); Calcium 8.5 mg/dL (8.4-10.2); Carbon Dioxide 23 mmol/L (22-29); Chloride 104 mmol/L (96-108); Creatinine Clr Calc Pharmacy 78.5; Estimated Glomerular Filt Rate > 60; Glucose Random 113 mg/dL (60-115); Potassium 3.9 mmol/L (3.3-5.1); Sodium 135 mmol/L (135-145)
[2024-05-08] MEDS: Carbidopa/Levodopa 25/100 TABLET 1.5 TAB PO ×3 (08:09→17:23)
[2024-05-08] MEDS: Lactated Ringers 1,000 ML 50 ML IVCONT (09:17)
[2024-05-08] MEDS: Metoprolol Succinate ER 25 MG TAB.ER.24H PO (09:17)
[2024-05-08] MEDS: 0.9 % Sodium Chloride Flush 3 ML SYRINGE IVFLUSH ×3 (09:18→23:43)
--- NOTE | 2024-05-08 11:35 | P.CONAN_ITS ---
HPI - Anesthesia Eval Consult details Narrative: 79 yo female patient for Right FEmoral IM nailing PMFSH Active Problems Active Problems: All Active Problems (Updated 05/07/24 @ 10:53 by Shelly Britton PA-C) Parkinsons disease (Acute) Paroxysmal Atrial fibrillation. Episode of SVT to 140s yesterday. Treated with metoprolol Anticoagulant long-term use (Acute). Eliquis. Last dose 05/06/24 Intertrochanteric fracture of right hip (Acute) Right femoral fracture (Acute) H/o Left hip fracture H/o Left femoral fracture Past Medical History Medical History Parkinsons disease Atrial fibrillation Essential hypertension Family History Family history of problems with anesthesia: No Surgical History Surgical History S/P deep brain stimulator placement History of Problems with Anesthesia: Yes (Post op delirium) Social History Social History Housing: Assisted Living Facility Do you presently have visiting nurse or other home services: No Alcohol intake: never Patient Tobacco Use Status: Never used Tobacco Advance Directives Date on File: 05/07/24 service: No Meds Allergies Allergy/AdvReac Type Severity Reaction Status Date / Time No Known Allergies Allergy Verified 05/06/24 21:31 Active Medications: Current Medications Carbidopa/Levodopa (Carbidopa/Levodopa 25/100 Tablet) 1.5 tab PO DAILY@1715 [facility] Last Admin: 05/07/24 17:18 Dose: 1.5 tab Carbidopa/Levodopa (Carbidopa/Levodopa 25/100 Tablet) 1.5 tab PO TID@0730,1230,1615 [facility] Last Admin: 05/08/24 08:09 Dose: 1.5 tab Carbidopa/Levodopa (Carbidopa/Levodopa 25/100 Tablet) 2 tab PO TID@0500,1000,1445 [facility] Last Admin: 05/08/24 10:12 Dose: 2 tab Clonazepam (Clonazepam 0.5 Mg Tablet) 0.5 mg PO BEDTIME [facility] Last Admin: 05/07/24 20:07 Dose: 0.5 mg Cyanocobalamin (Cyanocobalamin (Vitamin B-12) 1,000 Mcg Tablet) 1,000 mcg PO DAILY TOBI Last Admin: 05/08/24 11:01 Dose: Not Given Hydromorphone HCl (Hydromorphone Hcl 1 Mg/Ml Syringe) 0.5 mg IVPUSH Q4H PRN; Protocol PRN Reason: Pain, Severe (Pain Scale 7-10) Last Admin: 05/08/24 09:31 Dose: 0.5 mg Hydromorphone HCl (Hydromorphone Hcl 0.5 Mg/0.5 Ml Syringe) 0.5 mg IVPUSH Q3H PRN; Protocol PRN Reason: Pain, Severe (Pain Scale 7-10) Last Admin: 05/07/24 20:17 Dose: 0.5 mg Lactated Ringer's (Lr) 1,000 mls @ 80 mls/hr IVCONT .[id number] TOBI Last Infusion: 05/08/24 11:27 Dose: Infused Acetaminophen (Ofirmev) 1,000 mg in 100 mls @ 400 mls/hr IV Q6H TOBI Last Infusion: 05/08/24 05:15 Dose: Infused Lactated Ringer's (Lr) 1,000 mls @ 50 mls/hr IVCONT .Q20H TOBI Last Admin: 05/08/24 09:17 Dose: 50 mls/hr Lisinopril (Lisinopril 5 Mg Tablet) 5 mg PO BEDTIME TOBI; Protocol Melatonin (Melatonin 3 Mg Tablet) 9 mg PO BEDTIME [facility] Last Admin: 05/07/24 21:14 Dose: 9 mg Metoprolol Succinate (Metoprolol Succinate Er 25 Mg Tab.Er.24h) 25 mg PO DAILY TOBI; Protocol Last Admin: 05/08/24 09:17 Dose: 25 mg Non-Formulary Medication (Rivastigmine) 1 patch TOPICAL DAILY [facility] Pt Owned Med ( Opicapone [Ongentys] 50 Mg Capsule) 50 mg PO BEDTIME TOBI Last Admin: 05/07/24 21:14 Dose: 50 mg Polyethylene Glycol (Polyethylene Glycol 3350 17 Gm Powd.Pack) 17 gm PO DAILY TO[facility] Last Admin: 05/08/24 11:26 Dose: Not Given Senna (Sennosides 8.6 Mg Tablet) 17.2 mg PO DAILY PRN PRN Reason: Constipation Sodium Chloride (0.9 % Sodium Chloride Flush 3 Ml Syringe) 3 ml IVFLUSH QSHIFT TOBI Last Admin: 05/08/24 09:18 Dose: 3 ml Home Medications ?Medication ?Instructions ?Recorded ?Confirmed ?Last Taken ?Type apixaban 5 mg tablet (Eliquis) 5 mg PO BID 05/07/24 05/07/24 05/06/24 History carbidopa 25 mg-levodopa 100 mg 1.5 tab PO DAILY@1715 05/07/24 05/07/24 05/06/24 History tablet carbidopa 25 mg-levodopa 100 mg 1.5 tab PO TID@0730,1230,1615 05/07/24 05/07/24 05/06/24 History tablet carbidopa 25 mg-levodopa 100 mg 2 tab PO TID@0500,1000,1445 05/07/24 05/07/24 05/06/24 History tablet clonazepam 0.5 mg tablet (Klonopin) 0.5 mg PO BEDTIME 05/07/24 05/07/24 05/06/24 History cyanocobalamin (vitamin B-12) 1,000 mcg PO DAILY 05/07/24 05/07/24 05/06/24 History 1,000 mcg tablet (Vitamin B-12) lisinopril 5 mg tablet 5 mg PO DAILY 05/07/24 05/07/24 05/06/24 History metoprolol succinate 25 mg 25 mg PO DAILY 05/07/24 05/07/24 05/06/24 History tablet,extended release 24 hr opicapone 50 mg capsule (Ongentys) 50 mg PO DAILY@1730 05/07/24 05/07/24 05/06/24 History polyethylene glycol 3350 17 17 g PO DAILY 05/07/24 05/07/24 05/06/24 History gram/dose oral powder (Miralax) rivastigmine 9.5 mg/24 hour 1 patch topical DAILY 05/07/24 05/07/24 05/06/24 History transdermal patch sennosides 25 mg tablet 25 mg PO DAILY PRN Constipation 05/07/24 05/07/24 05/06/24 History Exam Height,Weight and Vital Signs: Height 5 ft 4 in Weight 51.7 kg Last Vital Signs Temp 98.5 F 05/08/24 11:07 Pulse 70 05/08/24 11:07 Resp 14 05/08/24 11:07 BP 149/83 H 05/08/24 11:07 Pulse Ox 96 05/08/24 11:07 O2 Del Method Room Air 05/08/24 11:07 Pertinent Lab Results Pertinent Lab Results: Laboratory Tests 05/07/24 05/08/24 00:30 05:51 WBC 10.5 6.0 RBC 3.89 L 3.79 L Hgb 12.3 11.9 L Hct 36.1 L 35.4 L MCV 92.8 93.4 MCH 31.6 31.4 MCHC 34.1 33.6 RDW 13.1 13.0 Plt Count 272 235 MPV 8.4 L 8.8 L Immature Gran % (Auto) 0.4 0.3 Neut % (Auto) 85.7 H 80.7 H Lymph % (Auto) 6.9 L 9.1 L [place] % (Auto) 6.6 9.3 Eos % (Auto) 0.2 0.3 Baso % (Auto) 0.2 0.3 Lymph # (Auto) 0.7 L 0.6 L [place] # (Auto) 0.7 0.6 Eos # (Auto) 0.0 0.0 Baso # (Auto) 0.0 0.0 Abs Immat Gran (auto) 0.04 H 0.02 Absolute Neuts (auto) 9.0 H 4.9 Absolute Nucleated RBC 0.000 0.000 Nucleated RBC % (auto) 0.0 0.0 Sodium 139 135 Potassium 3.9 3.9 Chloride 105 104 Carbon Dioxide 23 23 Anion Gap 15 12 BUN 12 11 Creatinine 0.56 0.49 L Estim Creat Clear Calc 68.6 78.5 Estimated GFR > 60 > 60 Random Glucose 116 H 113 Calcium 9.2 8.5 D Narrative Narrative: Date of Service: 05/06/24 EXAMINATION: XR CHEST CLINICAL INFORMATION: Hip fracture. TECHNIQUE: Frontal view of the chest was obtained. FINDINGS: Neurostimulator device overlies the right hemithorax limiting visualization of the underlying lung. Neurostimulator leads courses upwards to the neck and terminate outside of the field of view. Diffuse interstitial thickening. Possible Ravin B-lines in the lateral left lung. No consolidation, pleural effusion or pneumothorax. Normal heart size. No acute osseous findings. IMPRESSION: Findings could indicate small airways disease with mild pulmonary edema, correlate clinically. No consolidation or pleural effusion. Date of Service: 05/08/24 Procedure(s): ECG 12 lead EKG Vent. Rate : 070 BPM Atrial Rate : 070 BPM P-R Int : 156 ms QRS Dur : 068 ms QT Int : 412 ms P-R-T Axes : 082 -25 069 degrees QTc Int : 444 ms Normal sinus rhythm Inferior infarct (cited on or before 06-MAY-2024) Abnormal ECG When compared with ECG of 07-MAY-2024 18:25, Vent. rate has decreased BY 70 BPM Criteria for Anteroseptal infarct are no longer Present Airway Mallampati Class: II (Overbite. Small mouth) TM Dist: >3cm Neck ROM: Full Loose/Missing/Broken Teeth: Yes (Built up tooth top front. Chipped during procedure for placement of DBS) Heart: RRR Lungs: CTAB Assessment and Plan Assessment Anesthesia Assessment: Anesthesia Plan Discussed and Chart Reviewed Final Anesthetic Review Family History of Problems with Anesthesia: No History of Problems with Anesthesia: Yes (Post op delirium) NPO: Yes ASA Class: III Final Preanesthetic Review: No Changes in Pt Med Stat, Meds/Allgs Chart Reviewed, Consent Obtained/Reviewed and Anes Risks/Benef Reviewed Patient Risk: Intermediate Procedure Risk: Intermediate Assessment/Block/Sedation in SS: Assess/Block/Sedation-SS Anesthetic Plan Anesthetic Plan: GA Disposition: Standard PACU and Inp. Admit - Standard Bed
--- NOTE | 2024-05-08 11:53 | HO.PM.IMPN ---
Subjective Subjective Date of Service: 05/08/24 Interval History: f/u on hip fracture pain with movement went into afib with rvr overnight, 5 sec pause while converting Physical Exam Vital Signs: Vital Signs: Last Vital Signs Temp 98.5 F 05/08/24 11:07 Pulse 70 05/08/24 11:07 Resp 14 05/08/24 11:07 BP 149/83 H 05/08/24 11:07 Pulse Ox 96 05/08/24 11:07 O2 Del Method Room Air 05/08/24 11:07 BMI result Body Mass Index 19.6 Const: Other: General: AO X 3, no acute distress Resp: CTA bilateral CVS: S1,S2,RRR GI: +BS, NT, no distention Skin: No rash Neuro: motor grossly intact Psych: appropriate affect Objective Data Active Medications Carbidopa/Levodopa (Carbidopa/Levodopa 25/100 Tablet) 1.5 tab PO DAILY@1715 [facility] Last Admin: 05/07/24 17:18 Dose: 1.5 tab Documented By: FROILAN Carbidopa/Levodopa (Carbidopa/Levodopa 25/100 Tablet) 1.5 tab PO TID@0730,1230,1615 [facility] Last Admin: 05/08/24 08:09 Dose: 1.5 tab Documented By: LIANE Carbidopa/Levodopa (Carbidopa/Levodopa 25/100 Tablet) 2 tab PO TID@0500,1000,1445 [facility] Last Admin: 05/08/24 10:12 Dose: 2 tab Documented By: LIANE Clonazepam (Clonazepam 0.5 Mg Tablet) 0.5 mg PO BEDTIME [facility] Last Admin: 05/07/24 20:07 Dose: 0.5 mg Documented By: CRYSTAL Cyanocobalamin (Cyanocobalamin (Vitamin B-12) 1,000 Mcg Tablet) 1,000 mcg PO DAILY [facility] Last Admin: 05/08/24 11:01 Dose: Not Given Documented By: LIANE Non-Admin Reason: NPO Hydromorphone HCl (Hydromorphone Hcl 1 Mg/Ml Syringe) 0.5 mg IVPUSH Q4H PRN; Protocol PRN Reason: Pain, Severe (Pain Scale 7-10) Last Admin: 05/08/24 09:31 Dose: 0.5 mg Documented By: LIANE Hydromorphone HCl (Hydromorphone Hcl 0.5 Mg/0.5 Ml Syringe) 0.5 mg IVPUSH Q3H PRN; Protocol PRN Reason: Pain, Severe (Pain Scale 7-10) Last Admin: 05/07/24 20:17 Dose: 0.5 mg Documented By: CRYSTAL Lactated Ringer's (Lr) 1,000 mls @ 80 mls/hr IVCONT .[id number] TOBI Last Infusion: 05/08/24 11:27 Dose: Infused Documented By: LIANE Acetaminophen (Ofirmev) 1,000 mg in 100 mls @ 400 mls/hr IV Q6H TOBI Last Infusion: 05/08/24 05:15 Dose: Infused Documented By: CRYSTAL Lactated Ringer's (Lr) 1,000 mls @ 50 mls/hr IVCONT .Q20H TOBI Last Admin: 05/08/24 09:17 Dose: 50 mls/hr Documented By: LIANE Lisinopril (Lisinopril 5 Mg Tablet) 5 mg PO BEDTIME TOBI; Protocol Melatonin (Melatonin 3 Mg Tablet) 9 mg PO BEDTIME [facility] Last Admin: 05/07/24 21:14 Dose: 9 mg Documented By: CRYSTAL Metoprolol Succinate (Metoprolol Succinate Er 25 Mg Tab.Er.24h) 25 mg PO DAILY [facility]; Protocol Last Admin: 05/08/24 09:17 Dose: 25 mg Documented By: LIANE Non-Formulary Medication (Rivastigmine) 1 patch TOPICAL DAILY [facility] Pt Owned Med ( Opicapone [Ongentys] 50 Mg Capsule) 50 mg PO BEDTIME TO[facility] Last Admin: 05/07/24 21:14 Dose: 50 mg Documented By: CRYSTAL Polyethylene Glycol (Polyethylene Glycol 3350 17 Gm Powd.Pack) 17 gm PO DAILY [facility] Last Admin: 05/08/24 11:26 Dose: Not Given Documented By: LIANE Non-Admin Reason: NPO Senna (Sennosides 8.6 Mg Tablet) 17.2 mg PO DAILY PRN PRN Reason: Constipation Sodium Chloride (0.9 % Sodium Chloride Flush 3 Ml Syringe) 3 ml IVFLUSH QSHIFT [facility] Last Admin: 05/08/24 09:18 Dose: 3 ml Documented By: LIANE Labs 05/08/24 05:51 05/08/24 05:51 Labs: Laboratory Results - last 24 hr 05/08/24 05:51 MCV 93.4 MCH 31.4 MCHC 33.6 RDW 13.0 Plt Count 235 MPV 8.8 L Immature Gran % (Auto) 0.3 Neut % (Auto) 80.7 H Lymph % (Auto) 9.1 L Emm[place] % (Auto) 9.3 Eos % (Auto) 0.3 Baso % (Auto) 0.3 Lymph # (Auto) 0.6 L [place] # (Auto) 0.6 Eos # (Auto) 0.0 Baso # (Auto) 0.0 Abs Immat Gran (auto) 0.02 Absolute Neuts (auto) 4.9 Absolute Nucleated RBC 0.000 Nucleated RBC % (auto) 0.0 Anion Gap 12 Estim Creat Clear Calc 78.5 Estimated GFR > 60 Random Glucose 113 Calcium 8.5 D Assessment and Plan (1) Atrial fibrillation: Status: Acute (2) Anticoagulant long-term use: Status: Acute (3) Right femoral fracture: Status: Acute Plan 79/F with parkinson's, permanent afib, htn here with right hip fracture Comminuted fracture of the right femur, close. -surgical repair today -pain management -resume eliquis after surgery -pt/ot after surgery -high risk for post op delirium Essential hypertension. continue lisinopril at night, continue metoporolol permanent AFib, currently rate and rhythm controlled. She went into afib with rvr yesterday, but now in sinus rythm -continue metoprolol, eliquis on hold until after surgery Parkinson's disease. S/p deep brain stimulator implantation. Cotinue carbidopa levodopa 25/100 mg 1.5 tabs every 2 hours per home schedule DVT prophylaxis: SCDs. Code status: DNR/DNI. Noninvasive ventilation is okay. plan discussed with daughter Quality Stroke Does the patient have a stroke diagnosis?: No VTE Prior VTE?: No VTE Risk Level:: Medical - moderate - high VTE Device Contraindication: N/A - Device Ordered VTE Drug Contraindication: Treatment Not Indicated
--- NOTE | 2024-05-08 12:00 | PC.NURSE ---
Patient left unit to OR for Right femoral I-M nailing
--- NOTE | 2024-05-08 14:25 | MHC.CM.PN ---
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
[2024-05-08] MEDS: OPICAPONE 50 MG 50 EACH PO (20:41)
[2024-05-08] MEDS: Melatonin 3 MG TABLET 9 MG PO (20:42)
[2024-05-08] MEDS: lisinopriL 5 MG TABLET PO (20:42)
[2024-05-08] MEDS: clonazePAM 0.5 MG TABLET PO (20:43)
[2024-05-08] MEDS: ceFAZolin Sodium/Dextrose,Iso 2 GM/50 ML PIGGYBACK IV (20:47)
[2024-05-09] VITALS (17 sets, daily range): BP systolic 91–191; BP diastolic 52–99; PULSE 81–97; RESP 14–20; TEMP 36.7–37.2; O2SAT 93–100
[2024-05-09] MEDS: HYDROmorphone HCl 1 MG/ML SYRINGE 0.5 MG IVPUSH (02:47)
[2024-05-09] MEDS: OLANZapine 10 MG VIAL 2.5 MG IM (03:05)
[2024-05-09] MEDS: LORazepam 2 MG/ML VIAL 1 MG IVPUSH (03:26)
[2024-05-09] MEDS: ceFAZolin Sodium/Dextrose,Iso 2 GM/50 ML PIGGYBACK IV ×2 (04:15→11:43)
[2024-05-09] MEDS: Lactated Ringers 1,000 ML 50 ML IVCONT ×2 (05:44→08:16)
[2024-05-09] MEDS: Acetaminophen 1,000 MG/100 ML PIGGYBACK 400 MG IV ×4 (05:45→22:47)
[2024-05-09] MEDS: Carbidopa/Levodopa 25/100 TABLET 2 TAB PO ×3 (05:48→14:46)
[2024-05-09 06:46] LABS: Hematocrit 31.9 % (37.0-47.0); Hemoglobin 10.6 g/dl (12.0-16.0)
--- NOTE | 2024-05-09 06:48 | PM.OP ---
Brief Operative Note Date of Service: 05/08/24 Pre-op diagnosis: Right hip intertrochanteric fracture Post-op diagnosis: same Procedure: Open reduction and internal fixation of right hip intertrochanteric fracture with placement of a long gamma nail Implants: Marek long gamma nail measuring 360 mm in length by 11 mm in diameter with a 125 degree neck-shaft angle, standard lag screw measuring 90 mm in length, standard set screw, distal locking bolt measuring 45 mm in length Surgeon: Luigi Maddox MD Anesthesia: GLMA Was an Creping Machine Operator used for this Procedure?: No Estimated blood loss (mL): 200 Pathology: none sent Condition: stable Disposition: PACU
--- NOTE | 2024-05-09 06:49 | P.OP_ITS ---
Operative Note Operative Note Date of Service: 05/08/24 Narrative: After the patient was identified as Carissa Conti and her right hip was initialed by myself they were brought to the operating room where general anesthesia was induced by the anesthesiologist in routine fashion. The patient was given 2 g of IV Ancef for infection prophylaxis. The patient was then gently transferred from the hospital bed onto the fracture table. The patient's left lower extremity was placed into the well leg richardson. The patient's right lower extremity was placed in gentle in-line traction with their patella parallel to the floor. All bony prominences were well padded. C-arm AP and lateral radio graphs were taken to confirm good fracture reduction. The patient's right hip region was prepped and draped in sterile fashion. A formal time-out was completed. A #10 scalpel blade was used to make a 5 cm incision just proximal to the tip of the greater trochanter. A curved cannulated awl was introduced into the proximal femur in routine fashion. A ball-tipped guidewire was then placed through the cannula and into the femoral canal. The guidewire was passed down to the superior pole of the patella. The awl was removed. The guidewire measured 360 mm in length. Reaming was begun with a 9 mm reamer. Reaming was increased incrementally up to a size 13 reamer distally. The proximal canal was reamed to a size 15.5 mm reamer. The right long gamma nail measuring 360 mm in diameter by 11 mm in length was passed over the guidewire. Good fracture reduction and nail positioning were confirmed using C-arm AP and lateral radiographs. A 2 cm incision was then made where the lag screw trocar met the patient's lateral thigh. The subcutaneous tissues and fascia endy were split down to the lateral cortex of the femur using a hemostat. The lag screw trocar was passed down to the lateral cortex of the femur. A threaded guidewire was then placed into the inferior aspect of the femoral head on the AP x-ray and the center of the femoral head on the lateral x-ray. The guidewire measured 90 mm in length. Reaming was then performed over the guidewire to a depth of 90 mm. The lag screw measuring 90 mm in length was then placed over the guidewire. The guidewire was removed. The set screw was then placed into the nail and tightened fully. It was then turned 1/4 of a turn counter-clockwise to allow for fracture compression. Our attention was then directed to the distal aspect of the thelma. One distal locking bolt measuring 45 mm in length was placed from lateral to medial in routine fashion. Final AP and lateral radiographs showed good fracture reduction and hardware positioning. All 3 wounds were irrigated with copious amounts of normal saline solution. The distal 2 wounds were closed with 2-0 Vicryl and skin елена. The proximal wound was once again irrigated. The fascia endy was closed with 0 Vicryl [id number] interrupted suture. The wound was once again irrigated. The subcutaneous tissues were closed with 2-0 Vicryl interrupted suture. The skin was closed with skin елена. Dry sterile dressing was placed over all incisions. The patient was gently transferred from the fracture table onto their hospital bed. The patient was awoken and extubated in the operating room. The patient was transferred to the recovery room in stable condition.
--- NOTE | 2024-05-09 06:49 | PC.NURSE ---
Patient woke 02:00 early hour and was noted to be more confused than earlier in evening, newly impulsive, restless, and agitated as evidenced by frequently pulling off tele and spo2 monitoring, pulling off outer ABD surgical dressing, throwing pillows and other nearby items at staff. Attempts were made to redirect and reorient the patient, though unsuccessful. Patient continued to remove tele stickers and spo2 monitoring replaced multiple times by staff. Pt was conversant with clear speech, though vague when production underwriter attempted to assess source of restlessness/agitation. Patient was repositioned, medicated for pain based on non-verbal pain score (see MAR) though patient remained restless and agitated. This was discussed with the nursing cargo supervisor and the rounder was pulled from the floor to sit with the patient, though despite continued attempts, the patient remains agitated and difficult to redirect and calm. Covering Dr. Santa was notified with 1:1 sitter order requested. MD orders placed for IM zyprexa 2.5mg, IV ativan 1mg. RN cargo supervisor presented to bedside, assisted production underwriter with replacing outer ABD over right hip aquacel dressing that the pt had pulled off as evidenced by dismantled outer dressing and tape observed on patients fingers. Base-layer aquacel dressing remained c/d/i without shadowing. +Effect with medications, patient since calm and cooperative and staff able to replace tele monitoring though continues to refuse gown replacement. Warm blanket provided. Pt alerted to voice/name and tolerated am po meds with water with HOB elevated. Patient continues with 1:1 sitter and camera, bed alarm/high falls measures. Please see Medication Restraint Care Flow Sheet and shift assessments, MAR for full details. Handoff report given.
[2024-05-09 07:00] LABS: Anion Gap 16 (12-20); Blood Urea Nitrogen 13 mg/dL (9-16); Calcium 8.6 mg/dL (8.4-10.2); Carbon Dioxide 20 mmol/L (22-29); Chloride 104 mmol/L (96-108); Estimated Glomerular Filt Rate > 60; Glucose Random 103 mg/dL (60-115); Potassium 4.2 mmol/L (3.3-5.1); Sodium 136 mmol/L (135-145)
[2024-05-09] MEDS: HYDROmorphone HCl 0.5 MG/0.5 ML SYRINGE IVPUSH ×2 (08:13→11:38)
[2024-05-09] MEDS: Metoprolol Succinate ER 25 MG TAB.ER.24H PO (08:14)
[2024-05-09] MEDS: Cyanocobalamin (Vitamin B-12) 1,000 MCG TABLET 1000 MCG PO (08:14)
[2024-05-09] MEDS: polyethylene glycoL 3350 17 GM POWD.PACK PO (08:14)
[2024-05-09] MEDS: Apixaban 5 MG TABLET PO ×2 (08:14→19:42)
[2024-05-09] MEDS: 0.9 % Sodium Chloride Flush 3 ML SYRINGE IVFLUSH ×4 (08:15→22:49)
--- NOTE | 2024-05-09 08:58 | HO.POSTANES ---
Post Anesthesia Evaluation Post Anesthesia Evaluation Date of Service: 05/09/24 Vital Signs: Vital Signs Temp Pulse Resp BP Pulse Ox O2 Del Method 05/09/24 08:00 98.1 F 97 20 151/79 H 96 Room Air 05/09/24 06:15 97 16 05/09/24 04:26 81 14 05/09/24 04:05 98.1 F 84 14 156/81 H 95 Room Air 05/09/24 03:50 83 16 150/64 H 95 Room Air 05/09/24 03:35 95 16 167/99 H 97 Room Air 05/09/24 03:20 20 96 Room Air 05/09/24 03:17 20 05/09/24 03:05 20 191/99 H 05/09/24 00:11 90 16 05/08/24 23:45 98.9 F 85 19 137/75 95 Room Air 05/08/24 21:47 75 16 100/56 L 94 Room Air Anesthesia: TIVA Mental Status: Awake Pain Control: Satisfactory Nausea/Vomiting: None Hydration: Adequate Anesthesia-Related Issues: No Anes. Related Issues Comments: Some agitation treated with ativan last night
--- NOTE | 2024-05-09 12:36 | P.PNIM_ITS ---
Subjective Subjective Date of Service: 05/09/24 Interval History: f/u on hip fracture s/p surgical repair yesterday, delerious this morning and regfusing to take meds Physical Exam 2 Vital Signs: Vital Signs: Last Vital Signs Temp 98.4 F 05/09/24 11:45 Pulse 92 05/09/24 11:45 Resp 18 05/09/24 11:45 BP 91/52 L 05/09/24 11:45 Pulse Ox 94 05/09/24 11:45 O2 Del Method Room Air 05/09/24 11:45 O2 Flow Rate 2 05/08/24 16:30 BMI result Body Mass Index 19.6 Const: Other: General: confused Resp: CTA bilateral CVS: S1,S2,RRR GI: +BS, NT, no distention Skin: wound site d/c/i Neuro: motor grossly intact Psych: appropriate affect Objective Data Active Medications Apixaban (Apixaban 5 Mg Tablet) 5 mg PO BID [facility] Last Admin: 05/09/24 08:14 Dose: 5 mg Documented By: THIERNO Carbidopa/Levodopa (Carbidopa/Levodopa 25/100 Tablet) 1.5 tab PO DAILY@1715 [facility] Last Admin: 05/08/24 17:23 Dose: 1.5 tab Documented By: LIANE Comments: Carbidopa/Levodopa (Carbidopa/Levodopa 25/100 Tablet) 1.5 tab PO TID@0730,1230,1615 [facility] Last Admin: 05/09/24 09:36 Dose: Not Given Documented By: THIERNO Non-Admin Reason: Patient Refused Carbidopa/Levodopa (Carbidopa/Levodopa 25/100 Tablet) 2 tab PO TID@0500,1000,1445 [facility] Last Admin: 05/09/24 10:27 Dose: 2 tab Documented By: THIERNO Clonazepam (Clonazepam 0.5 Mg Tablet) 0.5 mg PO BEDTIME [facility] Last Admin: 05/08/24 20:43 Dose: 0.5 mg Documented By: VANNA Cyanocobalamin (Cyanocobalamin (Vitamin B-12) 1,000 Mcg Tablet) 1,000 mcg PO DAILY [facility] Last Admin: 05/09/24 08:14 Dose: 1,000 mcg Documented By: THIERNO Hydromorphone HCl (Hydromorphone Hcl 1 Mg/Ml Syringe) 0.5 mg IVPUSH Q4H PRN; Protocol PRN Reason: Pain, Severe (Pain Scale 7-10) Last Admin: 05/09/24 02:47 Dose: 0.5 mg Documented By: VANNA Hydromorphone HCl (Hydromorphone Hcl 0.5 Mg/0.5 Ml Syringe) 0.5 mg IVPUSH Q3H PRN; Protocol PRN Reason: Pain, Severe (Pain Scale 7-10) Last Admin: 05/09/24 11:38 Dose: 0.5 mg Documented By: THIERNO Acetaminophen (Ofirmev) 1,000 mg in 100 mls @ 400 mls/hr IV Q6H [facility] Last Infusion: 05/09/24 11:55 Dose: Infused Documented By: THIERNO Lactated Ringer's (Lr) 1,000 mls @ 50 mls/hr IVCONT .Q20H [facility] Last Admin: 05/09/24 08:16 Dose: 50 mls/hr Documented By: THIERNO Lactated Ringer's (Lr) 1,000 mls @ 50 mls/hr IVCONT .Q20H [facility] Last Admin: 05/09/24 09:54 Dose: Not Given Documented By: THIERNO Non-Admin Reason: IV Running Cefazolin Sodium/Dextrose (Ancef) 2 gm in 50 mls @ 100 mls/hr IV Q8H [facility] Stop: 05/09/24 19:59 Last Admin: 05/09/24 11:43 Dose: 100 mls/hr Documented By: THIERNO Lisinopril (Lisinopril 5 Mg Tablet) 5 mg PO BEDTIME [facility]; Protocol Last Admin: 05/08/24 20:42 Dose: 5 mg Documented By: VANNA Lorazepam (Lorazepam 2 Mg/Ml Vial) 1 mg IVPUSH ONCE PRN PRN Reason: anxiety/restlessness Last Admin: 05/09/24 03:26 Dose: 1 mg Documented By: HANS Melatonin (Melatonin 3 Mg Tablet) 9 mg PO BEDTIME [facility] Last Admin: 05/08/24 20:42 Dose: 9 mg Documented By: VANNA Metoprolol Succinate (Metoprolol Succinate Er 25 Mg Tab.Er.24h) 25 mg PO DAILY [facility]; Protocol Last Admin: 05/09/24 08:14 Dose: 25 mg Documented By: THIERNO Naloxone HCl (Naloxone Hcl 0.4 Mg/Ml Vial) 0.04 mg IVPUSH Q5M PRN PRN Reason: Excessive sedation or RR < 8 Non-Formulary Medication (Rivastigmine) 1 patch TOPICAL DAILY [facility] Pt Owned Med ( Opicapone [Ongentys] 50 Mg Capsule) 50 mg PO BEDTIME [facility] Last Admin: 05/08/24 20:41 Dose: 50 mg Documented By: VANNA Polyethylene Glycol (Polyethylene Glycol 3350 17 Gm Powd.Pack) 17 gm PO DAILY [facility] Last Admin: 05/09/24 08:14 Dose: 17 gm Documented By: THIERNO Senna (Sennosides 8.6 Mg Tablet) 17.2 mg PO DAILY PRN PRN Reason: Constipation Sodium Chloride (0.9 % Sodium Chloride Flush 3 Ml Syringe) [facility] Last Admin: 05/09/24 08:15 Dose: 3 ml Documented By: THIERNO Sodium Chloride (0.9 % Sodium Chloride Flush 3 Ml Syringe) 3 ml IVFLUSH [facility] Last Admin: 05/09/24 08:15 Dose: Not Given Documented By: THIERNO Non-Admin Reason: IV Running Labs 05/09/24 06:01 05/09/24 06:01 Labs: Laboratory Results - last 24 hr 05/09/24 06:01 Anion Gap 16 Estim Creat Clear Calc 62.0 Estimated GFR > 60 Random Glucose 103 Calcium 8.6 Assessment and Plan (1) Atrial fibrillation: Status: Acute (2) Anticoagulant long-term use: Status: Acute (3) Right femoral fracture: Status: Acute Plan 79/F with parkinson's, permanent afib, htn here with right hip fracture Comminuted fracture of the right femur, close. -surgical repair 05/08 -pain management -resume eliquis -pt/ot -high risk for post op delirium Essential hypertension. continue metoprolol, hold lisinopril with low bp permanent AFib, currently rate controlled. -restarted eliquis Hypotension-likely d/t meds, increase ivf, and monitor Delirium, related to surgery, and being in the hospital -redirect, avoid med that will make it worse, cautious with Psychotropic with parkinson Parkinson's disease. S/p deep brain stimulator implantation. Cotinue carbidopa levodopa 25/100 mg 1.5 tabs every 2 hours per home schedule DVT prophylaxis: SCDs. Code status: DNR/DNI. Noninvasive ventilation is okay. Quality Stroke Does the patient have a stroke diagnosis?: No VTE Prior VTE?: No VTE Risk Level:: Medical - moderate - high VTE Device Contraindication: N/A - Device Ordered VTE Drug Contraindication: Treatment Not Indicated
[2024-05-09] MEDS: Carbidopa/Levodopa 25/100 TABLET 1.5 TAB PO ×3 (12:47→17:18)
--- NOTE | 2024-05-09 13:10 | MHC.CM.PN ---
EMR reviewed and per MD rounds, pt is not medically cleared for discharge today due to right hip ORIF today in the OR.
--- NOTE | 2024-05-09 13:14 | MHC.CM.PN ---
EMR reviewed and per MD rounds, pt is not medically cleared for discharge today due to management of post op care, pt had right ORIF yesterday in the OR.
--- NOTE | 2024-05-09 18:13 | PM.PNORT ---
Subjective Subjective Date of Service: 05/09/24 Interval history: 79-year-old female postop day 1 status post right hip IM nail Patient resting comfortably in bed this morning Patient was combative and agitated overnight, but does not appears to be so at this time Patient reports pain well managed No other complaints or concerns at this time Physical Exam Vital Signs: Vital Signs: Last Vital Signs Temp 98.9 F 05/09/24 15:57 Pulse 84 05/09/24 15:57 Resp 16 05/09/24 15:57 BP 94/53 L 05/09/24 15:57 Pulse Ox 94 05/09/24 15:57 O2 Del Method Room Air 05/09/24 15:57 O2 Flow Rate 2 05/09/24 12:33 BMI result Body Mass Index 19.6 Extrem: Other: Dressing on right hip clean, dry, intact No evidence of surrounding erythema, ecchymosis No evidence of infection Patient is able to flex and extend the digits of the left foot without difficulty Compartments soft, nontender Distal sensation intact Capillary refill brisk Procedures Date of Service Date of Service: 05/09/24 Progress Note: A&P Assessment and plan (1) Intertrochanteric fracture of right hip: Status: Acute Plan 1. Intertrochanteric fracture right hip status post IM nail placement DOS 05/08/2024 Patient appears to be recovering well postoperatively Patient is educated about the typical recovery course Patient has not been ambulatory since surgery, and states that therapy has not worked with her yet Patient should attempt ambulation with physical therapy today Dispo planning-pain management, case management, and PT evaluation pending Continue with all other recommendations per Medicine Time Spent With Patient Time: Total time managing care of this patient today ____ minutes. Quality Stroke Does the patient have a stroke diagnosis?: No VTE Prior VTE?: No VTE Risk Level:: Medical - moderate - high VTE Device Contraindication: N/A - Device Ordered VTE Drug Contraindication: Treatment Not Indicated
[2024-05-09] MEDS: Lactated Ringers 1,000 ML 125 ML IVCONT (18:28)
[2024-05-09] MEDS: lisinopriL 5 MG TABLET PO (19:42)
[2024-05-09] MEDS: clonazePAM 0.5 MG TABLET PO (19:42)
[2024-05-09] MEDS: Melatonin 3 MG TABLET 9 MG PO (19:42)
[2024-05-09] MEDS: OPICAPONE 50 MG 50 EACH PO (19:47)
[2024-05-10] VITALS (11 sets, daily range): BP systolic 81–152; BP diastolic 52–91; PULSE 77–139; RESP 16–20; TEMP 36.4–37.2; O2SAT 90–99
[2024-05-10] MEDS: Lactated Ringers 1,000 ML 125 ML IVCONT (02:32)
[2024-05-10] MEDS: HYDROmorphone HCl 1 MG/ML SYRINGE 0.5 MG IVPUSH (02:34)
[2024-05-10] MEDS: Carbidopa/Levodopa 25/100 TABLET 2 TAB PO ×3 (05:50→14:54)
[2024-05-10] MEDS: Cyanocobalamin (Vitamin B-12) 1,000 MCG TABLET 1000 MCG PO (07:49)
[2024-05-10] MEDS: Apixaban 5 MG TABLET PO ×2 (07:49→20:19)
[2024-05-10] MEDS: Carbidopa/Levodopa 25/100 TABLET 1.5 TAB PO ×4 (07:49→17:49)
[2024-05-10] MEDS: Metoprolol Succinate ER 25 MG TAB.ER.24H PO (07:49)
[2024-05-10] MEDS: polyethylene glycoL 3350 17 GM POWD.PACK PO (07:49)
--- NOTE | 2024-05-10 09:44 | ECG_ITS ---
Test Reason : CP Blood Pressure : / mmHG Vent. Rate : 130 BPM Atrial Rate : 000 BPM P-R Int : 000 ms QRS Dur : 070 ms QT Int : 310 ms P-R-T Axes : 000 -12 139 degrees QTc Int : 456 ms Atrial fibrillation with rapid ventricular response Minimal voltage criteria for LVH, may be normal variant ( Roselle product ) Anterior infarct , age undetermined Abnormal ECG When compared with ECG of 08-MAY-2024 07:54, Atrial fibrillation has replaced Sinus rhythm Vent. rate has increased BY 60 BPM Anterior infarct is now Present ST now depressed in Lateral leads T wave amplitude has decreased in Anterior leads [facility] Electron[facility] Signed By:JAROCHO WAKEFIELD MD
--- NOTE | 2024-05-10 09:59 | P.PNOP_ITS ---
Subjective Subjective Date of Service: 05/10/24 Interval history: 79-year-old female postop day 2 status post right hip IM nail Patient resting comfortably in bed this morning Patient was slightly agitated overnight, but does not appears to be so at this time Nursing reports that the patient was picking at her Aquacel bandages overnight, and the distal one began to lift Patient reports pain well managed No other complaints or concerns at this time Physical Exam Vital Signs: Vital Signs: Last Vital Signs Temp 98.9 F 05/10/24 08:00 Pulse 87 05/10/24 08:00 Resp 18 05/10/24 08:00 BP 141/82 H 05/10/24 08:00 Pulse Ox 93 05/10/24 08:00 O2 Del Method Room Air 05/10/24 08:00 O2 Flow Rate 2 05/09/24 12:33 BMI result Body Mass Index 19.6 Extrem: Other: Dressing on right hip clean, dry, intact No evidence of surrounding erythema, ecchymosis No evidence of infection Patient is able to flex and extend the digits of the left foot without difficulty Compartments soft, nontender Distal sensation intact Capillary refill brisk Procedures Date of Service Date of Service: 05/10/24 Progress Note: A&P Assessment and plan (1) Intertrochanteric fracture of right hip: Status: Acute Plan 1. Intertrochanteric fracture right hip status post IM nail placement DOS 05/08/2024 Patient appears to be recovering well postoperatively Patient is educated about the typical recovery course Patient has not been ambulatory since surgery, and states that therapy has not worked with her yet Patient should attempt ambulation with physical therapy today Dispo planning-pain management, case management, medical clearance PT recommends discharge to [facility] when medically cleared Continue with all other recommendations per Medicine Of note, patient appears to have entered atrial fibrillation with RVR during dressing change. Medicine and Cardiology notified and working up the patient. Time Spent With Patient Time: Total time managing care of this patient today ____ minutes. Quality Stroke Does the patient have a stroke diagnosis?: No VTE Prior VTE?: No VTE Risk Level:: Medical - moderate - high VTE Device Contraindication: N/A - Device Ordered VTE Drug Contraindication: Treatment Not Indicated
[2024-05-10] MEDS: Lactated Ringers 1,000 ML 50 ML IVCONT (10:20)
--- NOTE | 2024-05-10 10:31 | P.CONCA_ITS ---
History of Present Illness History of Present Illness Date of Service: 05/10/24 Requesting physician: Rodrigo Brennan Consult reason: other (Sinus pause, tachy-kvng) Chief complaint: right hip fracture Narrative: I was consulted to see Tayler in cardiology consultation today as she was noted to have significant pauses this morning on cardiac telemetry. Reviewing from May 07 when she was admitted she had atrial fibrillation followed by a long pause followed by junctional escape rhythm. This was suggestive of sick sinus syndrome and sinoatrial shavonne dysfunction. She had come to the hospital after a fall, the daughter says that she has witnessed and follow up in the past and she has no lightheadedness syncopal episode. However when I spoke to the patient she is a limited historian she says she was lightheaded prior to this fall although this is not corroborated. Patient is having atrial fibrillation rapid ventricular response with the last 24 hours this morning had a long pause about 6.3 seconds followed by couple of sinus beats followed by recurrent atrial fibrillation. She continues to have significant amount of pause including 7.2nd pause. Patient was do not resuscitate do not intubate. I did speak to the daughter about this finding and she says she is not sure as to what she wants to do an not sure as what her mom's wishes would be. She will visit her mom shortly and decide. She was very distraught. Patient denies any palpitation with rapid atrial fibrillation. No heart failure symptoms. Review of Systems 2 Review of Systems: Yes Unobtainable due to mental status Neurologic: Reports confusion Psychiatric: Psychiatric: Reports confusion PMFSH Past Medical History Medical History Parkinsons disease Atrial fibrillation Essential hypertension Surgical History Surgical History History of surgery on lower extremity History of hip surgery S/P deep brain stimulator placement Social History Social History Housing: Assisted Living Facility Do you presently have visiting nurse or other home services: No Alcohol intake: never Patient Tobacco Use Status: Never used Tobacco Advance Directives Date on File: 05/07/24 service: No Meds Allergies Allergy/AdvReac Type Severity Reaction Status Date / Time No Known Allergies Allergy Verified 05/06/24 21:31 Active Medications: Current Medications Apixaban (Apixaban 5 Mg Tablet) 5 mg PO BID [facility] Last Admin: 05/10/24 07:49 Dose: 5 mg Carbidopa/Levodopa (Carbidopa/Levodopa 25/100 Tablet) 1.5 tab PO DAILY@1715 [facility] Last Admin: 05/09/24 17:18 Dose: 1.5 tab Carbidopa/Levodopa (Carbidopa/Levodopa 25/100 Tablet) 1.5 tab PO TID@0730,1230,1615 [facility] Last Admin: 05/10/24 07:49 Dose: 1.5 tab Carbidopa/Levodopa (Carbidopa/Levodopa 25/100 Tablet) 2 tab PO TID@0500,1000,1445 [facility] Last Admin: 05/10/24 10:10 Dose: 2 tab Clonazepam (Clonazepam 0.5 Mg Tablet) 0.5 mg PO BEDTIME [facility] Last Admin: 05/09/24 19:42 Dose: 0.5 mg Cyanocobalamin (Cyanocobalamin (Vitamin B-12) 1,000 Mcg Tablet) 1,000 mcg PO DAILY [facility] Last Admin: 05/10/24 07:49 Dose: 1,000 mcg Hydromorphone HCl (Hydromorphone Hcl 1 Mg/Ml Syringe) 0.5 mg IVPUSH Q4H PRN; Protocol PRN Reason: Pain, Severe (Pain Scale 7-10) Last Admin: 05/10/24 02:34 Dose: 0.5 mg Hydromorphone HCl (Hydromorphone Hcl 0.5 Mg/0.5 Ml Syringe) 0.5 mg IVPUSH Q3H PRN; Protocol PRN Reason: Pain, Severe (Pain Scale 7-10) Last Admin: 05/09/24 11:38 Dose: 0.5 mg Lactated Ringer's (Lr) 1,000 mls @ 50 mls/hr IVCONT .Q20H [facility] Last Admin: 05/10/24 10:20 Dose: 50 mls/hr Lisinopril (Lisinopril 5 Mg Tablet) 5 mg PO BEDTIME [facility]; Protocol Last Admin: 05/09/24 19:42 Dose: 5 mg Lorazepam (Lorazepam 2 Mg/Ml Vial) 1 mg IVPUSH ONCE PRN PRN Reason: anxiety/restlessness Last Admin: 05/09/24 03:26 Dose: 1 mg Melatonin (Melatonin 3 Mg Tablet) 9 mg PO BEDTIME [facility] Last Admin: 05/09/24 19:42 Dose: 9 mg Metoprolol Succinate (Metoprolol Succinate Er 25 Mg Tab.Er.24h) 25 mg PO DAILY [facility]; Protocol Last Admin: 05/10/24 07:49 Dose: 25 mg Naloxone HCl (Naloxone Hcl 0.4 Mg/Ml Vial) 0.04 mg IVPUSH Q5M PRN PRN Reason: Excessive sedation or RR < 8 Non-Formulary Medication (Rivastigmine) 1 patch TOPICAL DAILY [facility] Pt Owned Med ( Opicapone [Ongentys] 50 Mg Capsule) 50 mg PO BEDTIME [facility] Last Admin: 05/09/24 19:47 Dose: 50 mg Oxycodone HCl (Oxycodone Hcl Immed Release 5 Mg Tablet) 5 mg PO Q6H PRN PRN Reason: Pain, Moderate(Pain Scale 4-6) Polyethylene Glycol (Polyethylene Glycol 3350 17 Gm Powd.Pack) 17 gm PO DAILY [facility] Last Admin: 05/10/24 07:49 Dose: 17 gm Senna (Sennosides 8.6 Mg Tablet) 17.2 mg PO DAILY PRN PRN Reason: Constipation Sodium Chloride (0.9 % Sodium Chloride Flush 3 Ml Syringe) 3 ml IVFLUSH [facility] Last Admin: 05/09/24 22:49 Dose: 3 ml Sodium Chloride (0.9 % Sodium Chloride Flush 3 Ml Syringe) 3 ml IVFLUSH [facility] Last Admin: 05/10/24 07:50 Dose: Not Given Home Medications ?Medication ?Instructions ?Recorded ?Confirmed ?Last Taken ?Type apixaban 5 mg tablet (Eliquis) 5 mg PO BID 05/07/24 05/07/24 05/06/24 History carbidopa 25 mg-levodopa 100 mg 1.5 tab PO DAILY@1715 05/07/24 05/07/24 05/06/24 History tablet carbidopa 25 mg-levodopa 100 mg 1.5 tab PO TID@0730,1230,1615 05/07/24 05/07/24 05/06/24 History tablet carbidopa 25 mg-levodopa 100 mg 2 tab PO TID@0500,1000,1445 1105/07/24 05/06/24 History tablet clonazepam 0.5 mg tablet (Klonopin) 0.5 mg PO BEDTIME 05/07/24 05/07/24 05/06/24 History cyanocobalamin (vitamin B-12) 1,000 mcg PO DAILY 05/07/24 05/07/24 05/06/24 History 1,000 mcg tablet (Vitamin B-12) lisinopril 5 mg tablet 5 mg PO DAILY 05/07/24 05/07/24 05/06/24 History metoprolol succinate 25 mg 25 mg PO DAILY 05/07/24 05/07/24 05/06/24 History tablet,extended release 24 hr opicapone 50 mg capsule (Ongentys) 50 mg PO DAILY@1730 05/07/24 05/07/24 05/06/24 History polyethylene glycol 3350 17 17 g PO DAILY 05/07/24 05/07/24 05/06/24 History gram/dose oral powder (Miralax) rivastigmine 9.5 mg/24 hour 1 patch topical DAILY 05/07/24 05/07/24 05/06/24 History transdermal patch sennosides 25 mg tablet 25 mg PO DAILY PRN Constipation 05/07/24 05/07/24 05/06/24 History Physical Exam 2 Vital Signs: Vital Signs: Last Vital Signs Temp 98.9 F 05/10/24 08:00 Pulse 87 05/10/24 08:00 Resp 18 05/10/24 08:00 BP 141/82 H 05/10/24 08:00 Pulse Ox 93 05/10/24 08:00 O2 Del Method Room Air 05/10/24 08:00 O2 Flow Rate 2 05/09/24 12:33 BMI result Body Mass Index 19.6 Const: General: cooperative, comfortable, alert, awake and confusion N utritional Appearance: thin and underweight Orientation/consciousness: c onfusion HEENT: Head: Yes normocephalic and Yes atraumatic Neck: Neck: Yes trachea midline, Yes supple and Yes no JVD Resp: Effort & Inspection: normal respiratory effort Auscultation: clear to auscultation bilaterally Cardio: Jugular venous distension: no JVD Rate: tachycardic Rhythm: a bnormal rhythm irregularly irregular Heart sounds: S1 normal heart sound present, S2 normal heart sound present, no click, no gallops and no murmurs GI: Auscultation: normal bowel sounds Skin: General skin exam: no rashes or lesions noted Neuro: General: confusion Extrem: General: Yes no clubbing, cyanosis or edema Objective Labs and Meds 05/09/24 06:01 05/09/24 06:01 Lab results: Laboratory Results - last 24 hr 05/10/24 10:19 Hold Purple Top SEE NOTE Assessment and Plan (1) Tachy-kvng syndrome: Status: Acute Patient showing evidence of tachy-kvng syndrome with significant sinoatrial shavonne dysfunction with marked pauses after conversion from AFib to sinus rhythm only this lasting only for short period time. Patient 3 days before also had similar episode with junctional escape rhythm again suggestive of sinoatrial shavonne dysfunction. Patient does have prior history of atrial fibrillation and on Eliquis therapy. Discussed with the daughter that she needs a dual-chamber pacemaker to support her bradycardia and we can then pursue treatment for atrial fibrillation. Whether this is a cause of her falls and hip fractures is unclear. Daughter does not think so. Daughter wants to meet with the mom and then decide. If they decide to pursue pacemaker placement she will need to be transferred to [facility] as we do not have a pacemaker support over the weekend. Case discussed with hospitalist team and nursing team. Will follow with you Procedures Date of Service Date of Service: 05/10/24
--- NOTE | 2024-05-10 11:17 | PM.EVENT ---
Event Note Date of Service: 05/10/24 Event Note: Spoke to the daughter again. She said after talking with her mom she has decided that she would not want a pacemaker placement. We discussed possible outcomes including . Patient daughter understands. She would like to discuss with her sister as well. She will also probably think about taking her mom home with hospice. Time Spent With Patient Time: Total time managing care of this patient today ____ minutes.
[2024-05-10 11:20] LABS: Anion Gap 13 (12-20); Blood Urea Nitrogen 14 mg/dL (9-16); Calcium 8.4 mg/dL (8.4-10.2); Carbon Dioxide 25 mmol/L (22-29); Chloride 106 mmol/L (96-108); Creatinine Clr Calc Pharmacy 68.6; Estimated Glomerular Filt Rate > 60; Glucose Random 98 mg/dL (60-115); Potassium 4.1 mmol/L (3.3-5.1); Sodium 140 mmol/L (135-145)
[2024-05-10 11:24] LABS: Magnesium 1.8 mg/dL (1.6-2.6)
[2024-05-10] MEDS: oxyCODONE HCl Immed Release 5 MG TABLET PO ×2 (11:54→20:22)
--- NOTE | 2024-05-10 12:04 | HO.PM.IMPN ---
Subjective Subjective Date of Service: 05/10/24 Interval History: f/u on hip fracture s/p surgical repair on 05/08 without complications this morning has been having multiple sinus pauses up to 9 sec and now hypotension. cardiology consulted and pace maker was offered and discussed with patient and daughter and and they have opted for no pacemaker and considering hospice care instead. Physical Exam Vital Signs: Vital Signs: Last Vital Signs Temp 98.5 F 05/10/24 11:23 Pulse 139 H 05/10/24 11:23 Resp 17 05/10/24 11:23 BP 85/58 L 05/10/24 11:23 Pulse Ox 99 05/10/24 11:23 O2 Del Method Room Air 05/10/24 11:23 O2 Flow Rate 2 05/09/24 12:33 BMI result Body Mass Index 19.6 Const: Other: General: AO X 2, no acute distress Resp: CTA bilateral CVS: S1,S2, iregular iregular GI: +BS, NT, no distention Skin: No rash, surgery site is dry/c/i Neuro: motor grossly intact Psych: appropriate affect Objective Data Active Medications Apixaban (Apixaban 5 Mg Tablet) 5 mg PO BID [facility] Last Admin: 05/10/24 07:49 Dose: 5 mg Documented By: THIERNO Carbidopa/Levodopa (Carbidopa/Levodopa 25/100 Tablet) 1.5 tab PO DAILY@1715 [facility] Last Admin: 05/09/24 17:18 Dose: 1.5 tab Documented By: THIERNO Carbidopa/Levodopa (Carbidopa/Levodopa 25/100 Tablet) 1.5 tab PO TID@0730,1230,1615 [facility] Last Admin: 05/10/24 07:49 Dose: 1.5 tab Documented By: THIERNO Carbidopa/Levodopa (Carbidopa/Levodopa 25/100 Tablet) 2 tab PO TID@0500,1000,1445 [facility] Last Admin: 05/10/24 10:10 Dose: 2 tab Documented By: THIERNO Clonazepam (Clonazepam 0.5 Mg Tablet) 0.5 mg PO BEDTIME [facility] Last Admin: 05/09/24 19:42 Dose: 0.5 mg Documented By: VANNA Cyanocobalamin (Cyanocobalamin (Vitamin B-12) 1,000 Mcg Tablet) 1,000 mcg PO DAILY [facility] Last Admin: 05/10/24 07:49 Dose: 1,000 mcg Documented By: THIERNO Hydromorphone HCl (Hydromorphone Hcl 1 Mg/Ml Syringe) 0.5 mg IVPUSH Q4H PRN; Protocol PRN Reason: Pain, Severe (Pain Scale 7-10) Last Admin: 05/10/24 02:34 Dose: 0.5 mg Documented By: VANNA Hydromorphone HCl (Hydromorphone Hcl 0.5 Mg/0.5 Ml Syringe) 0.5 mg IVPUSH Q3H PRN; Protocol PRN Reason: Pain, Severe (Pain Scale 7-10) Last Admin: 05/09/24 11:38 Dose: 0.5 mg Documented By: THIERNO Lactated Ringer's (Lr) 1,000 mls @ 50 mls/hr IVCONT .Q20H [facility] Last Admin: 05/10/24 10:20 Dose: 50 mls/hr Documented By: THIERNO Lisinopril (Lisinopril 5 Mg Tablet) 5 mg PO BEDTIME [facility]; Protocol Last Admin: 05/09/24 19:42 Dose: 5 mg Documented By: VANNA Lorazepam (Lorazepam 2 Mg/Ml Vial) 1 mg IVPUSH ONCE PRN PRN Reason: anxiety/restlessness Last Admin: 05/09/24 03:26 Dose: 1 mg Documented By: HANS Melatonin (Melatonin 3 Mg Tablet) 9 mg PO BEDTIME [facility] Last Admin: 05/09/24 19:42 Dose: 9 mg Documented By: VANNA Metoprolol Succinate (Metoprolol Succinate Er 25 Mg Tab.Er.24h) 25 mg PO DAILY [facility]; Protocol Last Admin: 05/10/24 07:49 Dose: 25 mg Documented By: THIERNO Naloxone HCl (Naloxone Hcl 0.4 Mg/Ml Vial) 0.04 mg IVPUSH Q5M PRN PRN Reason: Excessive sedation or RR < 8 Non-Formulary Medication (Rivastigmine) 1 patch TOPICAL DAILY [facility] Pt Owned Med ( Opicapone [Ongentys] 50 Mg Capsule) 50 mg PO BEDTIME [facility] Last Admin: 05/09/24 19:47 Dose: 50 mg Documented By: VANNA Oxycodone HCl (Oxycodone Hcl Immed Release 5 Mg Tablet) 5 mg PO Q6H PRN PRN Reason: Pain, Moderate(Pain Scale 4-6) Last Admin: 05/10/24 11:54 Dose: 5 mg Documented By: LIANE Polyethylene Glycol (Polyethylene Glycol 3350 17 Gm Powd.Pack) 17 gm PO DAILY [facility] Last Admin: 05/10/24 07:49 Dose: 17 gm Documented By: THIERNO Senna (Sennosides 8.6 Mg Tablet) 17.2 mg PO DAILY PRN PRN Reason: Constipation Sodium Chloride (0.9 % Sodium Chloride Flush 3 Ml Syringe) 3 ml IVFLUSH QSHIFT [facility] Last Admin: 05/09/24 22:49 Dose: 3 ml Documented By: ELMA Sodium Chloride (0.9 % Sodium Chloride Flush 3 Ml Syringe) 3 ml IVFLUSH QSHIFT [facility] Last Admin: 05/10/24 07:50 Dose: Not Given Documented By: THIERNO Non-Admin Reason: IV Running Labs 05/09/24 06:01 05/10/24 10:19 Labs: Laboratory Results - last 24 hr 05/10/24 10:19 Hold Purple Top SEE NOTE Anion Gap 13 Estim Creat Clear Calc 68.6 Estimated GFR > 60 Random Glucose 98 Calcium 8.4 Magnesium 1.8 Assessment and Plan (1) Atrial fibrillation: Status: Acute (2) Anticoagulant long-term use: Status: Acute (3) Right femoral fracture: Status: Acute Plan 79/F with parkinson's, permanent afib, htn here with right hip fracture Sick sinus syndrome (SSS) with marked sinus pauses up to 9, metoprolol stop. Cardiology saw the patient and discussed pace maker with patient and [facility] but they have opted for no pace maker and rather will pursuit hospice care. Comminuted fracture of the right femur, close. -surgical repair 05/08 -pain management -resumed eliquis -pt/ot -high risk for post op deliriu HTN--hold meds d/t hypotension and sinus pauses permanent AFib, currently rate controlled. -restarted eliquis Hypotension--no sepsis, ? related to medication, afib.. assymptomatic, increase ivf Delirium, related to surgery, and being in the hospital -redirect, avoid med that will make it worse, cautious with Psychotropic with parkinson Parkinson's disease. S/p deep brain stimulator implantation. Cotinue carbidopa levodopa 25/100 mg 1.5 tabs every 2 hours per home schedule DVT prophylaxis: SCDs. Code status: DNR/DNI. Noninvasive ventilation is okay. dispo: family would like patient to go home with hospice Quality Stroke Does the patient have a stroke diagnosis?: No VTE Prior VTE?: No VTE Risk Level:: Medical - moderate - high VTE Device Contraindication: N/A - Device Ordered VTE Drug Contraindication: Treatment Not Indicated
[2024-05-10 12:19] LABS: MANUAL DIFF FLAG NO
[2024-05-10 12:25] LABS: Basophils Percent Auto 0.6 % (0-2); Eosinophils Absolute Auto 0.1 X10*3/uL (0.0-0.4); Eosinophils Percent Auto 1.8 % (0-4); Hematocrit 25.6 % (37.0-47.0); Hemoglobin 8.7 g/dl (12.0-16.0); Imm Gran Abs Auto 0.01 X10*3/uL (0.00-0.03); Imm Gran Pct Auto 0.2 % (0.0-0.4); Lymphocytes Absolute Auto 0.8 X10*3/uL (1.2-4.9); Lymphocytes Percent Auto 13.1 % (20-40); Mean Corpuscular Hemoglobin 32.2 pg (27.0-33.0); Mean Corpuscular Volume 94.8 fL (80.0-98.0); Mean Platelet Volume 9.1 fL (9.4-12.3); Monocytes Absolute Auto 0.6 X10*3/uL (0.1-1.2); Monocytes Percent Auto 8.8 % (2-11); Neutrophils Absolute Auto 4.7 x10*3/uL (2.0-8.3); Neutrophils Percent Auto 75.5 % (45-73); Platelet Count 190 X10*3/uL (160-400); Red Cell Distribution Width 13.2 % (11.0-16.0); White Blood Count 6.2 X10*3/uL (4.8-10.8)
--- NOTE | 2024-05-10 12:37 | MHC.CM.PN ---
CM spoke with Daughter/HCP/Mariam @ listed #. A Hospice referral was made about 2 weeks ago by the PCP. Jaquelin VASQUEZA & Hospice Nurse will be here today to conduct a Hospice Informational.The recommendation is for a Pacemaker and that is not the Patient's wishes. CM will follow.
--- NOTE | 2024-05-10 13:42 | PC.NURSE ---
At 0934 pt went into A-fib RVR on telemetry with HR ranging from 111-148. Noted 6.3 second pause. Pt asymptomatic (confused but denies chest pain/ palpitations, SOB) noted to be asleep at the time but easily arousable. Dr. Noble notified & Dr. Mitchell consulted for cardiology (on unit) and went in to evaluate pt at bedside. BP 139/91, HR 138, O2 sat 90% on RA, placed on 2L N/C and up to 98%. EKG done at 0944 & MD's reviewed (A-fib with RVR, HR 130). Per Dr. Mitchell/ telemetry reviewed and MD notes Sick Sinus Syndrome and need for pace maker placement/ transfer to [facility]. Ordered Transcutaneous Pacer Pads to be placed on pt. (applied by this RN). Pt continued to have pauses on tele (0956 6.4 sec. pause; 1010 5.8 sec. pause; 1015 7.2 sec. pause- Dr. Noble & Dr. Mitchell aware of all pauses). Dr. Mitchell and Dr. Noble called pt's lee Becerra and spoke with her as she was driving into see pt.. Mariam arrived to unit and updated by this RN and requested to speak further with her mom and then the MD's, ultimately, after discussions completed, daughter decided not to pursue Pacemaker placement and requesting to set up plan for home with Hospice. Dr. Noble ordered to d/c telemetry and to increase IVF to LR at 150cc/hr. Oncoming RN Perez Burns updated. Family remains at bedside. Will continue to monitor closely.
[2024-05-10] MEDS: Acetaminophen 1,000 MG/100 ML PIGGYBACK 16.7 MG IV ×2 (15:40→21:00)
[2024-05-10] MEDS: 0.9 % Sodium Chloride 500 ML 999 ML IV (17:50)
--- NOTE | 2024-05-10 19:58 | PC.NURSE ---
Patient not able to void, feels the need to void, bladder scan for 375ml, findings reported to the provider, received order to straight cath (gamble will be needed if patient cannot void) at 1900 patient was straight cath for 350ml, patient tolereated procedure well, purewick placed per patient's request, reported to the night RN.
[2024-05-10] MEDS: Melatonin 3 MG TABLET 9 MG PO (20:18)
[2024-05-10] MEDS: clonazePAM 0.5 MG TABLET PO (20:19)
[2024-05-10] MEDS: OPICAPONE 50 MG 50 EACH PO (20:19)
[2024-05-10] MEDS: 0.9 % Sodium Chloride Flush 3 ML SYRINGE IVFLUSH (20:19)
[2024-05-11] VITALS (8 sets, daily range): BP systolic 133–169; BP diastolic 78–96; PULSE 78–117; RESP 16–20; TEMP 36.2–37; O2SAT 92–95
[2024-05-11] MEDS: Acetaminophen 1,000 MG/100 ML PIGGYBACK 16.7 MG IV ×2 (03:13→10:06)
[2024-05-11] MEDS: HYDROmorphone HCl 1 MG/ML SYRINGE 0.5 MG IVPUSH (03:22)
[2024-05-11] MEDS: Carbidopa/Levodopa 25/100 TABLET 2 TAB PO ×3 (05:37→14:58)
--- NOTE | 2024-05-11 06:17 | PC.NURSE ---
Patient confused, paranoid, impulsive, refused morning lab draw despite attempts to reorient and redirect. Pt replied to these attempts, I'm not ready, I need to get dressed and ready to go. I can after lunch . D/W director of physician practices with [employer] request to attempt again later this morning when patient's daughter can come to assist with redirecting pt.
[2024-05-11] MEDS: Carbidopa/Levodopa 25/100 TABLET 1.5 TAB PO ×3 (07:53→17:24)
--- NOTE | 2024-05-11 09:49 | P.PNIM_ITS ---
Subjective Subjective Date of Service: 05/11/24 Interval History: f/u on hip fracture s/p surgical repair on 05/08 without complications she is has been having tachybrady syndronme with multiple sinus pauses, they were offered pace maker but they declined and have been looking into going home with hospice She seems delirious this morning Physical Exam 2 Vital Signs: Vital Signs: Last Vital Signs Temp 97.3 F 05/11/24 07:45 Pulse 78 05/11/24 07:45 Resp 19 05/11/24 07:45 BP 168/96 H 05/11/24 07:45 Pulse Ox 95 05/11/24 07:45 O2 Del Method Room Air 05/11/24 07:45 O2 Flow Rate 2 05/10/24 09:45 BMI result Body Mass Index 19.6 Const: Other: General: anxious, confused Resp: CTA bilateral CVS: S1,S2, iregular iregular GI: +BS, NT, no distention Skin: No rash, surgery site is dry/c/i Neuro: motor grossly intact Psych: appropriate affect Objective Data Active Medications Apixaban (Apixaban 5 Mg Tablet) 5 mg PO BID [facility] Last Admin: 05/10/24 20:19 Dose: 5 mg Documented By: VANNA Carbidopa/Levodopa (Carbidopa/Levodopa 25/100 Tablet) 1.5 tab PO DAILY@1715 [facility] Last Admin: 05/10/24 17:49 Dose: 1.5 tab Documented By: BROB Carbidopa/Levodopa (Carbidopa/Levodopa 25/100 Tablet) 1.5 tab PO TID@0730,1230,1615 [facility] Last Admin: 05/11/24 07:53 Dose: 1.5 tab Documented By: BROKiana Carbidopa/Levodopa (Carbidopa/Levodopa 25/100 Tablet) 2 tab PO TID@0500,1000,1445 [facility] Last Admin: 05/11/24 05:37 Dose: 2 tab Documented By: VANNA Clonazepam (Clonazepam 0.5 Mg Tablet) 0.5 mg PO BEDTIME [facility] Last Admin: 05/10/24 20:19 Dose: 0.5 mg Documented By: VANNA Cyanocobalamin (Cyanocobalamin (Vitamin B-12) 1,000 Mcg Tablet) 1,000 mcg PO DAILY [facility] Last Admin: 05/10/24 07:49 Dose: 1,000 mcg Documented By: THIERNO Hydromorphone HCl (Hydromorphone Hcl 1 Mg/Ml Syringe) 0.5 mg IVPUSH Q4H PRN; Protocol PRN Reason: Pain, Severe (Pain Scale 7-10) Last Admin: 05/11/24 03:22 Dose: 0.5 mg Documented By: VANNA Acetaminophen (irmev) 1,000 mg in 100 mls @ 16.7 mls/hr IV .Q6H PRN PRN Reason: Pain, Mild (Pain Scale 1-3) Last Admin: 05/11/24 03:13 Dose: 16.7 mls/hr Documented By: VANNA Lisinopril (Lisinopril 5 Mg Tablet) 5 mg PO BEDTIME [facility]; Protocol Last Admin: 05/10/24 21:04 Dose: Not Given Documented By: VANNA Non-Admin Reason: Physician Held Med Lorazepam (Lorazepam 2 Mg/Ml Vial) 1 mg IVPUSH ONCE PRN PRN Reason: anxiety/restlessness Last Admin: 05/09/24 03:26 Dose: 1 mg Documented By: HANS Melatonin (Melatonin 3 Mg Tablet) 9 mg PO BEDTIME [facility] Last Admin: 05/10/24 20:18 Dose: 9 mg Documented By: VANNA Metoprolol Succinate (Metoprolol Succinate Er 25 Mg Tab.Er.24h) 25 mg PO DAILY [facility]; Protocol Last Admin: 05/10/24 07:49 Dose: 25 mg Documented By: THIERNO Naloxone HCl (Naloxone Hcl 0.4 Mg/Ml Vial) 0.04 mg IVPUSH Q5M PRN PRN Reason: Excessive sedation or RR < 8 Non-Formulary Medication (Rivastigmine) 1 patch TOPICAL DAILY [facility] Pt Owned Med ( Opicapone [Ongentys] 50 Mg Capsule) 50 mg PO BEDTIME [facility] Last Admin: 05/10/24 20:19 Dose: 50 mg Documented By: VANNA Oxycodone HCl (Oxycodone Hcl Immed Release 5 Mg Tablet) 5 mg PO Q6H PRN PRN Reason: Pain, Moderate(Pain Scale 4-6) Last Admin: 05/10/24 20:22 Dose: 5 mg Documented By: VANNA Polyethylene Glycol (Polyethylene Glycol 3350 17 Gm Powd.Pack) 17 gm PO DAILY [facility] Last Admin: 05/10/24 07:49 Dose: 17 gm Documented By: THIERNO Senna (Sennosides 8.6 Mg Tablet) 17.2 mg PO DAILY PRN PRN Reason: Constipation Sodium Chloride (0.9 % Sodium Chloride Flush 3 Ml Syringe) 3 ml IVFLUSH QSHIFT [facility] Last Admin: 05/11/24 08:07 Dose: Not Given Documented By: LIANE Non-Admin Reason: IV Running Sodium Chloride (0.9 % Sodium Chloride Flush 3 Ml Syringe) 3 ml IVFLUSH QSHIFT [facility] Last Admin: 05/11/24 08:07 Dose: Not Given Documented By: LIANE Non-Admin Reason: IV Running Labs 05/10/24 10:19 05/10/24 10:19 Labs: Laboratory Results - last 24 hr 05/10/24 10:19 MCV 94.8 MCH 32.2 MCHC 34.0 RDW 13.2 Plt Count 190 MPV 9.1 L Immature Gran % (Auto) 0.2 Neut % (Auto) 75.5 H Lymph % (Auto) 13.1 L Alexander % (Auto) 8.8 Eos % (Auto) 1.8 Baso % (Auto) 0.6 Lymph # (Auto) 0.8 L Alexander # (Auto) 0.6 Eos # (Auto) 0.1 Baso # (Auto) 0.0 Abs Immat Gran (auto) 0.01 Absolute Neuts (auto) 4.7 Absolute Nucleated RBC 0.000 Nucleated RBC % (auto) 0.0 Hold Purple Top SEE NOTE Anion Gap 13 Estim Creat Clear Calc 68.6 Estimated GFR > 60 Random Glucose 98 Calcium 8.4 Magnesium 1.8 Assessment and Plan (1) Atrial fibrillation: Status: Acute (2) Anticoagulant long-term use: Status: Acute (3) Right femoral fracture: Status: Acute Plan 79/F with parkinson's, permanent afib, htn here with right hip fracture Sick sinus syndrome (SSS) with marked sinus pauses up to 9, metoprolol stopped. Cardiology saw the patient and discussed pace maker with patient and daughter but they have opted for no pace maker and rather will pursuit hospice care at home Comminuted fracture of the right femur, close. -surgical repair on 05/08 -pain management -continue eliquis -pt/ot -high risk for post op delirium HTN--hold BP meds if BP low permanent AFib, currently rate controlled. -eliquis Hypotension--no sepsis, ? related to medication, afib.. assymptomatic, increase ivf Delirium, related to surgery, and being in the hospital -redirect, avoid med that will make it worse, cautious with Psychotropic with parkinson Parkinson's disease. S/p deep brain stimulator implantation. Cotinue carbidopa levodopa 25/100 mg 1.5 tabs every 2 hours per home schedule DVT prophylaxis: SCDs. Code status: DNR/DNI. Noninvasive ventilation is okay. dispo: family would like patient to go home with hospice Quality Stroke Does the patient have a stroke diagnosis?: No VTE Prior VTE?: No VTE Risk Level:: Medical - moderate - high VTE Device Contraindication: N/A - Device Ordered VTE Drug Contraindication: Treatment Not Indicated
[2024-05-11] MEDS: Cyanocobalamin (Vitamin B-12) 1,000 MCG TABLET 1000 MCG PO (10:06)
[2024-05-11] MEDS: Apixaban 5 MG TABLET PO ×2 (10:07→19:53)
--- NOTE | 2024-05-11 11:38 | P.PNOP_ITS ---
Subjective Subjective Date of Service: 05/11/24 Interval history: 79-year-old female postop day 3 status post right hip IM nail Patient slightly agitated in bed this morning Patient also makes nonsensical statements when asked how she is feeling Patient does state she is very worried about her overall medical condition Patient reports pain well managed No other complaints or concerns at this time Physical Exam Vital Signs: Vital Signs: Last Vital Signs Temp 97.3 F 05/11/24 07:45 Pulse 78 05/11/24 07:45 Resp 19 05/11/24 07:45 BP 168/96 H 05/11/24 07:45 Pulse Ox 95 05/11/24 07:45 O2 Del Method Room Air 05/11/24 07:45 O2 Flow Rate 2 05/10/24 09:45 BMI result Body Mass Index 19.6 Extrem: Other: Dressing on right hip clean, dry, intact No evidence of surrounding erythema, ecchymosis No evidence of infection Patient is able to flex and extend the digits of the left foot without difficulty Compartments soft, nontender Distal sensation intact Capillary refill brisk Procedures Date of Service Date of Service: 05/11/24 Progress Note: A&P Assessment and plan (1) Intertrochanteric fracture of right hip: Status: Acute Plan 1. Intertrochanteric fracture right hip status post IM nail placement DOS 05/08/2024 Patient appears to be recovering well postoperatively Patient is educated about the typical recovery course Patient has not been ambulatory since surgery, and states that therapy has not worked with her yet If medically cleared to do so, patient should work with PT tomorrow Dispo planning-pain management, case management, medical clearance PT recommends discharge to [facility] when medically cleared Continue with all other recommendations per Medicine Time Spent With Patient Time: Total time managing care of this patient today ____ minutes. Quality Stroke Does the patient have a stroke diagnosis?: No VTE Prior VTE?: No VTE Risk Level:: Medical - moderate - high VTE Device Contraindication: N/A - Device Ordered VTE Drug Contraindication: Treatment Not Indicated
[2024-05-11] MEDS: oxyCODONE HCl Immed Release 5 MG TABLET PO ×2 (12:21→19:52)
[2024-05-11 12:46] LABS: Hematocrit 25.9 % (37.0-47.0); Hemoglobin 8.8 g/dl (12.0-16.0); Mean Corpuscular Hemoglobin 31.9 pg (27.0-33.0); Mean Corpuscular Volume 93.8 fL (80.0-98.0); Mean Platelet Volume 8.6 fL (9.4-12.3); Platelet Count 231 X10*3/uL (160-400); Red Blood Count 2.76 X10*6/uL (4.20-5.50); Red Cell Distribution Width 13.2 % (11.0-16.0); White Blood Count 6.3 X10*3/uL (4.8-10.8)
[2024-05-11] MEDS: LORazepam 2 MG/ML VIAL 1 MG IVPUSH (15:16)
[2024-05-11] MEDS: clonazePAM 0.5 MG TABLET PO (19:53)
[2024-05-11] MEDS: lisinopriL 5 MG TABLET PO (19:53)
[2024-05-11] MEDS: Melatonin 3 MG TABLET 9 MG PO (19:53)
[2024-05-11] MEDS: OPICAPONE 50 MG 50 EACH PO (19:53)
[2024-05-11] MEDS: 0.9 % Sodium Chloride Flush 3 ML SYRINGE IVFLUSH (19:59)
[2024-05-12] VITALS (7 sets, daily range): BP systolic 111–180; BP diastolic 72–100; PULSE 87–120; RESP 15–18; TEMP 36.7–37.5; O2SAT 92–95
--- NOTE | 2024-05-12 04:07 | PC.NURSE ---
Addendum entered by RAKAN Schwarz 05/12/24 05:34: patient took her scheduled carbidopa/levodopa Original Note: patients 0400 vitals were done & manual BP was high 180/100. Dr. Grande notified and said to give patient her lisinopril but patient declined and said she would take it with her scheduled 0500 carbidopa levodopa. When I went back into room her carbidopa levodopa she then declined to take that as well since its not exactly 0500, so I said I'd be back and she said to not come wake her up at that time either. Patients daughter is in the room and tried to convince her to take meds but still declined. I will go back around the exact scheduled time and try again.
[2024-05-12] MEDS: Carbidopa/Levodopa 25/100 TABLET 2 TAB PO ×3 (05:17→14:47)
[2024-05-12] MEDS: oxyCODONE HCl Immed Release 5 MG TABLET PO ×4 (05:17→17:41)
--- NOTE | 2024-05-12 08:06 | PM.PNORT ---
Subjective Subjective Date of Service: 05/12/24 Interval history: 79-year-old female postop day 4 status post right hip IM nail Patient slightly agitated in bed this morning Patient also makes nonsensical statements when asked how she is feeling Patient states that she wants ?real doctors and nurses? taking care of her Patient states that she wants some pain medication, but patient's daughter states that she received pain medication approximately 1 hour ago No other complaints or concerns at this time Physical Exam Vital Signs: Vital Signs: Last Vital Signs Temp 98.7 F 05/12/24 07:24 Pulse 89 05/12/24 03:24 Resp 18 05/12/24 07:24 BP 118/88 05/12/24 07:24 Pulse Ox 92 05/12/24 07:24 O2 Del Method Room Air 05/12/24 07:24 O2 Flow Rate 2 05/10/24 09:45 BMI result Body Mass Index 19.6 Extrem: Other: Dressing on right hip clean, dry, intact No evidence of surrounding erythema, ecchymosis No evidence of infection Patient is able to flex and extend the digits of the left foot without difficulty Compartments soft, nontender Distal sensation intact Capillary refill brisk Procedures Date of Service Date of Service: 05/12/24 Progress Note: A&P Assessment and plan (1) Intertrochanteric fracture of right hip: Status: Acute Plan 1. Intertrochanteric fracture right hip status post IM nail placement DOS 05/08/2024 Patient appears to be recovering well postoperatively Patient is educated about the typical recovery course Dressing changed at this time Patient has not been ambulatory since surgery, and states that therapy has not worked with her yet If medically cleared to do so, patient should work with PT tomorrow Dispo planning-pain management, case management, medical clearance PT recommends discharge to [facility] when medically cleared Continue with all other recommendations per Medicine Time Spent With Patient Time: Total time managing care of this patient today ____ minutes. Quality Stroke Does the patient have a stroke diagnosis?: No VTE Prior VTE?: No VTE Risk Level:: Medical - moderate - high VTE Device Contraindication: N/A - Device Ordered VTE Drug Contraindication: Treatment Not Indicated
--- NOTE | 2024-05-12 08:31 | PC.NURSE ---
Pt's HR all over the place 120-140. Md Noble notified no treatment at this time
[2024-05-12] MEDS: Apixaban 5 MG TABLET PO ×2 (08:56→20:46)
[2024-05-12] MEDS: Carbidopa/Levodopa 25/100 TABLET 1.5 TAB PO ×4 (08:56→17:41)
[2024-05-12] MEDS: Cyanocobalamin (Vitamin B-12) 1,000 MCG TABLET 1000 MCG PO (08:57)
[2024-05-12] MEDS: polyethylene glycoL 3350 17 GM POWD.PACK PO (08:57)
--- NOTE | 2024-05-12 09:52 | PC.NURSE ---
Pt difficulty and paranoid . Pt refusing meds and Lab draws . Md Preston notified .pts daughters at bedside
[2024-05-12 13:24] LABS: Hematocrit 26.3 % (37.0-47.0); Hemoglobin 8.8 g/dl (12.0-16.0); Mean Corpuscular HGB Conc 33.5 g/dl (31.0-35.0); Mean Corpuscular Hemoglobin 31.8 pg (27.0-33.0); Mean Corpuscular Volume 94.9 fL (80.0-98.0); Mean Platelet Volume 8.7 fL (9.4-12.3); Platelet Count 271 X10*3/uL (160-400); Red Blood Count 2.77 X10*6/uL (4.20-5.50); Red Cell Distribution Width 13.4 % (11.0-16.0); White Blood Count 6.3 X10*3/uL (4.8-10.8)
--- NOTE | 2024-05-12 13:49 | HO.PM.IMPN ---
Subjective Subjective Date of Service: 05/12/24 Interval History: f/u on hip fracture s/p surgical repair on 05/08 without complications she is has been having tachybrady syndronme with multiple sinus pauses up to 10 seconds, they were offered pace maker but they declined and have been looking into going home with hospice She is delirius intermittently throughout the day most prominent in the morning Physical Exam Vital Signs: Vital Signs: Last Vital Signs Temp 98.2 F 05/12/24 11:53 Pulse 105 H 05/12/24 11:53 Resp 16 05/12/24 11:53 BP 111/72 05/12/24 11:53 Pulse Ox 92 05/12/24 11:53 O2 Del Method Room Air 05/12/24 11:53 O2 Flow Rate 2 05/10/24 09:45 BMI result Body Mass Index 19.6 Extrem: Other: Dressing on right hip clean, dry, intact No evidence of surrounding erythema, ecchymosis No evidence of infection Patient is able to flex and extend the digits of the left foot without difficulty Compartments soft, nontender Distal sensation intact Capillary refill brisk Objective Data Active Medications Apixaban (Apixaban 5 Mg Tablet) 5 mg PO BID [facility] Last Admin: 05/12/24 08:56 Dose: 5 mg Documented By: DANGELO Carbidopa/Levodopa (Carbidopa/Levodopa 25/100 Tablet) 1.5 tab PO DAILY@1715 [facility] Last Admin: 05/11/24 17:24 Dose: 1.5 tab Documented By: KATHERINE Carbidopa/Levodopa (Carbidopa/Levodopa 25/100 Tablet) 1.5 tab PO TID@0730,1230,1615 [facility] Last Admin: 05/12/24 12:30 Dose: 1.5 tab Documented By: DANGELO Carbidopa/Levodopa (Carbidopa/Levodopa 25/100 Tablet) 2 tab PO TID@0500,1000,1445 [facility] Last Admin: 05/12/24 10:44 Dose: 2 tab Documented By: DANGELO Clonazepam (Clonazepam 0.5 Mg Tablet) 0.5 mg PO BEDTIME [facility] Last Admin: 05/11/24 19:53 Dose: 0.5 mg Documented By: EMELI Cyanocobalamin (Cyanocobalamin (Vitamin B-12) 1,000 Mcg Tablet) 1,000 mcg PO DAILY [facility] Last Admin: 05/12/24 08:57 Dose: 1,000 mcg Documented By: DANGELO Acetaminophen (Ofirmev) 1,000 mg in 100 mls @ 16.7 mls/hr IV .Q6H PRN PRN Reason: Pain, Mild (Pain Scale 1-3) Last Infusion: 05/11/24 16:41 Dose: Infused Documented By: DREA Lisinopril (Lisinopril 5 Mg Tablet) 5 mg PO BEDTIME TOBI; Protocol Last Admin: 05/11/24 19:53 Dose: 5 mg Lorazepam (Lorazepam 2 Mg/Ml Vial) 1 mg IVPUSH ONCE PRN PRN Reason: anxiety/restlessness Last Admin: 05/11/24 15:16 Dose: 1 mg Documented By: KATHERINE Lorazepam (Lorazepam 2 Mg/Ml Vial) 0.5 mg IVPUSH Q4H PRN PRN Reason: Anxiety Melatonin (Melatonin 3 Mg Tablet) 9 mg PO BEDTIME [facility] Last Admin: 05/11/24 19:53 Dose: 9 mg Documented By: EMELI Naloxone HCl (Naloxone Hcl 0.4 Mg/Ml Vial) 0.04 mg IVPUSH Q5M PRN PRN Reason: Excessive sedation or RR < 8 Patient Own Medication ( Rivastigmine 9.5 Mg/24 Hr Transdermal Patch) 1 each TOPICAL DAILY [facility] Last Admin: 05/12/24 10:48 Dose: Not Given Documented By: DANGELO Non-Admin Reason: Patient Refused Pt Owned Med ( Opicapone [Ongentys] 50 Mg Capsule) 50 mg PO BEDTIME TO[facility] Last Admin: 05/11/24 19:53 Dose: 50 mg Documented By: EMELI Oxycodone HCl (Oxycodone Hcl Immed Release 5 Mg Tablet) 5 mg PO Q4H PRN PRN Reason: Pain, Moderate(Pain Scale 4-6) Last Admin: 05/12/24 13:25 Dose: 5 mg Documented By: DANGELO Polyethylene Glycol (Polyethylene Glycol 3350 17 Gm Powd.Pack) 17 gm PO DAILY [facility] Last Admin: 05/12/24 08:57 Dose: 17 gm Documented By: DANGELO Senna (Sennosides 8.6 Mg Tablet) 17.2 mg PO DAILY PRN PRN Reason: Constipation Sodium Chloride (0.9 % Sodium Chloride Flush 3 Ml Syringe) 3 ml IVFLUSH QSTXFT [facility] Last Admin: 05/12/24 08:58 Dose: Not Given Documented By: DANGELO Non-Admin Reason: Patient Refused Sodium Chloride (0.9 % Sodium Chloride Flush 3 Ml Syringe) [facility] Admin: 05/12/24 08:58 Dose: Not Given Documented By: DANGELO Non-Admin Reason: Patient Refused Labs 05/12/24 13:13 05/10/24 10:19 Labs: Laboratory Results - last 24 hr 05/12/24 05/12/24 13:12 13:13 MCV 94.9 MCH 31.8 MCHC 33.5 RDW 13.4 Plt Count 271 MPV 8.7 L Absolute Nucleated RBC 0.000 Nucleated RBC % (auto) 0.0 Blood Type O Positive Assessment and Plan (1) Atrial fibrillation: Status: Acute (2) Anticoagulant long-term use: Status: Acute (3) Right femoral fracture: Status: Acute Plan 79/F with parkinson's, permanent afib, htn here with right hip fracture Sick sinus syndrome (SSS) with marked sinus pauses up to 9, metoprolol stopped. Cardiology saw the patient and discussed pace maker with patient and daughter but they have opted for no pace maker and rather will pursuit hospice care at home Comminuted fracture of the right femur, -surgical repair on 05/08 -pain management with oxy -continue eliquis for dvt prevention -pt/ot -high risk for post op delirium HTN--hold BP meds, especially metoprolol which exacerbates bradycardia permanent AFib.She was on rate control with metoprolol but was having a lot of sinus pauses up to 9 seconds, was seen by cardiology and offered pace maker but patient and family decline, metorplol therefore stopped -eliquis for stroke prevention Hypotension--no sepsis, related to meds post op, resolved. Delirium, related to surgery, and being in the hospital -redirect, avoid med that will make it worse, cautious with Psychotropic with parkinson Parkinson's disease. S/p deep brain stimulator implantation. Cotinue carbidopa levodopa 25/100 mg 1.5 tabs every 2 hours per home schedule DVT prophylaxis: SCDs. Code status: DNR/DNI. Noninvasive ventilation is okay. dispo: Disposition for hospice is being explored by CM and family Quality Stroke Does the patient have a stroke diagnosis?: No VTE Prior VTE?: No VTE Risk Level:: Medical - moderate - high VTE Device Contraindication: N/A - Device Ordered VTE Drug Contraindication: Treatment Not Indicated
[2024-05-12] MEDS: 0.9 % Sodium Chloride Flush 3 ML SYRINGE IVFLUSH (14:53)
--- NOTE | 2024-05-12 15:31 | MHC.CM.PN ---
Family is not ready for hospice. Spoke with [facility] liason. She stated that she has been following for hospice admission since April. The family is not ready for hospice. The family is asking to return to [place] with Home care. T/W spoke with Rima Akins hr administrator at [facility]. Rima instructed to send a clinical update and PT note to Rachel Call for Liason, Linda Batres to review for level of care. Per Liason the patient requires STR prior to return to [facility]. The family has been notified by T/W. Rima Akins was called by pts dtr Rima. She was informed again of the decision from Rima Akins. [facility] Call for STR via BLS pending insurance authorization. CM will follow.
[2024-05-12] MEDS: lisinopriL 5 MG TABLET PO (20:46)
[2024-05-12] MEDS: clonazePAM 0.5 MG TABLET PO (20:46)
[2024-05-12] MEDS: Melatonin 3 MG TABLET 9 MG PO (20:46)
[2024-05-13] MEDS: Carbidopa/Levodopa 25/100 TABLET 2 TAB PO ×3 (04:59→14:48)
[2024-05-13] MEDS: 0.9 % Sodium Chloride Flush 3 ML SYRINGE IVFLUSH (05:03)
[2024-05-13 06:17] LABS: Hematocrit 27.2 % (37.0-47.0); Hemoglobin 9.1 g/dl (12.0-16.0); Mean Corpuscular HGB Conc 33.5 g/dl (31.0-35.0); Mean Corpuscular Hemoglobin 31.8 pg (27.0-33.0); Mean Corpuscular Volume 95.1 fL (80.0-98.0); Mean Platelet Volume 8.8 fL (9.4-12.3); Platelet Count 297 X10*3/uL (160-400); Red Blood Count 2.86 X10*6/uL (4.20-5.50); Red Cell Distribution Width 13.3 % (11.0-16.0); White Blood Count 4.4 X10*3/uL (4.8-10.8)
[2024-05-13] MEDS: LORazepam 2 MG/ML VIAL 0.5 MG IVPUSH (06:32)
--- NOTE | 2024-05-13 06:35 | MHC.PIE ---
p; pt pulled out iv, id band, blood band and was trying to pull out gamble. pt found covered in urine and blood. when cleaning pt, pt combative scratching, grabbing, hitting and pulling off staff glove and hitting staff in face with it. after cleaning, pt calm and cooperative. ? new iv incertion? might agitate pt who is calm? i; dr hester notified. ok to keep iv out p; pt now screaming, accusing staff not in room of hitting her and touching, pt throwing everything pt has on bed side table at staff and trying to hit staff with call borges. screaming profanity. i; 3 staff to hold pt down for iv insertion. prn ativan iv given. e; iv wrapped, camera room notified of new iv, will cont to monitor
[2024-05-13 08:00] VITALS: BP 170/95; PULSE 84; RESP 12; TEMP 36.1; O2SAT 98
[2024-05-13] MEDS: Cyanocobalamin (Vitamin B-12) 1,000 MCG TABLET 1000 MCG PO (08:37)
[2024-05-13] MEDS: Carbidopa/Levodopa 25/100 TABLET 1.5 TAB PO ×4 (08:37→16:23)
[2024-05-13] MEDS: polyethylene glycoL 3350 17 GM POWD.PACK PO (08:37)
[2024-05-13] MEDS: Apixaban 5 MG TABLET PO (08:37)
[2024-05-13] MEDS: RIVASTIGMINE 9.5 MG/24 HR 1 EACH TOPICAL (08:37)
--- NOTE | 2024-05-13 09:46 | PC.NURSE ---
Addendum entered by Jim Moise RN 05/13/24 16:23: daughters updated upon d/c and given copy of d/c paperwork. ok'd early admin of prn oxy. script and report given to EMS. report given to facility. Original Note: informed of pt's BP
[2024-05-13 11:34] VITALS: BP 100/67; PULSE 87; RESP 12; TEMP 36.8; O2SAT 96
[2024-05-13] MEDS: oxyCODONE HCl Immed Release 5 MG TABLET PO ×2 (12:50→16:22)
--- NOTE | 2024-05-13 13:32 | MHC.CM.PN ---
DP: [facility] HAS OBTAINED INSURANCE AUTH FOR STR. BLS TRANSPORT BOOKED FOR 3:30 PM VIA [facility]. MD/RN NOTIFIED. PT/DAUGHTERS (AT BEDSIDE) ARE AWARE OF DC PLAN AND AGREEABLE . FINAL IMM DELIVERED.
--- NOTE | 2024-05-13 14:47 | HO.PM.IMPN ---
Subjective Subjective Date of Service: 05/13/24 Interval History: f/u on hip fracture Review of Systems has intermittently confusion no new c/o ate breakfast Physical Exam Vital Signs: Vital Signs: Last Vital Signs Temp 98.2 F 05/13/24 11:34 Pulse 87 05/13/24 11:34 Resp 12 05/13/24 11:34 BP 100/67 05/13/24 11:34 Pulse Ox 96 05/13/24 11:34 O2 Del Method Room Air 05/13/24 11:34 O2 Flow Rate 2 05/10/24 09:45 BMI result Body Mass Index 19.6 general:seems plesantly confused . res: air netry b/l fine , no rales or wheezing cvs: Compartments soft, nd ,nontender. Objective Data Active Medications Acetaminophen (Acetaminophen 325 Mg Tablet) 975 mg PO Q6H [facility] Last Admin: 05/13/24 09:28 Dose: Not Given Documented By: LORI Non-Admin Reason: Patient Asleep Apixaban (Apixaban 5 Mg Tablet) 5 mg PO BID [facility] Last Admin: 05/13/24 08:37 Dose: 5 mg Documented By: LORI Carbidopa/Levodopa (Carbidopa/Levodopa 25/100 Tablet) 1.5 tab PO DAILY@1715 [facility] Last Admin: 05/12/24 17:41 Dose: 1.5 tab Documented By: DANGELO Carbidopa/Levodopa (Carbidopa/Levodopa 25/100 Tablet) 1.5 tab PO TID@0730,1230,1615 [facility] Last Admin: 05/13/24 11:57 Dose: 1.5 tab Documented By: LORI Carbidopa/Levodopa (Carbidopa/Levodopa 25/100 Tablet) 2 tab PO TID@0500,1000,1445 [facility] Last Admin: 05/13/24 09:50 Dose: 2 tab Documented By: LORI Cyanocobalamin (Cyanocobalamin (Vitamin B-12) 1,000 Mcg Tablet) 1,000 mcg PO DAILY [facility] Last Admin: 05/13/24 08:37 Dose: 1,000 mcg Documented By: LORI Acetaminophen (Ofirmev) 1,000 mg in 100 mls @ 16.7 mls/hr IV .Q6H PRN PRN Reason: Pain, Mild (Pain Scale 1-3) Last Infusion: 05/11/24 16:41 Dose: Infused Documented By: DREA Lisinopril (Lisinopril 5 Mg Tablet) 5 mg PO BEDTIME [facility]; Protocol Last Admin: 05/12/24 20:46 Dose: 5 mg Documented By: FLO Lorazepam (Lorazepam 2 Mg/Ml Vial) 1 mg IVPUSH ONCE PRN PRN Reason: anxiety/restlessness Last Admin: 05/11/24 15:16 Dose: 1 mg Documented By: KATHERINE Lorazepam (Lorazepam 2 Mg/Ml Vial) 0.5 mg IVPUSH Q4H PRN PRN Reason: Anxiety Last Admin: 05/13/24 06:32 Dose: 0.5 mg Documented By: FLO Melatonin (Melatonin 3 Mg Tablet) 9 mg PO BEDTIME [facility] Last Admin: 05/12/24 20:46 Dose: 3 mg Documented By: FLO Comments: pt refusing the rest Naloxone HCl (Naloxone Hcl 0.4 Mg/Ml Vial) 0.04 mg IVPUSH Q5M PRN PRN Reason: Excessive sedation or RR < 8 Patient Own Medication ( Rivastigmine 9.5 Mg/24 Hr Transdermal Patch) 1 each TOPICAL DAILY [facility] Last Admin: 05/13/24 08:37 Dose: 1 each Documented By: LORI Pt Owned Med ( Opicapone [Ongentys] 50 Mg Capsule) 50 mg PO BEDTIME [facility] Last Admin: 05/12/24 20:59 Dose: Not Given Documented By: FLO Non-Admin Reason: Patient Refused Oxycodone HCl (Oxycodone Hcl Immed Release 5 Mg Tablet) 5 mg PO Q4H PRN PRN Reason: Pain, Moderate(Pain Scale 4-6) Last Admin: 05/13/24 12:50 Dose: 5 mg Documented By: DANGELO Polyethylene Glycol (Polyethylene Glycol 3350 17 Gm Powd.Pack) 17 gm PO DAILY [facility] Last Admin: 05/13/24 08:37 Dose: 17 gm Documented By: LORI Senna (Sennosides 8.6 Mg Tablet) 17.2 mg PO DAILY PRN PRN Reason: Constipation Sodium Chloride (0.9 % Sodium Chloride Flush 3 Ml Syringe) 3 ml IVFLUSH QSHIFT [facility] Last Admin: 05/13/24 07:14 Dose: Not Given Documented By: LORI Non-Admin Reason: Previously Administered Sodium Chloride (0.9 % Sodium Chloride Flush 3 Ml Syringe) 3 ml IVFLUSH QSHIFT [facility] Last Admin: 05/13/24 07:14 Dose: Not Given Documented By: LORI Non-Admin Reason: Previously Administered Labs 05/13/24 05:32 05/10/24 10:19 Labs: Laboratory Results - last 24 hr 05/13/24 05:32 MCV 95.1 MCH 31.8 MCHC 33.5 RDW 13.3 Plt Count 297 MPV 8.8 L Absolute Nucleated RBC 0.000 Nucleated RBC % (auto) 0.0 Quality Stroke Does the patient have a stroke diagnosis?: No VTE Prior VTE?: No VTE Risk Level:: Medical - moderate - high VTE Device Contraindication: N/A - Device Ordered VTE Drug Contraindication: Treatment Not Indicated
[2024-05-13] MEDS: Acetaminophen 325 MG TABLET 975 MG PO (14:48)
--- NOTE | 2024-05-13 15:42 | P.DS_ITS ---
DS: Providers Provider Date of Service: 05/13/24 Date of admission: 05/07/24 05:15 Date of discharge: 05/13/24 Primary care physician: Siva Plaza PA-C Consults: 05/07/24 05:24 Consult to Orthopedics Routine Consulting Provider: [facility] [place] Reason for consultation: Right hip fracture Has provider been notified: No 05/10/24 09:40 Consult to Cardiology Routine Consulting Provider: [facility] [place] [facility] Reason for consultation: Afib rve, sinus pause Has provider been notified: Yes Attending physician on discharge: Farooq Reno Discharging clinician: Farooq Reno DS: Diagnosis Discharge Diagnosis (1) Atrial fibrillation: Status: Acute (2) Anticoagulant long-term use: Status: Acute (3) Right femoral fracture: Status: Acute DS: Summary Hospital Course Hospital Course: HPI;79 years old woman with past medical history significant for left hip fracture X2 + repair surgery, Parkinson's disease s/p deep brain stimulator implantation, essential hypertension and AFib on Eliquis was brought to the emergency department via EMS from her assisted living facility after she fell. Her fall was unwitnessed. Patient is a poor historian and could not offer many details about the mechanism of her fall. She is currently complaining of right hip pain. She denied any chest pain or shortness on breath. In the ED, she was found to have stable signs. Last blood pressure is 192/109. Blood workup including CBC and CMP are basically unremarkable. Head and C-spine CT scan showed no acute intracranial process, fractures or subluxations. Pelvic x-ray showed comminuted intertrochanteric fracture of the right femur. CXR showed findings possibly suggestive of small airway disease with mild pulmonary edema, without consolidation or pleural effusions. ECG showed normal sinus rhyt hm with PACs without ischemic changes and normal QT interval. ED tx: Dilaudid 0.25 mg IV X3. Hospital course: Patient was initially admitted for right femur fracture- Comminuted fracture of right femur: Status post surgical repair, continue Tylenol, oxycodone p.r.n. as needed for pain control. Hypotension-thought to be postop medication related, improved.hold bp meds . Patient had history of permanent AFib, also had sinus pauses-metoprolol was stopped, pacemaker was offered but family declined. Avoid rate control medications. Parkinson disease: Has history of status post deep brain stimulator implantation, Continue home medications, also has intermittent delirium episode-monitor closely, redirect, cautious with psychotropic medication considering Parkinson. Family says that her delirium improves in outpatient setting. Plan: Continue Tylenol, oxycodone for pain control. Bowel regimen. Assessment and plan coordination time spent 40 minute. Above management discussed with the family at bedside in detail length. Time Attestation Total time managing care of this patient today: 40 mintues. Discharge Coordination Time (in mins): 40 min Quality: Safe Use of Opioids Does Pt have an Active Cancer Diagnosis on the Problem List?: No Quality: Stroke Does the patient have a stroke diagnosis?: No Physical Exam Vital Signs: Vital Signs: Last Vital Signs Temp 98.2 F 05/13/24 11:34 Pulse 87 05/13/24 11:34 Resp 12 05/13/24 11:34 BP 100/67 05/13/24 11:34 Pulse Ox 96 05/13/24 11:34 O2 Del Method Room Air 05/13/24 11:34 O2 Flow Rate 2 05/10/24 09:45 BMI result Body Mass Index 19.6 awake , pleasantly confused . cvs: rrr, [id number]. res: clear to auscultation ,no rhonchii or wheezing abd: no rebound or guarding ,nt, bs present. ext :Dressing on right hip clean, dry, intact No evidence of surrounding erythema, ecchymosis No evidence of infection DS: Data Data Completed and Pending Labs on day of discharge: Laboratory Results - last 24 hr 05/13/24 05:32 WBC 4.4 L RBC 2.86 L Hgb 9.1 L Hct 27.2 L MCV 95.1 MCH 31.8 MCHC 33.5 RDW 13.3 Plt Count 297 MPV 8.8 L Absolute Nucleated RBC 0.000 Nucleated RBC % (auto) 0.0 Imaging Chest x-ray: Radiologist's impression: ITS Impressions Cervical Spine CT 05/06/24 21:35 IMPRESSION: CT HEAD: 1. No acute intracranial process seen. 2. Mild cerebral volume loss and mild chronic small vessel ischemic changes. 3. Bilateral deep brain stimulator devices. CT CERVICAL SPINE: 1. Mild to moderate cervical spondylosis most pronounced at C6-7. 2. No acute fractures or subluxations. Electronically signed by: Carlos Lemus MD 05/06/2024 11:26 PM EST RP Head CT 05/06/24 21:35 IMPRESSION: CT HEAD: 1. No acute intracranial process seen. 2. Mild cerebral volume loss and mild chronic small vessel ischemic changes. 3. Bilateral deep brain stimulator devices. CT CERVICAL SPINE: 1. Mild to moderate cervical spondylosis most pronounced at C6-7. 2. No acute fractures or subluxations. Electronically signed by: Carlos Lemus MD 05/06/2024 11:26 PM EST RP Pelvis CT 05/06/24 21:35 IMPRESSION: Comminuted intertrochanteric fracture right femur. Electronically signed by: Justin Lawrence MD 05/06/2024 10:57 PM EST RP Chest X-Ray 05/06/24 23:21 IMPRESSION: Findings could indicate small airways disease with mild pulmonary edema, correlate clinically. No consolidation or pleural effusion. Electronically signed by: Kelli Queen MD 05/06/2024 11:51 PM EST RP Hip/Pelvis X-Ray 05/07/24 09:40 IMPRESSION: Acute comminuted displaced intertrochanteric fracture, right femur. Electronically signed by: Guillaume Noyola MD 05/07/2024 10:17 AM EST RP Discharge Plan Discharge Anticipated Discharge Date/Time: 05/13/24 15:27 Patient Disposition: [facility] Discharge Diagnosis: Tachy-kvng syndrome, hip fracture Referrals: Rachel Bergeron [Outside] - 1 Week (TRANSFER FOR SHORT TERM REHAB) Siva Plaza PA-C [Primary Care Provider] - 1 Week Discharge Medications: New melatonin 3 mg Tablet 9 mg PO BEDTIME Qty: 30 0RF oxycodone 5 mg Tablet 5 mg PO Q4H PRN (Reason: Pain, Moderate(Pain Scale 4-6)) Qty: 10 0RF Rx Instructions: Partial Fill upon patient request. docusate sodium [Colace] 100 mg capsule 100 mg PO BID PRN (Reason: constipation) Qty: 20 0RF acetaminophen 325 mg Tablet 975 mg PO Q6H PRN (Reason: pain) Qty: 1 0RF Continued clonazepam [Klonopin] 0.5 mg tablet 0.5 mg PO BEDTIME rivastigmine 9.5 mg/24 hour patch 24 hour 1 patch topical DAILY Eliquis 5 mg tablet 5 mg PO BID Ongentys 50 mg capsule 50 mg PO DAILY@1730 carbidopa-levodopa 25-100 mg tablet 2 tab PO TID@0500,1000,1445 carbidopa-levodopa 25-100 mg tablet 1.5 tab PO TID@0730,1230,1615 carbidopa-levodopa 25-100 mg tablet 1.5 tab PO DAILY@1715 cyanocobalamin (vitamin B-12) [Vitamin B-12] 1,000 mcg Tablet 1,000 mcg PO DAILY polyethylene glycol 3350 [Miralax] 17 gram/dose Powder 17 g PO DAILY sennosides 25 mg Tablet 25 mg PO DAILY PRN (Reason: Constipation) Discontinued lisinopril 5 mg tablet 5 mg PO DAILY metoprolol succinate 25 mg tablet extended release 24 hr 25 mg PO DAILY Discharge Orders: Discharge Order (Routine); Ordered 05/13/24 Ordered By: Farooq Reno Diet: Advance to usual diet Activity on Discharge: As tolerated Stand Alone Forms: Patient Portal Discharge page Print Language: Samoan Care Plan Goals: Patient had history of permanent AFib, also had sinus pauses-metoprolol was stopped, pacemaker was offered but family declined. Comminuted fracture of right femur: Status post surgical repair, continue Tylenol, oxycodone p.r.n. as needed for pain control. Parkinson disease: Continue home medications, also has intermittent delirium e pisode-monitor closely, redirect, cautious with psychotropic medication considering Parkinson. Family says that her delirium improves in outpatient setting. Hypotension-thought to be postop medication related, improved. Health Concerns: As above. Plan of Treatment: Physical therapy for IMN: WBAT, posterior precautions, gait training, range of motion, strength Limit stair climbing No showering, no tub bath-keep dressing clean dry and intact No driving for 6 weeks Continue home Eliquis for anticuagulation Follow-up with [facility] in 2 weeks Assessment: as above.
[2024-05-13 16:04] VITALS: BP 108/73; RESP 12; TEMP 36.3; O2SAT 100
== END 2024-05-13 16:35 | disposition skilled nursing facility (03) | DRG 481 ==
LOC: HO.ED 05-07 00:22 → HO.EDOVER 05-07 05:20 → HO.S3 05-07 14:10 → HO.IMC 05-07 18:21 → HO.S3 05-11 09:29
PROVIDERS: Internal Medicine; Orthopaedic Surgery; Admitting Provider Internal Medicine; Emergency Provider Emergency Medicine Emergency Medical Services; PCP Internal Medicine Cardiovascular Disease; Visit Provider Internal Medicine
PROC: 0QS606Z Reposition Right Upper Femur with Intramedullary Internal Fixation Device, Open Approach (ICD-10-PCS; principal; 2024-05-08 13:00)
DX: S72.141A Displaced intertrochanteric fracture of right femur, initial encounter for closed fracture (principal); F05 Delirium due to known physiological condition; I48.21 Permanent atrial fibrillation; Z96.82 Presence of neurostimulator; W19.XXXA Unspecified fall, initial encounter; Z66 Do not resuscitate; R33.9 Retention of urine, unspecified; I49.5 Sick sinus syndrome; G20.A1 Parkinson's disease without dyskinesia, without mention of fluctuations; F02.80 Dementia in other diseases classified elsewhere, unspecified severity, without behavioral disturbance, psychotic disturbance, mood disturbance, and anxiety; I10 Essential (primary) hypertension; Z79.01 Long term (current) use of anticoagulants; Z79.899 Other long term (current) drug therapy
CPT/HCPCS: 36415; 70450; 71045; 72125; 72192; 73502; 80048; 83735; 85014; 85018; 85025; 85027; 86850; 86900; 86901; 93005; 97162; 97167; 97530; 97535; 99285; C1713; C1758; J0131; J0690; J1171; J2060; J2359; J2704; J2795; J3010; J7120

== ENCOUNTER 2024-05-07 05:15 | Outpatient (BNV) | payer MEDICARE, SELFPAY | END 2024-05-07 16:46 | PROVIDERS: Admitting Provider Internal Medicine; Emergency Provider Emergency Medicine Emergency Medical Services; PCP Internal Medicine Cardiovascular Disease; Visit Provider Internal Medicine Cardiovascular Disease | DX: R94.31 Abnormal electrocardiogram [ECG] [EKG] (principal) | CPT/HCPCS: 93010 ==

== ENCOUNTER 2024-05-07 05:15 | Outpatient (BNV) | payer MEDICARE, SELFPAY | END 2024-05-10 09:44 | PROVIDERS: Admitting Provider Internal Medicine; Emergency Provider Emergency Medicine Emergency Medical Services; PCP Internal Medicine Cardiovascular Disease; Visit Provider Internal Medicine Cardiovascular Disease | DX: R94.31 Abnormal electrocardiogram [ECG] [EKG] (principal) | CPT/HCPCS: 93010 ==

== ENCOUNTER 2024-05-07 05:15 | Outpatient (BNV) | payer MEDICARE, SELFPAY | END 2024-05-07 09:40 | PROVIDERS: Admitting Provider Internal Medicine; Emergency Provider Emergency Medicine Emergency Medical Services; Visit Provider Radiology Diagnostic Radiology | DX: M25.551 Pain in right hip (principal) | CPT/HCPCS: 73502 ==

== ENCOUNTER 2024-05-07 05:15 | Outpatient (BNV) | payer MEDICARE, SELFPAY | END 2024-05-08 07:54 | PROVIDERS: Admitting Provider Internal Medicine; Emergency Provider Emergency Medicine Emergency Medical Services; PCP Internal Medicine Cardiovascular Disease; Visit Provider Internal Medicine Cardiovascular Disease | DX: R94.31 Abnormal electrocardiogram [ECG] [EKG] (principal) | CPT/HCPCS: 93010 ==

== ENCOUNTER → 2024-05-07 05:15 | Outpatient (BNV) | payer MEDICARE, SELFPAY | PROVIDERS: Admitting Provider Internal Medicine; Emergency Provider Emergency Medicine Emergency Medical Services; Visit Provider Internal Medicine | DX: I48.91 Unspecified atrial fibrillation (principal); Z79.01 Long term (current) use of anticoagulants; S72.91XA Unspecified fracture of right femur, initial encounter for closed fracture | CPT/HCPCS: 99223; 99232; 99233; 99239; 99499 ==

== ENCOUNTER → 2024-05-07 05:15 | Outpatient (BNV) | payer MEDICARE, SELFPAY | PROVIDERS: Admitting Provider Internal Medicine; Emergency Provider Emergency Medicine Emergency Medical Services; PCP Internal Medicine Cardiovascular Disease; Visit Provider Internal Medicine Cardiovascular Disease | DX: I49.5 Sick sinus syndrome (principal) | CPT/HCPCS: 99222; 99499 ==

== ENCOUNTER → 2024-05-07 05:15 | Outpatient (BNV) | payer MEDICARE, SELFPAY | PROVIDERS: Admitting Provider Internal Medicine; Emergency Provider Emergency Medicine Emergency Medical Services; Visit Provider Physician Assistant | DX: S72.141A Displaced intertrochanteric fracture of right femur, initial encounter for closed fracture (principal) | CPT/HCPCS: 27245; 99024; 99222 ==

== ENCOUNTER 2024-05-28 10:11 | Outpatient (REF) | payer MEDICARE, SELFPAY | END 2024-05-28 10:12 | disposition home or self-care (01) | LOC: HO.HOSX 10:11 | PROVIDERS: Visit Provider Orthopaedic Surgery | DX: S72.91XA Unspecified fracture of right femur, initial encounter for closed fracture (principal); M25.551 Pain in right hip | CPT/HCPCS: 73552; 99212 ==

== ENCOUNTER 2024-05-28 10:29 | Outpatient (AMB) | payer MEDICARE, SELFPAY ==
--- NOTE | 2024-05-28 10:52 | A.OFFVIS_ITS ---
Intake Visit Reasons: PO- Rt hip IMN placement, DOS 05/08/24 Intake Note: Carissa is a 79 year old female who presents for her 1st postoperative visit after undergoing open reduction and internal fixation of her right hip intertrochanteric fracture with placement of a long gamma nail on 05/08/2024. The patient reports mild discomfort in her right hip. She continues to live at [facility]. Allergies sulfamethoxazole [From Bactrim] Allergy (Intermediate, Verified 05/28/24 11:13) tingling of body trimethoprim [From Bactrim] Allergy (Intermediate, Verified 05/28/24 11:13) tingling of body Medication List - Last Reconciled 05/28/24 by Luigi Maddox MD acetaminophen 975 mg (3 x 325 mg) PO Q6H PRN apixaban (Eliquis) 5 mg PO BID carbidopa-levodopa 25-100 mg 2 tabs PO TID@0500,1000,1445 carbidopa-levodopa 25-100 mg 1.5 tabs PO TID@0730,1230,1615 carbidopa-levodopa 25-100 mg 1.5 tabs PO DAILY@1715 clonazepam (Klonopin) 0.5 mg PO BEDTIME cyanocobalamin (vitamin B-12) (Vitamin B-12) 1,000 mcg PO DAILY docusate sodium (Colace) 100 mg PO BID PRN lisinopril 5 mg PO DAILY melatonin 9 mg (3 x 3 mg) PO BEDTIME opicapone (Ongentys) 50 mg PO DAILY@1730 polyethylene glycol 3350 (Miralax) 17 grams PO DAILY rivastigmine 1 patch topical DAILY sennosides 25 mg PO DAILY PRN PFSH Medical History Parkinsons disease Atrial fibrillation Essential hypertension Surgical History History of surgery on lower extremity History of hip surgery S/P deep brain stimulator placement Social History Housing: Assisted Living Facility Do you presently have visiting nurse or other home services: No Alcohol intake: never Patient Tobacco Use Status: Never used Tobacco Advance Directives Date on File: 05/07/24 service: No Physical Exam Extrem Other: Right hip examination shows that the surgical incisions are healing well, no erythema, mild discomfort with range of motion Results Reviewed Results Reviewed: X-rays of the patient's right hip show an intertrochanteric fracture which remains in good alignment, a long gamma nail in good position with no signs of loosening Assessment & Plan Assessment & Plan (1) Right hip pain: Code(s): M25.551 - Pain in right hip Category: Medical Plan Ms. Conti continues to do well after undergoing open reduction and internal fixation of her right hip intertrochanteric fracture on 05/08/2024. Her елена were removed and Steri-Strips placed over her incisions. She can continue weight-bearing as tolerated. She will contact me prior to her follow-up appointment in 2 months should any questions or concerns arise. Feel free to call me at any time should questions regarding her orthopedic management arise. Orders: Orders XR femur RT 2V Today S72.91XA - Unspecified fracture of right femur, initial encounter for closed fracture Coding Level of Care Code Global (30901) Diagnoses Right hip pain M25.551
== END 2024-05-28 11:32 | disposition home or self-care (01) ==
PROVIDERS: PCP Internal Medicine Cardiovascular Disease; Visit Provider Orthopaedic Surgery
DX: M25.551 Pain in right hip (principal)
CPT/HCPCS: 99024

== ENCOUNTER → 2024-05-28 10:36 | Outpatient (BNV) | payer MEDICARE, SELFPAY | PROVIDERS: Visit Provider Radiology Diagnostic Radiology | DX: S72.141A Displaced intertrochanteric fracture of right femur, initial encounter for closed fracture (principal) | CPT/HCPCS: 73552 ==

== ENCOUNTER 2024-07-09 08:36 | Outpatient (REF) | payer MEDICARE, SELFPAY ==
--- NOTE | ~2024-07-09 | XR_ITS ---
EXAMINATION: XR FEMUR, RIGHT CLINICAL INFORMATION: M25.551 - Pain in right hip COMPARISON: X-ray dated May 28, 2024 TECHNIQUE: AP and lateral views of the right femur were obtained. FINDINGS: Intramedullary thelma throughout the diaphysis of the right femur and anchor fixation screw at the right femoral head neck. Cortical irregularity in the right femoral neck. There is a cortical disruption in the intertrochanteric region with a displaced lesser trochanter. Osteopenia versus osteoporosis. XR/XR femur RT 2V IMPRESSION: Nonunion fracture, intertrochanteric region right femur. Acute to subacute fracture, right femoral neck. Status post open reduction internal fixation with the large intramedullary thelma right femur. Electronically signed by: Guillaume Noyola MD 07/14/2024 10:08 AM RENATO CARDOZA
== END 2024-07-09 08:37 | disposition home or self-care (01) ==
LOC: HO.HOSX 08:36
PROVIDERS: Visit Provider Orthopaedic Surgery
DX: M25.551 Pain in right hip (principal); S72.141K Displaced intertrochanteric fracture of right femur, subsequent encounter for closed fracture with nonunion; Z98.890 Other specified postprocedural states
CPT/HCPCS: 73552; 99212

== ENCOUNTER 2024-07-09 11:46 | Outpatient (AMB) | payer MEDICARE, SELFPAY ==
--- NOTE | 2024-07-09 11:49 | MHC.OFFVIS ---
Vital Signs 07/09/24 11:50 Height 5 ft 4 in Weight 113 lb BMI 19.4 Intake Visit Reasons: PO: Right hip ORIF & IMN placement, DOS 05/08/24 Intake Note: Carissa is a 79 year old female who presents with complaints of mild intermittent discomfort along the lateral aspect of her right hip after undergoing right hip long gamma nail placement on 05/08/2024. She continues with her physical therapy exercises. She has been weight-bearing as tolerated. Allergies sulfamethoxazole [From Bactrim] Allergy (Intermediate, Verified 07/09/24 11:50) tingling of body trimethoprim [From Bactrim] Allergy (Intermediate, Verified 07/09/24 11:50) tingling of body Medication List - Last Reconciled 07/09/24 by Luigi Maddox MD acetaminophen 975 mg (3 x 325 mg) PO Q6H PRN apixaban (Eliquis) 5 mg PO BID carbidopa-levodopa 25-100 mg 2 tabs PO TID@0500,1000,1445 carbidopa-levodopa 25-100 mg 1.5 tabs PO TID@0730,1230,1615 carbidopa-levodopa 25-100 mg 1.5 tabs PO DAILY@1715 clonazepam (Klonopin) 0.5 mg PO BEDTIME cyanocobalamin (vitamin B-12) (Vitamin B-12) 1,000 mcg PO DAILY docusate sodium (Colace) 100 mg PO BID PRN lisinopril 5 mg PO DAILY melatonin 9 mg (3 x 3 mg) PO BEDTIME opicapone (Ongentys) 50 mg PO DAILY@1730 polyethylene glycol 3350 (Miralax) 17 grams PO DAILY rivastigmine 1 patch topical DAILY PFSH Medical History Parkinsons disease Atrial fibrillation Essential hypertension Surgical History History of surgery on lower extremity History of hip surgery S/P deep brain stimulator placement Social History Housing: Assisted Living Facility Do you presently have visiting nurse or other home services: No Alcohol intake: never Patient Tobacco Use Status: Never used Tobacco Advance Directives Date on File: 05/07/24 service: No Physical Exam Vital Signs: BMI result Body Mass Index 19.4 Extrem Other: Right hip examination shows minimal discomfort with range of motion Results Reviewed Results Reviewed: X-rays of the patient's right hip and femur taken today show a long gamma nail in good position with no signs of loosening, callus formation at the intertrochanteric fracture site, no increase in fracture displacement when compared to previous x-rays Assessment & Plan Assessment & Plan (1) Right hip pain: Code(s): M25.551 - Pain in right hip Category: Medical Plan Ms. Conti continues to do well after undergoing open reduction and internal fixation of her right hip fracture on 05/08/2024. She can continue activities as tolerated. She will follow up with me on an as-needed basis should her symptoms not plateau at an unacceptable level over the next few months. Feel free to call me at any time should questions regarding her orthopedic management arise. Orders: Orders XR femur RT 2V Today M25.551 - Pain in right hip Coding Level of Care Code Global (02547) Diagnoses Right hip pain M25.551
[2024-07-09 11:50] VITALS: BMI 19.4
== END 2024-07-09 12:16 | disposition home or self-care (01) ==
PROVIDERS: PCP Internal Medicine Cardiovascular Disease; Visit Provider Orthopaedic Surgery
DX: M25.551 Pain in right hip (principal)
CPT/HCPCS: 99024